=== PATIENT | male | born 1950 | race Caucasian/White ===

== ENCOUNTER 2017-08-14 17:31 | Observation (INO) | payer OTHER ==
[2017-08-14] MEDS ORDERED: ONDANSETRON 4 MG/2 ML VIAL ONE (18:00)
[2017-08-14] MEDS ORDERED: FENTANYL CITR 100 MCG/2 ML ONE (18:00)
[2017-08-14] MEDS ORDERED: NA CHLORIDE 0.9% 1,000 ML ONE (18:00)
[2017-08-14 18:04] LABS: Absolute Lymphocytes (CBC) 3.2 K/uL (0.7-4.9); Absolute Monocytes 1.1 K/uL (0.1-1.3); Absolute Neutrophil 7.5 K/uL (1.8-8.0); Basophils % 0.7 % (0-1.3); Eosinophils % 3.5 % (0-4.4); Hematocrit 43.4 % (39.6-49.0); Lymphocytes % 25.8 % (15.3-44.8); MCH 31.1 pg (27.0-35.0); MCV 95.4 fL (80-100); MPV 8.8 fL (7.6-11.3); Monocytes % 9.1 % (3.3-12.3); RBC Red Blood Cell Count 4.55 M/uL (4.33-5.43)
[2017-08-14 18:24] LABS: Albumin 3.7 g/dL (3.4-5.0); Bilirubin Direct 0.1 mg/dL (0-0.2); Bilirubin Total 0.6 mg/dL (0.2-1.0); Potassium 3.9 mmol/L (3.5-5.1); Protein, Total 7.7 g/dL (6.4-8.2)
--- NOTE | 2017-08-14 18:37 | EDPHYS ---
Physician Documentation [facility] Name: Humberto Medina Age: 67 yrs Sex: Male : 1950 Arrival Date: 08/14/2017 Time: 17:33 Bed 6 Private MD: Dustin Pack C ED Physician Roberto Garcia HPI: 08/14 18:34 This 67 yrs old Male presents to ER via Wheelchair with complaints of gs Abdominal Pain. 18:34 The patient presents with abdominal pain in the upper abdomen. Onset: The gs symptoms/episode began/occurred 1 week(s) ago, and became worse and became persistent. Associated signs and symptoms: Pertinent negatives: vomiting blood. The symptoms are described as intermittent, sharp. Modifying factors: the symptoms are aggravated by food. Severity of pain: At its worst the pain was severe in the emergency department the pain is unchanged. The patient has been recently seen by a physician:. Historical: - Allergies: 17:40 No Known Allergies; sv - Home Meds: 17:40 losartan oral oral [Active]; Norvasc Oral [Active]; hydrocodone [Active]; sv - PMHx: 17:40 Hypertension; sv - PSHx: 17:40 Gastric Bypass; left foot; left hand; sv - Immunization history:: Adult Immunizations up to date. - Social history:: Smoking status: Patient/guardian denies using tobacco. - Ebola Screening: : No symptoms or risks identified at this time. ROS: 18:34 All other systems are negative. gs Exam: 18:34 Head/Face: Normocephalic, atraumatic. Eyes: Pupils equal round and reactive to light, gs extra-ocular motions intact. Lids and lashes normal. Conjunctiva and sclera are non-icteric and not injected. Cornea within normal limits. Periorbital areas with no swelling, redness, or edema. ENT: Nares patent. No nasal discharge, no septal abnormalities noted. Tympanic membranes are normal and external auditory canals are clear. Oropharynx with no redness, swelling, or masses, exudates, or evidence of obstruction, uvula midline. Mucous membranes moist. Neck: Trachea midline, no thyromegaly or masses palpated, and no cervical lymphadenopathy. Supple, full range of motion without nuchal rigidity, or vertebral point tenderness. No Meningismus. Chest/axilla: Normal chest wall appearance and motion. Nontender with no deformity. No lesions are appreciated. Cardiovascular: Regular rate and rhythm with a normal S1 and S2. No gallops, murmurs, or rubs. Normal PMI, no JVD. No pulse deficits. Respiratory: Lungs have equal breath sounds bilaterally, clear to auscultation and percussion. No rales, rhonchi or wheezes noted. No increased work of breathing, no retractions or nasal flaring. Back: No spinal tenderness. No costovertebral tenderness. Full range of motion. Skin: Warm, dry with normal turgor. Normal color with no rashes, no lesions, and no evidence of cellulitis. MS/ Extremity: Pulses equal, no cyanosis. Neurovascular intact. Full, normal range of motion. Neuro: Awake and alert, GCS 15, oriented to person, place, time, and situation. Cranial nerves II-XII grossly intact. Motor strength 5/5 in all extremities. Sensory grossly intact. Cerebellar exam normal. Normal gait. 18:34 Constitutional: The patient appears alert, awake. 18:34 Abdomen/GI: Palpation: moderate abdominal tenderness, in the epigastric area and right upper quadrant. Vital Signs: 17:35 Pulse 57; Resp 22; Temp 98.4; Pulse Ox 100% ; Weight 110.22 kg; Height 5 ft. 9 in. sv (175.26 cm); Pain 6/10; 19:15 BP 121 / 81; Pulse 72; Resp 16; Temp 98.6(O); Pulse Ox 99% on R/A; Pain 0/10; lp1 17:35 Body Mass Index 35.88 (110.22 kg, 175.26 cm) sv MDM: 17:47 Patient medically screened. gs 18:34 Differential diagnosis: cholecystitis, Cholelithiasis, pancreatitis, cholangitis. Data reviewed: vital signs, nurses notes. Response to treatment: the patient's symptoms have markedly improved after treatment, and as a result, I will admit patient. 08/14 17:50 Order name: Basic Metabolic Panel; Complete Time: 18:33 08/14 17:50 Order name: CBC with Diff; Complete Time: 18:33 08/14 17:50 Order name: Hepatic Function; Complete Time: 18:33 08/14 17:50 Order name: Lipase; Complete Time: 18:33 08/14 18:47 Order name: Basic Metabolic Panel EDND 08/14 18:47 Order name: Basic Metabolic Panel EDND 08/14 17:54 Order name: Cholangiogram EDND 08/14 18:47 Order name: CBC with Automated Diff EDND 08/14 18:47 Order name: CBC with Automated Diff EDND 08/14 18:47 Order name: Lipase EDND 08/14 18:47 Order name: Lipase EDND 08/14 18:47 Order name: Liver (Hepatic) Function EDND 08/14 18:47 Order name: Liver (Hepatic) Function [facility] 08/14 17:50 Order name: IV Saline Lock; Complete Time: 18:12 08/14 17:50 Order name: Labs collected and sent; Complete Time: 18:12 08/14 18:47 Order name: CONS Physician Consult [facility] 08/14 18:47 Order name: NPO EDND Administered Medications: 18:00 Drug: Zofran 4 mg Route: IVP; Site: left antecubital; aj 18:59 Follow up: Response: No adverse reaction; Nausea is decreased sg 18:01 Drug: NS 0.9% 1000 ml Route: IV; Rate: 125 ml/hr; Site: left antecubital; aj 19:58 Follow up: IV Status: IV converted to saline lock lp1 18:01 Drug: fentaNYL (PF) 50 mcg Route: IVP; Site: left antecubital; aj 18:59 Follow up: Response: No adverse reaction; Pain is decreased sg 18:58 Drug: cefOXitin 1 grams Route: IVPB; Infused Over: 30 mins; Site: right antecubital; sg 19:58 Follow up: Response: No adverse reaction; IV Status: Completed infusion lp1 Disposition: 08/14/17 18:37 Hospitalization ordered by Dustin Pack for Inpatient Admission. Preliminary diagnosis is Acute cholecystitis. - Bed requested for Telemetry/MedSurg (Inpatient). - Status is Inpatient Admission. lp1 - Condition is Stable. - Problem is new. - Symptoms have improved. UTI on Admission? No Signatures: Dispatcher [employer] EDMS Mayte Castro RN RN Maricarmen French RN RN mw Gay, Steven, RN RN sg Myers, Amanda, RN RN aj Pena, Laura, RN RN [facility] Roberto Garcia MD MD Corrections: (The following items were deleted from the chart) 19:40 18:37 Hospitalization Ordered by A Ramone MORALEZ for Inpatient Admission. Preliminary mw diagnosis is Acute cholecystitis. Bed requested for Telemetry/MedSurg (Inpatient). Status is Inpatient Admission. Condition is Stable. Problem is new. Symptoms have improved. UTI on Admission? No. gs 20:42 19:40 08/14/2017 18:37 Hospitalization Ordered by A Ramone MORALEZ for Inpatient Admission. lp1 Preliminary diagnosis is Acute cholecystitis. Bed requested for Telemetry/MedSurg (Inpatient). Status is Inpatient Admission. Condition is Stable. Problem is new. Symptoms have improved. UTI on Admission? No. mw
--- NOTE | 2017-08-14 18:37 | ER ---
Nurse's Notes [facility] Name: Humberto Medina Age: 67 yrs Sex: Male : 1950 Arrival Date: 08/14/2017 Time: 17:33 Bed 6 Private MD: Dustin Pack C Diagnosis: Acute cholecystitis Presentation: 08/14 17:35 Presenting complaint: Patient states: sent by Dr Pan to r/o gallbladder. c/o RUQ sv pain x 2 weeks but pain has increased today. Denies n/v/d. Transition of care: patient was not received from another setting of care. Onset of symptoms was August 14, 2017. Care prior to arrival: None. 17:35 Method Of Arrival: Wheelchair sv 17:35 Acuity: FORD 3 sv 19:56 Risk Assessment: Do you want to hurt yourself or someone else? Patient reports no lp1 desire to harm self or others. Initial Sepsis Screen: Does the patient meet any 2 criteria? No. Patient's initial sepsis screen is negative. Does the patient have a suspected source of infection? No. Patient's initial sepsis screen is negative. Historical: - Allergies: 17:40 No Known Allergies; sv - Home Meds: 17:40 losartan oral oral [Active]; Norvasc Oral [Active]; hydrocodone [Active]; sv - PMHx: 17:40 Hypertension; sv - PSHx: 17:40 Gastric Bypass; left foot; left hand; sv - Immunization history:: Adult Immunizations up to date. - Social history:: Smoking status: Patient/guardian denies using tobacco. - Ebola Screening: : No symptoms or risks identified at this time. Screenin:56 Abuse screen: Denies threats or abuse. Denies injuries from another. Nutritional lp1 screening: No deficits noted. Tuberculosis screening: No symptoms or risk factors identified. Fall Risk None identified. Assessment: 18:01 General: Appears in no apparent distress. uncomfortable, Behavior is calm, cooperative, aj appropriate for age. Pain: Complains of pain in right upper quadrant and left upper quadrant. Neuro: Level of Consciousness is awake, alert, obeys commands, Oriented to person, place, time, situation, Appropriate for age. Respiratory: Airway is patent Respiratory effort is even, unlabored, Respiratory pattern is regular, symmetrical. GI: Abdomen is non-distended, obese, Bowel sounds present X 4 quads. Abdomen is tender to palpation in epigastric area and right upper quadrant. Derm: Skin is intact, is healthy with good turgor, Skin is pink, warm \T\ dry. normal. 19:15 Reassessment: Patient appears in no apparent distress at this time. Patient and/or lp1 family updated on plan of care and expected duration. Pain level reassessed. Patient is alert, oriented x 3, equal unlabored respirations, skin warm/dry/pink. Patient aware of pending admission Patient denies pain at this time. 19:55 Reassessment: Patient requesting to have something to eat; Dr. Pack notified, verbal lp1 order given for NPO at Midnight. 20:07 Reassessment: Patient taken for MRI. lp1 Vital Signs: 17:35 Pulse 57; Resp 22; Temp 98.4; Pulse Ox 100% ; Weight 110.22 kg; Height 5 ft. 9 in. sv (175.26 cm); Pain 6/10; 19:15 BP 121 / 81; Pulse 72; Resp 16; Temp 98.6(O); Pulse Ox 99% on R/A; Pain 0/10; lp1 17:35 Body Mass Index 35.88 (110.22 kg, 175.26 cm) sv ED Course: 17:33 Patient arrived in ED. rg4 17:33 Dustin Pack MD is Private Physician. rg4 17:36 Adilene Fish, VANESSA is Primary Nurse. aj 17:38 Roberto Garcia MD is Attending Physician. gs 17:39 Triage completed. sv 17:41 Arm band placed on left wrist. sv 18:00 Inserted saline lock: 20 gauge in left antecubital area, using aseptic technique. Blood aj collected. 18:36 Dustin Pack MD is Hospitalizing Provider. gs 19:56 Patient has correct armband on for positive identification. Placed in gown. Pulse ox lp1 on. NIBP on. 19:57 No provider procedures requiring assistance completed. Patient admitted, IV remains in lp1 place. 20:00 Patient moved to MRI via wheelchair. ka 20:41 MRI completed. Patient tolerated well. Patient moved back from MRI. ka Administered Medications: 18:00 Drug: Zofran 4 mg Route: IVP; Site: left antecubital; aj 18:59 Follow up: Response: No adverse reaction; Nausea is decreased sg 18:01 Drug: NS 0.9% 1000 ml Route: IV; Rate: 125 ml/hr; Site: left antecubital; aj 19:58 Follow up: IV Status: IV converted to saline lock lp1 18:01 Drug: fentaNYL (PF) 50 mcg Route: IVP; Site: left antecubital; aj 18:59 Follow up: Response: No adverse reaction; Pain is decreased sg 18:58 Drug: cefOXitin 1 grams Route: IVPB; Infused Over: 30 mins; Site: right antecubital; sg 19:58 Follow up: Response: No adverse reaction; IV Status: Completed infusion lp1 Outcome: 18:37 Decision to Hospitalize by Provider. 19:57 Condition: stable lp1 19:57 Instructed on the need for admit. 20:06 Admitted to Med/surg via wheelchair, room 208, with chart, Report called to Sandra Casas RN 20:42 Patient left the ED. 1 Signatures: Mayte Castro RN RN sv Gay, Steven, RN RN sg Myers, Amanda, RN RN aj Pena, Laura, RN RN lp1 Peggy Hurley Rubi rg4 Roberto Garcia MD MD
[2017-08-14] MEDS ORDERED: MORPHINE 4 MG/ML SYR IV PRN (18:45)
[2017-08-14] MEDS ORDERED: ACETAMINOPHEN 500 MG TAB PO PRN (18:45)
[2017-08-14] MEDS ORDERED: ONDANSETRON 4 MG/2 ML VIAL IV PRN (18:45)
[2017-08-14] MEDS ORDERED: CEFOXITIN/SWI 1gm 1 GM/10 ML SYR ONE (18:52)
[2017-08-14] MEDS ORDERED: CEFOXITIN/SWI 1gm 1 GM/10 ML SYR IVP ONE (19:00)
--- NOTE | 2017-08-14 20:53 | RAD REPORT ---
EXAM DESCRIPTION: MRI - Cholangiogram - 08/14/2017 8:33 pm CLINICAL HISTORY: Acute cholecystitis, known cholelithiasis. Worsening right upper quadrant pain COMPARISON: CT study August 07 TECHNIQUE: MRCP imaging was performed. Axial and coronal T2 weighted images were obtained. Static co rony T2 haste fat saturation sequences were obtained. Coronal T2 weighted reconstruction images were obtained. Horizontal and vertical axes 3D rotational views generated and reviewed. FINDINGS: Several gallstones are identified in the dependent portion of the gallbladder. Gallbladder wall does not appear thickened or edematous. Biliary tree is normal in diameter. No duct stone or other intralu katrin filling defect. No pancreatic duct abnormality identified. IMPRESSION: No biliary tree abnormality. No evidence for duct stone. Cholelithiasis without evidence for wall thickening or edema.
[2017-08-14] MEDS: D5 0.45 NS 1,000 ML IV SCH (21:59)
[2017-08-14] MEDS: LOSARTAN POTASSIUM 50 MG TABLET PO SCH (22:00)
[2017-08-14 23:20] VITALS: BMI 35.9
[2017-08-15] MEDS ORDERED: CEFOXITIN SODIUM 1 GM/VIAL IVPB SCH (01:00)
[2017-08-15] MEDS ORDERED: CEFOXITIN/SWI 1gm 1 GM/10 ML SYR ONE (01:50)
[2017-08-15] MEDS: CEFOXITIN/SWI 1gm 1 GM/10 ML SYR IVP SCH ×3 (01:52→17:16)
[2017-08-15] MEDS: D5 0.45 NS 1,000 ML IV SCH ×3 (03:25→17:16)
--- NOTE | 2017-08-15 04:16 | HP ---
Date of Admission: 08/14/2017 Chief Complaint: Abdominal pain. History Of Present Illness: A 67-year-old pleasant male patient, who started to have abdominal pain in epigastric and right upper quadrant about 2 weeks ago and he saw a acetylene plant operator, Dr. Inge zayas. Dr. Gambino did further workup on outpatient basis that included CAT scan, abdominal ultrasound, and EGD, and informed the patient that he has gallstones and symptomatic cholelithiasis, needed gall bladder surgery, so patient actually saw Dr. Pan today for his appointment and subsequently ende d up coming to the emergency room because of worsening of his abdominal pain. Denies any fever or ch ills. No diarrhea, no nausea, no vomiting. His pain has been getting worse in last 2 weeks, and he takes hydrocodone at home for the pain, but lately even hydrocodone is not helping. When I saw him i n the emergency room, he was asymptomatic because he had received some fentanyl that had provided kiley e pain relief. Allergies: NO KNOWN ALLERGIES. Medications: He takes amlodipine 5 mg daily and losartan 50 mg 2 times a day and takes hydrocodone 5 mg one q.6 hours p.r.n. pain. Review of Systems: GI: As mentioned above. All other systems reviewed and negative. Past Medical History: Hypertension, impaired fasting glucose, hyperlipidemia, prostate cancer. Past Surgical History: Gastric bypass surgery in 2006 and surgery for ankle fracture many years ago. Family History: Significant for mother with polycythemia vera and diabetes. Social History: Negative for smoking alcohol use. Physical Examination: Vital Signs: Temperature 98.4, pulse 57, respiratory rate 22, blood pressure 121/81, oxygen saturati on 100%. Height 5 feet 9 inches. Weight 243 pounds. General: Awake, alert, oriented, not in distress. HEENT: Head atraumatic, normocephalic. Conjunctivae nonerythematous. Sclerae white. Mouth, no thr ush or edema noted. Ears/Nose, no mass, lesion, discharge noted. Neck: Supple. No JVD, lymph nodes, bruit, thyromegaly noted. Lungs: Bilateral good equal air entry. Clear to auscultation. No rhonchi. No rales. Heart: Normal heart sounds, no murmur or gallop. Abdomen: Soft, bowel sounds normal. No guarding, rigidity, distention. No hepatosplenomegaly, no br uit. Presence of mild right upper quadrant tenderness. No rebound tenderness. Bowel sounds normoac tive. Extremities: No leg edema. No calf tenderness. Skin: No rash, ulcer, cellulitis. Lymphatics: No lymph node enlargement in neck, supraclavicular, infraclavicular region. Neuro: No focal neurological deficit. Chest: Unremarkable. External Genitalia: Deferred. Rectal: Deferred. Laboratory Data: White count 12.3, hemoglobin 14.2, platelets 338. Sodium 135, potassium 3.9, chlor ilan 103, bicarb 25, BUN 19, creatinine 1.20, glucose 92. Liver function tests were unremarkable. Li pase 175. MRCP done today shows no evidence of biliary tree abnormality, no evidence of duct stone, presence of cholelithiasis. Impression: 1.Gallstone with acute cholecystitis, without obstruction. 2.Hypertension. 3.Hyperlipidemia. 4.Impaired fasting glucose. 5.Prostate cancer. Plan: Admit the patient to hospital for further evaluation and management of this problem. The shaniqua ent is appropriate for inpatient and is expected to spend 2 midnights in the hospital. We will go ah ead and keep him n.p.o. after midnight. Consult Dr. Pan. The patient is at acceptable risk fro m gallbladder surgery and hopefully he should have gallbladder surgery tomorrow. Continue empiric an tibiotics per order. SCD will be ordered for DVT prophylaxis. Pain medication will be given per ord er. I will see him tomorrow for followup. Details and plan of treatment were discussed with the awilda feng. SYEDA/MODL Voice ID: [id number]
[2017-08-15 04:56] LABS: Absolute Lymphocytes (CBC) 2.5 K/uL (0.7-4.9); Absolute Monocytes 0.8 K/uL (0.1-1.3); Absolute Neutrophil 3.5 K/uL (1.8-8.0); Basophils % 1.4 % (0-1.3); Eosinophils % 7.7 % (0-4.4); Lymphocytes % 33.2 % (15.3-44.8); MCH 32.2 pg (27.0-35.0); MCV 93.8 fL (80-100); MPV 8.4 fL (7.6-11.3); Monocytes % 10.4 % (3.3-12.3); RBC Red Blood Cell Count 3.94 M/uL (4.33-5.43)
[2017-08-15 05:21] LABS: Bilirubin Direct 0.1 mg/dL (0-0.2); Bilirubin Total 0.7 mg/dL (0.2-1.0); Protein, Total 6.1 g/dL (6.4-8.2)
[2017-08-15 06:24] LABS: Urine Appearance CLEAR; Urine Bilirubin NEGATIVE (NEG); Urine Blood NEGATIVE (NEG); Urine Color YELLOW; Urine Glucose NEGATIVE (NEG); Urine Protein NEGATIVE (NEG); Urine Specific Gravity 1.015 (1.005-1.030); Urine Urobilinogen 0.2 mg/dL (0.2-1.0); Urine pH 5.5 (5.0-7.0)
[2017-08-15 06:56] LABS: Urine Microscopic Reflex NO UMIC
[2017-08-15] MEDS ORDERED: AMLODIPINE 5 MG TAB PO SCH (09:00)
[2017-08-15] MEDS: LOSARTAN POTASSIUM 50 MG TABLET PO SCH (09:00)
[2017-08-15] MEDS ORDERED: Ringers Lactate 1,000 ML IV ONE (12:06)
[2017-08-15] MEDS ORDERED: PROPOFOL 200 MG/20 ML VIAL IV ONE (12:35)
[2017-08-15] MEDS ORDERED: MIDAZOLAM HCL 2 MG/2 ML INJ ONE (12:36)
[2017-08-15] MEDS ORDERED: LIDOCAINE 2% MPF 5 ML VIAL ONE (12:36)
[2017-08-15] MEDS ORDERED: FENTANYL CITR 100 MCG/2 ML ONE (12:42)
[2017-08-15] MEDS ORDERED: ROCURONIUM 50 MG/5 ML VIAL IV ONE (12:43)
[2017-08-15] MEDS ORDERED: FENTANYL CITR 250 MCG/5 ML ONE (12:43)
[2017-08-15] MEDS ORDERED: ONDANSETRON HCL 40 MG/20 ML VIAL ONE (12:43)
[2017-08-15] MEDS ORDERED: DEXAMETHASONE 10 MG/ML VIAL ONE (13:09)
[2017-08-15] MEDS ORDERED: GLYCOPYRROLATE 0.2 MG/ML SYR ONE ×3 (13:23→13:24)
[2017-08-15] MEDS ORDERED: NEOSTIGMINE 1 MG/ML -5 ML SYRINGE ONE (13:24)
--- NOTE | 2017-08-15 13:28 | P.BOP ---
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
[2017-08-15] MEDS: MEPERIDINE HCL 50 MG/ML AMP ONE ×5 (13:39→14:07)
[2017-08-15] MEDS ORDERED: HYDROCODONE/APAP 7.5/325 MG TAB PO PRN (14:08)
[2017-08-15] MEDS: MORPHINE 4 MG/ML SYR ONE ×2 (14:12→14:20)
[2017-08-15] MEDS ORDERED: MORPHINE 4 MG/ML SYR ONE (14:44)
[2017-08-15 14:51] VITALS: O2SAT 98
[2017-08-15 18:11] VITALS: BP 163/74; TEMP 98.2
--- NOTE | 2017-08-16 00:18 | OP ---
Date of Procedure: 08/15/2017 Surgeon: Shan Pan MD Full Roll Inspector: LIZA Graham. Preoperative Diagnoses: Acute cholecystitis, symptomatic cholelithiasis, history of Lorena-en-Y gastri c bypass, morbid obesity. Postoperative Diagnoses: Acute cholecystitis, symptomatic cholelithiasis, history of Lorena-en-Y gastr ic bypass, morbid obesity. Procedure: Laparoscopic cholecystectomy. Estimated Blood Loss: Less than 10 cc. Specimens: Gallbladder. Indications: This is the case of a male, who comes to us with intractable abdominal pain in epigastr ic area and right upper quadrant, radiating to the back, associated with nausea and vomiting. The pa ramón was seen yesterday and sent to the ER. The patient needs to have an MRCP since it was a questi on about having pancreatitis or not and since the patient has a Lorena-en-Y, we have no access to the c ommon bile duct from the stomach. So, we want to make sure there is no stone in that area. MRCP was done, shows no stone in the common bile duct. So, we offered him laparoscopic, possible open cholec ystectomy with benefits, alternatives, and risks including, but not limited to infection, bleeding, d amage to adjacent structures, anesthesia complication, cholelithiasis, choledocholithiasis, bile leak , pancreatitis, AL, or even . He also understands this may not relieve any symptoms. He might need more than one surgical intervention. He understood and signed a consent. Description Of Procedure: The patient was brought to the operating room and placed in supine positio n. Anesthesia was done without complication. Abdominal area was prepped and draped in the usual emiliano rile fashion. Marcaine 0.5% injected for local anesthetic, followed by sharp incision of the skin in the infraumbilical region. Incision was carried down to fascia, which was opened under direct visio n. Peritoneum was encountered, opened under direct vision. Vicryl #1 was placed inside the fascia. Adonay trocar was carefully introduced. No bleeding was obtained. We noted extensive intra-abdomin al adhesions in the epigastric area and right upper quadrant. We were able to just manage to go arou nd the adhesions, found the gallbladder, put 3 more trocars in the right upper quadrant, avoiding the adhesions area. A grasper was placed in the fundus of the gallbladder. We noticed the thickening o f gallbladder wall. Another grasper was placed in the infundibulum, retracting the gallbladder in th e inferolateral fashion, exposing the triangle of Calot, and obtaining critical view of safety. Cyst ic duct and cystic artery were clearly isolated free circumferentially, and a connection between thos e and the gallbladder were clearly identified. I proceeded to ligate those by using at least 3 clips proximal, 1 clip distal, and ligation in middle. Small cystic artery branch also was ligated. Cyst ic duct was also ligated with 3 clips proximal, 1 clip distal, and ligation in middle. Hepatic arter y and common bile duct were protected at all times. Gallbladder was removed from the liver using Bov ie cauterizer and removed from abdominal cavity using EndoCatch through the umbilical incision. Area was inspected once again, no bile leak, no bleeding. At that moment, I proceeded to remove the troc ars under direct vision. Deflated pneumoperitoneum. Closed the fascia with #1 Vicryl. Irrigated bernardo bcutaneous tissue and closed that with 3-0 chromic and the skin with charu. Sponge counts and inst rument counts were correct. The patient tolerated the procedure well. The patient was sent to [facility] in stable condition. COLT/TEOFILO Voice ID: [id number] Report ID: [id number]
--- NOTE | 2017-08-16 06:10 | DS ---
Date of Discharge: 08/15/2017 Disposition: Discharged to go home. Physical Examination: HEENT: Unremarkable. Lungs: Clear to auscultation. Heart: Sounds normal. Abdomen: Soft, bowel sounds normal. No guarding, rigidity, or distention but presence of right uppe r quadrant tenderness. Extremities: No leg edema. Discharge Medications And Instructions: 1.Continue all prior home medications. 2.Augmentin as prescribed by Dr. Pan and I have instructed nurse to call prescription for trama dol 50 mg 1 tablet every 6 hours as needed for pain, #20, no refills if the patient does not have hyd rocodone at home. Laboratory Data: White count yesterday was 12.3, hemoglobin 14.2, platelets 338. This morning, whit e count 7.5, hemoglobin 12.7, platelets 262. Chemistry today; sodium 140, potassium 4, chloride 106, bicarb 25, BUN 15, creatinine 0.90, glucose 84. Liver function tests unremarkable. Lipase 148. Hospital Course: A 67-year-old male patient, who was admitted to the hospital after he presented to emergency room yesterday with abdominal pain. Please see dictated H and P for more information. Aft er the patient was evaluated in the ER, he was admitted to the hospital with gallstone with acute cho lecystitis. MRCP was done yesterday; it shows no evidence of stone in the common bile duct. The pat ient was kept n.p.o. IV fluid, IV antibiotics, pain medication were given. This morning, he had the surgery done by Dr. Pan. After surgery, Dr. Pan has released him to go home from General Surgery point of view and medically he is stable for discharge. So, he was discharged [facility]. One of his home medication listed was hydrocodone that he was taking for pain and I did not pres cribe that medication, but if the patient has supply of that pain medication then he will continue to use it; if it does not, then we will have nurse call prescription for tramadol and I have instructed nursing staff to do so. Dr. Pan had written prescription for Tylenol with Codeine, but he info rmed nursing staff that he cannot take codeine type of pain medication. The patient to follow up wit h my office in 2 weeks and follow up with Dr. Pan per his instruction. Final Diagnoses: 1.Gallstone with acute cholecystitis, without obstruction. 2.Hypertension. 3.Hyperlipidemia. 4.Impaired fasting glucose. 5.Prostate cancer. SYEDA/MODL Voice ID: [id number] Report ID: [id number]
--- NOTE | 2017-08-27 15:23 | CON ---
Date of Consultation: 08/14/2017 Diagnosis: Intractable right upper quadrant pain. Indication For Procedure: This is the case of a 67-year-old patient, sent to the ER today after foun d to have abdominal pain for about 3 days induration, considered to be epigastric right upper quadran t pain with nausea, vomiting, and bloating. The patient has been having some on and off abdominal pa in for the last 2 weeks. He was seen by the quality control microbiology supervisor recently. We even did an upper endos copy and ruling out any gastric ulcer. In the last 48 hours, the patient has being worse. He has a history of Lorena-en-Y gastric bypass several years ago, and he is saying he has not had a problem with that. He denies any dysuria, hematuria, hematochezia, or melena. Denies any recent traveling out o f the country. Denies any family member sick at home. Allergies: NONE. Medications: Amlodipine, and then he takes hydrocodone as he has from his dentist every time he has epigastric and right upper quadrant pain in the last 48 hours. The patient is advised not to do so. Past Medical History: Hypertension, prostate cancer, hyperlipidemia, obesity. Past Surgical History: As above. Family History: Diabetes, polycythemia vera. Social Habits: He does not smoke. He does not drink alcohol. Review of Systems: Constitution: Denies any fevers or chills. Respiratory: Denies any shortness of breath. Gastrointestinal: As above. Genitourinary: Denies any dysuria or hematuria. Physical Examination: General: The patient is awake and alert. HEENT: Pupils are equal and reactive, anicteric. Neck: Supple. Chest: Clear. Abdomen: Epigastric right upper quadrant tenderness with Good sign positive. Pelvis: Stable. Rectal: Deferred. Extremities: Good capillary refill. Laboratory Data: Blood work shows a WBC count of 12.3 with a hemoglobin of 14.2 and platelets 338. Sodium is 135, creatinine is 1.2, with GFR of 61. BUN of 19, total bilirubin of 0.6. Although, prev ious tests shows mild LFTs elevation. Assessment: This is a 67-year-old patient with a history of acute cholecystitis, symptomatic choleli thiasis. The patient has Lorena-en-Y gastric bypass, so it is not possible to access the common bile d uct through the stomach due to the surgery. The patient has some questionable dilatation of the comm on bile duct and also previous LFTs elevated. We are going to obtain an MRCP first since it is very important for us to make sure there are no stones in the common bile duct that we have to address. T his will be followed by cholecystectomy laparoscopy or possible open with benefits, alternatives, and risks including, but not limited to infection, bleeding, damage to adjacent structures as complicati on, choledocholithiasis, bile leak, pancreatitis, IA, and even . He also understands this may n ot relieve his symptoms. He might need more than one surgical intervention. He understood we might encounter some adhesions in the right upper quadrant from his previous Lorena-en-Y gastric bypass. He will sign a consent. JENNY Voice ID: [id number] Report ID: [id number]
== END 2017-08-15 19:04 | disposition home or self-care (01) ==
LOC: ER 17:31 → ERHOLD 18:43 → INTOOBSV 18:43 → 2ND 20:02
PROVIDERS: ADMIT Internal Medicine; ATTEND Internal Medicine
PROC: 0FT44ZZ Resection of Gallbladder, Percutaneous Endoscopic Approach (ICD-10-PCS; principal; 2017-08-15 13:00)
DX: K80.00 Calculus of gallbladder with acute cholecystitis without obstruction (principal); I10 Essential (primary) hypertension; E78.5 Hyperlipidemia, unspecified; Z85.46 Personal history of malignant neoplasm of prostate; Z98.84 Bariatric surgery status; E66.01 Morbid (severe) obesity due to excess calories; Z68.35 Body mass index [BMI] 35.0-35.9, adult
CPT/HCPCS: 36415; 74181; 80048; 80076; 81003; 83690; 85025; 88304; 96361; 96365; 96375; 99285; G0378; J1100; J2175; J2250; J2405; J2710; J3010; J7030

== ENCOUNTER 2017-09-27 07:00 | Day surgery (SDC) | payer OTHER ==
--- NOTE | 2017-09-26 13:00 | RAD REPORT ---
EXAM DESCRIPTION: RAD - Chest Pa And Lat (2 Views) - 09/26/2017 12:46 pm CLINICAL HISTORY: left heart cath Chest pain. COMPARISON: CHEST SINGLE VIEW dated 09/03/2014 FINDINGS: The lungs are clear. The heart is normal in size. No displaced fractures. IMPRESSION: No acute or concerning finding suspected.
[2017-09-26 13:14] LABS: Absolute Monocytes 0.5 K/uL (0.1-1.3); Absolute Neutrophil 4.2 K/uL (1.8-8.0); Basophils % 0.9 % (0-1.3); Eosinophils % 1.9 % (0-4.4); Hematocrit 43.5 % (39.6-49.0); Lymphocytes % 29.1 % (15.3-44.8); MCH 31.4 pg (27.0-35.0); MCV 93.2 fL (80-100); Monocytes % 7.9 % (3.3-12.3); RBC Red Blood Cell Count 4.67 M/uL (4.33-5.43)
[2017-09-26 13:28] LABS: Protime INR 0.98
[2017-09-26 13:33] LABS: Potassium 3.9 mmol/L (3.5-5.1)
--- NOTE | 2017-09-26 17:05 | EKG ---
Test Date: 2017-09-26 Test Time: 12:48:48 General Adjuster: KELSI MEASUREMENT RESULTS: Intervals: Rate: 65 IL: 174 QRSD: 150 QT: 426 QTc: 443 Clint: P: 16 IL: 174 QRS: -19 T: 77 INTERPRETIVE STATEMENTS: Normal sinus rhythm Left bundle branch block Abnormal ECG Compared to ECG 09/03/2014 21:37:16 Left-axis deviation no longer present Electronically Signed On 09-26-17 17:04:59 CDT by Jose Roberto Bolton
[2017-09-27] MEDS ORDERED: HEPA 1000U/500MLS 0 UNIT/0 ML BAG IV ONE (07:11)
[2017-09-27] MEDS ORDERED: NITROGLYCERIN/D5W 0 MG/0 ML BTL IV ONE (07:12)
[2017-09-27] MEDS ORDERED: HEPARIN 5000 UNIT/ML 1 ML VIAL ONE (07:12)
[2017-09-27] MEDS ORDERED: ATROPINE SULF 1 MG/10 ML SYR IV ONE (07:12)
[2017-09-27] MEDS ORDERED: LIDOCAINE 1% MPF 2 ML AMPULE ONE (07:12)
[2017-09-27] MEDS ORDERED: NICARDIPINE HCL 25 MG/10 ML IV ONE (07:12)
[2017-09-27] MEDS ORDERED: NA CHLORIDE 0.9% 0 ML ONE (07:12)
[2017-09-27] MEDS ORDERED: NA CHLORIDE 0.9% 500 ML ONE (07:19)
[2017-09-27 09:45] VITALS: BP 135/56; TEMP 97.1; O2SAT 98
== END 2017-09-27 09:30 | disposition home or self-care (01) ==
LOC: CCL 07:00
PROVIDERS: ATTEND Internal Medicine
DX: I25.10 Atherosclerotic heart disease of native coronary artery without angina pectoris (principal); Z53.9 Procedure and treatment not carried out, unspecified reason
CPT/HCPCS: 36415; 71046; 80048; 85025; 85610; 85730; 93005; J0583; J1644; J2001

== ENCOUNTER 2017-10-02 07:55 | Day surgery (SDC) | payer OTHER ==
[2017-10-02] MEDS ORDERED: NA CHLORIDE 0.9% 500 ML ONE (08:11)
[2017-10-02 08:35] VITALS: TEMP 97.4
[2017-10-02] MEDS ORDERED: LIDOCAINE 1% MPF 2 ML AMPULE ONE (10:16)
[2017-10-02] MEDS ORDERED: HEPA 1000U/500MLS 1,000 UNIT/500 ML BAG IV ONE (10:16)
[2017-10-02] MEDS ORDERED: NICARDIPINE HCL 25 MG/10 ML IV ONE (10:16)
[2017-10-02] MEDS ORDERED: HEPARIN 5000 UNIT/ML 1 ML VIAL ONE (10:16)
[2017-10-02] MEDS ORDERED: NA CHLORIDE 0.9% 0 ML ONE (10:17)
[2017-10-02] MEDS ORDERED: ATROPINE SULF 1 MG/10 ML SYR IV ONE (10:17)
[2017-10-02] MEDS ORDERED: MIDAZOLAM HCL 2 MG/2 ML INJ ONE ×3 (10:35→11:03)
[2017-10-02] MEDS ORDERED: FENTANYL CITR 100 MCG/2 ML ONE (10:35)
[2017-10-02 12:43] VITALS: O2SAT 98
[2017-10-02 13:14] VITALS: BP 131/64
--- NOTE | 2017-10-02 22:01 | OP ---
Surgeon: Jose Roberto Bolton MD Procedure: Left heart catheterization, coronary left ventricular angiography. Findings: The patient has normal coronaries except for a 40% plaque in the mid LAD. It is smooth an d not severe enough to be causing any symptoms. The ejection fraction is normal. Left ventricular e nd-diastolic pressure normal at 3. A completely normal cardiac cath. Procedure In Detail: The patient was brought to the cardiac ammunition assembly laborer in a fasting state, sedated wit h Versed, fentanyl, titrated to an adequate level of sedation. He was prepared and draped in the usu al sterile fashion. Right radial approach was used. 1 cc of 1% lidocaine was used to anesthetize th e tissues around the artery. The artery was entered using a 21-gauge needle. We then used a 0.021 i nch diameter straight guidewire to cannulate the artery. The modified Seldinger technique was then u sed to place a 6-Yi Terumo radial sheath. The sheath was flushed. Radial cocktail was given con taining nicardipine, heparin, nitroglycerin. We then used a TIG catheter. It was guided into the as cending aorta using a short radius J-tip Glidewire and fluoroscopy. We were able to use this cathete r to angiogram the left ventricle, left coronary, right coronary. At the end of the procedure, it wa s clear that no intervention was needed. Wire was drawn out over a J-wire. The sheath was flushed, removed. The arteriotomy closed with a TR band. Complications from the procedure none. Facing Grinder: Randell Pierce. Estimated Blood Loss: 5 cc. BETTINA/TEOFILO Voice ID: [id number] Report ID: [id number]
== END 2017-10-02 13:14 | disposition home or self-care (01) ==
LOC: CCL 07:55
PROVIDERS: ATTEND Internal Medicine
PROC: 4A023N7 Measurement of Cardiac Sampling and Pressure, Left Heart, Percutaneous Approach (ICD-10-PCS; principal; 2017-10-02)
PROC: B211YZZ Fluoroscopy of Multiple Coronary Arteries using Other Contrast (ICD-10-PCS; 2017-10-02)
PROC: B215YZZ Fluoroscopy of Left Heart using Other Contrast (ICD-10-PCS; 2017-10-02)
DX: R07.89 Other chest pain (principal); I10 Essential (primary) hypertension; E78.5 Hyperlipidemia, unspecified; K21.9 Gastro-esophageal reflux disease without esophagitis
CPT/HCPCS: 93458; C1893; J1644; J2001; J2250 ×3; J3010; J0583

== ENCOUNTER 2017-12-12 20:50 | Emergency (ER) | payer OTHER ==
--- NOTE | 2017-12-12 21:43 | RAD REPORT ---
EXAM DESCRIPTION: CT - CTHCSPWOC - 12/12/2017 9:32 pm CLINICAL HISTORY: Trauma, head and neck injury. fall ETOH COMPARISON: HEAD BRAIN W O CONTRAST dated 07/21/2008 TECHNIQUE: Axial 5 mm thick images of the head were obtained. Axial 2 mm thick images of the cervical spine were obtained with sagittal and coronal reconstruction images generated and reviewed. All CT scans are performed using dose optimization technique as appropriate and may include automated exposure control or mA/KV adjustment according to patient size. FINDINGS: CT HEAD WITHOUT CONTRAST: No acute hemorrhage, hydrocephalus or extra-axial collection is identified.No areas of brain edema or midline shift. The paranasal sinuses and mastoids are clear.The calvarium is intact. CT CERVICAL SPINE WITHOUT CONTRAST: No fracture or subluxation.No prevertebral soft tissues swelling is identified. IMPRESSION: No acute intracranial or cervical spine findings.
[2017-12-12 23:47] LABS: Absolute Lymphocytes (CBC) 2.3 K/uL (0.7-4.9); Absolute Monocytes 0.5 K/uL (0.1-1.3); Absolute Neutrophil 5.7 K/uL (1.8-8.0); Basophils % 1.3 % (0-1.3); Eosinophils % 1.7 % (0-4.4); Hematocrit 41.9 % (39.6-49.0); Lymphocytes % 26.4 % (15.3-44.8); MCV 92.2 fL (80-100); MPV 8.9 fL (7.6-11.3); Monocytes % 5.3 % (3.3-12.3); RBC Red Blood Cell Count 4.54 M/uL (4.33-5.43)
[2017-12-13 00:08] LABS: Albumin 3.8 g/dL (3.4-5.0); Bilirubin Direct 0.1 mg/dL (0-0.2); Bilirubin Total 0.4 mg/dL (0.2-1.0); Potassium 3.7 mmol/L (3.5-5.1); Protein, Total 7.3 g/dL (6.4-8.2)
[2017-12-13 00:34] LABS: Protime INR 0.96
--- NOTE | 2017-12-13 02:11 | EDPHYS ---
Physician Documentation [facility] Name: Humberto Medina Age: 67 yrs Sex: Male : 1950 Arrival Date: 12/12/2017 Time: 20:51 Bed 7 Private MD: ED Physician Eren Dalal HPI: 12/12 20:56 This 67 yrs old Male presents to ER via Unassigned with complaints of fall ps1 and ETOH. 20:56 patient was at a green party drinking all day and fell and had +LOC after hitting head for 3 ps1 minutes. Patient is alert and oriented now and denies symptoms or pain. BIBEMS, c-collared and backboarded. . Historical: - Allergies: 21:01 No Known Allergies; aa1 - Home Meds: 12/13 02:14 Hydrocodone [Active]; losartan Oral [Active]; Norvasc Oral [Active]; ao - PMHx: 12/12 21:01 Hypertension; aa1 - PSHx: 21:01 Gastric Bypass; left foot; left hand; aa1 - Immunization history:: Last tetanus immunization: unknown. - Social history:: Smoking status: Patient/guardian denies using tobacco, Patient uses alcohol. - Immunization history: Last tetanus immunization: unknown. - Ebola Screening: : No symptoms or risks identified at this time. ROS: 20:56 Constitutional: Negative for fever, chills, and weight loss, Eyes: Negative for injury, ps1 pain, redness, and discharge, Cardiovascular: Negative for chest pain, palpitations, and edema, Respiratory: Negative for shortness of breath, cough, wheezing, and pleuritic chest pain, Abdomen/GI: Negative for abdominal pain, nausea, vomiting, diarrhea, and constipation, MS/Extremity: Negative for injury and deformity, Skin: Negative for injury, rash, and discoloration, Neuro: Negative for headache, weakness, numbness, tingling, and seizure. Exam: 20:56 Constitutional: This is a well developed, well nourished patient who is awake, alert, ps1 and in no acute distress. Head/Face: Normocephalic, atraumatic. Chest/axilla: Normal chest wall appearance and motion. Nontender with no deformity. No lesions are appreciated. Cardiovascular: Regular rate and rhythm. No gallops, murmurs, or rubs. Normal PMI, no JVD. No pulse deficits. Respiratory: Lungs have equal breath sounds bilaterally, clear to auscultation and percussion. No rales, rhonchi or wheezes noted. No increased work of breathing, no retractions or nasal flaring. Abdomen/GI: Soft, non-tender, with normal bowel sounds. No distension or tympany. No guarding or rebound. No evidence of tenderness throughout. MS/ Extremity: Pulses equal, no cyanosis. Neurovascular intact. Full, normal range of motion. Neuro: Awake and alert, GCS 15, oriented to person, place, time, and situation. Cranial nerves II-XII grossly intact. Sensory grossly intact. Vital Signs: 20:53 BP 151 / 89; Pulse 64; Resp 18; Temp 98.4; Pulse Ox 98% on R/A; Weight 127.01 kg; aa1 Height 5 ft. 9 in. (175.26 cm); Pain 0/10; 22:15 BP 116 / 74; Pulse 59; Resp 16; Pulse Ox 98% on R/A; Pain 0/10; ao 23:58 BP 147 / 98; Pulse 67; Resp 16; Pulse Ox 100% on R/A; Pain 0/10; ao 12/13 00:56 BP 176 / 86; Pulse 61; Resp 16; Pulse Ox 96% on R/A; Pain 0/10; ao 02:09 BP 141 / 63; Pulse 69; Resp 16; Pulse Ox 97% on R/A; ao 12/12 20:53 Body Mass Index 41.35 (127.01 kg, 175.26 cm) aa1 Chantal Coma Score: 12/12 20:53 Eye Response: spontaneous(4). Verbal Response: oriented(5). Motor Response: obeys aa1 commands(6). Total: 15. Trauma Score (Adult): 20:53 Eye Response: spontaneous(1); Verbal Response: oriented(1); Motor Response: obeys aa1 commands(2); Systolic BP: > 89 mm Hg(4); Respiratory Rate: 10 to 29 per min(4); Chantal Score: 15; Trauma Score: 12 MDM: 21:00 Patient medically screened. ps1 12/13 02:08 Data reviewed: vital signs, nurses notes, lab test result(s), radiologic studies, and ps1 as a result, I will discharge patient. Counseling: I had a detailed discussion with the patient and/or guardian regarding: the historical points, exam findings, and any diagnostic results supporting the discharge/admit diagnosis, radiology results, the need for outpatient follow up, to return to the emergency department if symptoms worsen or persist or if there are any questions or concerns that arise at home. ED course: patient sober and ambulating without assistance. Leaving with sober ride. . 12/12 22:19 Order name: Basic Metabolic Panel; Complete Time: 00:53 12/12 22:19 Order name: CBC with Diff; Complete Time: 00:53 ps1 12/12 22:19 Order name: ETOH Level; Complete Time: 00:53 12/12 22:19 Order name: Hepatic Function; Complete Time: 00:53 12/12 22:19 Order name: PT-INR; Complete Time: 00:53 12/12 22:19 Order name: Ptt, Activated; Complete Time: 00:53 12/12 20:59 Order name: CT Head C Spine; Complete Time: 21:57 ps1 12/12 22:19 Order name: EKG; Complete Time: 23:35 12/12 22:19 Order name: EKG - Nurse/Tech; Complete Time: 00:02 ps1 12/12 22:19 Order name: IV Saline Lock; Complete Time: 23:46 ps1 12/12 22:19 Order name: Labs collected and sent; Complete Time: 23:46 12/12 22:19 Order name: Urine Dipstick-Ancillary (obtain specimen); Complete Time: 00:38 12/13 00:39 Order name: Urine Dipstick--Ancillary (enter results) mt Administered Medications: No medications were administered Disposition: 12/13/17 02:10 Discharged to Home. Impression: Fall (on) (from) other stairs and steps, Unspecified injury of head, ETOH intoxication above reasonable limits. . - Condition is Stable. - Discharge Instructions: Alcohol Intoxication, Head Injury, Adult. - Medication Reconciliation Form, Thank You Letter, Antibiotic Education, Prescription Opioid Use form. - Follow up: Emergency Department; When: As needed; Reason: Worsening of condition. Follow up: Private Physician; When: As needed; Reason: Recheck today's complaints, Continuance of care, Re-evaluation by your physician. - Problem is new. - Symptoms have improved. Signatures: Dispatcher [employer] EDRadha Diaz RN RN aa1 Patrick Fletcher RN RN ao Eren Dalal MD MD ps1 Corrections: (The following items were deleted from the chart) 02:30 02:10 12/13/2017 02:10 Discharged to Home. Impression: Fall (on) (from) other stairs ao and steps; Unspecified injury of head; ETOH intoxication above reasonable limits. . Condition is Stable. Forms are Medication Reconciliation Form, Thank You Letter, Antibiotic Education, Prescription Opioid Use. Follow up: Emergency Department; When: As needed; Reason: Worsening of condition. Follow up: Private Physician; When: As needed; Reason: Recheck today's complaints, Continuance of care, Re-evaluation by your physician. Problem is new. Symptoms have improved. ps1
--- NOTE | 2017-12-13 02:11 | ER ---
Nurse's Notes [facility] Name: Humberto Medina Age: 67 yrs Sex: Male : 1950 Arrival Date: 12/12/2017 Time: 20:51 Bed 7 Private MD: Diagnosis: Fall (on) (from) other stairs and steps;Unspecified injury of head;ETOH intoxication above reasonable limits. Presentation: 12/12 20:53 Presenting complaint: EMS states: pt was at a libertarian and had been drinking and slipped aa1 on the tile floor causing him to fall and hit his head. Witnesses on scene report pt has + LOC that lasted approx 3 mins. Pt denies any pain or injury. Denies use of blood thinners. Transition of care: patient was not received from another setting of care. Onset of symptoms was December 12, 2017. Risk Assessment: Do you want to hurt yourself or someone else? Patient reports no desire to harm self or others. Initial Sepsis Screen: Does the patient meet any 2 criteria? No. Patient's initial sepsis screen is negative. Does the patient have a suspected source of infection? No. Patient's initial sepsis screen is negative. Care prior to arrival: Cervical collar in place. Placed on backboard. Mechanism of Injury: Fall from standing position. 20:53 Method Of Arrival: EMS: [facility] aa1 20:53 Acuity: FORD 2 aa1 20:53 Trauma event details: Injury occurred in the [facility], Injury occurred: at aa1 home. Injury occurred: December 12, 2017. 23:59 Mechanism of Injury: Fall from standing position. ao Trauma Activation: Alert Physician: ED Physician; Name: ; Notified At: 20:46; Arrived At: 20:46 Physician: General Surgeon; Name: n/a; Notified At: 20:46; Arrived At: Physician: Radiology; Name: Sara Trimble, Xiang Sheikh; Notified At: 20:46; Arrived At: 20:47 Physician: Respiratory; Name: n/a; Notified At: 20:46; Arrived At: Physician: Lab; Name: n/a; Notified At: 20:46; Arrived At: Historical: - Allergies: 21:01 No Known Allergies; aa1 - Home Meds: 12/13 02:14 Hydrocodone [Active]; losartan Oral [Active]; Norvasc Oral [Active]; ao - PMHx: 12/12 21:01 Hypertension; aa1 - PSHx: 21:01 Gastric Bypass; left foot; left hand; aa1 - Immunization history:: Last tetanus immunization: unknown. - Social history:: Smoking status: Patient/guardian denies using tobacco, Patient uses alcohol. - Immunization history: Last tetanus immunization: unknown. - Ebola Screening: : No symptoms or risks identified at this time. Screenin:53 Abuse screen: Denies threats or abuse. Denies injuries from another. Tuberculosis aa1 screening: No symptoms or risk factors identified. 21:28 Nutritional screening: No deficits noted. Fall Risk IV access (20 points). ao Primary Survey: 21:00 Reassessment Breathing/Chest. ao 21:00 A: Airway: patent. Breathing/Chest: Respiratory pattern: regular. Circulation: Cardiac ao rhythm: sinus rhythm. Disability Alert. 21:27 Reassessment Airway Airway Breathing/Chest Respiratory pattern Regular Circulation ao Heart rhythm Sinus rhythm Heart tones Present Pulses Palpable Disability Alert. Assessment: 21:00 General: Appears in no apparent distress. comfortable, Behavior is calm, cooperative, ao appropriate for age. Pain: Denies pain. Neuro: Level of Consciousness is awake, alert, obeys commands, Oriented to person, place, time, situation, Appropriate for age Moves all extremities. Full function Speech is normal, Facial symmetry appears normal. Cardiovascular: Capillary refill < 3 seconds Patient's skin is warm and dry. Respiratory: Airway is patent Respiratory effort is even, unlabored, Respiratory pattern is regular, symmetrical. GI: Abdomen is obese. : No signs and/or symptoms were reported regarding the genitourinary system. EENT: No signs and/or symptoms were reported regarding the EENT system. Derm: No signs and/or symptoms reported regarding the dermatologic system. Musculoskeletal: Circulation, motion, and sensation intact. Range of motion: intact in all extremities, patient in backboard. Patient under no distress. 22:15 Reassessment: Patient appears in no apparent distress at this time. Patient and/or ao family updated on plan of care and expected duration. Pain level reassessed. 23:58 Reassessment: Patient appears in no apparent distress at this time. Patient and/or ao family updated on plan of care and expected duration. Pain level reassessed. Patient to stay until ETOH come down. 12/13 00:56 Reassessment: Patient appears in no apparent distress at this time. Patient and/or ao family updated on plan of care and expected duration. Pain level reassessed. Patient sobering up to be DC. 02:09 Reassessment: Patient appears in no apparent distress at this time. Patient and/or ao family updated on plan of care and expected duration. Pain level reassessed. Called friend Kike Dyson at [phone] to come to pick out hand patient. Vital Signs: 12/12 20:53 BP 151 / 89; Pulse 64; Resp 18; Temp 98.4; Pulse Ox 98% on R/A; Weight 127.01 kg; aa1 Height 5 ft. 9 in. (175.26 cm); Pain 0/10; 22:15 BP 116 / 74; Pulse 59; Resp 16; Pulse Ox 98% on R/A; Pain 0/10; ao 23:58 BP 147 / 98; Pulse 67; Resp 16; Pulse Ox 100% on R/A; Pain 0/10; ao 12/13 00:56 BP 176 / 86; Pulse 61; Resp 16; Pulse Ox 96% on R/A; Pain 0/10; ao 02:09 BP 141 / 63; Pulse 69; Resp 16; Pulse Ox 97% on R/A; ao 12/12 20:53 Body Mass Index 41.35 (127.01 kg, 175.26 cm) aa1 Chantal Coma Score: 12/12 20:53 Eye Response: spontaneous(4). Verbal Response: oriented(5). Motor Response: obeys aa1 commands(6). Total: 15. Trauma Score (Adult): 20:53 Eye Response: spontaneous(1); Verbal Response: oriented(1); Motor Response: obeys aa1 commands(2); Systolic BP: > 89 mm Hg(4); Respiratory Rate: 10 to 29 per min(4); Chantal Score: 15; Trauma Score: 12 ED Course: 20:51 Patient arrived in ED. al2 20:53 Arm band placed on right wrist. Patient placed in an exam room, on a stretcher. aa1 20:53 Patient has correct armband on for positive identification. Bed in low position. Call aa1 light in reach. Side rails up X2. Pulse ox on. NIBP on. 20:53 Patient maintains SpO2 saturation greater than 95% on room air. aa1 20:54 Eren Dalal MD is Attending Physician. ps1 20:55 Patient moved to MI via stretcher. nj 20:57 Triage completed. aa1 21:04 CT completed. Patient tolerated procedure well. Patient moved back from MI. nj 21:05 CT Head C Spine In Process Unspecified. EDMS 21:23 Patrick Fletcher, RN is Primary Nurse. ao 21:28 No provider procedures requiring assistance completed. ao 21:28 Thermoregulation: warm blanket given to patient. ao 12/13 02:14 IV discontinued, intact, bleeding controlled, No redness/swelling at site. Pressure ao dressing applied. Administered Medications: No medications were administered Intake: 02:14 PO: 0ml; Total: 0ml. ao Outcome: 02:10 Discharge ordered by . ps1 02:13 Discharged to home via wheelchair. ao 02:13 Condition: stable 02:13 Discharge instructions given to patient, Instructed on discharge instructions, follow up and referral plans. Demonstrated understanding of instructions, follow-up care. 02:15 Patient's length of stay in the Emergency Department was greater than 2 hours. Patient ao sobering up to be DCPatient's length of stay extended due to 02:30 Patient left the ED. ao Signatures: Dispatcher [employer] EDPR Radha Whiteside RN RN aa1 Patrick Fletcher, Nilson Major RN, Phillip, MD MD ps1 Love, Angelica al2
[2017-12-13 02:46] VITALS: TEMP 98.4
[2017-12-13 02:51] VITALS: BP 141/63; O2SAT 97
[2017-12-13 03:27] LABS: Urine Blood 1+ (NEG); Urine Glucose NEGATIVE (NEG); Urine Protein NEGATIVE (NEG); Urine pH 5.5 (5.0-7.0)
--- NOTE | 2017-12-13 07:12 | EKG ---
Test Date: 2017-12-12 Test Time: 23:58:04 Medical Laboratory Technician: EZEQUIEL MEASUREMENT RESULTS: Intervals: Rate: 69 IL: 206 QRSD: 158 QT: 440 QTc: 471 [place]: P: IL: 206 QRS: -29 T: 129 INTERPRETIVE STATEMENTS: Normal sinus rhythm Left bundle branch block Abnormal ECG Compared to ECG 09/26/2017 12:48:48 No significant changes Electronically Signed On 12-13-17 07:11:53 CDT by Jose Roberto Bolton
== END 2017-12-13 02:30 | disposition home or self-care (01) ==
LOC: ER 20:50
DX: S09.90XA Unspecified injury of head, initial encounter (principal); F10.129 Alcohol abuse with intoxication, unspecified; W10.8XXA Fall (on) (from) other stairs and steps, initial encounter; Y93.89 Activity, other specified; Y92.89 Other specified places as the place of occurrence of the external cause; I10 Essential (primary) hypertension
CPT/HCPCS: 36415; 70450; 72125; 80048; 80076; 80320; 81003; 85025; 85610; 85730; 93005; 99285

== ENCOUNTER 2018-07-18 16:43 | Emergency (ER) | payer OTHER ==
--- OUTSIDE RECORDS SUMMARY | 2018-07-18 16:46 | XMS REPORT | Clinical Summary ---
:1950 Author Organization [facility] Address [address] [place] [address] Care Team Providers Name Role Phone Adolfo Pack MD Primary Care Provider Allergies No Known Allergies Medications Medication Sig Dispensed Refills Start Date End Date Status amLODIPine Take 5 mg by 0 Active (NORVASC) 5 mg mouth 2 (two) tablet times a day. pantoprazole Take 40 mg by 0 Active (PROTONIX) 40 MG EC mouth daily. tablet doxazosin (CARDURA) Take 1 mg by 0 Active 1 MG tablet mouth 2 (two) times a day. losartan-hydrochlor Take 1 tablet 0 Active othiazide (HYZAAR) by mouth 100-12.5 mg per daily. tablet omega-3 fatty Take 1 capsule 0 Active acids/fish oil by mouth (OMEGA 3 FISH OIL daily. ORAL) multivitamin with Take 1 tablet 0 Active minerals tablet by mouth daily. vitamin E acetate Take 1 tablet 0 Active (VITAMIN E ORAL) by mouth daily. ferrous sulfate 325 Take 325 mg by 0 Active (65 FE) MG tablet mouth daily with breakfast. aspirin-acetaminoph Take 1 tablet 0 05/31/2018 Discontinued en-caffeine by mouth every (EXCEDRIN MIGRAINE) 6 (six) hours 250-250-65 mg per as needed for tablet headaches. sildenafil citrate Take 1 tablet 0 05/31/2018 Discontinued (VIAGRA ORAL) by mouth as needed (ED). acetaminophen-codei Take 1 tablet 30 tablet 0 05/31/2018 06/14/2018 ne (TYLENOL WITH by mouth every CODEINE #3) 300-30 4 (four) hours mg per tablet as needed for moderate pain for up to 14 days. minocycline Take 1 capsule 6 capsule 0 05/31/2018 06/03/2018 (MINOCIN) 100 MG (100 mg total) capsule by mouth 2 (two) times a day for 3 days. Active Problems Problem Noted Date Symptomatic bradycardia 05/30/2018 Encounters Date Type Specialty Care Team Description 05/30/2018 Surgery Procedural Vaibhav Ramirez Insert Permanent Cardiology MD Arely Pacemaker Implant (RA; RV and HIS leads) [04101 (CPT)] 05/30/2018 - Hospital Encounter Cardiology Le, Symptomatic 05/31/2018 MD Daniel bradycardia (Primary Jose Juan Thao MD after 07/17/2017 Social History Tobacco Use Types Packs/Day Years Used Date Never Smoker Smokeless Tobacco: Never Used Alcohol Use Drinks/Week oz/Week Comments Yes 7 Shots of liquor 4.2 Sex Assigned at Date Recorded Not on file Job Start Date Occupation Industry Not on file Not on file Not on file Travel History Travel Start Travel End No recent travel history available. Last Filed Vital Signs Vital Sign Reading Time Taken Blood Pressure 151/71 05/31/2018 11:13 AM CDT Pulse 66 05/31/2018 11:13 AM CDT Temperature 36.1 C (97 F) 05/31/2018 11:13 AM CDT Respiratory Rate 18 05/31/2018 11:13 AM CDT Oxygen Saturation 97% 05/31/2018 11:13 AM CDT Inhaled Oxygen Concentration - - Weight 113 kg (250 lb) 05/30/2018 3:42 PM CDT Height 175.3 cm (5' 9") 05/30/2018 3:42 PM CDT Body Mass Index 36.92 05/30/2018 3:42 PM CDT Plan of Treatment Health Maintenance Due Date Last Done Comments COLON CANCER SCREENING 06/18/2001 SHINGLES VACCINES (#1) 06/18/2001 65+ PNEUMOCOCCAL VACCINE (1 of 2 - PCV13) 06/18/2016 PNEUMOCOCCAL POLYSACCHARIDE VACCINE AGE 65 AND OVER 06/18/2016 INFLUENZA VACCINE 09/19/2018 Implants Implanted Type Area Training Developer Device Shelf Model / Identifier Expiration Serial / Date Lot Percepta Inspector Type-P Mri Surescan - [id number] Cardiac Pacemaker N/A: [employer] CRM [id number] / Implanted: Qty: 1 on 05/30/2018 by Vaibhav Ramirez Jr., MD Generators N/[employer] / Lead [id number] Lead-Pace Cath Deliv 4fr 38 - Lead - [id number] - [id number] Cardiac Pacing N/A: [employer] [facility] 03/20/2020 [id number] / Implanted: Qty: 1 on 05/30/2018 by Vaibhav Ramirez Jr., MD Leads or N[employer] [id number] / Electrodes or [id number] Accessories Lead Pace Trnsvns Actv-Fxtn Atrl Zhang Bipolar 52cm - [id number] - [id number] Cardiac Pacing N/A: [employer] [facility] 03/13/2020 LEAD [id number] / Implanted: Qty: 1 on 05/30/2018 by Vaibhav Ramirez Jr., MD Leads or N/A CARDIAC RYHTYM [id number] / Electrodes or MGMT [id number] Accessories Lead, Atrial Ventricular Transvenous Extendable Retractable Screw In Assembly t Mkt En 58cm - [id number] - [id number] Cardiac Pacing N/A: [employer] [facility] 01/25/2020 [id number] / Implanted: Qty: 1 on 05/30/2018 by Vaibhav Ramirez Jr., MD Leads or N/[employer] [id number] / Electrodes or [id number] Accessories Envelope Pcemkr Antbactl Fully Resorb Aigisrxr - [id number] Cardiovascular N/A: [employer] [id number] / Implanted: 05/30/2018 (Quantity not on file) Implants N/A / Procedures Procedure Name Priority Date/Time Associated Comments Diagnosis ECG PRE/POST OP Routine 05/31/2018 7:54 Results for this AM CDT procedure are in the results section. ECG 12-LEAD Routine 05/30/2018 6:43 Results for this PM CDT procedure are in the results section. XR CHEST 1 VW PORTABLE Routine 05/30/2018 6:40 Results for this PM CDT procedure are in the results section. EP INSERT ELECTRODE Routine 05/30/2018 5:40 Results for this PACEMAKER OR PM CDT procedure are in DEFIBRILLATOR the results section. WHOLE BLOOD STAT 05/30/2018 2:38 Results for this ELECTROLYTES & GLUCOSE PM CDT procedure are in the results section. ESTIMATED GFR STAT 05/30/2018 2:38 Results for this PM CDT procedure are in the results section. B NATRIURETIC PEPTIDE STAT 05/30/2018 2:38 Results for this PM CDT procedure are in the results section. TROPONIN STAT 05/30/2018 2:38 Results for this PM CDT procedure are in the results section. COMPREHENSIVE METABOLIC STAT 05/30/2018 2:38 Results for this PANEL PM CDT procedure are in the results section. PARTIAL THROMBOPLASTIN STAT 05/30/2018 2:38 Results for this TIME (PTT) PM CDT procedure are in the results section. PROTHROMBIN TIME WITH STAT 05/30/2018 2:38 Results for this INR PM CDT procedure are in the results section. HC COMPLETE BLD COUNT STAT 05/30/2018 2:38 Results for this W/AUTO DIFF PM CDT procedure are in the results section. XR CHEST 1 VW PORTABLE STAT 05/30/2018 1:24 Results for this PM CDT procedure are in the results section. NV CRITICAL CARE, E/M Routine 05/30/2018 12:53 Results for this 30-74 MINUTES PM CDT procedure are in the results section. ECG 12-LEAD STAT 05/30/2018 12:10 Results for this PM CDT procedure are in the results section. after 07/17/2017 Results ECG Pre/Post Op-Tomorrow (05/31/2018 7:54 AM CDT) Ventricular rate 62 [facility] Atrial rate 62 [facility] NV interval 142 [facility] QRSD interval 168 [facility] QT interval 448 [facility] QTC interval 454 [facility] P axis 1 54 [facility] QRS axis 1 14 [facility] T wave axis 172 [facility] EKG impression AV Sequential Paced [facility] Rhythm-Abnormal ECG- Specimen Narrative Performed At Performing Organization Address City/State/Zipcode Phone Number [facility] [address] [place] [address] ECG 12 lead (05/30/2018 6:43 PM CDT)Only the most recent of2 resultswithin the time period is included. Ventricular rate 60 [facility] Atrial rate 60 [facility] NV interval 192 [facility] QRSD interval 122 [facility] QT interval 428 [facility] QTC interval 428 [facility] P axis 1 -14 [facility] QRS axis 1 4 [facility] T wave axis 162 [facility] EKG impression Electronic atrial [facility] pacemaker-Left bundle branch block-Abnormal ECG- Specimen Narrative Performed At Performing Organization Address City/[facility] Phone Number [facility] [address] [place] [address] XR Chest 1 Vw Portable (05/30/2018 6:40 PM CDT)Only the most recent of2 resultswithin the time period is included. Specimen Narrative Performed At EXAMINATION:XR CHEST 1 VW PORTABLE [facility] CLINICAL HISTORY:Pneumothorax COMPARISON:Same day chest radiograph IMPRESSION: Interval placement left subclavian pacer device.Leads project over right atrium and right ventricle No pneumothorax Chest otherwise unchanged Single view chest. [id number] Procedure Note Hm Interface, Radiology Results Incoming - 05/30/2018 8:03 PM CDT EXAMINATION: XR CHEST 1 VW PORTABLE CLINICAL HISTORY: Pneumothorax COMPARISON: Same day chest radiograph IMPRESSION: Interval placement left subclavian pacer device.Leads project over right atrium and right ventricle No pneumothorax Chest otherwise unchanged Single view chest. [id number] Performing Organization Address [facility] Phone Number [facility] [address] [place] [address] Cv electrophysiology procedure (05/30/2018 5:40 PM CDT) Specimen Narrative Performed At [facility] PREOPERATIVE DIAGNOSES: 1.Complete heart block. 2.Symptomatic bradycardia secondary to #1. 3.Fatigue and dyspnea on exertion secondary to #1 and #2. PROCEDURES PERFORMED: 1.IV conscious sedation. 2.Left upper extremity venogram. 3.Cardiac fluoroscopy. 4.Dual-chamber pacemaker placement. BRIEF HISTORY AND CLINICAL BACKGROUND: This is a 67-year-old man who is a longstanding patient of Dr. Yvan Allen.Dr. Allen and I spoke this morning.He indicated that this patient has a long history of a left bundle-branch block.For the past week, he had been fatigued and noted a heart rate in the 30s to low 40s.He came to his office today and was found to be in normal sinus rhythm with complete heart block and a narrow complex junctional escape rhythm at the heart rate as noted. The patient was then transported to the [facility] by a friend wherein he walked into the ER and told them that he was to have an ER evaluation, have a consultation with me and probably a pacemaker. I saw the patient in the Emergency Room, confirmed the history was as documented and related to me by Dr. Allen.The patient had a normal heart catheterization last year and his ejection fraction has been normal. 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 PROCEDURE: The patient was taken to the EP lab in the fasting nonsedated drug free state. Informed consent had been obtained and reconfirmed.Intravenous vancomycin was infused.He was prepped and draped in usual sterile fashion.A pocket was formed below the plane of the pectoralis fascia utilizing a scalpel, cautery, and blunt dissection.During the left upper extremity venogram, access to the left subclavian vein was achieved x2 and two soft tip J wires were advanced. Over an initial J wire, a 7-Cameroonian sheath was placed through which subsequently the 6-Cameroonian HIS catheter with the SelectSecure lead was advanced into the right ventricle utilizing unipolar pacing and assessment of QRS duration.The best position available was found and seemed to be 20 to 30 milliseconds narrower than subsequent RV apical pacing.This lead was secured and the sheath was removed as was the 7-Cameroonian sheath.Thereafter, it was secured to the pectoralis muscle.Over the second J wire, utilizing a double wire technique, two more 7-Cameroonian sheaths were placed through which the RV apex and HRA leads were placed, deployed, tested, and secured.As noted, the paced QRS duration of the RV lead was substantially wider than that of the HIS lead.The pocket was washed with copious amounts of antibiotic impregnated saline and all 3 leads were connected to the 3 chamber pacemaker and the set screws were tightened and each lead was tugged upon to ensure that it was affixed within the header. This device was then placed within a Tyrx antibiotic pouch placed in the pocket and the pocket was closed in layers. COMPLICATIONS: None. FINDINGS: 1.The pacemaker is a [employer] Percepta, model W1TR01, serial number is [id number]. 2.The atrial lead is a 4076, serial number [id number], measured P-wave 5 millivolt, pacing threshold 0.5 volt, impedance 508 ohms. 3.The ventricular lead is a 4076, serial number [id number], measured R-wave is 5.6 millivolt, pacing threshold 0.5 volt, impedance 839 ohms. 4.The HIS lead was a model 3830-69 cm, serial number [id number], pacing threshold 0.5 volt at 0.5 milliseconds, impedance 612 ohms.The Tyrx pouch was reference [id number], lot number [id number]. ESTIMATED BLOOD LOSS: Less than 10 mL. CONCLUSIONS: Successful dual chamber 3 lead pacemaker as noted above. RECOMMENDATIONS: Programming the HIS lead within the LV port 80 milliseconds earlier then back up safety pacing in the RV lead, lower rate 60, upper rate 140, nominal outputs for the acute implantation. Performing Organization Address [facility] Phone Number [facility] [address] [place] [address] Estimated GFR (05/30/2018 2:38 PM CDT) [facility] Estimated GFR 69 mL/min/1.73 [facility] Comment: [address] CatergoryUnitsInterpretation G1 >=90 Normal or high G2 60-89Mildly decreased S4s47-25Doxvjr to moderately decreased T8t29-63Aezfjyypup to severely decreased G4 15-29Severely decreased G5 <15Kidney failure The eGFR was calculated using the Chronic Kidney Disease Epidemiology Collaboration (CKD-EPI) equation. Interpretation is based on recommendations of the National Kidney Foundation-Kidney Disease Outcomes Quality Initiative (NKF-KDOQI) published in 2014. Specimen Plasma specimen Performing Organization Address [facility] Phone Number [facility] DEPARTMENT OF PATHOLOGY AND [address] [place] [address] GENOMIC MEDIC[address] [address] Whole blood electrolytes & glucose (05/30/2018 2:38 PM CDT) [facility] Sodium, whole 139 135 - 148 [facility] blood mEq/L [facility] Potassium, whole 4.2 3.5 - 5.0 [facility] mEq/L [facility] Chloride, whole 107 98 - 112 [facility] blood mEq/L [facility] CO2 calculated, 25 24 - 31 mEq/L [facility] blood HOSPITAL Glucose, whole 101 (H) 65 - 99 mg/dL [facility] Anion gap, whole 7Comment: Specimen 5 - 20 mEq/L [facility] blood is slightly HOSPITAL hemolyzed. Interpret results accordingly. Specimen Blood Performing Organization Address City/State/Zipcode Phone Number [facility] DEPARTMENT OF PATHOLOGY AND [address] [place] [id number] [place] [phone] Troponin (05/30/2018 2:38 PM CDT) [facility] Troponin <0.30 0.00 - 0.30 [facility] Comment: ng/mL HOSPITAL 0.30 - 1.49 ng/mlMay indicate increased risk of acute coronary syndrome. >=1.5 ng/mlConsistent with acute myocardial infarction. The diagnostic value of a single normal or non-diagnostic result is questionable.Serial samples at 2-6 hour intervals are required to rule out acute myocardial injury. Specimen Plasma specimen Performing Organization Address [facility] Phone Number [facility] DEPARTMENT OF PATHOLOGY AND [address] [place] [phone] Partial thromboplastin time, activated (05/30/2018 2:38 PM CDT) [facility] PTT SEE COMMENT 23.0 - 36.0 [facility] Comment: [facility] PTT therapeutic range for unfractionated heparin is 61.0-112.0 seconds which corresponds to Anti-Xa 0.3-0.7 U/ml. Footnote--------- Unable to perform testing, specimen is Clotted.Recollect requested for PT/PTT (tests).Sofia Parker/PAT (name/location) notified by Juanita_ (tech ID) at15:2304 (date/time).Credit issued. Corrected result; previously reported as 18.4 on 05/30/2018 at 15:23 by [facility] Specimen Blood Performing Organization Address City/State/Zipcode Phone Number [facility] DEPARTMENT OF PATHOLOGY AND [address] [place], [place] [id number] Prothrombin time with INR (05/30/2018 2:38 PM CDT) Prothrombin time SEE COMMENT 11.5 - 14.5 [facility] Comment: sec [facility]ISH Footnote--------- HOSPITAL Corrected result; previously reported as 11.3 on 05/30/2018 at 15:10 by I/ Zazzy INR SEE COMMENT [facility] Comment: [facility] The International Normalized Ratio (INR) is a therapeutic HOSPITAL monitoring tool for patients who are stable on oral anticoagulant therapy. An INR of 2.0-3.0 is suggested for deep vein thrombosis/pulmonary embolism. Footnote--------- Corrected result; previously reported as 0.8 on 05/30/2018 at 15:10 by I/Zazzy Specimen Blood Performing Organization Address City/State/Zipcode Phone Number [facility] DEPARTMENT OF PATHOLOGY AND [address] [place] [address] GENOMIC MEDICINE [address] [address] CBC with platelet and differential (05/30/2018 2:38 PM CDT) Pathologist [facility] WBC SEE COMMENT 4.50 - 11.00 [facility] RAMOS Comment: k/uL [facility] Footnote--------- Unable to perform testing, specimen is CLOTTED.Recollect requested for CBCWD(tests).TONI OLIVARES/PAT(name/location) notified by MM4(tech ID) at05/30/201815:43 (date/time).Credit issued. RBC SEE 4.40 - 6.00 [facility] RAMOS COMMENTComment: m/uL HOSPITAL Footnote--------- HGB SEE 14.0 - 18.0 [facility] RAMOS COMMENTComment: g/dL HOSPITAL Footnote--------- HCT SEE 41.0 - 51.0 % [facility] RAMOS COMMENTComment: HOSPITAL Footnote--------- MCV SEE 82.0 - 100.0 [facility] RAMOS COMMENTComment: fL HOSPITAL Footnote--------- MCH SEE 27.0 - 34.0 [facility] RAMOS COMMENTComment: pg HOSPITAL Footnote--------- MCHC SEE 31.0 - 37.0 [facility] RAMOS COMMENTComment: g/dL HOSPITAL Footnote--------- RDW - SD SEE 37.0 - 55.0 [facility]ISH COMMENTComment: fL HOSPITAL Footnote--------- MPV SEE 8.8 - 13.2 fL [facility] COMMENTComment: HOSPITAL Footnote--------- Platelet count SEE 150 - 400 [facility] COMMENTComment: k/uL HOSPITAL Footnote--------- Nucleated RBC SEE /100 WBC [facility] COMMENTComment: HOSPITAL Footnote--------- Neutrophils SEE 39.0 - 69.0 % [facility] COMMENTComment: HOSPITAL Footnote--------- Lymphocytes SEE 25.0 - 45.0 % [facility] COMMENTComment: HOSPITAL Footnote--------- Monocytes SEE 0.0 - 10.0 % [facility] COMMENTComment: HOSPITAL Footnote--------- Eosinophils SEE 0.0 - 5.0 % [facility] COMMENTComment: HOSPITAL Footnote--------- Basophils SEE 0.0 - 1.0 % [facility] COMMENTComment: HOSPITAL Footnote--------- Immature SEE COMMENT 0.0 - 1.0 % [facility] granulocytes Comment: HOSPITAL "Immature granulocytes"(promyelocytes, myelocytes, metamyelocytes) Footnote--------- Specimen Blood Performing Organization Address City/[facility] Phone Number [facility] DEPARTMENT OF PATHOLOGY AND [address] [place] [address] B natriuretic peptide (05/30/2018 2:38 PM CDT) BNP 189 (H) 0 - 100 pg/mL [facility] Specimen Blood Performing Organization Address City/[facility] Phone Number [facility] DEPARTMENT OF PATHOLOGY AND [address] [place] [address] Comprehensive metabolic panel (05/30/2018 2:38 PM CDT) Sodium 139 135 - 148 [facility] mEq/L [facility] Potassium 4.2 3.5 - 5.0 [facility] mEq/L [facility] Chloride 104 98 - 112 mEq/L [facility] CO2 20 (L) 24 - 31 mEq/L [facility] Anion gap 15@ANIO 7 - 15 mEq/L [facility] BUN 15 8 - 23 mg/dL [facility] Creatinine 1.10 0.70 - 1.20 [facility] mg/dL [facility] Glucose 99 65 - 99 mg/dL [facility] Calcium 8.8 8.8 - 10.2 [facility] mg/dL [facility] Protein 6.9 6.3 - 8.3 g/dL [facility] Comment: HOSPITAL [place] 4.6-7.0 g/dL 1 week 4.4-7.6 g/dL 7 months-1year5.1-7.3 g/dL 1-2 years5.6-7.5 g/dL >3 years6.0-8.0 g/dL 18-150 6.3-8.3 g/dL Albumin 3.5 3.5 - 5.0 g/dL [facility] A/G ratio 1.0 0.7 - 3.8 [facility] Alkaline phosphatase 111 40 - 129 U/L [facility] AST 26 10 - 50 U/L [facility] ALT 18 5 - 50 U/L [facility] Total bilirubin 0.6 0.0 - 1.2 [facility] mg/dL [facility] Specimen Plasma specimen Performing Organization Address City/State/Zipcode Phone Number [facility] DEPARTMENT OF PATHOLOGY AND [address] [place] [address] GENOMIC MEDICINE [address] [address] CRITICAL CARE (05/30/2018 12:53 PM CDT) Narrative Performed At Daniel Le MD 06/01/2018 10:36 PM Critical Care Performed by: Daniel Le MD Authorized by: Daniel Le MD Critical care provider statement: Critical care time (minutes):35 Critical care time was exclusive of:Separately billable procedures and treating other patients Critical care was necessary to treat or prevent imminent or life-threatening deterioration of the following conditions:Circulatory failure Critical care was time spent personally by me on the following activities:Blood draw for specimens, development of treatment plan with patient or surrogate, discussions with consultants, discussions with primary provider, evaluation of patient's response to treatment, examination of patient, ordering and performing treatments and interventions, ordering and review of laboratory studies, ordering and review of radiographic studies, pulse oximetry, re-evaluation of patient's condition and review of old charts Bryon 'yes' if you are taking over critical care for this patient from another provider.: no after 07/17/2017 Insurance Payer Benefit Plan / Subscriber ID Effective Dates Phone Address Type Group MEDICARE MEDICARE PART A AND xxxxxxxxxxx 2016-Whitney [place], [place] Medicare B t AETNA AETNA [facility] xxxxxxxxx 2000-Whitney [place] t Advance Directives Patient has advance care planning documents on file. For more information, please contact:Fabian Ramos[address] [place] [address]
--- OUTSIDE RECORDS SUMMARY | 2018-07-18 16:46 | XMS REPORT ---
:1950 Author Organization [facility] Address [address] [place] [address] Dr. Felipe [address] [place] [address] Care Team Providers Name Role Phone Unavailable Unavailable Unavailable Problems This patient has no known problems. Allergies, Adverse Reactions, Alerts This patient has no known allergies or adverse reactions. Medications This patient has no known medications.
[2018-07-18] MEDS ORDERED: NA CHLORIDE 0.9% 1,000 ML ONE ×2 (17:58→19:45)
[2018-07-18] MEDS ORDERED: MORPHINE 4 MG/ML SYR ONE (17:58)
[2018-07-18] MEDS ORDERED: ONDANSETRON 4 MG/2 ML VIAL ONE (17:58)
[2018-07-18 18:06] LABS: Absolute Lymphocytes (CBC) 2.3 K/uL (0.7-4.9); Absolute Monocytes 0.7 K/uL (0.1-1.3); Absolute Neutrophil 7.6 K/uL (1.8-8.0); Basophils % 0.9 % (0-1.3); Eosinophils % 3.4 % (0-4.4); Hematocrit 39.6 % (39.6-49.0); Lymphocytes % 20.6 % (15.3-44.8); Monocytes % 6.3 % (3.3-12.3); RBC Red Blood Cell Count 4.48 M/uL (4.33-5.43)
[2018-07-18 18:20] LABS: ALT/SGPT 26 U/L (12-78); AST/SGOT 19 U/L (15-37); Albumin 3.6 g/dL (3.4-5.0); Alkaline Phosphatase 131 U/L (45-117); BUN Blood Urea Nitrogen 16 mg/dL (7-18); Bicarbonate 26 mmol/L (21-32); Bilirubin Direct < 0.1 mg/dL (0-0.2); Bilirubin Total 0.4 mg/dL (0.2-1.0); Glucose Level 91 mg/dL (74-106); Lipase 141 U/L (73-393); Potassium 3.9 mmol/L (3.5-5.1); Protein, Total 7.7 g/dL (6.4-8.2); Sodium Level 136 mmol/L (136-145)
[2018-07-18] MEDS ORDERED: FENTANYL CITR 100 MCG/2 ML ONE (19:45)
--- NOTE | 2018-07-18 20:05 | RAD REPORT ---
EXAM DESCRIPTION: US - Abdomen Exam Limited - 07/18/2018 7:54 pm CLINICAL HISTORY: epigastric abdominal pain COMPARISON: Abdomen Exam Complete dated 07/11/2018 FINDINGS: The gallbladder demonstrates no gallstones. No pericholecystic fluid or gallbladder wall t hickening. The common bile duct is normal measuring 4 mm. The liver demonstrates no findings of intrahepatic biliary dilatation. IMPRESSION: Unremarkable examination.
--- NOTE | 2018-07-18 20:40 | EDPHYS ---
Physician Documentation [facility] Name: Humberto Medina Age: 68 yrs Sex: Male : 1950 Arrival Date: 07/18/2018 Time: 16:47 Bed 7 Private MD: Dustin Pack C ED Physician Romel Guillory HPI: 07/18 17:21 This 68 yrs old Male presents to ER via Ambulatory with complaints of jmm Abdominal Pain, Constipation. 17:21 The patient presents with abdominal pain in the epigastric area. Onset: The jmm symptoms/episode began/occurred gradually, 1 week(s) ago. The symptoms do not radiate. Associated signs and symptoms: Pertinent negatives: fever, vomiting. The symptoms are described as achy, sharp. This is a 68 year old male with a history of htn that presents to the ED with complaints of epigastric pain for approx 1 week which radiates to his back. Symptoms are alleviated after eating. patient had an egd earlier today. a ct of the patient's abdomen was then ordered showing signs of pancreatitis. . Historical: - Allergies: 16:51 No Known Drug Allergies; aj - Home Meds: 16:51 Hydrocodone [Active]; losartan Oral [Active]; Norvasc Oral [Active]; aj - PMHx: 16:51 Hypertension; aj - PSHx: 16:51 Gastric Bypass; left foot; left hand; aj - Immunization history:: Adult Immunizations up to date. - Social history:: Smoking status: Patient/guardian denies using tobacco. - Ebola Screening: : Patient negative for fever greater than or equal to 101.5 degrees Fahrenheit, and additional compatible Ebola Virus Disease symptoms Patient denies exposure to infectious person Patient denies travel to an Ebola-affected area in the 21 days before illness onset No symptoms or risks identified at this time. ROS: 17:21 Constitutional: Negative for fever, chills, and weight loss, Cardiovascular: Negative jmm for chest pain, palpitations, and edema, Respiratory: Negative for shortness of breath, cough, wheezing, and pleuritic chest pain. 17:21 Abdomen/GI: Positive for abdominal pain. 17:21 Back: Positive for radiated pain. 17:21 All other systems are negative. Exam: 17:21 Constitutional: This is a well developed, well nourished patient who is awake, alert, jmm and in no acute distress. Head/Face: atraumatic. Eyes: EOMI, no conjunctival erythema appreciated ENT: Moist Mucus Membranes Neck: Trachea midline, Supple Chest/axilla: Normal chest wall appearance and motion. Cardiovascular: Regular rate and rhythm. No edema appreciated Respiratory: Normal respirations, no respiratory distress appreciated 17:21 Abdomen/GI: Inspection: obese Palpation: soft, mild abdominal tenderness, in the epigastric area. 17:21 Back: ROM is normal. 17:21 Musculoskeletal/extremity: ROM: intact in all extremities. 17:21 Skin: Appearance: Color: normal in color. 17:21 Neuro: Orientation: is normal, Mentation: is normal, Memory: is normal. 17:21 Psych: Behavior/mood is pleasant, cooperative. Vital Signs: 16:51 BP 185 / 83; Pulse 65; Resp 19; Temp 98.6; Pulse Ox 97% on R/A; Weight 104.33 kg; aj Height 5 ft. 9 in. (175.26 cm); 18:39 BP 164 / 79; Pulse 64; Resp 17; Pulse Ox 97% on R/A; Pain 8/10; tw2 20:08 BP 159 / 72; Pulse 70; Resp 18; Temp 98.6; Pulse Ox 99% on R/A; ak1 16:51 Body Mass Index 33.96 (104.33 kg, 175.26 cm) aj MDM: 17:21 Patient medically screened. [facility] 17:21 ED course: . [facility] 20:36 Data reviewed: vital signs, nurses notes. Counseling: I had a detailed discussion with [facility] the patient and/or guardian regarding: the historical points, exam findings, and any diagnostic results supporting the discharge/admit diagnosis, radiology results, the need for outpatient follow up, to return to the emergency department if symptoms worsen or persist or if there are any questions or concerns that arise at home. 07/18 17:24 Order name: Basic Metabolic Panel; Complete Time: 18:22 [facility] 07/18 17:24 Order name: CBC with Diff; Complete Time: 18:11 [facility] 07/18 17:24 Order name: Creatinine for Radiology; Complete Time: 18:22 [facility] 07/18 17:24 Order name: Hepatic Function; Complete Time: 18:22 [facility] 07/18 17:24 Order name: Lipase; Complete Time: 18:22 [facility] 07/18 19:32 Order name: US Abdomen Limited; Complete Time: 20:28 [facility] 07/18 17:24 Order name: IV Saline Lock; Complete Time: 17:55 [facility] 07/18 17:24 Order name: Labs collected and sent; Complete Time: 17:55 [facility] Administered Medications: 17:50 Drug: Zofran 4 mg Route: IVP; Site: right hand; tw2 19:36 Follow up: Response: No adverse reaction ak1 17:52 Drug: morphine 4 mg Route: IVP; Site: right hand; tw2 19:37 Follow up: Response: No adverse reaction; Pain is unchanged, physician notified ak1 17:55 Drug: NS 0.9% 1000 ml Route: IV; Rate: 1 bolus; Site: right hand; tw2 19:37 Follow up: IV Status: Completed infusion; IV Intake: 1000ml ak1 19:36 Drug: fentaNYL (PF) 50 mcg Route: IVP; Site: right hand; ak1 20:08 Follow up: Response: No adverse reaction; Pain is decreased ak1 19:36 Drug: NS 0.9% 1000 ml Route: IV; Rate: 1 bolus; Site: right hand; ak1 20:41 Follow up: IV Status: Completed infusion; IV Intake: 1000ml ak1 Disposition: 07/19 06:54 Co-signature as Attending Physician, Romel Guillory MD I agree with the assessment and kdr plan of care. Disposition: 07/18/18 20:40 Discharged to Home. Impression: Unspecified abdominal pain, Acute pancreatitis. - Condition is Stable. - Discharge Instructions: Acute Pancreatitis. - Prescriptions for Zofran ODT 4 mg Oral tablet,disintegrating - place 1 tablet by TRANSLINGUAL route every 4-6 hours; 20 tablet. - Medication Reconciliation Form, Thank You Letter, Antibiotic Education, Prescription Opioid Use form. - Follow up: Private Physician; When: 2 - 3 days; Reason: Recheck today's complaints, Continuance of care, Re-evaluation by your physician. Signatures: Dispatcher [employer] Adilene Antoine RN RN aj Rittger, Kevin, MD MD kdr Mickail, Joel, PA PA Ada Chatterjee RN RN ak1 Barahona, Lurdes, RN RN tw2 Corrections: (The following items were deleted from the chart) 07/18 20:53 20:40 07/18/2018 20:40 Discharged to Home. Impression: Unspecified abdominal pain; ak1 Acute pancreatitis. Condition is Stable. Forms are Medication Reconciliation Form, Thank You Letter, Antibiotic Education, Prescription Opioid Use. Follow up: Private Physician; When: 2 - 3 days; Reason: Recheck today's complaints, Continuance of care, Re-evaluation by your physician. missy
--- NOTE | 2018-07-18 20:40 | ER ---
Nurse's Notes [facility] Name: Humberto Medina Age: 68 yrs Sex: Male : 1950 Arrival Date: 07/18/2018 Time: 16:47 Bed 7 Private MD: Dustin Pack C Diagnosis: Unspecified abdominal pain;Acute pancreatitis Presentation: 07/18 16:48 Presenting complaint: Patient states: Patient reports upper abdominal pain that started aj 1 week ago[address] Reports seeing Dr Qureshi multiple times and having EGD and CT today. "I was told I probably have pancreatitis.". Transition of care: patient was not received from another setting of care. Onset of symptoms was July 13, 2018. Risk Assessment: Do you want to hurt yourself or someone else? Patient reports no desire to harm self or others. Initial Sepsis Screen: Does the patient meet any 2 criteria? No. Patient's initial sepsis screen is negative. Does the patient have a suspected source of infection? No. Patient's initial sepsis screen is negative. Care prior to arrival: None. 16:48 Method Of Arrival: Ambulatory 16:48 Acuity: FORD 3 aj Triage Assessment: 16:51 General: Appears in no apparent distress. uncomfortable, Behavior is calm, cooperative, aj appropriate for age. Pain: Complains of pain in right upper quadrant and left upper quadrant. Neuro: Level of Consciousness is awake, alert, obeys commands, Oriented to person, place, time, situation, Appropriate for age. Respiratory: Airway is patent Respiratory effort is even, unlabored, Respiratory pattern is regular, symmetrical. GI: Abdomen is obese, Reports upper abdominal pain. Derm: Skin is intact, is healthy with good turgor, Skin is pink, warm \\T\\ dry. normal. Historical: - Allergies: 16:51 No Known Drug Allergies; aj - Home Meds: 16:51 Hydrocodone [Active]; losartan Oral [Active]; Norvasc Oral [Active]; aj - PMHx: 16:51 Hypertension; aj - PSHx: 16:51 Gastric Bypass; left foot; left hand; aj - Immunization history:: Adult Immunizations up to date. - Social history:: Smoking status: Patient/guardian denies using tobacco. - Ebola Screening: : Patient negative for fever greater than or equal to 101.5 degrees Fahrenheit, and additional compatible Ebola Virus Disease symptoms Patient denies exposure to infectious person Patient denies travel to an Ebola-affected area in the 21 days before illness onset No symptoms or risks identified at this time. Screenin:56 Abuse screen: Denies threats or abuse. Nutritional screening: No deficits noted. tw2 Tuberculosis screening: No symptoms or risk factors identified. Fall Risk None identified. Assessment: 16:55 General: Appears in no apparent distress. uncomfortable, Behavior is calm, cooperative, tw2 appropriate for age. Pain: Complains of pain in abdomen and left upper quadrant and right upper quadrant. Neuro: Level of Consciousness is awake, alert, obeys commands, Oriented to person, place, time, situation. Cardiovascular: Heart tones S1 S2 Patient's skin is warm and dry. Respiratory: Airway is patent Respiratory effort is even, unlabored, Respiratory pattern is regular, symmetrical, Breath sounds are clear bilaterally. GI: Abdomen is round non-distended, obese, Bowel sounds present X 4 quads. Abd is soft X 4 quads Abdomen is tender to palpation X 4 quads. : No signs and/or symptoms were reported regarding the genitourinary system. EENT: No signs and/or symptoms were reported regarding the EENT system. Derm: No signs and/or symptoms reported regarding the dermatologic system. Musculoskeletal: No signs and/or symptoms reported regarding the musculoskeletal system. 18:39 Reassessment: Patient appears in no apparent distress at this time. No changes from tw2 previously documented assessment. Patient and/or family updated on plan of care and expected duration. Pain level reassessed. Patient is alert, oriented x 3, equal unlabored respirations, skin warm/dry/pink. 19:42 Reassessment: pt stated the morphine did not relieve his pain. 50mcg of fentanyl given ak1 IVP, pt stated " thank you that gave me a buzz". General: Appears in no apparent distress. Behavior is calm, cooperative. Pain: Complains of pain in epigastric area. Neuro: No deficits noted. Cardiovascular: No deficits noted. Respiratory: No deficits noted. GI: Abdomen is round non-distended, obese, Bowel sounds present X 4 quads. Reports upper abdominal pain, epigastric pain. : No signs and/or symptoms were reported regarding the genitourinary system. EENT: No signs and/or symptoms were reported regarding the EENT system. Derm: No signs and/or symptoms reported regarding the dermatologic system. Musculoskeletal: No signs and/or symptoms reported regarding the musculoskeletal system. 20:30 Reassessment: pt given water for PO challenge prior to IV d/c and discharge from ER per ak1 Gilberto DRISCOLL. 20:34 Reassessment: pt tolerated water, no vomiting noted or reported. pt visiting with ak1 friends at bedside. Vital Signs: 16:51 BP 185 / 83; Pulse 65; Resp 19; Temp 98.6; Pulse Ox 97% on R/A; Weight 104.33 kg; aj Height 5 ft. 9 in. (175.26 cm); 18:39 BP 164 / 79; Pulse 64; Resp 17; Pulse Ox 97% on R/A; Pain 8/10; tw2 20:08 BP 159 / 72; Pulse 70; Resp 18; Temp 98.6; Pulse Ox 99% on R/A; ak1 16:51 Body Mass Index 33.96 (104.33 kg, 175.26 cm) ED Course: 16:47 Patient arrived in ED. mr 16:47 Dustin Pack MD is Private Physician. mr 16:50 Triage completed. aj 16:51 Arm band placed on right wrist. Patient placed in an exam room. aj 16:56 Lurdes Barahona RN is Primary Nurse. tw2 16:56 Bed in low position. Call light in reach. Pulse ox on. NIBP on. tw2 17:21 [facility] 17:21 Romel Guillory MD is Attending Physician. [facility] 18:56 Report given to VANESSA Caballero. tw2 19:45 Primary Nurse role handed off by Lurdes Barahona, VANESSA ak1 19:45 Ada Lara RN is Primary Nurse. ak1 19:53 US Abdomen Limited In Process Unspecified. EDMS 20:31 No provider procedures requiring assistance completed. IV 22g to right hand in place ak1 prior to taking over pt care. . 20:40 IV discontinued, intact, bleeding controlled, No redness/swelling at site. Pressure ak1 dressing applied. Administered Medications: 17:50 Drug: Zofran 4 mg Route: IVP; Site: right hand; tw2 19:36 Follow up: Response: No adverse reaction ak1 17:52 Drug: morphine 4 mg Route: IVP; Site: right hand; tw2 19:37 Follow up: Response: No adverse reaction; Pain is unchanged, physician notified ak1 17:55 Drug: NS 0.9% 1000 ml Route: IV; Rate: 1 bolus; Site: right hand; tw2 19:37 Follow up: IV Status: Completed infusion; IV Intake: 1000ml ak1 19:36 Drug: fentaNYL (PF) 50 mcg Route: IVP; Site: right hand; ak1 20:08 Follow up: Response: No adverse reaction; Pain is decreased ak1 19:36 Drug: NS 0.9% 1000 ml Route: IV; Rate: 1 bolus; Site: right hand; ak1 20:41 Follow up: IV Status: Completed infusion; IV Intake: 1000ml ak1 Intake: 19:37 IV: 1000ml; Total: 1000ml. ak1 20:41 IV: 1000ml; Total: 2000ml. ak1 Outcome: 20:40 Discharge ordered by . [facility] 20:40 Condition: stable ak1 20:44 Discharged to home ambulatory, with family. ak1 20:44 Discharge instructions given to patient, family, Instructed on discharge instructions, follow up and referral plans. medication usage, Demonstrated understanding of instructions, follow-up care, medications. 20:53 Patient left the ED. ak1 Signatures: Dispatcher [employer] EDMS Adilene Fish, Gilberto Tomas RN, PA PA jmm RiveraFarrah mr LaraAda RN RN ak1 Lurdes Barahona RN RN tw2
== END 2018-07-18 20:53 | disposition home or self-care (01) ==
LOC: ER 16:43
DX: K85.90 Acute pancreatitis without necrosis or infection, unspecified (principal); I10 Essential (primary) hypertension
CPT/HCPCS: 96361; 85025; 80048; 36415; 80076; 83690; 76705; 96375; 96374; 99283; J3010; J7030 ×2; J2405

== ENCOUNTER 2019-09-18 12:34 | Emergency (ER) | payer OTHER ==
--- OUTSIDE RECORDS SUMMARY | 2019-09-18 12:45 | XMS REPORT | Continuity of Care Document ---
:1950 Author Organization [facility] t Address [address] [place] [address] Care Team Providers Name Role Phone Ghazal Pack MD Primary Care Physician Ced MORALEZ Attending Clinician Problems Condition Condition Condition Status Onset Resolution Last Treating Co mments Source Name Details Category Date Date Treatment Clinician Date Symptomati Symptomati Disease Active [place] [facility] c 4-11 [facility] bradycardi 00:00: st a a 00 Allergies, Adverse Reactions, Alerts This patient has no known allergies or adverse reactions. Social History Social Habit Start Date Stop Date Quantity Comments Source Sex Assigned At [place] [facility] Alcohol intake 2018-06-03 2018-06-03 Current drinker [facility] on [facility] 00:00:00 00:00:00 of alcohol (finding) Smoking Status Start Date Stop Date Source Never smoker [place] [facility] Medications Ordered Filled Start Stop Current Ordering Indication Dosage Frequency Signature Comments Components Source Medication Medication Date Date Medication? Clinician (SIG) Name Name amLODIPine 2019 Yes 5mg Q.5D Take 5 mg [place] (NORVASC) 5 4-12 by mouth 2 Me thodi mg tablet 14:15: (two) st 13 times a day. pantoprazol 2019- Yes 40mg QD Take 40 mg [place] e 4-12 by mouth [facility] (PROTONIX) 14:15: daily. st 40 MG EC 13 tablet doxazosin 2018- Yes 1mg Q.5D Take 1 mg Luis ston (CARDURA) 1 4-12 by mouth 2 Me thodi MG tablet 14:15: (two) st 13 times a day. losartan-hy 2018-0 Yes 1{tbl} QD Take 1 [place] drochloroth 4-12 tablet by Met hodmarquez iazide 14:15: mouth st (HYZAAR) 13 daily. 100-12.5 mg per tablet omega-3 2019- Yes 1{capsu QD Take 1 [place] fatty 4-12 le} capsule by [facility] acids/fish 14:15: mouth st oil (OMEGA 13 daily. 3 FISH OIL ORAL) multivitami 2019- Yes 1{tbl} QD Take 1 [place] n with 4-12 tablet by [facility] minerals 14:15: mouth st tablet 13 daily. vitamin E 2019- Yes 1{tbl} QD Take 1 [place] acetate 4-12 tablet by [facility] (VITAMIN E 14:15: mouth st ORAL) 13 daily. ferrous Yes 325mg QD Take 325 [place] sulfate 325 4-12 mg by [facility] (65 FE) MG 14:15: mouth st tablet 13 daily with breakfast. Procedures This patient has no known procedures. Plan of Care Planned Activity Planned Date Details Comments Source Future Scheduled 2019-09-20 INFLUENZA VACCINE [place] [facility] 00:00:00 [code = INFLUENZA VACCINE] Future Scheduled 2016-06-18 65+ PNEUMOCOCCAL [place] [facility] 00:00:00 VACCINE (1 of 2 - PCV13) [code = 65+ PNEUMOCOCCAL VACCINE (1 of 2 - PCV13)] Future Scheduled 2001-06-18 COLONOSCOPY SCREENING Gokul iverson [facility] 00:00:00 [code = COLONOSCOPY SCREENING] Future Scheduled 2001-06-18 SHINGLES VACCINES (#1) sadie [facility] 00:00:00 [code = SHINGLES VACCINES (#1)] Encounters Start End Encounter Admission Attending Care Care Encounter Source Date/Time Date/Time Type Type Clinicians Facility Department ID 2019-04-18 2019-04-18 Office GARETT Coughlin [id number] 08:32:36 16:06:01 Visit [facility] [id number] Results This patient has no known results.
--- OUTSIDE RECORDS SUMMARY | 2019-09-18 12:45 | XMS REPORT | Clinical Summary ---
:1950 Author Organization [facility] Address [address] [place] [address] Care Team Providers Name Role Phone Ghazal Pack MD Primary Care Provider Allergies No Known Allergies Medications Medication Sig Dispensed Refills Start Date End Date Status amLODIPine (NORVASC) 5 Take 5 mg by 0 Active mg tablet mouth 2 (two) times a day. pantoprazole (PROTONIX) Take 40 mg by 0 Active 40 MG EC tablet mouth daily. doxazosin (CARDURA) 1 Take 1 mg by 0 Active MG tablet mouth 2 (two) times a day. losartan-hydrochlorothi Take 1 tablet by 0 Active azide (HYZAAR) 100-12.5 mouth daily. mg per tablet omega-3 fatty Take 1 capsule by 0 Active acids/fish oil (OMEGA 3 mouth daily. FISH OIL ORAL) multivitamin with Take 1 tablet by 0 Active minerals tablet mouth daily. vitamin E acetate Take 1 tablet by 0 Active (VITAMIN E ORAL) mouth daily. ferrous sulfate 325 (65 Take 325 mg by 0 Active FE) MG tablet mouth daily with breakfast. 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 Last Filed Vital Signs Not on file Plan of Treatment Health Maintenance Due Date Last Done Comments COLONOSCOPY SCREENING 06/18/2001 SHINGLES VACCINES (#1) 06/18/2001 65+ PNEUMOCOCCAL VACCINE (1 of 2 - PCV13) 06/18/2016 INFLUENZA VACCINE 09/20/2019 Implants Implanted Type Area Inspector And Mender Device Shelf Model / Identifier Expiration Serial / Date Lot Percepta Singing Messenger-P Mri Surescan - [id number] Cardiac Pacemaker N/A: EDTRONIC [facility] [id number] / Implanted: Qty: 1 on 05/30/2018 by Vaibhav Ramirez Jr., M D at [facility] Generators N/A [employer] / Lead [id number] Lead-Pace Cath Deliv 4fr 38 - Lead - [id number] - [id number] Cardiac Pacing N/A: MEDTRONIC [facility] 03/20/2020 [id number] / Implanted: Qty: 1 on 05/30/2018 by Vaibhav Ramirez Jr., M D at [facility] Leads or N/A [employer] [id number] / Electrodes or [id number] Accessories Lead Pace Trnsvns Actv-Fxtn Atrl Zhang Bipolar 52cm - [id number] [id number] - [id number] Cardiac Pacing N/A: [employer]TR[employer] [facility] - 03/13/2020 LEAD [id number] / Implanted: Qty: 1 on 05/30/2018 by Vaibhav Ramirez Jr., M D at [facility] Leads or N/A CARDIAC RYHTYM [id number] / Electrodes or [id number] Accessories Lead, Atrial Ventricular Transvenous Ext endable Retractable Screw In Assembly [facility] 58cm - [id number] - [id number] Cardiac Pacing N/A: [place] [employer]ONIC [facility] 01/25/2020 [id number] / Implanted: Qty: 1 on 05/30/2018 by Vaibhav Ramirez Jr., M D at [facility] Leads or N/A [employer] [id number] / Electrodes or [id number] Accessories Envelope Pcemkr Antbactl Fully Resorb Aigisrxr - [id number] Cardiovascular N/A: [employer] INC [id number] / Implanted: 05/30/2018 at [facility] (Quantity not on file) Implants N/A / Results Not on fileafter 09/17/2018 Insurance Payer Benefit Plan / Subscriber ID Effective Dates Phone Addre ss Type Group MEDICARE MEDICARE PART A AND xxxxxxxxxxx 2016-Whitney [facility] [place] Medicare B t AETNA AETNA [facility] xxxxxxxxx 2000-Whitney albrecht Advance Directives For more information, please contact: [phone] Type Date Recorded Patient Resort Manager Explanati on Advance Directives, Living Will 05/30/2018 2:14 PM and Medical Power of Dental Laboratory Worker
--- NOTE | 2019-09-18 13:42 | RAD REPORT ---
EXAM DESCRIPTION: CTAbdomen Pelvis W Contrast - 09/18/2019 1:28 pm CLINICAL HISTORY: Abdominal pain. Bypass surgery. Melena;Abd pain COMPARISON: Abdomen Pelvis W Contrast dated 07/18/2018; Abdomen Pelvis W Contrast dated 08/07/2017 ; Abdomen W/Wo Contrast dated 03/07/2019 TECHNIQUE: Biphasic CT imaging of the abdomen and pelvis was performed with 100 ml non-ionic IV cont rast. All CT scans are performed using dose optimization technique as appropriate and may include automated exposure control or mA/KV adjustment according to patient size. FINDINGS: The lung bases are clear.Postsurgical changes are present involving the stomach. The liver, spleen, pancreas, adrenal glands and kidneys are within normal limits. Cholecystectomy cli ps noted. Mild nonspecific inflammation is seen in the region of the duodenal C-loop. No bowel obstruction, free air, free fluid or abscess. Sigmoid diverticulosis coli without diverticul itis. The appendix is normal. Small bilateral fat containing inguinal hernias. No evidence of signifi cant lymphadenopathy. Prostate gland is slightly prominent and projects into the bladder base. Moderate lumbosacral degenerative changes are seen. IMPRESSION: Mild inflammation is seen in the region of the duodenal C-loop. An ulcer in this region is possible and upper endoscopy would be advised for followup assessment.
[2019-09-18 13:44] LABS: Absolute Lymphocytes (CBC) 1.7 K/uL (0.7-4.9); Hematocrit 43.7 % (39.6-49.0); RBC Red Blood Cell Count 4.87 M/uL (4.33-5.43)
[2019-09-18] MEDS ORDERED: MORPHINE 4 MG/ML SYR ONE (14:03)
[2019-09-18] MEDS ORDERED: PANTOPRAZOLE 40 MG INJ ONE (14:03)
[2019-09-18] MEDS ORDERED: ONDANSETRON 4 MG/2 ML VIAL ONE (14:03)
[2019-09-18 14:21] LABS: Albumin 3.7 g/dL (3.4-5.0); Bilirubin Direct 0.3 mg/dL (0-0.2); Bilirubin Total 1.3 mg/dL (0.2-1.0); Potassium 3.3 mmol/L (3.5-5.1); Protein, Total 7.6 g/dL (6.4-8.2)
--- NOTE | 2019-09-18 16:17 | EDPHYS ---
Physician Documentation [facility] Name: Humberto Medina Age: 69 yrs Sex: Male : 1950 Arrival Date: 09/18/2019 Time: 12:36 Bed 2 Private MD: Dustin Pack C ED Physician Romel Guillory HPI: 09/17 13:22 This 69 yrs old Male presents to ER via Ambulatory with complaints of jr8 Abdominal Pain. 13:22 The patient presents with abdominal pain in the epigastric area. Onset: The jr8 symptoms/episode began/occurred gradually, 2 day(s) ago, and became worse. The symptoms radiate to back. Associated signs and symptoms: Pertinent positives: melena. The symptoms are described as stabbing. Modifying factors: The symptoms are alleviated by nothing, the symptoms are aggravated by movement. Severity of pain: At its worst the pain was moderate in the emergency department the pain is unchanged. It is unknown whether or not the patient has had similar symptoms in the past. The patient has not recently seen a physician. Historical: - Allergies: 12:44 No Known Allergies; iw - Home Meds: 12:44 pantoprazole 40 mg oral TbEC 1 tab once daily [Active]; losartan-hydrochlorothiazide iw 100-12.5 mg oral tab 1 tab once daily [Active]; doxazosin 1 mg oral tab 1 tab once daily [Active]; hydrocodone-acetaminophen 5-325 mg Oral tab 1 tab every 6 hours [Active]; - PMHx: 12:44 Hypertension; Pancreatitis; iw - PSHx: 12:44 Gastric Bypass; left foot; left hand; iw - Immunization history:: Adult Immunizations up to date. - Social history:: Smoking status: Patient denies any tobacco usage or history of. ROS: 13:22 Eyes: Negative for injury, pain, redness, and discharge, ENT: Negative for injury, jr8 pain, and discharge, Neck: Negative for injury, pain, and swelling, Cardiovascular: Negative for chest pain, palpitations, and edema, Respiratory: Negative for shortness of breath, cough, wheezing, and pleuritic chest pain, Back: Negative for injury and pain, MS/Extremity: Negative for injury and deformity, Skin: Negative for injury, rash, and discoloration, Neuro: Negative for headache, weakness, numbness, tingling, and seizure. 13:22 Abdomen/GI: Positive for abdominal pain, black/tarry stool, Negative for nausea, vomiting, and diarrhea, hematemesis, rectal pain, rectal bleeding, bowel incontinence, flatulence. Exam: 14:58 Eyes: Pupils equal round and reactive to light, extra-ocular motions intact. Lids and jr8 lashes normal. Conjunctiva and sclera are non-icteric and not injected. Cornea within normal limits. Periorbital areas with no swelling, redness, or edema. ENT: Nares patent. No nasal discharge, no septal abnormalities noted. Tympanic membranes are normal and external auditory canals are clear. Oropharynx with no redness, swelling, or masses, exudates, or evidence of obstruction, uvula midline. Mucous membranes moist. Neck: Trachea midline, no thyromegaly or masses palpated, and no cervical lymphadenopathy. Supple, full range of motion without nuchal rigidity, or vertebral point tenderness. No Meningismus. Cardiovascular: Regular rate and rhythm with a normal S1 and S2. No gallops, murmurs, or rubs. Normal PMI, no JVD. No pulse deficits. Respiratory: Lungs have equal breath sounds bilaterally, clear to auscultation and percussion. No rales, rhonchi or wheezes noted. No increased work of breathing, no retractions or nasal flaring. Back: No spinal tenderness. No costovertebral tenderness. Full range of motion. Skin: Warm, dry with normal turgor. Normal color with no rashes, no lesions, and no evidence of cellulitis. MS/ Extremity: Pulses equal, no cyanosis. Neurovascular intact. Full, normal range of motion. Neuro: Awake and alert, GCS 15, oriented to person, place, time, and situation. Cranial nerves II-XII grossly intact. Motor strength 5/5 in all extremities. Sensory grossly intact. Cerebellar exam normal. Normal gait. 14:58 Abdomen/GI: Inspection: obese Bowel sounds: active, all quadrants, Palpation: soft, in all quadrants, moderate abdominal tenderness, in the epigastric area, mass, is not appreciated, rebound tenderness, is not appreciated, voluntary guarding, is not appreciated, involuntary guarding, is not appreciated, no appreciated organomegaly, Rectal exam: Prostate: normal, rectal tone normal, Stool: vault was clean and without stool , mass, is not appreciated, tenderness, is not appreciated, the exam is chaperoned by the nurse, Indicators: McBurney's point is not tender, Good's sign is negative, Rovsing's sign is negative, Liver: tenderness, is not appreciated. Vital Signs: 12:40 BP 141 / 82; Pulse 73; Resp 16; Pulse Ox 100% on R/A; Weight 100.24 kg; Height 5 ft. 9 iw in. (175.26 cm); Pain 5/10; 13:24 BP 143 / 74; Pulse 70; Resp 18; Pulse Ox 100% on R/A; Pain 0/10; ks7 13:41 BP 155 / 78; Pulse 74; Resp 18; Pulse Ox 98% ; Pain 3/10; ks7 15:01 BP 109 / 69; Pulse 64; Resp 18; Pulse Ox 98% on R/A; Pain 5/10; ks7 15:41 BP 115 / 62; Pulse 63; Resp 12; Pulse Ox 100% ; bp 16:06 BP 137 / 77; Pulse 85; Resp 18; Temp 98(TE); Pulse Ox 100% on R/A; Pain 5/10; ks7 16:40 BP 129 / 62; Pulse 70; Resp 18; Temp 98.2(O); Pulse Ox 98% ; Pain 0/10; ks7 16:41 Pulse Ox 98% ; Pain 0/10; ks7 12:40 Body Mass Index 32.64 (100.24 kg, 175.26 cm) iw MDM: 12:47 Patient medically screened. jr8 16:15 Data reviewed: vital signs, nurses notes, lab test result(s), radiologic studies, CT jr8 scan. Data interpreted: Pulse oximetry: on room air is 100 %. Interpretation: normal. Counseling: I had a detailed discussion with the patient and/or guardian regarding: the historical points, exam findings, and any diagnostic results supporting the discharge/admit diagnosis, lab results, radiology results, the need for outpatient follow up, a family practitioner, a associate automation engineer, to return to the emergency department if symptoms worsen or persist or if there are any questions or concerns that arise at home. Response to treatment: the patient's symptoms have resolved after treatment. ED course: No free air or fluid noted on CT. Marginal ulcer suspected. Pain free at this time and no gross melena or hematochezia present on exam. Will d/c home to f/u with GI. Dr. Pack notified and good with plan. . 09/17 12:46 Order name: Basic Metabolic Panel; Complete Time: 14:25 09/17 12:46 Order name: CBC with Diff; Complete Time: 14:16 09/17 12:46 Order name: Hepatic Function; Complete Time: 14:09/17 12:46 Order name: Lipase; Complete Time: 14:09/17 12:46 Order name: TS; Complete Time: 16:14 09/17 13:02 Order name: CT Abd/Pelvis - PO and IV Contrast; Complete Time: 13:44 09/17 12:46 Order name: IV Saline Lock; Complete Time: 13:50 09/17 12:46 Order name: Labs collected and sent; Complete Time: 13:50 09/17 13:38 Order name: Labs - recollect needed: recollect type and screen, tube does not have bd label from band. pt needs to be rebanded.; Complete Time: 13:49 Administered Medications: 14:00 Drug: ProTONIX 40 mg Route: IVP; Site: right wrist; ks7 14:01 Drug: morphine 4 mg Route: IVP; Site: right wrist; ks7 14:01 Drug: Zofran (Ondansetron) 4 mg Route: IVP; Site: right wrist; ks7 16:31 Drug: GI Cocktail without - (Maalox Suspension 30 ml, Lidocaine Liquid 2 % 15 ks7 ml) Route: PO; 16:41 Follow up: Pulse Ox 98% ; Pain 0/10 Adult ks7 Disposition: 17:38 Co-signature as Attending Physician, Romel Guillory MD I agree with the assessment and kdr plan of care. Disposition: 09/18/19 16:16 Discharged to Home. Impression: Duodenitis with bleeding, Duodenal ulcer. - Condition is Stable. - Discharge Instructions: Gastrointestinal Bleeding, Peptic Ulcer, Food Choices for Peptic Ulcer Disease, Duodenitis, Esophagogastroduodenoscopy. - Prescriptions for Tylenol- Codeine #4 300-60 mg Oral Tablet - take 1 tablet by ORAL route every 6 hours As needed; 12 tablet. Zofran 4 mg Oral Tablet - take 1 tablet by ORAL route every 12 hours As needed; 20 tablet. - Medication Reconciliation Form, Thank You Letter, Antibiotic Education, Prescription Opioid Use form. - Follow up: Dustin Pack MD; When: 2 - 3 days; Reason: Recheck today's complaints, Continuance of care, Re-evaluation by your physician. Follow up: Fadi Qureshi MD; When: 1 - 2 days; Reason: Recheck today's complaints, Continuance of care, Re-evaluation by your physician. - Problem is new. - Symptoms have improved. - Notes: Pantaprozole 40 mg Twice a day for next 14 days [place] diet No acidic Foods Signatures: Dispatcher [employer] EDMS Tata López Kevin, MD MD kdr Jeimy Ruiz RN RN iw Janes Delong PA PA jr8 Katherine Calixto RN RN ks7 Corrections: (The following items were deleted from the chart) 16:42 16:16 09/18/2019 16:16 Discharged to Home. Impression: Duodenitis with bleeding; ks7 Duodenal ulcer. Condition is Stable. Forms are Medication Reconciliation Form, Thank You Letter, Antibiotic Education, Prescription Opioid Use. Follow up: Dustin Pack; When: 2 - 3 days; Reason: Recheck today's complaints, Continuance of care, Re-evaluation by your physician. Follow up: Fadi Qureshi; When: 1 - 2 days; Reason: Recheck today's complaints, Continuance of care, Re-evaluation by your physician. Problem is new. Symptoms have improved. jr8
--- NOTE | 2019-09-18 16:17 | ER ---
Nurse's Notes [facility] Name: Humberto Medina Age: 69 yrs Sex: Male : 1950 Arrival Date: 09/18/2019 Time: 12:36 Bed 2 Private MD: Dustin Pack C Diagnosis: Duodenitis with bleeding;Duodenal ulcer Presentation: 09/17 12:40 Chief complaint: Patient states: black stools 4 days ago, mid upper abd pain X 3 weeks, iw lost 19 pounds, hx of pancreatitis, was sent by Dr. Pack for evaluation. Coronavirus screen: Patient denies a cough. Patient denies shortness of breath or difficulty breathing. Patient denies measured and/or subjective temperature greater than 100.4F prior to today's visit. Patient denies travel on a cruise ship or to a country the [facility] currently lists as an affected area. Patient denies contact with known and/or suspected case of COVID-19. Ebola Screen: Patient negative for fever greater than or equal to 101.5 degrees Fahrenheit, and additional compatible Ebola Virus Disease symptoms Patient denies exposure to infectious person. Patient denies travel to an Ebola-affected area in the 21 days before illness onset. No symptoms or risks identified at this time. Initial Sepsis Screen: Does the patient meet any 2 criteria? No. Patient's initial sepsis screen is negative. Does the patient have a suspected source of infection? No. Patient's initial sepsis screen is negative. Risk Assessment: Do you want to hurt yourself or someone else? Patient reports no desire to harm self or others. Onset of symptoms was August 29, 2019. 12:40 Method Of Arrival: Ambulatory iw 12:40 Acuity: FORD 3 iw Triage Assessment: 12:53 General: Appears in no apparent distress. Behavior is calm, cooperative. Pain: ks7 Complains of pain in abdomen Pain began 2-3 days ago. GI: Reports lower abdominal pain, black tarry stool 4 days ago. pt has hx of past gi bleed and pancreatitis. Historical: - Allergies: 12:44 No Known Allergies; iw - Home Meds: 12:44 pantoprazole 40 mg oral TbEC 1 tab once daily [Active]; losartan-hydrochlorothiazide iw 100-12.5 mg oral tab 1 tab once daily [Active]; doxazosin 1 mg oral tab 1 tab once daily [Active]; hydrocodone-acetaminophen 5-325 mg Oral tab 1 tab every 6 hours [Active]; - PMHx: 12:44 Hypertension; Pancreatitis; iw - PSHx: 12:44 Gastric Bypass; left foot; left hand; iw - Immunization history:: Adult Immunizations up to date. - Social history:: Smoking status: Patient denies any tobacco usage or history of. Screenin:54 Abuse screen: Denies threats or abuse. Denies injuries from another. Nutritional ks7 screening: No deficits noted. Tuberculosis screening: No symptoms or risk factors identified. Fall Risk None identified. Assessment: 12:54 General: Reports pt comes in from home for abd pain, black starry stools starting 4 ks7 days ago. in ED no s/s of distress. PA at bedside assessing pt. 13:25 Reassessment: pt denies pain but c/o mild dizziness.. ks7 14:23 Reassessment: Patient is alert, oriented x 3, equal unlabored respirations, skin ks7 warm/dry/pink. pt ambulated to the bathroom independently. steady on feet. 15:02 Reassessment: Patient is alert, oriented x 3, equal unlabored respirations, skin ks7 warm/dry/pink. pt talking on phone with friends and family updating them on his course of hospitalization. 15:42 Reassessment: VS STABLE ON MONITOR. PT SHOWS NO S/S ACUTE DISTRESS. bp 16:05 Reassessment: AIRFIELD SERVICES OFFICER at bedside updating pt on results and plan of care. ks7 16:06 Pain: Complains of pain in abdomen and epigastric area Pain currently is 5 out of 10 on ks7 a pain scale. Quality of pain is described as burning, dull. 16:42 GI: Bowel sounds present X 4 quads. Abd is soft and non tender. ks7 Vital Signs: 12:40 BP 141 / 82; Pulse 73; Resp 16; Pulse Ox 100% on R/A; Weight 100.24 kg; Height 5 ft. 9 iw in. (175.26 cm); Pain 5/10; 13:24 BP 143 / 74; Pulse 70; Resp 18; Pulse Ox 100% on R/A; Pain 0/10; ks7 13:41 BP 155 / 78; Pulse 74; Resp 18; Pulse Ox 98% ; Pain 3/10; ks7 15:01 BP 109 / 69; Pulse 64; Resp 18; Pulse Ox 98% on R/A; Pain 5/10; ks7 15:41 BP 115 / 62; Pulse 63; Resp 12; Pulse Ox 100% ; bp 16:06 BP 137 / 77; Pulse 85; Resp 18; Temp 98(TE); Pulse Ox 100% on R/A; Pain 5/10; ks7 16:40 BP 129 / 62; Pulse 70; Resp 18; Temp 98.2(O); Pulse Ox 98% ; Pain 0/10; ks7 16:41 Pulse Ox 98% ; Pain 0/10; ks7 12:40 Body Mass Index 32.64 (100.24 kg, 175.26 cm) iw ED Course: 12:36 Patient arrived in ED. ag5 12:36 Dustin Pack MD is Private Physician. ag5 12:42 Triage completed. iw 12:46 Janes Delong PA is PHCP. jr8 12:46 Romel Guillory MD is Attending Physician. jr8 12:49 Katherine Calixto, VANESSA is Primary Nurse. ks7 12:53 Arm band placed on right wrist. ks7 12:54 Resting quietly. ks7 12:54 Placed in gown. Bed in low position. Call light in reach. Side rails up X2. ks7 12:54 Served as a silver solderer during rectal exam. ks7 13:[address] via stretcher. ks7 13:24 Inserted saline lock: 20 gauge in right wrist, using aseptic technique. Blood collected.ks7 13:28 CT Abd/Pelvis - PO and IV Contrast In Process Unspecified. EDMS 13:39 Patient moved back from CT. ks7 13:50 TS Sent. ks7 13:50 Basic Metabolic Panel Sent. ks7 13:50 CBC with Diff Sent. ks7 13:50 Hepatic Function Sent. ks7 13:50 Lipase Sent. ks7 16:16 Dustin Pack MD is Referral Physician. jr8 16:16 Fadi Qureshi MD is Referral Physician. jr8 16:41 IV discontinued, intact, bleeding controlled, No redness/swelling at site. Pressure ks7 dressing applied. Administered Medications: 14:00 Drug: ProTONIX 40 mg Route: IVP; Site: right wrist; ks7 14:01 Drug: morphine 4 mg Route: IVP; Site: right wrist; ks7 14:01 Drug: Zofran (Ondansetron) 4 mg Route: IVP; Site: right wrist; ks7 16:31 Drug: GI Cocktail without - (Maalox Suspension 30 ml, Lidocaine Liquid 2 % 15 ks7 ml) Route: PO; 16:41 Follow up: Pulse Ox 98% ; Pain 0/10 Adult ks7 Outcome: 16:16 Discharge ordered by MD. singh 16:41 Discharged to home ambulatory. ks7 16:41 Condition: good 16:41 Discharge instructions given to patient, Instructed on discharge instructions, follow up and referral plans. medication usage, Demonstrated understanding of instructions, follow-up care, medications, Prescriptions given X 2. 16:42 Patient left the ED. ks7 Signatures: Dispatcher [employer] EDJeimy Bautista, RN RN iw Janes Delong PA PA jr8 Dameon Ybarra RN RN bp [place], Ajare 5 Katherine Calixto RN RN ks7 Corrections: (The following items were deleted from the chart) 12:45 12:40 Chief complaint: Patient states: black stools 4 days ago, mid upper abd pain X 3 iw weeks, lost 19 pounds, hx of pancreatitis iw
[2019-09-18] MEDS ORDERED: LIDOCAINE VISCOUS 2% SOLN 15 ML UDC ONE (16:37)
[2019-09-18] MEDS ORDERED: MAGNE/ALUM HYDROXD 30 ML UCUP ONE (16:37)
[2019-09-18 16:57] VITALS: BP 129/62; TEMP 98.2; O2SAT 98
== END 2019-09-18 16:42 | disposition home or self-care (01) ==
LOC: ER 12:34
DX: K29.81 Duodenitis with bleeding (principal); K26.9 Duodenal ulcer, unspecified as acute or chronic, without hemorrhage or perforation; I10 Essential (primary) hypertension; Z98.84 Bariatric surgery status
CPT/HCPCS: 85025; 80048; 36415; 86900; 86850; 82565; 86901; 80076; 83690; 74177; 96375; 96374; 99284; Q9967; C9113; J2405

== ENCOUNTER 2020-01-21 19:43 | Inpatient (IN) | payer OTHER ==
--- OUTSIDE RECORDS SUMMARY | 2020-01-21 19:44 | XMS REPORT | Clinical Summary ---
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 Medical History Medical History Date Comments Hypertension Social History Tobacco Use Types Packs/Day Years Used Date Never Smoker Smokeless Tobacco: Never Used Alcohol Use Drinks/Week oz/Week Comments Yes 7 Shots of liquor 7.0 Sex Assigned at Date Recorded Not on file Last Filed Vital Signs Not on file Plan of Treatment Health Maintenance Due Date Last Done Comments COLONOSCOPY SCREENING 06/18/2001 SHINGLES VACCINES (#1) 06/18/2001 65+ PNEUMOCOCCAL VACCINE (1 of 1 - PPSV23) 06/18/2016 INFLUENZA VACCINE 09/20/2019 Implants Implanted Type Area Law Enforcement Instructor Device Shelf Model / Identifier Expiration Serial / Date Lot Percepta Bicycle Designer-P Mri Sureprestonan - [id number] Cardiac Pacemaker N/A: [employer] [facility] [id number] / Implanted: Qty: 1 on 05/30/2018 by Vaibhav Ramirez Jr., M D at [facility] Generators N/A [employer] / Lead [id number] Lead-Pace Cath Deliv 4fr 38 - Lead - [id number] - [id number] Cardiac Pacing N/A: [employer] [facility] 03/20/2020 [id number] / Implanted: Qty: 1 on 05/30/2018 by Vaibhav Ramirez Jr., M D at [facility] Leads or N/A [employer] [id number] / Electrodes or [id number] Accessories Lead Pace Trnsvns Actv-Fxtn Atrl Zhang Bipolar 52cm - [id number] - [id number] Cardiac Pacing N/A: [employer] [facility] - 03/13/2020 LEAD [id number] / Implanted: Qty: 1 on 05/30/2018 by Vaibhav Ramirez Jr., M D at [facility] Leads or N/A CARDIAC RYHTYM [id number] / Electrodes or [id number] Accessories Lead, Atrial Ventricular Transvenous Ext endable Retractable Screw In Assembly Farnaz Edwardt En 58cm - [id number] - [id number] Cardiac Pacing N/A: ND [employer] [facility] 01/25/2020 [id number] / Implanted: Qty: 1 on 05/30/2018 by Vaibhav Ramirez Jr., M D at [facility] Leads or N/A [employer] [id number] / Electrodes or [id number] Accessories Envelope Pcemkr Antbactl Fully Resorb Aigisrxr - [id number] Cardiovascular N/A: [employer] [id number] / Implanted: 05/30/2018 at [facility] (Quantity not on file) Implants N/A / Results Not on fileafter 01/20/2019 Insurance Payer Benefit Plan / Subscriber ID Effective Dates Phone Addre ss Type Group MEDICARE MEDICARE PART A AND [id number] 2016-Whitney [facility] [place] B t [facility] [id number] 2000-Whitney albrecht Advance Directives For more information, please contact: [phone] Type Date Recorded Patient Thermal Technician Explanati on Advance Directives, Living Will 05/30/2018 2:14 PM and Medical Power of Airborne Operations Superintendent
--- OUTSIDE RECORDS SUMMARY | 2020-01-21 19:45 | XMS REPORT | Continuity of Care Document ---
:1950 Author Organization [facility] t Address [address] [place] [address] Care Team Providers Name Role Phone Ghazal Pack MD Primary Care Physician Cde MORALEZ Attending Clinician Problems Condition Condition Condition [...] Date Quantity Comments Source Sex Assigned At [facility] Tobacco use and 2018-06-03 2018-06-03 Never used [facility] exposure 00:00:00 00:00:00 Alcohol intake 2018-06-03 2018-06-03 Current drinker [place] [facility] 00:00:00 00:00:00 of alcohol (finding) Smoking Status Start Date Stop Date Source Never smoker [facility] t Medications Ordered Filled Start Stop Current Ordering Indication Dosage Frequency Signature Comments Components Source Medication Medication Date Date Medication? Clinician (SIG) Name Name amLODIPine 2019- Yes 5mg Q.5D Take 5 mg [place] (NORVASC) 5 4-12 by mouth 2 Me thodi mg tablet 14:15: (two) st 13 times a day. pantoprazol 2018- Yes 40mg QD Take 40 mg [place] e 4-12 by mouth [facility] (PROTONIX) 14:15: daily. st 40 MG EC 13 tablet doxazosin Yes 1mg Q.5D Take 1 mg Luis ston (CARDURA) 1 4-12 by mouth 2 Me thodi MG tablet 14:15: (two) st 13 times a day. losartan-hy 2019- Yes 1{tbl} QD Take 1 [place] drochloroth 4-12 tablet by Met pratik iazide 14:15: mouth st (HYZAAR) 13 daily. 100-12.5 mg per tablet omega-3 2019- Yes 1{capsu QD Take 1 [place] fatty 4-12 le} capsule by [facility] acids/fish 14:15: mouth st oil (OMEGA 13 daily. 3 FISH OIL ORAL) multivitami 2019- Yes 1{tbl} QD Take 1 [place] n with 4-12 tablet by [facility] minerals 14:15: mouth st tablet 13 daily. vitamin E 2019 Yes 1{tbl} QD Take 1 [place] [...] Comments Source Future Scheduled 2019-09-20 INFLUENZA VACCINE [facility] Test 00:00:00 [code = INFLUENZA VACCINE] Future Scheduled 2016-06-18 65+ PNEUMOCOCCAL [place] [facility] Test 00:00:00 VACCINE (1 of 1 - PPSV23) [code = 65+ PNEUMOCOCCAL VACCINE (1 of 1 - PPSV23)] Future Scheduled 2001-06-18 COLONOSCOPY SCREENING Gokul iverson [facility] Test 00:00:00 [code = COLONOSCOPY SCREENING] Future Scheduled 2001-06-18 SHINGLES VACCINES (#1) [facility] Test 00:00:00 [code = SHINGLES VACCINES (#1)] Encounters Start End Encounter Admission Attending Care Care Encounter Source Date/Time Date/Time Type Type Clinicians Facility Department ID 2019-04-18 2019-04-18 Office GARETT Coughlin [id number] 08:32:36 16:06:01 Visit [facility] AMB[facility] [id number] Y [id number] Results This patient has no known results.
[2020-01-21] MEDS ORDERED: FAMOTIDINE 20 MG/2 ML VIAL IV ONE (20:43)
[2020-01-21] MEDS ORDERED: MORPHINE 4 MG/ML SYR ONE (20:43)
[2020-01-21] MEDS ORDERED: ONDANSETRON 4 MG/2 ML VIAL ONE (20:43)
[2020-01-21] MEDS ORDERED: NA CHLORIDE 0.9% 1,000 ML ONE (20:43)
[2020-01-21 20:48] LABS: Absolute Lymphocytes (CBC) 1.5 K/uL (0.7-4.9); Basophils % 0.4 % (0-1.3); Hematocrit 24.3 % (39.6-49.0); Lymphocytes % 10.1 % (15.3-44.8); MPV 8.8 fL (7.6-11.3); RBC Red Blood Cell Count 2.71 M/uL (4.33-5.43)
[2020-01-21 21:28] LABS: ALT/SGPT 13 U/L (12-78); AST/SGOT 15 U/L (15-37); Albumin 2.8 g/dL (3.4-5.0); Alkaline Phosphatase 92 U/L (45-117); BUN Blood Urea Nitrogen 27 mg/dL (7-18); Bicarbonate 23 mmol/L (21-32); Bilirubin Direct 0.1 mg/dL (0-0.2); Bilirubin Total 0.4 mg/dL (0.2-1.0); Glucose Level 247 mg/dL (74-106); Lipase 1536 U/L (73-393); NT PRO-BNP 189 pg/mL (<125); Potassium 3.5 mmol/L (3.5-5.1); Protein, Total 5.9 g/dL (6.4-8.2); Sodium Level 136 mmol/L (136-145); Troponin (Emerg Dept Use Only) < 0.02 ng/mL (0.0-0.045)
[2020-01-21] MEDS ORDERED: PANTOPRAZOLE 40 MG INJ ONE (23:38)
[2020-01-21] MEDS ORDERED: NA CHLORIDE 0.9% 250 ML ONE (23:39)
--- NOTE | 2020-01-22 00:29 | EDPHYS ---
Physician Documentation [facility] Name: Humberto Medina Age: 69 yrs Sex: Male : 1950 Arrival Date: 01/21/2020 Time: 19:44 Bed 6 Private MD: Dustin Pack C ED Physician Lee Geronimo HPI: 01/20 20:18 This 69 yrs old Male presents to ER via Wheelchair with complaints of mh7 Abdominal Pain. 20:18 The patient presents with abdominal pain in the upper abdomen. Onset: The mh7 symptoms/episode began/occurred just prior to arrival, today. The symptoms do not radiate. Associated signs and symptoms: Pertinent positives: nausea and vomiting, Pertinent negatives: anorexia, blood in stools, chest pain, constipation, diarrhea, dysuria, fever, headache, hematuria, palpitations, shortness of breath, testicular pain, vomiting blood. The symptoms are described as intermittent, vague, waxing/waning. Modifying factors: The symptoms are alleviated by nothing, the symptoms are aggravated by nothing. Severity of pain: At its worst the pain was moderate today, in the emergency department the pain is unchanged. Historical: - Allergies: 20:05 No Known Allergies; ca1 - PMHx: 20:05 Hypertension; Pancreatitis; Ulcers; Pacemaker; ca1 - PSHx: 20:05 Gastric Bypass; left foot; left hand; ca1 - Immunization history:: Adult Immunizations up to date, Flu vaccine is not up to date. - Social history:: Smoking status: Patient denies any tobacco usage or history of. Patient/guardian denies using street drugs, but used to use street drugs, Marijuana. ROS: 20:18 Constitutional: Negative for fever, chills, and weight loss, Eyes: Negative for injury, mh7 pain, redness, and discharge, ENT: Negative for injury, pain, and discharge, Neck: Negative for injury, pain, and swelling, Cardiovascular: Negative for chest pain, palpitations, and edema, Respiratory: Negative for shortness of breath, cough, wheezing, and pleuritic chest pain, Back: Negative for injury and pain, : Negative for injury, bleeding, discharge, and swelling, MS/Extremity: Negative for injury and deformity, Skin: Negative for injury, rash, and discoloration, Neuro: Negative for headache, weakness, numbness, tingling, and seizure, Psych: Negative for depression, anxiety, suicide ideation, homicidal ideation, and hallucinations, Allergy/Immunology: Negative for hives, rash, and allergies, Endocrine: Negative for neck swelling, polydipsia, polyuria, polyphagia, and marked weight changes, Hematologic/Lymphatic: Negative for swollen nodes, abnormal bleeding, and unusual bruising. Exam: 20:18 Head/Face: Normocephalic, atraumatic. Eyes: Pupils equal round and reactive to light, mh7 extra-ocular motions intact. Lids and lashes normal. Conjunctiva and sclera are non-icteric and not injected. Cornea within normal limits. Periorbital areas with no swelling, redness, or edema. Neck: Trachea midline, no thyromegaly or masses palpated, and no cervical lymphadenopathy. Supple, full range of motion without nuchal rigidity, or vertebral point tenderness. No Meningismus. Chest/axilla: Normal chest wall appearance and motion. Nontender with no deformity. No lesions are appreciated. Cardiovascular: Regular rate and rhythm with a normal S1 and S2. No gallops, murmurs, or rubs. Normal PMI, no JVD. No pulse deficits. Respiratory: Lungs have equal breath sounds bilaterally, clear to auscultation and percussion. No rales, rhonchi or wheezes noted. No increased work of breathing, no retractions or nasal flaring. 20:18 Back: No spinal tenderness. No costovertebral tenderness. Full range of motion. Skin: Warm, dry with normal turgor. Normal color with no rashes, no lesions, and no evidence of cellulitis. MS/ Extremity: Pulses equal, no cyanosis. Neurovascular intact. Full, normal range of motion. Neuro: Awake and alert, GCS 15, oriented to person, place, time, and situation. Cranial nerves II-XII grossly intact. Motor strength 5/5 in all extremities. Sensory grossly intact. Cerebellar exam normal. Normal gait. Psych: Awake, alert, with orientation to person, place and time. Behavior, mood, and affect are within normal limits. 20:18 Constitutional: The patient appears in no acute distress, alert, awake, uncomfortable. 20:18 Abdomen/GI: Inspection: obese Bowel sounds: normal, in all quadrants, Palpation: moderate abdominal tenderness, in the epigastric area, right upper quadrant and left upper quadrant, Indicators: McBurney's point is not tender, Good's sign is negative, Rovsing's sign is negative, Obturator sign is negative, Psoas sign is negative, Liver: no appreciated palpable abnormalities, Hernia: not appreciated. 01/21 00:23 Abdomen/GI: Rectal exam: Prostate: normal, rectal tone normal, Stool: guaiac positive, mh7 black. Vital Signs: 01/20 17:55 BP 147 / 57 LA; Pulse 73; Resp 18 S; Temp 97.1(TE); Pulse Ox 100% on R/A; Weight 106.59 ca1 kg (R); Height 5 ft. 10 in. (177.80 cm) (R); Pain 10/10; 20:06 BP 140 / 54 RA; ca1 21:24 BP 114 / 60; Pulse 67; Resp 16; Pulse Ox 100% on R/A; rv 22:45 BP 118 / 61; Pulse 66; Resp 16; Pulse Ox 99% on R/A; rv 23:26 BP 132 / 66; Pulse 67; Resp 16; Pulse Ox 100% on R/A; ll2 01/21 01:25 BP 117 / 55; Pulse 63; Resp 18; Pulse Ox 96% on R/A; ll2 02:11 BP 117 / 52; Pulse 60; Resp 17; Pulse Ox 97% on R/A; ll2 01/20 17:55 Body Mass Index 33.72 (106.59 kg, 177.80 cm) ca1 MDM: 00:25 Differential diagnosis: bowel obstruction, cholecystitis, Cholelithiasis, mh7 diverticulitis, gastritis, gastroesophageal reflux disease, GI Bleed, non-specific abd pain, pancreatitis, Peptic Ulcer Disease, Perf. Duodenal Ulcer, Perf. Gastric Ulcer, Ureterolithiasis, urinary tract infection. Data reviewed: vital signs, nurses notes, old medical records, lab test result(s), CBC, electrolytes, urinalysis, EKG, radiologic studies, CT scan. Data interpreted: Pulse oximetry: on room air is 99 %. Interpretation: normal. Counseling: I had a detailed discussion with the patient and/or guardian regarding: the historical points, exam findings, and any diagnostic results supporting the discharge/admit diagnosis, lab results, radiology results, the need for further work-up and treatment in the hospital. Response to treatment: the patient's symptoms have markedly improved after treatment. 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 00:25 Physician consultation: would like admission per Dr. Dustin Pack MD. [facility] 00:28 Patient medically screened. [facility] 01/20 20:06 Order name: Basic Metabolic Panel; Complete Time: 21:29 [facility] 01/20 20:06 Order name: CBC with Diff; Complete Time: 20:54 [facility] 01/20 20:06 Order name: Hepatic Function; Complete Time: 21:29 [facility] 01/20 20:06 Order name: Lipase; Complete Time: 21:29 [facility] 01/20 20:06 Order name: Troponin (emerg Dept Use Only); Complete Time: 21:29 [facility] 01/20 20:06 Order name: PROBNP; Complete Time: 21:29 [facility] 01/20 20:06 Order name: Chest Single View XRAY [facility] 01/20 23:14 Order name: Type And Screen [facility] 01/21 00:39 Order name: Protime (+inr) [facility] 01/21 00:39 Order name: Ptt, Activated [facility] 01/21 01:31 Order name: Hemoglobin; Complete Time: 06:53 [facility] 01/21 01:31 Order name: Hematocrit; Complete Time: 06:53 [facility] 01/21 01:32 Order name: Protime (+INR); Complete Time: 06:53 [facility] 01/21 01:32 Order name: PTT, Activated Partial Thromb; Complete Time: 06:53 [facility] 01/20 20:06 Order name: IV Saline Lock; Complete Time: 02:08 [facility] 01/20 20:06 Order name: Labs collected and sent; Complete Time: 23:13 [facility] 01/20 20:06 Order name: EKG - Nurse/Tech; Complete Time: 21:25 [facility] 01/20 20:06 Order name: Urine Dipstick-Ancillary (obtain specimen); Complete Time: 02:19 [facility] 01/20 22:28 Order name: Abdomen [facility] 01/21 00:34 Order name: CONS Physician Consult; Complete Time: 01:12 [facility] 01/21 02:50 Order name: NPO rv Administered Medications: 01/20 20:33 Drug: Zofran (Ondansetron) 4 mg Route: IVP; Site: right antecubital; rv 21:36 Follow up: Response: No adverse reaction; Nausea is decreased ll2 20:35 Drug: Pepcid 20 mg Route: IVP; Site: right antecubital; rv 21:35 Follow up: Response: No adverse reaction ll2 20:35 Drug: NS 0.9% 1000 ml Route: IV; Rate: 1000 ml; Site: right antecubital; rv 20:36 Drug: morphine 4 mg Route: IVP; Site: right antecubital; rv 21:36 Follow up: Response: No adverse reaction ll2 23:38 Drug: ProTONIX 8 mg/hr Route: IV; Rate: 25 ml/hr; Site: left antecubital; rv 01/21 01:00 Follow up: Response: No adverse reaction; IV Status: Completed infusion; IV Intake: ll2 250ml 00:01 Drug: ProTONIX 80 mg Route: IVP; Site: left antecubital; ll2 01:00 Follow up: Response: No adverse reaction ll2 Disposition: 01/22/20 00:28 Hospitalization ordered by Dustin Pack for Inpatient Admission. Preliminary diagnosis are Acute Pancreatitis, GI Bleed. - Bed requested for Telemetry/MedSurg (Inpatient). - Status is Inpatient Admission. tt3 - Condition is Stable. - Problem is new. - Symptoms have improved. Signatures: Dispatcher [employer] EDNJ Maricarmen French RN RN mw Vicente, Ronaldo RN RN rv Vanna Landry RN RN [facility] Lenora Diaz RN RN 2 Lee Geronimo MD MD [facility] Joon Ford tt3 Corrections: (The following items were deleted from the chart) 01/20 22:28 20:07 Abdomen Pelvis W Con+CT.RAD.BRZ ordered. [facility] 01/21 00:44 00:28 Hospitalization Ordered by A Ramone MORALEZ for Inpatient Admission. Preliminary mw diagnosis is Acute Pancreatitis; GI Bleed. Bed requested for Telemetry/MedSurg (Inpatient). Status is Inpatient Admission. Condition is Stable. Problem is new. Symptoms have improved. mh7 02:32 00:44 01/22/2020 00:28 Hospitalization Ordered by A Ramone MORALEZ for Inpatient Admission. scott Preliminary diagnosis is Acute Pancreatitis; GI Bleed. Bed requested for [facility] ER HOLD. Status is Inpatient Admission. Condition is Stable. Problem is new. Symptoms have improved. 03:03 02:32 01/22/2020 00:28 Hospitalization Ordered by A Ramone MORALEZ for Inpatient Admission. tt3 Preliminary diagnosis is Acute Pancreatitis; GI Bleed. Bed requested for Telemetry/MedSurg (Inpatient). Status is Inpatient Admission. Condition is Stable. Problem is new. Symptoms have improved. mw
--- NOTE | 2020-01-22 00:29 | ER ---
Nurse's Notes [facility] Name: Humberto Median Age: 69 yrs Sex: Male : 1950 Arrival Date: 01/21/2020 Time: 19:44 Bed 6 Private MD: Dustin Pack C Diagnosis: Acute Pancreatitis;GI Bleed Presentation: 01/20 17:55 Chief complaint: Spouse and/or significant other states: Sudden onset upper abdominal ca1 pain at 1800 today, nausea, he took Hydrocodone and pantoprazole at 1800, no relief. Pt pale, clammy and sweaty during triage. Hx of pancreatitis and recent onset ulcer. Pt has pacemaker. Pt reports chest pain at 1800, non-radiating. Coronavirus screen: Client denies travel out of the [place] in the last 14 days. nausea, Client presents with at least one sign or symptom that may indicate coronavirus-19. Standard/surgical mask placed on the client. Provider contacted for isolation considerations. Ebola Screen: Patient negative for fever greater than or equal to 101.5 degrees Fahrenheit, and additional compatible Ebola Virus Disease symptoms Patient denies exposure to infectious person. Patient denies travel to an Ebola-affected area in the 21 days before illness onset. No symptoms or risks identified at this time. Initial Sepsis Screen: Does the patient meet any 2 criteria? No. Patient's initial sepsis screen is negative. Does the patient have a suspected source of infection? No. Patient's initial sepsis screen is negative. Risk Assessment: Do you want to hurt yourself or someone else? Patient reports no desire to harm self or others. Onset of symptoms was January 21, 2020 at 18:00. 17:55 Method Of Arrival: Wheelchair ca1 17:55 Acuity: FORD 2 ca1 Historical: - Allergies: 20:05 No Known Allergies; ca1 - PMHx: 20:05 Hypertension; Pancreatitis; Ulcers; Pacemaker; ca1 - PSHx: 20:05 Gastric Bypass; left foot; left hand; ca1 - Immunization history:: Adult Immunizations up to date, Flu vaccine is not up to date. - Social history:: Smoking status: Patient denies any tobacco usage or history of. Patient/guardian denies using street drugs, but used to use street drugs, Marijuana. Screenin/03 01:48 Abuse screen: Denies threats or abuse. Nutritional screening: No deficits noted. ll2 Tuberculosis screening: No symptoms or risk factors identified. Fall Risk None identified. Assessment: 01/20 20:00 General: Appears uncomfortable, Behavior is restless. rv 20:00 Pain: Complains of pain in left upper quadrant and right upper quadrant and epigastric rv area. Neuro: Level of Consciousness is awake, alert, obeys commands, Oriented to person, place, time, situation. Cardiovascular: Patient's skin is warm and dry. Rhythm is sinus rhythm. Respiratory: Airway is patent Respiratory effort is even, unlabored. GI: Bowel sounds present X 4 quads. Abd is soft and non tender X 4 quads. Derm: Skin is intact. 20:02 General: Appears uncomfortable, Behavior is. ll2 22:48 Reassessment: PAIN IS DECREASED. TEST RESULTS EXPLAINED TO PATIENT. IV INFILTRATION rv AFTER CT SCAN. INSERTED ANOTHER IV ON LEFT FOREARM. 23:49 Reassessment: Patient and/or family updated on plan of care and expected duration. Pain ll2 level reassessed. Patient is alert, oriented x 3, equal unlabored respirations, skin warm/dry/pink. 01/21 01:48 Reassessment: Spoke with Dr. Pack to reports critical hgb 7.2, verbal order obtained to ea transfuse 2 units of PRBC and repeat H\T\H 2 hours post transfusion. 01:48 Reassessment: Patient and/or family updated on plan of care and expected duration. Pain ll2 level reassessed. Patient is alert, oriented x 3, equal unlabored respirations, skin warm/dry/pink. 02:12 Reassessment: Patient and/or family updated on plan of care and expected duration. Pain ll2 level reassessed. Patient is alert, oriented x 3, equal unlabored respirations, skin warm/dry/pink. 02:49 Reassessment: report called to VANESSA Alex. rv Vital Signs: 01/20 17:55 BP 147 / 57 LA; Pulse 73; Resp 18 S; Temp 97.1(TE); Pulse Ox 100% on R/A; Weight 106.59 ca1 kg (R); Height 5 ft. 10 in. (177.80 cm) (R); Pain 10/10; 20:06 BP 140 / 54 RA; ca1 21:24 BP 114 / 60; Pulse 67; Resp 16; Pulse Ox 100% on R/A; rv 22:45 BP 118 / 61; Pulse 66; Resp 16; Pulse Ox 99% on R/A; rv 23:26 BP 132 / 66; Pulse 67; Resp 16; Pulse Ox 100% on R/A; ll2 12/03 01:25 BP 117 / 55; Pulse 63; Resp 18; Pulse Ox 96% on R/A; ll2 02:11 BP 117 / 52; Pulse 60; Resp 17; Pulse Ox 97% on R/A; ll2 01/20 17:55 Body Mass Index 33.72 (106.59 kg, 177.80 cm) ca1 ED Course: 01/20 19:44 Patient arrived in ED. am2 19:44 Dustin Pack MD is Private Physician. am2 19:54 Lee Geronimo MD is Attending Physician. mh7 20:02 Lenora Diaz, VANESSA is Primary Nurse. ll2 20:04 Triage completed. ca1 20:05 Arm band placed on. Arm band placed on right wrist. EKG completed in triage. Results ca1 shown to MD. 20:23 Inserted saline lock: 18 gauge in right antecubital area, using aseptic technique. rv Blood collected. 20:23 Initial lab(s) drawn, by me, sent to lab. rv 20:39 Chest Single View XRAY In Process Unspecified. EDMS 20:45 Patient has correct armband on for positive identification. Placed in gown. Bed in low ll2 position. Call light in reach. Side rails up X 1. relay worker on. Pulse ox on. NIBP on. 22:33 Abdomen In Process Unspecified. EDMS 22:41 Inserted saline lock: 18 gauge in left forearm, using aseptic technique. rv 23:09 Served as a large animal veterinarian during rectal exam. ea 01/21 00:28 Dustin Pack MD is Hospitalizing Provider. mh7 01:12 Protime (+inr) Sent. ll2 01:12 Ptt, Activated Sent. ll2 Administered Medications: 01/20 20:33 Drug: Zofran (Ondansetron) 4 mg Route: IVP; Site: right antecubital; rv 21:36 Follow up: Response: No adverse reaction; Nausea is decreased ll2 20:35 Drug: Pepcid 20 mg Route: IVP; Site: right antecubital; rv 21:35 Follow up: Response: No adverse reaction ll2 20:35 Drug: NS 0.9% 1000 ml Route: IV; Rate: 1000 ml; Site: right antecubital; rv 20:36 Drug: morphine 4 mg Route: IVP; Site: right antecubital; rv 21:36 Follow up: Response: No adverse reaction ll2 23:38 Drug: ProTONIX 8 mg/hr Route: IV; Rate: 25 ml/hr; Site: left antecubital; rv 01/21 01:00 Follow up: Response: No adverse reaction; IV Status: Completed infusion; IV Intake: ll2 250ml 00:01 Drug: ProTONIX 80 mg Route: IVP; Site: left antecubital; ll2 01:00 Follow up: Response: No adverse reaction ll2 Intake: 01:00 IV: 250ml; Total: 250ml. ll2 Outcome: 00:28 Decision to Hospitalize by Provider. mh7 03:03 Patient left the ED. tt3 Signatures: Dispatcher [employer] EDMS Jose Juan Campbell RN RN jb4 Adilene Anaya amSonya Hong RN Pedro Luis Belle ea RN VANESSA rv Vanna Landry RN VANESSA ca1 Lenora Diaz RN RN 2 Lee Geronimo MD MD 7 Joon Ford tt3 Corrections: (The following items were deleted from the chart) 01:50 01:48 Reassessment: Spoke with Dr. Pack to report critical H\T\H of 7.2. Order obtained jb4 to transfuse 2 units of PRBC and a H\T\H 2 hours post transfusion jb4
[2020-01-22] MEDS ORDERED: ONDANSETRON 4 MG/2 ML VIAL IV PRN (00:33)
[2020-01-22] MEDS ORDERED: MORPHINE 4 MG/ML SYR IV PRN (00:33)
[2020-01-22] MEDS ORDERED: NA CHLORIDE 0.9% 250 ML IV SCH (01:00)
[2020-01-22] MEDS: D5 0.45 NS 1,000 ML IV SCH ×5 (01:00→22:35)
[2020-01-22 01:27] LABS: Hematocrit 21.4 % (39.6-49.0)
[2020-01-22 01:31] LABS: Protime INR 1.08
[2020-01-22 03:16] VITALS: BMI 34.6
[2020-01-22 04:16] LABS: Hematocrit 22.6 % (39.6-49.0)
[2020-01-22] MEDS ORDERED: ACETAMINOPHEN 325 MG TABLET PO ONE (04:46)
[2020-01-22] MEDS ORDERED: DIPHENHYDRAMINE 50 MG/ML VIAL IV ONE (04:46)
[2020-01-22] MEDS: INSULIN -REGULAR HUMAN 50 UNIT/0.5 ML ML SQ SCH ×4 (06:00→23:36)
[2020-01-22] MEDS ORDERED: INSULIN -REGULAR HUMAN 50 UNIT/0.5 ML ML SQ SCH ×2 (06:00→07:30)
--- NOTE | 2020-01-22 06:08 | EKG ---
Test Date: 2020-01-21 Test Time: 19:58:08 Mva Still Operator: RV MEASUREMENT RESULTS: Intervals: Rate: 64 MD: 136 QRSD: 120 QT: 410 QTc: 422 Bolton: P: 1 MD: 136 QRS: 23 T: 214 INTERPRETIVE STATEMENTS: Electronic atrial pacemaker Possible Anteroseptal infarct, age undetermined ST & T wave abnormality, consider inferolateral ischemia Abnormal ECG Compared to ECG 12/12/2017 23:58:04 Myocardial infarct finding now present ST (T wave) deviation now present Possible ischemia now present Sinus rhythm no longer present Left bundle-branch block no longer present Electronically Signed On 01-22-20 06:07:16 STRIP CLEANER by Yvan Allen
--- NOTE | 2020-01-22 07:15 | RAD REPORT ---
EXAM DESCRIPTION: RAD - Chest Single View - 01/21/2020 8:41 pm CLINICAL HISTORY: CHEST PAIN COMPARISON: Two view chest October 2018 TECHNIQUE: AP portable chest image was obtained 01/21/2020 8:41 pm . FINDINGS: Lungs are clear. Left-sided pacemaker remains in place. Interstitial pattern matches norma rison. Heart and vasculature are normal. No measurable pleural effusion and no pneumothorax. No acute bony abnormality seen. No acute aortic findings suspected. IMPRESSION: No acute cardiopulmonary process. No significant change from comparison study.
--- NOTE | 2020-01-22 07:34 | HP ---
Date of Admission: 01/22/2020 SYEDA/MODL Voice ID: [id number] MTDD
[2020-01-22] MEDS ORDERED: INFLUENZA VACCINE (for 3y+) 0.5 ML DOSE IMVAC ONE (09:00)
--- NOTE | 2020-01-22 10:05 | RAD REPORT ---
EXAM DESCRIPTION: CT - Abdomen Pelvis Wo Contrast - 01/22/2020 6:43 am CLINICAL HISTORY: Abd pain; Nausea / vomiting TECHNIQUE: Contiguous axial images obtained through the abdomen and pelvis without IV contrast. Alton nal and sagittal reformatted images were provided. This exam was performed according to our departmental dose-optimization program, which includes autom ated exposure control, adjustment of the mA and/or kV according to patient size and/or use of iterati ve reconstruction technique. COMPARISON: None available for comparison. FINDINGS: Lung bases: Clear Liver: Grossly unremarkable Gallbladder and biliary system: Prior cholecystectomy. Pancreas: Moderate pancreatic parenchymal atrophy. Spleen: Grossly unremarkable Adrenals: Unremarkable Kidneys: Hyperdensity within the renal collecting systems bilaterally. No hydronephrosis. Bowel: Prior gastric bypass. The gastric remnant is moderately distended with heterogeneous intralumi nal contents and appears somewhat thickened. Moderate stool. Colonic diverticula without adjacent inf lammatory change. No obstruction. Appendix: Normal caliber appendix. No findings to suggest acute appendicitis. Urinary bladder: The urinary bladder is decompressed. Minimal layering hyperdensity. Reproductive: Unremarkable as visualized Lymph nodes: No pathologically enlarged lymph nodes. Peritoneum: No focal fluid collection. No free air. Vessels: No abdominal aortic aneurysm. Abdominal wall: Small bilateral fat-containing inguinal hernias. Bones: Multilevel spondylosis. No acute fracture. IMPRESSION: 1. Prior gastric bypass. The gastric remnant appears mildly thickened and is moderatel y distended with extensive heterogeneous intraluminal contents concerning for hemorrhagic products. N o discrete perforation. The possibility of active bleeding cannot be excluded on the basis of this ex amination. 2. Hyperdensity within the renal collecting systems bilaterally and the dependent aspect of the uri nary bladder which has the appearance of excreted contrast. Please correlate with recent intravenous contrast administration. 3. Other findings as above. Electronically signed by: Austin Barrera MD 01/21/2020 10:59 PM LICENSED PRACTICAL NURSE INSTRUCTOR Due to temporary technical issues with the PACS/Fluency reporting system, reports are being signed by the in house radiologist without review as a courtesy to ensure prompt reporting. The interpreting r adiologist is fully responsible for the content of the report.
[2020-01-22] MEDS: PANTOPRAZOLE INJ 80 MG in NA CHLORIDE 0.9% 250 ML IV SCH ×4 (13:01→23:39)
[2020-01-22 15:39] LABS: Hematocrit 27.6 % (39.6-49.0)
--- NOTE | 2020-01-22 20:37 | HP ---
Date of Admission: 01/22/2020 Chief Complaint: Abdominal pain. History Of Present Illness: This is a 69-year-old male patient with prior history of pancreatitis and prior history of alcohol use. Reports that he has not had any alcohol in over 1 year. About 2 weeks ago, he had some epigastric abdominal pain that subsided on its own without getting any medical attention as he reports. In the last several days, he has noted black melenic stool and denies any bright red blood per rectum. Yesterday evening, he started having severe sharp abdominal pain in the epigastric region and he was brought to ER by his girlfriend. After he arrived in the emergency room, he was admitted to the hospital with acute GI bleeding and acute pancreatitis. His stool guaiac was positive, done in the emergency room. When I saw him this morning, his abdominal pain had completely subsided. He denies any chest pain, shortness of breath. No fall. No injury. Denies using any nonsteroidal anti-inflammatory medications. Allergies: NO KNOWN ALLERGIES. Medications: According to office record, he should be on doxazosin 1 mg 2 times a day, losartan/hydrochlorothiazide 100/12.5 mg 1 tablet by mouth daily in morning, pantoprazole 40 mg daily. Review of Systems: GI: As mentioned above. All other systems reviewed and negative. Past Medical History: Significant for impaired fasting glucose, obstructive sleep apnea, hypertension, hyperlipidemia, coronary artery disease, gastroesophageal reflux disease, and prior history of pancreatitis at least 2 different times as per prior office records. Past Surgical History: Pacemaker, gastric bypass, cholecystectomy, trigger finger surgery, and ankle surgery. Family History: Father , details unknown. Mother , had stroke, diabetes, and polycythemia vera. Social History: Negative for smoking, positive for alcohol use. Physical Examination: Vital Signs: Height 5 feet 9 inches, weight 234 pounds, temperature 96.2, pulse 68, respiratory rate 14, blood pressure 117/58. General: Awake, alert, oriented, not in distress. HEENT: Head atraumatic, normocephalic. Conjunctivae nonerythematous. Sclerae white. Mouth, no thrush or edema noted. Ears/Nose, no mass, lesion, discharge noted. Neck: Supple. No JVD, lymph nodes, bruit, thyromegaly noted. Lungs: Bilateral good equal air entry. Clear to auscultation. No rhonchi. No rales. Heart: Normal heart sounds, no murmur or gallop. Abdomen: Soft, bowel sounds normal. No guarding, rigidity, tenderness, mass, hepatosplenomegaly, distention, or bruit noted. Extremities: No leg edema. No calf tenderness. Skin: Pale skin. Lymphatics: No lymph node enlargement in neck, supraclavicular, infraclavicular region. Neuro: No focal neurological deficit. Chest: Unremarkable. External Genitalia: Deferred. Rectal: Deferred. Laboratory Data: White count 15, hemoglobin 8.3, platelets 299, repeat hemoglobin was 7.2. INR 1.08. Sodium 136, potassium 3.5, chloride 102, bicarb 23, BUN 27, creatinine 1.25, glucose 247. Liver function tests normal. Lipase 1536, albumin low at 2.8. Impression: 1. Acute pancreatitis. 2. Acute upper gastrointestinal bleeding. 3. Acute blood loss anemia. 4. Hypokalemia. 5. Hypertension. 6. Impaired fasting glucose. 7. Obstructive sleep apnea. 8. Hyperlipidemia. 9. Coronary artery disease. 10. Gastroesophageal reflux disease. 11. Obstructive sleep apnea. Plan: Admit the patient to hospital for further evaluation and management of this problem. The patient is appropriate for inpatient and is expected to spend 2 midnights in hospital. After the patient was evaluated in ER, he was admitted to the hospital. Last night, his hemoglobin had dropped down to 7.2 and 2 units of packed red cell blood transfusion was ordered. When I saw him this morning, he was getting his blood transfusion. Hemodynamically, he is stable. GI consultation has been requested from Dr. Enriquez. We will start IV Protonix per order. SCD was ordered for DVT prophylaxis and we will monitor blood workup with posttransfusion hemoglobin and blood work will be done again tomorrow morning. Depending on those results, we will decide if the patient is safe to go home in next day or 2 days or not. The patient will need EGD done and we will follow up with oracle programmer regarding that. SYEDA/TEOFILO Voice ID: [id number] MUSHTAQ
[2020-01-23] MEDS: INSULIN -REGULAR HUMAN 50 UNIT/0.5 ML ML SQ SCH ×3 (05:46→18:00)
[2020-01-23 06:49] LABS: Absolute Lymphocytes (CBC) 2.8 K/uL (0.7-4.9); Basophils % 0.9 % (0-1.3); Hematocrit 24.9 % (39.6-49.0); Lymphocytes % 29.5 % (15.3-44.8); MPV 8.4 fL (7.6-11.3); RBC Red Blood Cell Count 2.82 M/uL (4.33-5.43)
[2020-01-23 06:51] LABS: BUN Blood Urea Nitrogen 18 mg/dL (7-18); Bicarbonate 27 mmol/L (21-32); Glucose Level 89 mg/dL (74-106); HDL Cholesterol 35 mg/dL (40-60); LDL Cholesterol, Calculated 56 (<130); Potassium 3.5 mmol/L (3.5-5.1); Sodium Level 140 mmol/L (136-145)
[2020-01-23] MEDS: D5 0.45 NS 1,000 ML IV SCH ×3 (07:00→21:42)
[2020-01-23] MEDS: PANTOPRAZOLE INJ 80 MG in NA CHLORIDE 0.9% 250 ML IV SCH (10:43)
[2020-01-23 14:50] LABS: Absolute Lymphocytes (CBC) 2.5 K/uL (0.7-4.9); Basophils % 0.7 % (0-1.3); Lymphocytes % 26.2 % (15.3-44.8); MPV 8.1 fL (7.6-11.3); RBC Red Blood Cell Count 2.92 M/uL (4.33-5.43)
[2020-01-23] MEDS ORDERED: LIDOCAINE 1% MPF 5 ML VIAL ONE (18:07)
[2020-01-23] MEDS ORDERED: propofoL 200 MG/20 ML VIAL IV ONE ×2 (18:07→19:28)
[2020-01-23] MEDS ORDERED: Ringers Lactate 1,000 ML IV ONE (18:08)
[2020-01-23] MEDS ORDERED: EPINEPHRINE/PF 1 MG/ML AMP ONE (18:14)
[2020-01-23] MEDS ORDERED: LIDOCAINE 1% MPF 2 ML AMPULE ONE (19:00)
--- NOTE | 2020-01-23 19:32 | ENDO RPT ---
[address], [address] EGD PROCEDURE REPORT EXAM DATE: 01/23/2020 PATIENT NAME: Humberto Medina MR#: [id number] BIRTHDATE: 1950 ATTENDING: Nathaniel Enriquez Dr STATUS: inpatient - 7 ELECTRIC MOTOR WINDERS ASSEMBLER: Chris Billingsley CST, Brooke DE JESUS, and Sharri Mitchell RN INDICATIONS: The patient is a 69 yr old Male here for an EGD due to melenic bleeding and anemia PROCEDURE PERFORMED: EGD, diagnostic MEDICATIONS: Per Anesthesia. TOPICAL ANESTHETIC: none CONSENT: The patient understands the risks and benefits of the procedure and understands that these risks include, but are not limited to: sedation, allergic reaction, infection, perforation and/or bleeding. Alternative means of evaluation and treatment include, among others: physical exam, x-rays, and/or surgical intervention. The patient elects to proceed with this endoscopic procedure. DESCRIPTION OF PROCEDURE: During intra-op preparation period all mechanical medical equipment was checked for proper function. Hand hygiene and appropriate measures for infection prevention was taken. Procedure, possible complications, and alternatives including but not limited to the possibility of bleeding, perforation, tear, infection, sepsis, need for surgery, need for blood transfusion, and anesthesia related complications were explained to the patient. After the risks, benefits and alternatives of the procedure were thoroughly explained, Informed consent was verified, confirmed and timeout was successfully executed by the treatment team. The patient was placed in the left lateral position. The patient was anesthetized with topical anesthesia. Through the anesthetized oropharyngeal area, the scope was passed without any difficulty. The Pentax EG-[id number] ([id number]) endoscope was introduced through the mouth and advanced to the mid jejunum. Retroflexion was not performed. The gastroscope was then slowly withdrawn and removed. Anastomotic / gastric bypass changes were noted in the fundus with efferent / afferent limbs. Metal suture was noted at the gastric bypass anastomosis the fundus. ADVERSE EVENTS: There were no complications. IMPRESSIONS: 1. Anastomotic / gastric bypass changes in the fundus with efferent / afferent limbs 2. Metal suture at the gastric bypass anastomosis in the fundus RECOMMENDATIONS: colonoscopy REPEAT EXAM: Nathaniel Enriquez Dr eSigned: Nathaniel Enriquez Dr 01/23/2020 7:31 PM cc: Adolfo Pack CPT CODES: ICD9 CODES: PATIENT NAME: Humberto Medina Leola MR#: [id number]
--- NOTE | 2020-01-23 20:23 | PN ---
Date of Progress Note: 01/23/2020 Subjective: Patient was seen this morning for followup. No new complaints or problems reported by h im. Denies any abdominal pain, nausea, or vomiting. Had a bowel movement and his stool is still marc k. No bright red blood per rectum. Objective: Vital Signs: Reviewed. HEENT: Examination unremarkable. Lungs: Clear to auscultation. Heart: Sounds normal. Abdomen: Soft. Bowel sounds normal. No guarding, rigidity, tenderness, distention. Extremities: No leg edema. Laboratory Data: White count 9.4, hemoglobin 8.7, platelets 214. Sodium 140, potassium 3.5, chlorid e 107, bicarb 27, BUN 18, creatinine 0.79. Triglyceride 121 and lipase 113. Impression: 1.Acute blood loss anemia. 2.Upper gastrointestinal bleeding. 3.Acute pancreatitis. 4.Hypokalemia. Plan: We will continue current medication. Continue to follow with Dr. Enriquez. Continue Protonix i nfusion and we will repeat blood work this afternoon again. The patient has received 2 units of PRBC blood transfusion. Depending on this afternoon's blood work results, we will decide if he needs any further blood transfusion or not. Dr. Enriquez has ordered MRCP to be done today and he has ordered t he patient to start having clear liquid diet. Call me back to find out about his specific recommendation about EGD as it has not been scheduled, so we will talk to him to s ee what his recommendation is. SYEDA/MODL Voice ID: [id number] Report ID: [id number]
[2020-01-23] MEDS: METOCLOPRAMIDE 10 MG/2mL INJ IV SCH (20:30)
[2020-01-23] MEDS: MAGNESIUM CITRATE 300 ML BOT PO SCH (20:30)
[2020-01-23] MEDS: GOLYTELY 4000 ML PO SCH (20:30)
[2020-01-23] MEDS: SOD FERRIC GLUC COMPLX/SUCROSE 125 MG in NA CHLORIDE 0.9% 100 ML IV SCH (20:47)
--- NOTE | 2020-01-23 23:38 | CON ---
Date of Consultation: 01/23/2020 Reason For Consultation: Acutepancreatitis and melena, gastrointestinal bleed. History Of Present Illness: The patient is a 69-year-old white male with history of gastroesophageal reflux disease, hypertension, obstructive sleep apnea, hyperlipidemia, coronary artery disease, krish tatiana bypass surgery, and recurrent alcoholic pancreatitis events in the past. The patient has been so teri of alcohol for the past year. Patient presented to the hospital due to severe abdominal pain, mi depigastric area, said this has worsened with prior pancreatitis events. Even though he has not been drinking alcohol for over a year, lipase is elevated 1536 with IV fluids overnight has decreased to a normal level of 113. CT scan did not reveal any pancreatitis; however, it did reveal a gastric byp ass surgery with gastric remnant wall thickened and with moderate distention and also filled with pro bable blood clots. The patient also had nausea, vomiting with midepigastric pain as stated and the m delphine. Hemoglobin is low on this admission of 7.2, now back up to 8.9 with 2 units of packed RBCs' b lood transfusion. Past Medical History: Significant for hypertension, gastroesophageal reflux disease, hyperlipidemia, coronary artery disease, obstructive sleep apnea, gastric bypass surgery in 2006, recurrent alcoholi c pancreatitis. Current Medications: I guess in-hospital include ferric sodium gluconate, insulin, morphine, Zofran, Protonix, normal saline, IV fluids. He was also on dextrose 5%, 0.45, saline. Allergies: NKDA. Social History: He is , 2 children. No tobacco. Quit smoking pot 2 weeks ago. Alcohol, qu it 1 year ago. Family History: Father of old age at age 90. Mother of polycythemia vera with stroke at t he age of 74. Review of Systems: Patient has melena, weakness, nausea, vomiting, midepigastric pain. Denies any chest pain, shortness of breath, seizure, syncope, lower extremity edema, muscle aches, joint aches, backaches. No depres jonnie or anxiety. Physical Examination: Vital Signs: The patient is 5 feet 9 inches, 134 pounds. BMI of 34 kg/sq m. Temperature of 98.4 de grees Fahrenheit, pulse 60, respirations 16, blood pressure 141/65, O2 saturation 98%. General: Mildly obese male, lying in bed, in no acute distress. HEENT: Normocephalic, atraumatic. Anicteric. Pupils equal, round, and reactive to light. Anicteri c. Oropharynx clear. Neck: Supple. No masses. Respirations: Clear to auscultation bilaterally. Cardiac: Regular rhythm. Gastrointestinal: Positive bowel sounds. Soft. Mild midepigastric tenderness, but no peritoneal or Good sign. No rebound. Extremities: No clubbing, cyanosis, or edema. 2+ pulses. Neuro: Alert and oriented x3. Grossly nonfocal. 5/5 motor strength and sensation to light touch. Laboratory Data: The patient admitted on 2nd with a hemoglobin 8.3 down at 7.2 yesterday, now up to 8.9 today after transfusion of 2 units of packed RBCs. The patient has an MCV of 89, platelet count of 250, polys of 57% down from 83% on admission, lymphocytes 26%, monocytes 7%, eosinophils 9%. Has a PT of 12.7, INR of 1.1, PTT 21.7. Has a sodium 140, potassium 3.5, chloride 107, bicarb 27, BUN 18 , creatinine 0.8, glucose 89, calcium 7.9. Triglycerides 121, cholesterol 150, LDL 56, HDL 35. Lipa se is 113, down from 1536 on the 2nd. The patient had a total bilirubin of 0.4, direct bilirubin 0.1 , AST of 15, ALT of 13, alkaline phosphatase 92. B-type natriuretic peptide is slightly elevated at 189. Total protein 5.9, albumin 2.8. Imaging: CT abdomen and pelvis, which revealed gastric bypass changes with gastric remnant ward thi ckened with moderate distention of gastric remnant pouch with luminal contents suspicious for possibl e hemorrhagic products and there is some hyperdensity within the renal collecting system as noted as well. Otherwise negative. Impression: 1.Gastrointestinal bleed with melena, hemoglobin of 7.2, up to 8.9 after 2 units packed RBCs. Abnor mal CT scan reveals hemorrhagic contents within the gastric bypass, remnant stomach with thickened wa lls indicative of possible inflammation with moderate distention of stomach. 2.Acute pancreatitis. Lipase 1536 down to a normal of 113 with nausea, vomiting, midepigastric pain . He has a history of recurrent alcoholic pancreatitis. However, he has had no alcohol over a year. 3.History of gastroesophageal reflux disease, hypertension, obstructive sleep apnea, hyperlipidemia, coronary artery disease, gastric bypass 2001, recurrent alcoholic pancreatitis, but no alcohol over year. Recommendations: 1.Continue IV fluids. Monitor labs. 2.Keep patient n.p.o. 3.EGD. 4.PPI therapy. 5.Check triglycerides. I guess we did that and they were normal and also check CA-19-9. TOBIAS/TEOFILO Voice ID: [id number] Report ID: [id number]
[2020-01-24] MEDS: PANTOPRAZOLE INJ 80 MG in NA CHLORIDE 0.9% 250 ML IV SCH ×2 (00:46→12:10)
[2020-01-24] MEDS: METOCLOPRAMIDE 10 MG/2mL INJ IV SCH ×2 (00:46→06:02)
[2020-01-24] MEDS: D5 0.45 NS 1,000 ML IV SCH (05:59)
[2020-01-24] MEDS: INSULIN -REGULAR HUMAN 50 UNIT/0.5 ML ML SQ SCH ×4 (06:00→18:00)
[2020-01-24 06:27] LABS: Absolute Lymphocytes (CBC) 2.4 K/uL (0.7-4.9); Basophils % 0.9 % (0-1.3); Hematocrit 25.2 % (39.6-49.0); Lymphocytes % 28.8 % (15.3-44.8); MPV 8.3 fL (7.6-11.3); RBC Red Blood Cell Count 2.82 M/uL (4.33-5.43)
[2020-01-24 06:42] LABS: BUN Blood Urea Nitrogen 12 mg/dL (7-18); Bicarbonate 28 mmol/L (21-32); Glucose Level 92 mg/dL (74-106); Magnesium 2.3 mg/dL (1.8-2.4); Potassium 3.5 mmol/L (3.5-5.1); Sodium Level 143 mmol/L (136-145)
[2020-01-24] MEDS: SOD FERRIC GLUC COMPLX/SUCROSE 125 MG in NA CHLORIDE 0.9% 100 ML IV SCH (08:00)
--- NOTE | 2020-01-24 11:44 | DS ---
Date of Discharge: 01/24/2020 Disposition: The patient will be discharged to go home today after colonoscopy, depending on the result. Laboratory Data: Last CBC today; white count 8.4, hemoglobin 8.5, platelets 264. Lowest hemoglobin 7.2 on 01/22/2020, after which the patient received 2 units of PRBC blood transfusion and hemoglobin now has remained stable between 8.5 to 8.9 on last 3 CBCs. Initial chemistry; sodium 136, potassium 3.5, chloride 102, bicarb 23, BUN 27, creatinine 1.25, glucose 247. Liver function tests unremarkable. Troponin less than 0.02, lipase 1536, this was on 01/21/2020. Yesterday lipase was 113. Today sodium 143, potassium 3.5, chloride 110, bicarb 28, BUN 12, creatinine 0.83, glucose 92. Objective: Vital Signs: Reviewed. HEENT: Examination unremarkable. Lungs: Clear to auscultation. Heart: Sounds normal. Abdomen: Soft. Bowel sounds normal. No guarding, rigidity, tenderness, distention. Extremities: No leg edema. Hospital Course: A 69-year-old male patient came into emergency room with complaints of abdominal pain and dark stool. Please see dictated H and P for more information. The patient was admitted to the hospital with acute pancreatitis and acute blood loss anemia. After he received morphine in the emergency room, his pain from pancreatitis subsided and has not had any recurrence of abdominal pain and his lipase came down to normal. He does have a history of dark stool in the last couple of weeks or so and his initial hemoglobin was very low and he did require 2 units of blood transfusion. After blood transfusion, we continued to monitor his hemoglobin and that has remained stable. Hemodynamically, he is stable. GI consultation was requested from Dr. Enriquez. The patient was started on clear liquid diet yesterday and had an MRCP done, which came back unremarkable, and Dr. Enriquez is going to do colonoscopy today. Subsequently, on an outpatient basis, Dr. Enriquez will plan to do capsule endoscopy, and this was discussed with the patient today, and he was advised to follow up with him on outpatient basis. The patient was using marijuana and I have advised him to quit using it completely because I am concerned that his pancreatitis could have been due to use of marijuana and I did explain it to him. Today, he was also given instruction not to use any aspirin, Aleve, Motrin, ibuprofen, or any other form of nonsteroidal anti-inflammatory medications because of GI bleeding issues. The patient was given IV Protonix drip here in the hospital. Today, he will have colonoscopy. We will review result with Dr. Enriquez, and depending on the colonoscopy result, we will decide if we can discharge him to go home. His hemoglobin A1c was 5.7. Discharge Diagnoses: 1. Acute pancreatitis. 2. Acute upper gastrointestinal bleeding. 3. Acute blood loss anemia. 4. Hypokalemia. 5. Hypertension. 6. Impaired fasting glucose. 7. Obstructive sleep apnea. 8. Hyperlipidemia. 9. Coronary artery disease. 10. Gastroesophageal reflux disease. Discharge Medications And Instructions: 1. Follow up at my office next week on January 29, 2020. 2. The patient to get blood work done 2 days before coming to see me. 3. Follow up with Dr. Enriquez in 1-2 weeks. 4. Continue all prior home medication except stop aspirin and do not take any Advil, Aleve, or Motrin type of medications. 5. Start to take ferrous fumarate 324 mg 1 tablet by mouth 2 times a day and pantoprazole 40 mg p.o. daily. SYEDA/MODL Voice ID: [id number] Report ID: [id number] MUSHTAQ
[2020-01-24] MEDS ORDERED: propofoL 200 MG/20 ML VIAL IV ONE ×2 (13:29→13:47)
[2020-01-24] MEDS: MAGNESIUM CITRATE 300 ML BOT PO SCH (13:49)
[2020-01-24] MEDS: GOLYTELY 4000 ML PO SCH (13:49)
--- NOTE | 2020-01-24 14:53 | ENDO RPT ---
[address], [address] COLONOSCOPY PROCEDURE REPORT EXAM DATE: 01/24/2020 PATIENT NAME: Humberto Medina MR #: [id number] BIRTHDATE: 1950 ATTENDING: Nathaniel Enriquez Dr STATUS: outpatient ENVIRONMENTAL MAINTENANCE WORKER: Brooke DE JESUS, Chris Billingsley CST, and Sharri Mitchell RN INDICATIONS: The patient is a 69 yr old Male here for a colonoscopy due to melenic bleeding and anemia PROCEDURE PERFORMED: Colonoscopy MEDICATIONS: Per Anesthesia. ESTIMATED BLOOD LOSS: None CONSENT: The patient understands the risks and benefits of the procedure and understands that these risks include, but are not limited to: sedation, allergic reaction, infection, perforation and/or bleeding. Alternative means of evaluation and treatment include, among others: physical exam, x-rays, and/or surgical intervention. The patient elects to proceed with this endoscopic procedure. DESCRIPTION OF PROCEDURE: During intra-op preparation period all mechanical medical equipment was checked for proper function. Hand hygiene and appropriate measures for infection prevention was taken. Procedure, possible complications, alternatives including, but not limited to possibility of bleeding, perforation, tear, infection, sepsis, need for surgery, need for blood transfusion, were explained to the patient. After the risks, benefits and alternatives of the procedure were thoroughly explained, Informed consent was verified, confirmed and timeout was successfully executed by the treatment team. The patient was placed in the left lateral position. A digital rectal exam was performed and revealed a nodule prostate. After appropriate level of anesthesia, the scope was passed. The EC-[id number] ([id number]) endoscope was introduced through the anus and advanced to the terminal ileum which was intubated for a short distance. The quality of the prep was poor. The instrument was then slowly withdrawn as the colon was fully examined. Scope withdrawal time was 8 minutes. ileum. Small internal hemorrhoids were found. Retroflexed views revealed small hemorrhoids. The scope was then completely withdrawn from the patient and the procedure terminated. ADVERSE EVENTS: There were no complications. IMPRESSIONS: 1. Melena / dark green liquid stool throughout the colon terminal ileum 2. Small internal hemorrhoids RECOMMENDATIONS: 1. Small Bowel Follow Through 2. pillcam / capsule endoscopy RECALL: Return in 1 week(s) for Colonoscopy. Nathaniel Enriquez Dr eSigned: Nathaniel Enriquez Dr 01/24/2020 2:53 PM cc: Adolfo Pack CPT CODES: ICD9 CODES: 600.1 Nodular prostate PATIENT NAME: MedinaHumberto MR#: [id number]
--- NOTE | 2020-01-24 14:56 | ENDO RPT ---
[address], [address] COLONOSCOPY PROCEDURE REPORT EXAM DATE: 01/24/2020 PATIENT NAME: Humberto Medina MR #: [id number] BIRTHDATE: 1950 ATTENDING: Nathaniel Enriquez Dr STATUS: outpatient ICE CREAM CHEF: Brooke DE JESUS, Chris Billingsley CST, and Sharri Mitchell RN INDICATIONS: The patient is a 69 yr old Male here for a colonoscopy due to melenic bleeding and anemia PROCEDURE PERFORMED: Colonoscopy MEDICATIONS: Per Anesthesia. ESTIMATED BLOOD LOSS: None CONSENT: The patient understands the risks and benefits of the procedure and understands that these risks include, but are not limited to: sedation, allergic reaction, infection, perforation and/or bleeding. Alternative means of evaluation and treatment include, among others: physical exam, x-rays, and/or surgical intervention. The patient elects to proceed with this endoscopic procedure. DESCRIPTION OF PROCEDURE: During intra-op preparation period all mechanical medical equipment was checked for proper function. Hand hygiene and appropriate measures for infection prevention was taken. Procedure, possible complications, alternatives including, but not limited to possibility of bleeding, perforation, tear, infection, sepsis, need for surgery, need for blood transfusion, were explained to the patient. After the risks, benefits and alternatives of the procedure were thoroughly explained, Informed consent was verified, confirmed and timeout was successfully executed by the treatment team. The patient was placed in the left lateral position. A digital rectal exam was performed and revealed a 3 mm nodule on right lobe of prostate. After appropriate level of anesthesia, the scope was passed. The EC-[id number] ([id number]) endoscope was introduced through the anus and advanced to the terminal ileum which was intubated for a short distance. The quality of the prep was poor. The instrument was then slowly withdrawn as the colon was fully examined. Scope withdrawal time was 8 minutes. ileum. Small internal hemorrhoids were found. Retroflexed views revealed small hemorrhoids. The scope was then completely withdrawn from the patient and the procedure terminated. ADVERSE EVENTS: There were no complications. IMPRESSIONS: 1. Melena / dark green liquid stool throughout the colon terminal ileum 2. Small internal hemorrhoids RECOMMENDATIONS: 1. Small Bowel Follow Through 2. pillcam / capsule endoscopy 3. urology follow-up RECALL: Return in 1 week(s) for Colonoscopy. Nathaniel Enriquez Dr eSigned: Nathaniel Enriquez Dr 01/24/2020 2:55 PM Revised: 01/24/2020 2:55 PM cc: Adolfo Pack CPT CODES: ICD9 CODES: 600.1 Nodular prostate PATIENT NAME: Humberto Medina MR#: [id number]
[2020-01-24 15:43] VITALS: O2SAT 99
[2020-01-24 17:31] VITALS: BP 149/65; TEMP 98.5
--- NOTE | 2020-01-24 18:02 | RAD REPORT ---
EXAM DESCRIPTION: RAD - Small Bowel Series - 01/24/2020 5:55 pm CLINICAL HISTORY: Abdominal pain/ GI bleeding COMPARISON: None. FINDINGS: Contrast enters the colon by approximately 1 hour. Gastric bypass has been performed. The mucosal folds of the small bowel appear normal. No permanent filling defects, obstructing or constricting lesions are seen. The small bowel caliber is normal. IMPRESSION: Unremarkable small bowel series.
== END 2020-01-24 18:45 | disposition home or self-care (01) | DRG 377 ==
LOC: ER 19:43 → ERHOLD 01-22 00:36 → 2ND 01-22 02:48
PROVIDERS: ADMIT Internal Medicine; ATTEND Internal Medicine
PROC: 30233N1 Transfusion of Nonautologous Red Blood Cells into Peripheral Vein, Percutaneous Approach (ICD-10-PCS; 2020-01-23)
PROC: 0DJ08ZZ Inspection of Upper Intestinal Tract, Via Natural or Artificial Opening Endoscopic (ICD-10-PCS; principal; 2020-01-23 17:30)
PROC: 0DJD8ZZ Inspection of Lower Intestinal Tract, Via Natural or Artificial Opening Endoscopic (ICD-10-PCS; 2020-01-24)
DX: K92.1 Melena (principal); K85.90 Acute pancreatitis without necrosis or infection, unspecified; D62 Acute posthemorrhagic anemia; K64.8 Other hemorrhoids; I10 Essential (primary) hypertension; E78.5 Hyperlipidemia, unspecified; I25.10 Atherosclerotic heart disease of native coronary artery without angina pectoris; K21.9 Gastro-esophageal reflux disease without esophagitis; G47.33 Obstructive sleep apnea (adult) (pediatric); E87.6 Hypokalemia; R73.01 Impaired fasting glucose; E66.9 Obesity, unspecified; Z68.34 Body mass index [BMI] 34.0-34.9, adult; Z95.0 Presence of cardiac pacemaker; Z90.49 Acquired absence of other specified parts of digestive tract; Z98.84 Bariatric surgery status; Z20.828 Contact with and (suspected) exposure to other viral communicable diseases
CPT/HCPCS: 36415; 36430; 71045; 74176; 74250; 80048; 80061; 80076; 82947; 83036; 83690; 83735; 83880; 84484; 85014; 85018; 85025; 85610; 85730; 86850; 86900; 86901; 93005; 99284; C9113; J0171; J1200; J2001; J2405; J2704; J2765; J2916; J7030; J7050; J7120; J7799; P9016; U0002

== ENCOUNTER 2020-02-03 12:53 | Emergency (ER) | payer OTHER ==
--- OUTSIDE RECORDS SUMMARY | 2020-02-03 13:11 | XMS REPORT | Clinical Summary ---
:1950 Author Organization [facility] Address [address] [place] [address] Care Team Providers Name Role Phone Ghazal aPck MD Primary Care Provider Allergies No Known [...] Surgeon : Vaibhav Ramirez Jr., MD; Location: [facility]; Servi ce: Cardiology; Lat erality: [...] INFLUENZA VACCINE 09/20/2019 Implants Implanted Type Area Pesticide Use Medical Coordinator Device Shelf Model / Identifier Expiration Serial / Date Lot Percepta Collarette Separator-P Mri Sureprestonan - [id number] Cardiac Pacemaker N/A: EDTRONIC [facility] [id number] / Implanted: Qty: 1 on 05/30/2018 by Vaibhav Ramirez Jr., M D at [facility] Generators N/A [employer] / Lead [id number] Lead-Pace Cath Deliv 4fr 38 - Lead - [id number] - [id number] Cardiac Pacing N/A: MEDTR[employer]IC [facility] 03/20/2020 [id number] / Implanted: Qty: 1 on 05/30/2018 by Vaibhav Ramirez Jr., M D at [facility] Leads or N/A [employer] [id number] / Electrodes or [id number] Accessories Lead Pace Trnsvns Actv-Fxtn Atrl Zhang Bipolar 52cm - Sb [id number] - [id number] Cardiac Pacing N/A: MEDTRONIC [facility] - 03/13/2020 LEAD [id number] / Implanted: Qty: 1 on 05/30/2018 by Vaibhav Ramirez Jr., M D at [facility] Leads or N/A CARDIAC RYHTYM [id number] / Electrodes or MGMT [id number] Accessories Lead, Atrial Ventricular Transvenous Ext endable Retractable Screw In Assembly Farnaz Edwardt En 58cm - [id number] - [id number] Cardiac Pacing N/A: SC DTRONIC [facility] 01/25/2020 [id number] / Implanted: Qty: 1 on 05/30/2018 by Vaibhav Ramirez Jr., M D at [facility] Leads or N/A [employer] [id number] / Electrodes or [id number] Accessories Envelope Pcemkr Antbactl Fully Resorb Aigisrxr - [id number] Cardiovascular N/A: MEDTRONIC INC [id number] / Implanted: 05/30/2018 at [facility] (Quantity not on file) Implants N/A / Results Not on fileafter 02/02/2019 Insurance Payer Benefit Plan / Subscriber ID Effective Dates Phone Addre ss Type Group MEDICARE MEDICARE PART A AND [id number] 2016-Whitney [facility], [place] Medicare B t [facility] [id number] 2000-Whitney albrecht Advance Directives For more information, please contact: [phone] Type Date 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
--- OUTSIDE RECORDS SUMMARY | 2020-02-03 13:12 | XMS REPORT | Continuity of Care Document ---
:1950 Author Organization [facility] t Address [address] [place] [address] Care Team Providers Name Role Phone Ghazal [...] Date Quantity Comments Source Sex Assigned At [facility] ethodist Tobacco use and 2018-06-03 2018-06-03 Never used [facility] ethodist exposure 00:00:00 00:00:00 Alcohol intake 2018-06-03 2018-06-03 Current drinker [place] 00:00:00 00:00:00 of alcohol (finding) Smoking Status Start Date Stop Date Source Never smoker [place] [facility] t Medications Ordered Filled Start Stop [...] Future Scheduled 2019-09-20 INFLUENZA VACCINE [facility] Test 00:00:00 [code = INFLUENZA VACCINE] Future Scheduled 2016-06-18 65+ PNEUMOCOCCAL [place] [facility] Test 00:00:00 VACCINE (1 of 1 - PPSV23) [code = 65+ PNEUMOCOCCAL VACCINE (1 of 1 - PPSV23)] Future Scheduled 2001-06-18 COLONOSCOPY SCREENING Gokul iverson [facility] Test 00:00:00 [code = COLONOSCOPY SCREENING] Future Scheduled 2001-06-18 SHINGLES VACCINES (#1) [facility] Test 00:00:00 [code = SHINGLES VACCINES (#1)] Encounters Start End Encounter Admission Attending Care Care Encounter Source Date/Time Date/Time Type Type Clinicians Facility Department ID 2019-04-18 2019-04-18 Office GARETT Coughlin [id number] 08:32:36 16:06:01 Visit [facility] [id number] Y [id number] 325 Results This patient has no known results.
--- NOTE | 2020-02-03 14:13 | ER ---
Nurse's Notes [facility] Name: Humberto Medina Age: 69 yrs Sex: Male : 1950 Arrival Date: 02/03/2020 Time: 12:55 Bed 19 Private MD: Diagnosis: Gastrointestinal hemorrhage, unspecified;Anemia, unspecified;Dyspnea;Chest pain, unspecified Presentation: 02/02 13:14 Chief complaint: Patient states: midsternal chest pain, heartburn, SOB, dizziness x 1 sv day. Blood in stool noted today, described as black stools. Pt was recently admitted and discharged about a week ago, had blood transfusions x 2, EGD and a colonoscopy done by Dr Enriquez. Coronavirus screen: Client denies travel out of the [place] in the last 14 days. At this time, the client does not indicate any symptoms associated with coronavirus-19. Ebola Screen: No symptoms or risks identified at this time. Initial Sepsis Screen: Does the patient meet any 2 criteria? HR > 90 bpm. No. Patient's initial sepsis screen is negative. Does the patient have a suspected source of infection? No. Patient's initial sepsis screen is negative. Risk Assessment: Do you want to hurt yourself or someone else? Patient reports no desire to harm self or others. Onset of symptoms was February 02, 2020. 13:14 Method Of Arrival: Wheelchair sv 13:14 Acuity: FORD 2 sv Historical: - Allergies: 13:17 No Known Drug Allergies; sv - Home Meds: 13:26 Ferrocite 324 mg (106 mg iron) oral tab [Active]; pantoprazole 40 mg Oral TbEC 1 tab sv once daily [Active]; losartan-hydrochlorothiazide 100-12.5 mg Oral tab 1 tab once daily [Active]; doxazosin 1 mg Oral tab 1 tab once daily [Active]; vitamin b12 1000 mg daily [Active]; vitamin E 400 unit Oral cap daily [Active]; multivitamin oral tab daily [Active]; [place]-3 oral 2000 mg daily oral [Active]; - PMHx: 13:17 Hypertension; Pancreatitis; Pacemaker; Ulcers; sv - PSHx: 13:17 Gastric Bypass; left foot; left hand; sv - Immunization history:: Flu vaccine is not up to date. - Social history:: Smoking status: Patient denies any tobacco usage or history of. - Family history:: not pertinent. Screenin:45 Abuse screen: Denies threats or abuse. Nutritional screening: No deficits noted. em Tuberculosis screening: No symptoms or risk factors identified. Fall Risk None identified. Assessment: 13:45 General: Appears in no apparent distress. comfortable, Behavior is calm, cooperative, em Denies fever. Pain: Complains of pain in chest Pain does not radiate. Pain began 1 day ago. Neuro: Level of Consciousness is awake, alert, obeys commands, Oriented to person, place, time, situation, Appropriate for age. Cardiovascular: Capillary refill < 3 seconds Patient's skin is warm and dry. Respiratory: Airway is patent Respiratory effort is even, unlabored, Respiratory pattern is regular, symmetrical. GI: Reports rectal bleeding. Derm: Skin is intact, is healthy with good turgor, Skin is jaundiced. Musculoskeletal: Capillary refill < 3 seconds, Range of motion: intact in all extremities. 14:30 Reassessment: Patient appears in no apparent distress at this time. Patient and/or em family updated on plan of care and expected duration. Pain level reassessed. Patient is alert, oriented x 3, equal unlabored respirations, skin warm/dry/pink. 15:10 Reassessment: pt signed consent for PRBC's. em 16:10 Reassessment: initiated PRBC's, double checked blood products with VANESSA Hu, em instructed pt to verbalize any SOB, more increased CP or any other significant changes. 16:50 Reassessment: attempted to call report, was asked to call back in 10-15 minutes. em 17:10 Reassessment: Patient appears in no apparent distress at this time. pt reports feeling em slightly better, waiting to give pt report on to transfer facility. 17:17 Reassessment: report given to VANESSA Bhatia at [facility], pending EMS transportation. 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 em Vital Signs: 13:14 BP 161 / 95; Pulse 99; Resp 16; Temp 98.6; Pulse Ox 100% ; Weight 101.15 kg; Height 5 sv ft. 9 in. (175.26 cm); Pain 2/10; 15:00 BP 147 / 62; Pulse 83; Resp 18; Pulse Ox 99% on R/A; em 16:05 BP 142 / 56; Pulse 77; Resp 18; Temp 98.8; Pulse Ox 100% on R/A; em 16:10 em 13:14 Body Mass Index 32.93 (101.15 kg, 175.26 cm) sv 16:10 please see blood transfussion flow sheet em ED Course: 12:55 Patient arrived in ED. ds1 13:13 Presley Rockwell, RN is Primary Nurse. em 13:16 Triage completed. sv 13:17 Arm band placed on. sv 13:23 Remberto Canas MD is Attending Physician. blake 13:37 EKG done, by ED staff, reviewed by Remberto Canas MD. jp3 13:45 Patient has correct armband on for positive identification. Placed in gown. Bed in low em position. Call light in reach. Side rails up X2. groundwater monitoring technician on. Pulse ox on. NIBP on. 14:05 Initial lab(s) drawn, by me, sent to lab. T\T\S collected, blood band applied to patient. em Inserted saline lock: 20 gauge in left forearm, using aseptic technique. Blood collected. 14:20 XRAY Chest (1 view) In Process Unspecified. EDMS 15:10 Consent for blood and/or blood product transfusion explained by staff, explained by em physician, signed by patient. 15:50 Inserted saline lock: 22 gauge in left wrist, using aseptic technique. em 18:00 No provider procedures requiring assistance completed. Patient admitted, IV remains in em place. Patient maintains SpO2 saturation greater than 95% on room air. Administered Medications: 14:05 Drug: NS 0.9% 1000 ml Route: IV; Rate: 125 ml/hr; Site: left forearm; em 18:03 Follow up: IV Status: Infusion continued upon transfer em 14:05 Drug: ProTONIX 80 mg Route: IVP; Site: left forearm; em 15:10 Follow up: Response: No adverse reaction em 14:05 Drug: NS 0.9% 500 ml Route: IV; Rate: bolus; Site: left forearm; em 15:30 Follow up: IV Status: Completed infusion; IV Intake: 500ml em 15:50 Drug: ProTONIX 8 mg/hr Route: IV; Rate: 25 ml/hr; Site: left wrist; em 18:03 Follow up: IV Status: Infusion continued upon transfer em 16:00 Drug: Benadryl 12.5 mg Route: IVP; Site: left wrist; em 16:30 Follow up: Response: No adverse reaction em 16:00 Drug: Tylenol 650 mg Route: PO; em 16:30 Follow up: Response: No adverse reaction em Intake: 15:30 IV: 500ml; Total: 500ml. em Outcome: 14:12 ER care complete, transfer ordered by . blake 18:00 Transferred by ground EMS to [facility], Transfer form completed. em X-rays sent w/ patient. 18:00 Condition: stable 18:00 Instructed on the need for transfer, Demonstrated understanding of instructions. 18:04 Patient left the ED. em Signatures: Dispatcher [employer] Mayte Pryor, RN Remberto Wheat MD MD cha Munoz, Edgar, RN RN em Sanford, Demi ds1 Jovanny Nixon jp3
--- NOTE | 2020-02-03 14:13 | EDPHYS ---
Physician Documentation [facility] Name: Humberto Medina Age: 69 yrs Sex: Male : 1950 Arrival Date: 02/03/2020 Time: 12:55 Bed 19 Private MD: ED Physician Remberto Canas HPI: 02/02 13:47 This 69 yrs old Male presents to ER via Wheelchair with complaints of Chest blake Pain, Blood In Stool, Shortness Of Breath. 13:47 The patient or guardian reports chest pain that is located primarily in the substernal blake area. Onset: 3 day(s) ago. The pain does not radiate. Associated signs and symptoms: Pertinent positives: dizziness, near-syncope, shortness of breath. The chest pain is described as a pressure. Modifying factors: The symptoms are alleviated by application of supplemental oxygen, remaining still, the symptoms are aggravated by activity, movement, running. Severity of pain: At its worst the pain was mild in the emergency department the pain is unchanged. Historical: - Allergies: 13:17 No Known Drug Allergies; sv - Home Meds: 13:26 Ferrocite 324 mg (106 mg iron) oral tab [Active]; pantoprazole 40 mg Oral TbEC 1 tab sv once daily [Active]; losartan-hydrochlorothiazide 100-12.5 mg Oral tab 1 tab once daily [Active]; doxazosin 1 mg Oral tab 1 tab once daily [Active]; vitamin b12 1000 mg daily [Active]; vitamin E 400 unit Oral cap daily [Active]; multivitamin oral tab daily [Active]; [place]-3 oral 2000 mg daily oral [Active]; - PMHx: 13:17 Hypertension; Pancreatitis; Pacemaker; Ulcers; sv - PSHx: 13:17 Gastric Bypass; left foot; left hand; sv - Immunization history:: Flu vaccine is not up to date. - Social history:: Smoking status: Patient denies any tobacco usage or history of. - Family history:: not pertinent. ROS: 13:47 Constitutional: Negative for fever, chills, and weight loss, ENT: Negative for injury, blake pain, and discharge, Neck: Negative for injury, pain, and swelling, Cardiovascular: Negative for chest pain, palpitations, and edema, Respiratory: Negative for shortness of breath, cough, wheezing, and pleuritic chest pain, Abdomen/GI: Negative for abdominal pain, nausea, vomiting, diarrhea, and constipation, Back: Negative for injury and pain, : Negative for injury, bleeding, discharge, and swelling, MS/Extremity: Negative for injury and deformity, Neuro: Negative for headache, weakness, numbness, tingling, and seizure, Psych: Negative for depression, anxiety, suicide ideation, homicidal ideation, and hallucinations, Allergy/Immunology: Negative for hives, rash, and allergies, Endocrine: Negative for neck swelling, polydipsia, polyuria, polyphagia, and marked weight changes, Hematologic/Lymphatic: Negative for swollen nodes, abnormal bleeding, and unusual bruising. 13:47 Eyes: Positive for sunken appearance. 13:47 Skin: Positive for pallor. Exam: 13:47 Constitutional: This is a well developed, well nourished patient who is awake, alert, blake and in no acute distress. Head/Face: Normocephalic, atraumatic. ENT: Nares patent. No nasal discharge, no septal abnormalities noted. Tympanic membranes are normal and external auditory canals are clear. Oropharynx with no redness, swelling, or masses, exudates, or evidence of obstruction, uvula midline. Mucous membranes moist. Neck: Trachea midline, no thyromegaly or masses palpated, and no cervical lymphadenopathy. Supple, full range of motion without nuchal rigidity, or vertebral point tenderness. No Meningismus. Chest/axilla: Normal chest wall appearance and motion. Nontender with no deformity. No lesions are appreciated. Cardiovascular: Regular rate and rhythm with a normal S1 and S2. No gallops, murmurs, or rubs. Normal PMI, no JVD. No pulse deficits. Respiratory: Lungs have equal breath sounds bilaterally, clear to auscultation and percussion. No rales, rhonchi or wheezes noted. No increased work of breathing, no retractions or nasal flaring. Abdomen/GI: Soft, non-tender, with normal bowel sounds. No distension or tympany. No guarding or rebound. No evidence of tenderness throughout. Back: No spinal tenderness. No costovertebral tenderness. Full range of motion. MS/ Extremity: Pulses equal, no cyanosis. Neurovascular intact. Full, normal range of motion. Neuro: Awake and alert, GCS 15, oriented to person, place, time, and situation. Cranial nerves II-XII grossly intact. Motor strength 5/5 in all extremities. Sensory grossly intact. Cerebellar exam normal. Normal gait. Psych: Awake, alert, with orientation to person, place and time. Behavior, mood, and affect are within normal limits. 13:47 Eyes: Conjunctiva: pale, bilaterally. 13:47 Skin: Appearance: Color: pale, Temperature: normal temperature, Moisture: normal moisture, petechiae, not noted, ecchymosis, not noted. 13:55 Abdomen/GI: Inspection: distension, Bowel sounds: normal, Palpation: mild abdominal blake tenderness, Rectal exam: is unremarkable, Prostate: normal, rectal tone normal, Stool: guaiac positive, black, hemorrhoid(s), are not appreciated, mass, is not appreciated, swelling, is not appreciated, tenderness, is not appreciated, fecal impaction, is not appreciated, the exam is chaperoned by a family member, Liver: no appreciated palpable abnormalities, Hernia: not appreciated. 13:58 ECG was reviewed by the Attending Physician. [facility] Vital Signs: 13:14 BP 161 / 95; Pulse 99; Resp 16; Temp 98.6; Pulse Ox 100% ; Weight 101.15 kg; Height 5 sv ft. 9 in. (175.26 cm); Pain 2/10; 15:00 BP 147 / 62; Pulse 83; Resp 18; Pulse Ox 99% on R/A; em 16:05 BP 142 / 56; Pulse 77; Resp 18; Temp 98.8; Pulse Ox 100% on R/A; em 16:10 em 13:14 Body Mass Index 32.93 (101.15 kg, 175.26 cm) sv 16:10 please see blood transfussion flow sheet em MDM: 13:23 Patient medically screened. blake 13:47 Differential diagnosis: abnormal EKG, anxiety, coronary artery disease gastritis, blake gastroesophageal reflux disease (GERD), pancreatitis, peptic ulcer disease, stable angina, unstable angina. HEART Score: History: Slightly Suspicious (0), ECG: Non specific repolarization disturbance / LBTB / PM (1), Age: > or = 65 years (2), Risk Factors: > or = 3 Risk factors for atherosclerotic disease (2), [Hypertension] [+ Family HX] [Obesity] Troponin: < or = 1 x Normal Limit (0). The patient was not given aspirin in the Emergency Department. Not indicated due to patient's past medical history. The patient's deep vein thrombosis risk score was calculated as follows: Total Score: 0. This patient was found to be at low risk for a deep vein thrombosis by using the Well's assessment criteria. The patient's pulmonary embolism risk score was calculated as follows: Total Score: 0-2 points. This patient was found to be at low risk for a pulmonary embolism by using the Well's assessment criteria. KHRIS Risk Score: not applicable. Data reviewed: vital signs. 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 Test interpretation: by ED physician or midlevel provider: ECG, plain radiologic studies. Counseling: I had a detailed discussion with the patient and/or guardian regarding: the historical points, exam findings, and any diagnostic results supporting the discharge/admit diagnosis, the presence of at least one elevated blood pressure reading (>120/80) during this emergency department visit, lab results, radiology results, the need for further work-up and treatment in the hospital. 02/02 13:47 Order name: Basic Metabolic Panel; Complete Time: 15:08 [facility] 02/02 13:47 Order name: CBC with Diff [facility] 02/02 13:47 Order name: LFT's; Complete Time: 15:08 [facility] 02/02 13:47 Order name: Magnesium; Complete Time: 15:08 [facility] 02/02 13:47 Order name: NT PRO-BNP; Complete Time: 15:08 [facility] 02/02 13:47 Order name: PT-INR; Complete Time: 14:45 [facility] 02/02 13:47 Order name: Troponin (emerg Dept Use Only); Complete Time: 15:08 [facility] 02/02 13:47 Order name: XRAY Chest (1 view) [facility] 02/02 13:47 Order name: Type And Screen [facility] 02/02 13:47 Order name: Lipase; Complete Time: 15:08 [facility] 02/02 14:34 Order name: Packed RBC Leukored EDDE 02/02 13:47 Order name: EKG; Complete Time: 13:48 [facility] 02/02 13:47 Order name: Cardiac monitoring; Complete Time: 13:49 [facility] 02/02 13:47 Order name: EKG - Nurse/Tech; Complete Time: 13:49 [facility] 02/02 13:47 Order name: IV Saline Lock; Complete Time: 14:23 [facility] 02/02 13:47 Order name: Labs collected and sent; Complete Time: 14:23 [facility] 02/02 13:47 Order name: O2 Per Protocol; Complete Time: 13:49 [facility] 02/02 13:47 Order name: O2 Sat Monitoring; Complete Time: 13:49 [facility] 02/02 13:47 Order name: Transfuse; Complete Time: 16:49 [facility] 02/02 14:00 Order name: IV Saline Lock - Large Bore; Complete Time: 14:23 [facility] EC:58 Rate is 67 beats/min. MT interval is normal. QRS interval is normal. QT interval is blake normal. No Q waves. T waves are Normal. No ST changes noted. Interpreted by me. Reviewed by me. Administered Medications: 14:05 Drug: NS 0.9% 1000 ml Route: IV; Rate: 125 ml/hr; Site: left forearm; em 18:03 Follow up: IV Status: Infusion continued upon transfer em 14:05 Drug: ProTONIX 80 mg Route: IVP; Site: left forearm; em 15:10 Follow up: Response: No adverse reaction em 14:05 Drug: NS 0.9% 500 ml Route: IV; Rate: bolus; Site: left forearm; em 15:30 Follow up: IV Status: Completed infusion; IV Intake: 500ml em 15:50 Drug: ProTONIX 8 mg/hr Route: IV; Rate: 25 ml/hr; Site: left wrist; em 18:03 Follow up: IV Status: Infusion continued upon transfer em 16:00 Drug: Benadryl 12.5 mg Route: IVP; Site: left wrist; em 16:30 Follow up: Response: No adverse reaction em 16:00 Drug: Tylenol 650 mg Route: PO; em 16:30 Follow up: Response: No adverse reaction em Disposition: 02/03/20 14:12 Transfer ordered to [facility]. Diagnosis are Gastrointestinal hemorrhage, unspecified, Anemia, unspecified, Dyspnea, Chest pain, unspecified. - Reason for transfer: Higher level of care. - Accepting physician is TO [facility]. - Condition is Stable. - Problem is new. - Symptoms have improved. Signatures: Dispatcher [employer] Mayte Pryor RN RN Missael, Remberto, MD MD blake Rockwell, Presley, RN RN em Corrections: (The following items were deleted from the chart) 18:04 14:12 02/03/2020 14:12 Transfer ordered to [facility]. em Diagnosis is Gastrointestinal hemorrhage, unspecified; Anemia, unspecified; Dyspnea; Chest pain, unspecified. Reason for transfer: Higher level of care. Accepting physician is TO [facility]. Condition is Stable. Problem is new. Symptoms have improved. blake
[2020-02-03 14:27] LABS: Absolute Lymphocytes (CBC) 2.3 K/uL (0.7-4.9); Basophils % 1.1 % (0-1.3); Hematocrit 15.4 % (39.6-49.0); Lymphocytes % 26.1 % (15.3-44.8); MPV 8.2 fL (7.6-11.3); RBC Red Blood Cell Count 1.57 M/uL (4.33-5.43)
[2020-02-03] MEDS ORDERED: PANTOPRAZOLE 40 MG INJ ONE (14:27)
[2020-02-03] MEDS ORDERED: NA CHLORIDE 0.9% 1,000 ML ONE (14:27)
[2020-02-03 14:28] LABS: Protime INR 1.05
[2020-02-03 14:48] LABS: ALT/SGPT 18 U/L (12-78); AST/SGOT 13 U/L (15-37); Albumin 2.7 g/dL (3.4-5.0); Alkaline Phosphatase 68 U/L (45-117); BUN Blood Urea Nitrogen 14 mg/dL (7-18); Bicarbonate 24 mmol/L (21-32); Bilirubin Direct 0.1 mg/dL (0-0.2); Bilirubin Total 0.8 mg/dL (0.2-1.0); Glucose Level 93 mg/dL (74-106); Lipase 213 U/L (73-393); Magnesium 2.1 mg/dL (1.8-2.4); NT PRO-BNP 493 pg/mL (<125); Potassium 3.5 mmol/L (3.5-5.1); Protein, Total 5.5 g/dL (6.4-8.2); Sodium Level 139 mmol/L (136-145); Troponin (Emerg Dept Use Only) < 0.02 ng/mL (0.0-0.045)
[2020-02-03] MEDS ORDERED: PANTOPRAZOLE INJ 80 MG in NA CHLORIDE 0.9% 250 ML IV SCH (15:00)
[2020-02-03] MEDS ORDERED: NA CHLORIDE 0.9% 250 ML ONE (15:32)
--- NOTE | 2020-02-03 15:38 | RAD REPORT ---
EXAM DESCRIPTION: Paty Single View02/03/2020 2:20 pm CLINICAL HISTORY: sob COMPARISON: January 21, 2020 FINDINGS: The lungs appear clear of acute infiltrate. The heart is mildly enlarged. Pacemaker leads are in place. IMPRESSION: No acute abnormalities displayed
[2020-02-03] MEDS ORDERED: ACETAMINOPHEN 325 MG TABLET ONE (16:17)
[2020-02-03] MEDS ORDERED: DIPHENHYDRAMINE 50 MG/ML VIAL ONE (16:17)
[2020-02-03 19:57] LABS: Anisocytosis 1+; Blood Morphology Comment NOTED (NOT SEEN); Hypochromasia 1+; Platelet Estimate ADEQ; Polychromasia 2+; White Blood Cell Scan OK (OK)
--- NOTE | 2020-02-04 19:17 | EKG ---
Test Date: 2020-02-03 Test Time: 13:28:44 Tortilla Maker: OLGA MEASUREMENT RESULTS: Intervals: Rate: 67 RI: 206 QRSD: 138 QT: 430 QTc: 454 [place]: P: 34 RI: 206 QRS: 68 T: 243 INTERPRETIVE STATEMENTS: Sinus rhythm with premature atrial complexes Nonspecific intraventricular block Cannot rule out Septal infarct, age undetermined T wave abnormality, consider inferolateral ischemia Abnormal ECG Compared to ECG 01/21/2020 19:58:08 Atrial premature complex(es) now present T-wave abnormality now present Atrial-paced complex(es) or rhythm no longer present ST (T wave) deviation no longer present Myocardial infarct finding still present Possible ischemia still present Electronically Signed On 02-04-20 19:12:58 HABILITATION SPECIALIST by Yvan Allen
[2020-02-05 18:03] VITALS: BP 142/56; TEMP 98.8; O2SAT 100
== END 2020-02-03 18:04 | disposition short-term general hospital (02) ==
LOC: ER 12:53
PROC: 30233N1 Transfusion of Nonautologous Red Blood Cells into Peripheral Vein, Percutaneous Approach (ICD-10-PCS; principal; 2020-02-03)
DX: D64.9 Anemia, unspecified (principal); K92.2 Gastrointestinal hemorrhage, unspecified; R06.00 Dyspnea, unspecified; I10 Essential (primary) hypertension; Z95.0 Presence of cardiac pacemaker; Z98.84 Bariatric surgery status
CPT/HCPCS: 93005; 85025; 80048; 36415; 86900; 83735; 86850; 85610; 86901; 80076; 84484; 83690; 83880; 71045; 99285; 36430; J1200; C9113 ×2; P9016; J7050 ×2; J7030

== ENCOUNTER 2020-02-23 19:19 | Emergency (ER) | payer OTHER ==
--- OUTSIDE RECORDS SUMMARY | 2020-02-23 19:21 | XMS REPORT | Clinical Summary ---
:1950 Author Organization [facility] Address [address] [place] [address] Care Team Providers Name Role Phone Ghazal [...] Surgeon : Vaibhav Ramirez Jr., MD; Location: [facility] Folder Tier Invasive Location; Servi ce: Cardiology; Lat erality: [...] Health Maintenance Due Date Last Done Comments COVID-19 VACCINE (#1) 1966 COLONOSCOPY SCREENING 06/18/2001 SHINGLES VACCINES (#1) 06/18/2001 65+ PNEUMOCOCCAL VACCINE (1 of 1 - PPSV23) 06/18/2016 INFLUENZA VACCINE 09/20/2019 Implants Implanted Type Area Escrow Closer Device Shelf Model / Identifier Expiration Serial / Date Lot Percepta Pm Technician-P Mri Surescan - [id number] Cardiac Pacemaker N/A: [employer] [facility] [id number] / Implanted: Qty: 1 on 05/30/2018 by Vaibhav Ramirez Jr., M D at [facility] Generators N/A [employer] / Lead [id number] Lead-Pace Cath Deliv 4fr 38 - Lead - [id number] - [id number] Cardiac Pacing N/A: [employer] [facility] 03/20/2020 [id number] / Implanted: Qty: 1 on 05/30/2018 by Vaibhav Ramirez Jr., M D at [facility] Leads or N[employer] [id number] / Electrodes or [id number] Accessories Lead Pace Trnsvns Actv-Fxtn Atrl Zhang Bipolar 52cm - Sb [id number] - [id number] Cardiac Pacing N/A: [employer] [facility] [[email or web address]] - 03/13/2020 LEAD [id number] / Implanted: Qty: 1 on 05/30/2018 by Vaibhav Ramirez Jr., M D at [facility] Leads or N/A CARDIAC RYHTYM [id number] / Electrodes or MGMT [id number] Accessories Lead, Atrial Ventricular Transvenous Ext endable Retractable Screw In Assembly [facility] 58cm - [id number] - [id number] Cardiac Pacing N/A: [place] [employer] [facility] 01/25/2020 [id number] / Implanted: Qty: 1 on 05/30/2018 by Vaibhav Ramirez Jr., M D at [facility] Leads or N[employer] [id number] / Electrodes or [id number] Accessories Envelope Pcemkr Antbactl Fully Resorb Aigisrxr - [id number] Cardiovascular N/A: [employer] [id number] / Implanted: 05/30/2018 at [facility] (Quantity not on file) Implants N/A / Results Not on fileafter 02/22/2019 Insurance Payer Benefit Plan / Subscriber ID Effective Dates Phone Addre ss Type Group MEDICARE MEDICARE PART A AND [id number] 2016-Whitney LOPEZ [place], [place] Medicare B t AETNA AETNA [facility] [id number] 2000-Whitney albrecht Advance Directives For more information, please contact: [phone] Type Date Recorded Patient Sterilization Technician Explanati on Advance Directives, Living Will 05/30/2018 2:14 PM and Medical Power of Entertainment Production Professional
--- OUTSIDE RECORDS SUMMARY | 2020-02-23 19:22 | XMS REPORT | Clinical Summary ---
:[address] [facility] Address [address] [place] [address] Care Team Providers Name Role Phone Unavailable Primary Care Provider Unavailable Allergies No Known Allergies Medications Medication Sig Dispensed Refills Start Date End Date Status doxazosin Take 1 mg by 0 Active (CARDURA) 1 MG mouth. tablet cyanocobalamin, Take by 0 Acti ve vitamin B-12, mouth. 1,000 mcg/mL Drop omega Take 1 0 Active 4-hxw-pxe-fish oil capsule by (Fish Oil) mouth. 100-160-1,000 mg Cap vitamin E, dl, Take by 0 Activ e acetate, 22.5 mg mouth. (50 unit)/mL Drop pantoprazole Take 1 tablet 60 tablet 0 02/08/2020 Ac tive (PROTONIX) 40 MG (40 mg total) tablet by mouth 2 (two) times daily. amLODIPine Take 5 mg by 0 Discon tinued (NORVASC) 5 MG mouth. 0 (Erro r) tablet ferrous sulfate Take 325 mg 0 Di scontinued 325 (65 FE) MG by mouth. 0 (Stop Taking at tablet Discharge) ztkktc-cqytjojk-tk Take 2 0 04/18/2019 Discontinued ylase (Creon) capsules by 0 (Err or) 36,000-114,000- mouth. 180,000 unit CpDR capsule losartan-hydrochlo Take 1 tablet 0 02 Discontinued rothiazide by mouth. 0 (Stop Joselito ing at (HYZAAR) 100-12.5 Di scharge) mg per tablet pantoprazole Take 40 mg by 0 Dis continued (PROTONIX) 40 MG mouth. 0 (St op Taking at tablet Discharge) Active Problems Problem Noted Date S/P placement of cardiac pacemaker 02/03/2020 Hypertension 02/03/2020 Upper GI bleed 02/03/2020 Acute blood loss anemia 02/03/2020 Symptomatic bradycardia 05/30/2018 Encounters Date Type Specialty Care Team Description 02/06/2020 Surgery Gastroenterology Melissa Craft ENDOSCOPY, CAPSULE MD Zoraida 02/05/2020 Anesthesia Event Gastroenterology Michael Sousa MD Sethi, Manu, MD 02/05/2020 Surgery Gastroenterology Melissa Craft COLONOSCOP Y MD Zoraida 02/04/2020 Anesthesia Event Gastroenterology Michael Sousa MD Lai, David Wiley MD 02/04/2020 Surgery Gastroenterology Melissa Craft UPPER ENDO SCOPY MD Zoraida 02/04/2020 [facility] anemia; - Encounter Medicine MD Gato Essential hypertension; 02/09/2020 Wade S/P placement o f cardiac pacemaker; Zahra Upper GI bleed; MD Alondra Gastrointestinal hemorrhage with melena; Nitin Howard, History of R oux-en-Y gastric bypass MD Sanchez, Gilbert Werner MD 02/03/2020 Telephone Gastroenterology Melissa Craft GI Problem MD Zoraida after 02/22/2019 Family History Medical History Relation Name Comments No Known Problem Father No Known Problem Mother Relation Name Status Comments Father Mother Social History Tobacco Use Types Packs/Day Years Used Date Never Smoker Smokeless Tobacco: Never Used Alcohol Use Drinks/Week oz/Week Comments Not Currently Sex Assigned at Date Recorded Not on file COVID-19 Exposure Response Date Recorded In the last month, have you been in contact with No / Unsure 02/04/2020 3:52 AM DOOR CORE ASSEMBLER someone who was confirmed or suspected to have Coronavirus / COVID-19? Last Filed Vital Signs Vital Sign Reading Time Taken Comments Blood Pressure 129/66 02/09/2020 8:00 AM DOOR CORE ASSEMBLER Pulse 66 02/09/2020 8:00 AM DOOR CORE ASSEMBLER Temperature 35.6 C (96.1 F) 02/09/2020 4:56 AM DOOR CORE ASSEMBLER Respiratory Rate 18 02/09/2020 8:00 AM DOOR CORE ASSEMBLER Oxygen Saturation 100% 02/09/2020 8:00 AM DOOR CORE ASSEMBLER Inhaled Oxygen Concentration - - Weight 102.5 kg (226 lb) 02/03/2020 10:00 PM DOOR CORE ASSEMBLER Height 175.3 cm (5' 9") 02/03/2020 10:00 PM DOOR CORE ASSEMBLER Body Mass Index 33.37 02/03/2020 10:00 PM DOOR CORE ASSEMBLER Plan of Treatment Health Maintenance Due Date Last Done Comments PNEUMOCOCCAL 65+ YRS (1 of 1 - [id number]) 06/18/2016 MEDICARE ANNUAL WELLNESS (YEAR 2 or FIRST YEAR if no 05/21/2017 IPPE) DEPRESSION SCREENING (12+) 02/19/2019 INFLUENZA VACCINE (#1) 2019 COLON CANCER SCREENING COLONOSCOPY 02/04/2030 02/05/2020 Procedures Procedure Name Priority Date/Time Associated Diagnosis Comme nts CBC W/PLT COUNT & Routine 02/09/2020 4:24 Result s for this AUTO DIFFERENTIAL AM DOOR CORE ASSEMBLER procedure are in the results section. BASIC METABOLIC Routine 02/09/2020 4:24 Results for this PANEL (7) AM DOOR CORE ASSEMBLER procedure are i n the results section. CBC W/PLT COUNT & Routine 02/09/2020 4:24 Result s for this AUTO DIFFERENTIAL AM DOOR CORE ASSEMBLER procedure are in the results section. MAGNESIUM Routine 02/08/2020 5:17 Results for this AM DOOR CORE ASSEMBLER procedure are i n the results section. PHOSPHORUS Routine 02/08/2020 5:17 Results for this AM DOOR CORE ASSEMBLER procedure are i n the results section. BASIC METABOLIC Routine 02/08/2020 5:17 Results for this PANEL (7) AM DOOR CORE ASSEMBLER procedure are i n the results section. CBC (HEMOGRAM ONLY) Routine 02/08/2020 5:17 Resu lts for this AM DOOR CORE ASSEMBLER procedure are i n the results section. HEMOGLOBIN AND Routine 02/07/2020 9:07 Results f or this HEMATOCRIT PM DOOR CORE ASSEMBLER procedure are i n the results section. POCT-GLUCOSE METER Routine 02/07/2020 4:00 Resul ts for this PM [employer]OR CORE ASSEMBLER procedure are i n the results section. POCT-GLUCOSE METER Routine 02/07/2020 10:41 Resul ts for this AM DOOR CORE ASSEMBLER procedure are i n the results section. CBC (HEMOGRAM ONLY) Routine 02/07/2020 4:20 Resu lts for this AM DOOR CORE ASSEMBLER procedure are i n the results section. MAGNESIUM Routine 02/07/2020 4:20 Results for this AM DOOR CORE ASSEMBLER procedure are i n the results section. PHOSPHORUS Routine 02/07/2020 4:20 Results for this AM DOOR CORE ASSEMBLER procedure are i n the results section. BASIC METABOLIC Routine 02/07/2020 4:20 Results for this PANEL (7) AM DOOR CORE ASSEMBLER procedure are i n the results section. HEMOGLOBIN AND Routine 02/06/2020 7:17 Results f or this HEMATOCRIT PM DOOR CORE ASSEMBLER procedure are i n the results section. ENDOSCOPY,CAPSULE 02/06/2020 8:25 Gastrointestinal AM DOOR CORE ASSEMBLER hemorrhage associated with gastritis, unspecified gastritis type MAGNESIUM Routine 02/06/2020 4:28 Results for this AM DOOR CORE ASSEMBLER procedure are i n the results section. PHOSPHORUS Routine 02/06/2020 4:28 Results for this AM DOOR CORE ASSEMBLER procedure are i n the results section. BASIC METABOLIC Routine 02/06/2020 4:28 Results for this PANEL (7) AM DOOR CORE ASSEMBLER procedure are i n the results section. CBC (HEMOGRAM ONLY) Routine 02/06/2020 4:28 Resu lts for this AM DOOR CORE ASSEMBLER procedure are i n the results section. HEMOGLOBIN AND Routine 02/06/2020 4:28 Results f or this HEMATOCRIT AM DOOR CORE ASSEMBLER procedure are i n the results section. PREPARE CORDELIA 02/05/2020 11:54 Results for this LEUKO-REDUCED RBC PM DOOR CORE ASSEMBLER procedure are in the results section. REPORT OF PROCEDURE 02/05/2020 6:06 - ENDOSCOPY URL PM DOOR CORE ASSEMBLER COLONOSCOPY 02/05/2020 1:39 Melena PM DOOR CORE ASSEMBLER REPORT OF PROCEDURE 02/05/2020 9:52 - ENDOSCOPY URL AM DOOR CORE ASSEMBLER MAGNESIUM Routine 02/05/2020 4:42 Results for this AM DOOR CORE ASSEMBLER procedure are i n the results section. PHOSPHORUS Routine 02/05/2020 4:42 Results for this AM DOOR CORE ASSEMBLER procedure are i n the results section. BASIC METABOLIC Routine 02/05/2020 4:42 Results for this PANEL (7) AM DOOR CORE ASSEMBLER procedure are i n the results section. CBC (HEMOGRAM ONLY) Routine 02/05/2020 4:42 Resu lts for this AM DOOR CORE ASSEMBLER procedure are i n the results section. HEMOGLOBIN AND Routine 02/05/2020 4:42 Results f or this HEMATOCRIT AM DOOR CORE ASSEMBLER procedure are i n the results section. ENTEROSCOPY,DIAGNOST 02/04/2020 4:28 Upper GI bleed IC PM DOOR CORE ASSEMBLER Special Needs REQ TF UPPER ENDOSCOPY 02/04/2020 4:28 PM DOOR CORE ASSEMBLER Upper GI bleed Special Needs REQ TF HEMOGLOBIN AND HEMATOCRIT CORDEILA 02/04/2020 1:21 PM DOOR CORE ASSEMBLER Results for this procedure are i n the results section . TRANSFUSE LEUKO-REDUCED RED STAT 02/04/2020 12:20 PM DOOR CORE ASSEMBLER BLOOD CELLS TRANSFUSE LEUKO-REDUCED RED STAT 02/04/2020 6:56 AM DOOR CORE ASSEMBLER BLOOD CELLS ABORH, MANUAL STAT 02/04/2020 1:48 AM DOOR CORE ASSEMBLER Res ults for this procedure are i n the results section . TROPONIN I Routine 02/04/2020 1:48 AM DOOR CORE ASSEMBLER Resu lts for this procedure are i n the results section . TROPONIN I Routine 02/03/2020 10:46 PM DOOR CORE ASSEMBLER Resu lts for this procedure are i n the results section . FERRITIN STAT 02/03/2020 10:46 PM DOOR CORE ASSEMBLER Resu lts for this procedure are i n the results section . IRON, TIBC, % SAT. (WITHOUT Routine 02/03/2020 10:46 PM DOOR CORE ASSEMBLER Results for this FERRITIN) procedure are i n the results section . TYPE AND SCREEN, AUTOMATED STAT 02/03/2020 10:45 PM DOOR CORE ASSEMBLER Results for this procedure are i n the results section . SARS-COV2/RT-PCR (SLHS & REF Routine 02/03/2020 10:28 PM DOOR CORE ASSEMBLER Results for this LABS) procedure are i n the results section . PHOSPHORUS STAT 02/03/2020 10:14 PM DOOR CORE ASSEMBLER Resu lts for this procedure are i n the results section . MAGNESIUM STAT 02/03/2020 10:14 PM DOOR CORE ASSEMBLER Resu lts for this procedure are i n the results section . COMPREHENSIVE METABOLIC STAT 02/03/2020 10:14 PM DOOR CORE ASSEMBLER Results for this PANEL procedure are i n the results section . CBC W/PLT COUNT & AUTO STAT 02/03/2020 10:13 PM DOOR CORE ASSEMBLER Results for this DIFFERENTIAL procedure are i n the results section . CBC W/PLT COUNT & AUTO STAT 02/03/2020 10:13 PM DOOR CORE ASSEMBLER Results for this DIFFERENTIAL procedure are i n the results section . REPORT OF PROCEDURE - 02/03/2020 Result s for this ENDOSCOPY SCAN procedure are in the results section . after 02/22/2019 Results CBC with platelet count + automated diff (02/09/2020 4:24 AM DOOR CORE ASSEMBLER)Only the most recent of2 resultswithin the time period is included. Pathologist Sig nature WBC 4.6 3.5 - 10.5 [facility] K/L [facility] RBC 2.52 (L) 4.63 - 6.08 [facility] M/L [facility] Hemoglobin 7.6 (L) 13.7 - 17.5 [facility] GM/DL [facility] Hematocrit 24.2 (L) 40.1 - 51.0 % [facility] MCV 96.0 (H) 79.0 - 92.2 fL [facility] MCH 30.2 25.7 - 32.2 pg [facility] MCHC 31.4 (L) 32.3 - 36.5 [facility] GM/DL [facility] RDW 15.6 (H) 11.6 - 14.4 % [facility] Platelets 306 150 - 450 K/CU [facility] MM [facility] MPV 9.4 9.4 - 12.4 fL [facility] nRBC 0 0 - 0 /100 WBC [facility] % Neutros 42 % [facility] % Lymphs 37 % [facility] % Monos 10 % [facility] % Eos 10 % [facility] % Baso 1 % [facility] # Neutros 1.95 1.78 - 5.38 [facility] # Lymphs 1.70 1.32 - 3.57 [facility] # Monos 0.45 0.30 - 0.82 [facility] # Eos 0.44 0.04 - 0.54 [facility] # Baso 0.05 0.01 - 0.08 [facility] Immature 0 0 - 1 % [facility] Granulocytes-[facility] Specimen Blood Performing Organization Address City/State/Zipcode Phone Number [facility] [address] [place] [address] CENTER Basic Metabolic Panel (02/09/2020 4:24 AM DOOR CORE ASSEMBLER)Only the most recent of5 results within the time period is included. Sodium 139 136 - 145 meq/L [facility] Potassium 3.5 3.5 - 5.1 meq/L [facility] Chloride 109 (H) 98 - 107 meq/L [facility] CO2 24 22 - 29 meq/L [facility] BUN 10 7 - 21 mg/dL [facility] Creatinine 0.78 0.57 - 1.25 [facility] mg/dL [facility] Glucose 93 70 - 105 mg/dL [facility] Calcium 7.7 (L) 8.4 - 10.2 [facility] mg/dL [facility] EGFR 99Comment: ESTIMATED mL/min/1.[address] [facility] GFR IS NOT [facility] ACCURATE KEVIN CREATININE CLEARANCE IN PREDICTING GLOMERULAR FILTRATION RATE. ESTIMATED GFR IS NOT APPLICABLE FOR DIALYSIS PATIENTS. Specimen Blood Narrative Performed At [place] Applier ID - KELBY M [facility] Performing Organization Address City/State/Zipcode Phone Number [facility] [address] [place] [address] CENTER CBC (Hemogram only) (02/08/2020 5:17 AM DOOR CORE ASSEMBLER)Only the most recent of4 results within the time period is included. Pathologist Sig nature WBC 4.9 3.5 - 10.5 K/L [facility] RBC 2.53 (L) 4.63 - 6.08 M/L [facility] Hemoglobin 7.8 (L) 13.7 - 17.5 GM/DL [facility] Hematocrit 24.3 (L) 40.1 - 51.0 % [facility] MCV 96.0 (H) 79.0 - 92.2 fL [facility] MCH 30.8 25.7 - 32.2 pg [facility] MCHC 32.1 (L) 32.3 - 36.5 GM/DL [facility] RDW 15.9 (H) 11.6 - 14.4 % [facility] Platelets 320 150 - 450 K/CU MM [facility] MPV 9.6 9.4 - 12.4 fL [facility] nRBC 0 0 - 0 /100 WBC [facility] Specimen Blood Performing Organization Address City/[facility]/Zipcode Phone Number [address] [address] CENTER Phosphorus (02/08/2020 5:17 AM DOOR CORE ASSEMBLER)Only the most recent of5 resultswithin the time period is included. Pathologist Sig nature Phosphorus 3.9 2.3 - 4.7 mg/dL [facility] Specimen Blood Narrative Performed At [place] Applier ID - PIAYA L [facility] Performing Organization Address City/[facility]/Zipcode Phone Number [address] [address] CENTER Magnesium (02/08/2020 5:17 AM DOOR CORE ASSEMBLER)Only the most recent of5 resultswithin the time period is included. Pathologist Sig nature Magnesium 1.8 1.6 - 2.6 mg/dL [facility] Specimen Blood Narrative Performed At [place] Applier ID - PIAYA L [facility] Performing Organization Address City/[facility]/Zipcode Phone Number [address] [address] CENTER Hemoglobin and hematocrit (02/07/2020 9:07 PM DOOR CORE ASSEMBLER)Only the most recent of5 resultswithin the time period is included. Pathologist Sig nature Hemoglobin 8.0 (L) 13.7 - 17.5 GM/DL [facility] Hematocrit 24.8 (L) 40.1 - 51.0 % [facility] Specimen Blood Narrative Performed At [place] Applier ID - [id number] [facility] Performing Organization Address City/[facility]/Zipcode Phone Number [facility] [address] [place] [address] CENTER POC-Glucose meter (02/07/2020 4:00 PM DOOR CORE ASSEMBLER)Only the most recent of2 results within the time period is included. POC-Glucose Meter 67 (L) 70 - 110 mg/dL [facility] Comment: [facility] : TESTED AT [facility] [address] [facility], [address] CENTER : [place] App[employer]/Community Health Representative ID = [id number] for QUE[facility] OCONNELL Specimen Blood Performing Organization Address [facility] Cent[facility] Phone Number [facility] [address] [place] [address] CENTER Prepare Leuko-Red RBC (02/05/2020 11:54 PM DOOR CORE ASSEMBLER) Pathologist Sig nature CROSSMATCH COMPATIBLE SAFETRACE TX Unit ABO A Pos SAFETRACE TX UNIT NUMBER [id number] SAFETRACE TX Status TX_TIMEINCHART SAFETRACE TX Blood Bank Product RED BLOOD CELLS SAFETRACE TX PRODUCT CODE [id number] SAFETRACE TX CROSSMATCH COMPATIBLE SAFETRACE TX Unit ABO A Pos SAFETRACE TX UNIT NUMBER [id number] SAFETRACE TX Status TX_TIMEINCHART SAFETRACE TX Blood Bank Product RED BLOOD CELLS SAFETRACE TX PRODUCT CODE [id number] SAFETRACE TX Specimen Other Performing Organization Address City/[facility] Phone Number SAFETRACE TX REPORT OF PROCEDURE - ENDOSCOPY URL (02/05/2020 6:06 PM DOOR CORE ASSEMBLER) Narrative Performed At This result has an attachment that is no t available. REPORT OF PROCEDURE - ENDOSCOPY URL (02/05/2020 9:52 AM DOOR CORE ASSEMBLER) Narrative Performed At This result has an attachment that is no t available. Transfuse Leuko-Red RBC (02/04/2020 12:20 PM DOOR CORE ASSEMBLER)Only the most recent of2 resultswithin the time period is included.ABORH, manual (02/04/2020 1:48 AM DOOR CORE ASSEMBLER) Pathologist Sig nature ABO Grouping A [facility] DICAL KEVIN Rh Factor POS [facility] D[facility] KEVIN Specimen Blood Performing Organization Address [facility]/Zipcode Phone Number [facility] [address] [place] [address] Troponin I (02/04/2020 1:48 AM DOOR CORE ASSEMBLER)Only the most recent of2 resultswithin the time period is included. Pathologist Sig nature Troponin I <0.01 0.00 - 0.03 ng/mL [facility] Specimen Blood Narrative Performed At Troponin I (TnI) levels must be interpreted [facility] in the context of the presenting symptoms and the clinical findings. Elevated TnI levels indicate myocardial damage, but are not specific for ischemic heart disease. Elevated TnI levels are seen in patients with other cardiac conditions (including myocarditis and congestive heart failure), and slight TnI elevations occur in patients with other conditions, including sepsis, renal failure, acidosis, acute neurological disease, and persistent tachyarrhythmia. [place] Applier ID - KELBY Bowen Performing Organization Address City/[facility]/Zipcode Phone Number [address] [address] CENTER Iron, TIBC, % sat. (without ferritin) (02/03/2020 10:46 PM DOOR CORE ASSEMBLER) Pathologist Sig nature Iron 13.0 (L) 40.0 - 160.0 [facility] ug/dL [facility] TIBC 298 250 - 450 ug/dL [facility] Iron % Saturation 4 (L) 20 - 55 % [facility] Specimen Blood Narrative Performed At [place] Applier ID - BS [facility] Performing Organization Address [facility]/Zipcode Phone Number [address] [address] CENTER Ferritin (02/03/2020 10:46 PM DOOR CORE ASSEMBLER) Pathologist Sig nature Ferritin 60.51 5.00 - 275.00 ng/mL [facility] Specimen Blood Narrative Performed At [place] Applier ID - ADMIN [facility] Performing Organization Address City/State/Zipcode Phone Number [facility] [address] [place] [address] CENTER Type and screen, automated (02/03/2020 10:45 PM DOOR CORE ASSEMBLER) Pathologist Sig nature ABO/RH AUTOMATED A POSITIVE [facility] (BEAKER) [facility] Ab Scrn NEGATIVE [facility] Specimen Blood Performing Organization Address City/State/Zipcode Phone Number [facility] [address] [place] [address] SARS-CoV2/RT-PCR (Asymptomatic ONLY) (02/03/2020 10:28 PM DOOR CORE ASSEMBLER) SARS-COV2/RT-PCR Negative Not Detected, [facility] Negative, See [facility] external report CENTER for linked test SARS-COV-2 [facility] ALEXIA [facility] PERFORMING LAB [facility] Specimen Other - Nasopharyngeal wall structure (b jason structure) Narrative Performed At Negative result for this test determines that [facility] SARS-CoV-2 RNA was not present in the specimen above the Limit of Detection (LOD). However, Negative results do not preclude SARS-CoV-2 infection and should not be used as the sole basis for treatment or patient management decisions. Negative results must be combined with clinical observations, patient history, and epidemiological information. A false negative result may occur if a specimen is improperly collected, transported or handled. A false negative result should be considered if patient's recent exposures or clinical presentation indicate that COVID-19 (SARS-CoV-2) is likely and diagnostic tests for other causes of illness are negative. Re-testing should be considered in cases of suspected false negatives. The limit of detection for this assay is 800 copies/mL. This SARS CoV-2 test is a real-time RT-PCR test intended for the qualitative detection of nucleic acid from SARS-CoV-2 in a nasopharyngeal swab specimen collected from individuals suspected of COVID-19 by their healthcare provider. This test has not been Food and Drug Administration (FDA) cleared or approved. This is a modified version of an approved Emergency Use Authorization (EUA) and is in the process of review by the FDA. Once authorized by the FDA, the issued EUA will be effective until the declaration that circumstances exist justifying the authorization of the emergency use of in vitro diagnostic tests for detection and/or diagnosis of COVID-19 is terminated under Section 564(b)(2) of the Act or the EUA is revoked under Section 564(g) of the Act. Fact Sheet for Healthcare Providers: https://www.[employer]/sites/default/files/pro duct/documents/Fact_Sheet_HC_Providers_Lyra_SA RS-CoV-2.pdf Fact Sheet for Healthcare Patients: https://www.[employer]/sites/default/files/pro duct/documents/Fact_Sheet_Patients_Lyra_SARS-C oV-2.pdf Performing Laboratory: [place] [address] Performing Organization Address City/State/Zipcode Phone Number [place] [phone] KEVIN Comprehensive metabolic panel (02/03/2020 10:14 PM DOOR CORE ASSEMBLER) Protein, Total 5.3 (L) 6.0 - 8.3 [facility] gm/dL [facility] Albumin 3.2 (L) 3.5 - 5.0 [facility] g/dL [facility] Alkaline 69 40 - 150 U/L [facility] Phosphatase [facility] Total Bilirubin 1.1 0.2 - 1.2 [facility] mg/dL [facility] Sodium 137 136 - 145 [facility] meq/L [facility] Potassium 3.6 3.5 - 5.1 [facility] meq/L [facility] Chloride 107 98 - 107 [facility] meq/L [facility] CO2 19 (L) 22 - 29 meq/L [facility] BUN 12 7 - 21 mg/dL [facility] Creatinine 0.90 0.57 - 1.25 [facility] mg/dL [facility] Glucose 89 70 - 105 [facility] mg/dL [facility] Calcium 7.9 (L) 8.4 - 10.2 [facility] mg/dL [facility] AST 13 5 - 34 U/L [facility] ALT 13 6 - 55 U/L [facility] EGFR 84Comment: mL/min/1.73 [facility] ESTIMATED GFR IS sq [facility] NOT [facility]ATE [facility] CREATININE CLEARANCE IN PREDICTING GLOMERULAR FILTRATION RATE. ESTIMATED GFR IS NOT APPLICABLE FOR DIALYSIS PATIENTS. Specimen Blood Narrative Performed At [place] Applier ID - BS [facility] Performing Organization Address City/State/Zipcode Phone Number [facility] [address] [place] [address] CENTER EKG-SCANNED (02/03/2020) Narrative Performed At This result has an attachment that is no t available. Ordered by an unspecified provider. after 02/22/2019 Insurance Payer Benefit Plan / Subscriber ID Effective Dates Phone Addre ss Type Group MEDICARE MEDICARE A B [id number] 2016-Present Medicare AETNA - MGD CARE AETNA INDEMNITY [id number] 2016-Present Comm NON CONTR Advance Directives For more information, please contact: [phone] Code Status Date Activated Date Inactivated Comments Full Code 02/03/2020 7:34 PM 02/09/2020 5:51 PM This code status was determined by: Patient
--- OUTSIDE RECORDS SUMMARY | 2020-02-23 19:24 | XMS REPORT | Continuity of Care Document ---
:1950 Author Organization [facility] t Address [address] [place]. [address] [place] [id number] Care Team Providers Name Role Phone Ramone MORALEZ, Ghazal Primary Care Physician Mp MORALEZ, P. Attending Clinician Diomedes Olvera MD Attending Clinician Merchant MORALEZ Attending Clinician Alphonso Sanchez MD Attending Clinician Zoraida Craft MD Attending Clinician Alexandru Sousa MD Attending Clinician Keily MORALEZ Attending Clinician Saurabh Caldwell MD Attending Clinician Gato MANDEL Attending Clinician Unavailable Ced MORALEZ Attending Clinician DIOMEDES OLVERA Admitting Clinician Unavailable Payers Payer Name Policy Type Policy Effective Date Expiration Date Sour ce Number MEDICAREMEDICARE A [id number] 2016 SANDRA Rodriguez [id number] 2016-P 00:00:00 - Medical [facility] AETNA - MGD CAREAETNA [id number] 2016 SANDRA Moran INDEMNITY NON 00:00:00 - Medical [id number]/ Ce nter 7-PresentComm Problems Condition Condition Condition Status Onset Resolution Last Treating Co mments Source Name Details Category Date Date Treatment Clinician Date S/P S/P Disease Active 2019-[address] [facility] [address] placement placement 2-15 [facility] - of cardiac of cardiac 00:00: Sd dical pacemaker pacemaker 00 [facility] Hypertensi Hypertensi Disease Active 2019-[address] on on 2-15 [facility] - 00:00: Medical 00 [place] Upper GI Upper GI Disease Active 2019-02 [facility] bleed bleed 2-15 [facility] - 00:[facility]: Medical 00 [place] Acute Acute Disease Active 2019-[address] [facility] blood loss blood loss 2-15 Mago kes - anemia anemia 00:00: Medical 00 [place] Symptomati Symptomati Disease Active [facility] c c 4-11 [facility] - bradycardi bradycardi 00:00: Sd dical a a 00 [place] Allergies, Adverse Reactions, Alerts This patient has no known allergies or adverse reactions. Family History Family Member Diagnosis Comments Start Date Stop Date Source Natural father No Known Problem [facility] Natural mother No Known Problem [facility] Social History Social Habit Start Date Stop Date Quantity Comments Source Sex Assigned At [facility] Exposure to Not sure [facility] SARS-CoV-2 [facility] (event) Tobacco use and 2020-02-06 2020-02-06 Never used [facility] - exposure 00:00:00 00:00:00 [facility] Alcohol intake 2020-02-06 2020-02-06 [facility]00 (finding[facility] Smoking Status Start Date Stop Date Source Never smoker [facility] edical [place] Medications Ordered Filled Start Stop Current Ordering Indication Dosage Frequency Signature Comments Components Source Medication Medication Date Date Medication? Clinician (SIG) Name Name doxazosin 2019-02 Yes 1mg Take [address] (CARDURA) 1 2-21 by mouth. Matt es - MG tablet 15:51: Medical Center cyanocobala 2019-02 Yes Take by [facility] min, 2-21 mouth. [facility] - vitamin 15:51: Medical B-12, 1,000 Center mcg/mL Drop omega 2019-02 Yes 1{capsu Take [address] [facility] [facility] 3-dha-epa-f 2-21 le} capsule by Mago inocencias - jacquie oil 15:51: mouth. Medical (Fish Oil) Center 100-160-1,0 00 mg Cap vitamin E, 2019-02 Yes Take by [facility] dl, 2-21 mouth. [facility] - acetate, 15:51: Medical 22.5 mg (50 49 [place] unit)/mL Drop ferrous 2019-02- No 325mg Take [address] sulfate 325 2-20 12-20 mg by [facility] - (65 FE) MG 16:47: 00:00 mouth. Medi kamala tablet 01 :00 [place] losartan-hy 2019-02- No 1{tbl} Take [address] drochloroth 2-20 12-20 tablet by Mago kes - iazide 16:47: 00:00 mouth. Medical (HYZAAR) 01 :00 [place] 100-12.5 mg per tablet pantoprazol 2019-02- No 40mg Take [address] [facility] e 2-20 12-20 by mouth. [facility] - (PROTONIX) 16:47: 00:00 Medica l 40 MG 01 :00 [place] tablet pantoprazol 2019-02 Yes 40mg Q.5D Take [address] [facility] e 2-20 tablet (40 [facility] - (PROTONIX) 00:00: mg total) Me dical 40 MG 00 by mouth 2 Center tablet (two) times daily. amLODIPine 2019-02- No 5mg Take [address] (NORVASC) 5 2-15 12-15 by mouth. Mago kes - MG tablet 20:03: 00:00 Medical 04 :00 [place] lipase-prot 2019- No 2{capsu Take [address] ease-amylas 2-28 12-15 le} capsules Matt es - e (Creon) 00:00: 00:00 by mouth. Me dical 36,000-114, 00 :00 [place] 000- 180,000 unit CpDR capsule amLODIPine Yes 5mg Q.5D Take 5 mg [place] (NORVASC) 5 4-12 by mouth 2 Me thodi mg tablet 14:15: (two) st 13 times a day. pantoprazol 0 Yes 40mg QD Take 40 mg [place] e 4-12 by mouth Methodi (PROTONIX) 14:15: daily. st 40 MG EC 13 tablet doxazosin Yes 1mg Q.5D Take 1 mg Luis ston (CARDURA) 1 4-12 by mouth 2 Me thodi MG tablet 14:15: (two) st 13 times a day. losartan-hy Yes 1{tbl} QD Take 1 [place] drochloroth 4-12 tablet by Met pratik hartley 14:15: mouth st (HYZAAR) 13 daily. 100-12.5 mg per tablet omega-3 Yes 1{capsu QD Take 1 [place] fatty 4-12 le} capsule by Methodi acids/fish 14:15: mouth st oil (OMEGA 13 daily. 3 FISH OIL ORAL) multivitami Yes 1{tbl} QD Take 1 [place] with 4-12 tablet by [facility] minerals 14:15: mouth st tablet 13 daily. vitamin E Yes 1{tbl} QD Take 1 [place] acetate 4-12 tablet by [facility]i (VITAMIN E 14:15: mouth st ORAL) 13 daily. ferrous Yes 325mg QD Take 325 [place] sulfate 325 4-12 mg by Methodi (65 FE) MG 14:15: mouth st tablet 13 daily with breakfast. Vital Signs Vital Name Observation Time Observation Value Comments Source Systolic blood 2020-02-09 08:00:00 129 mm[Hg] [facility] Diastolic blood 2020-02-09 08:00:00 66 mm[Hg] [facility] Heart rate 2020-02-09 08:00:00 66 /min [facility] Respiratory rate 2020-02-09 08:00:00 18 /min [facility] Oxygen saturation in 2020-02-09 08:00:00 100 /min [facility] - Arterial blood by Medical Ce nter Pulse oximetry Body temperature 2020-02-09 04:56:00 35.61 Faith [facility] Body height 2020-02-03 22:00:00 175.3 cm [facility] Body weight 2020-02-03 22:00:00 102.513 kg [facility] BMI 2020-02-03 22:00:00 33.37 kg/m2 [facility] Procedures Procedure Date / Time Performed Performing Clinician Sour e BASIC METABOLIC PANEL (7) 2020-02-09 04:24:00 Gilbert Sanchez [facility] CBC W/PLT COUNT & AUTO 2020-02-09 04:24:00 Gilbert Sanchez [facility] CBC (HEMOGRAM ONLY) 2020-02-08 05:17:00 [facility] BASIC METABOLIC PANEL (7) 2020-02-08 05:17:00 [facility] PHOSPHORUS 2020-02-08 05:17:00 [facility] MAGNESIUM 2020-02-08 05:17:00 [facility] HEMOGLOBIN AND HEMATOCRIT 2020-02-07 21:07:00 [facility] POCT-GLUCOSE METER 2020-02-07 16:00:00 [facility] POCT-GLUCOSE METER 2020-02-07 10:41:00 [facility] BASIC METABOLIC PANEL (7) 2020-02-07 04:20:00 [facility] PHOSPHORUS 2020-02-07 04:20:00 [facility] MAGNESIUM 2020-02-07 04:20:00 [facility] CBC (HEMOGRAM ONLY) 2020-02-07 04:20:00 [facility] HEMOGLOBIN AND HEMATOCRIT 2020-02-06 19:17:00 [facility] ENDOSCOPY,CAPSULE 2020-02-06 08:25:00 Melissa Craft [facility] HEMOGLOBIN AND HEMATOCRIT 2020-02-06 04:28:00 [facility] CBC (HEMOGRAM ONLY) 2020-02-06 04:28:00 [facility] BASIC METABOLIC PANEL (7) 2020-02-06 04:28:00 [facility] Center PHOSPHORUS 2020-02-06 04:28:00 Wade [facility] MAGNESIUM 2020-02-06 04:28:00 [facility] PREPARE LEUKO-REDUCED RBC 2020-02-05 23:54:00 [facility] REPORT OF PROCEDURE - 2020-02-05 18:06:43 Melissa Craft [facility] COLONOSCOPY 2020-02-05 13:39:[facility] - 2020-02-05 09:52:21 Melissa Craft [facility] HEMOGLOBIN AND HEMATOCRIT 2020-02-05 04:42:00 [facility] CBC (HEMOGRAM ONLY) 2020-02-05 04:42:00 [facility] BASIC METABOLIC PANEL (7) 2020-02-05 04:42:00 [facility] PHOSPHORUS 2020-02-05 04:42:00 [facility] MAGNESIUM 2020-02-05 04:42:00 Wade [facility] UPPER ENDOSCOPY 2020-02-04 16:28:[facility]STIC 2020-02-04 16:28:00 Melissa Craft [facility] HEMOGLOBIN AND HEMATOCRIT 2020-02-04 13:21:00 [facility] TRANSFUSE LEUKO-REDUCED 2020-02-04 12:20:53 Zahra Olvera [facility] RED BLOOD CELLS [facility] TRANSFUSE LEUKO-REDUCED 2020-02-04 06:56:20 Zahra Olvera [facility] RED BLOOD CELLS [facility] TROPONIN I 2020-02-04 01:48:00 [facility] 2020-02-04 01:48:00 EligioSupriya durbin [facility] IRON, TIBC, % SAT. 2020-02-03 22:46:00 Zahra Olvera [facility] 2020-02-03 22:46:[address] [facility] TROPONIN I 2020-02-03 22:46:[address] [facility] TYPE AND SCREEN, 2020-02-03 22:45:00 Zahra Olvera [facility] kes - AUTOMATED [facility] SARS-COV2/RT-PCR (HS & 2020-02-03 22:28:00 Zahra Olvera [facility] - REF LABS) [facility] COMPREHENSIVE METABOLIC 2020-02-03 22:14:00 Zahra Olvera [facility] - PANEL [facility] MAGNESIUM 2020-02-03 22:14:[address] [facility] PHOSPHORUS 2020-02-03 22:14:[address] [facility] CBC W/PLT COUNT & AUTO 2020-02-03 22:13:00 Zahra Olvera [facility] - DIFFERENTIAL [facility] REPORT OF PROCEDURE - 2020-02-03 00:00:00 Provider, Default [facility] - ENDOSCOPY SCAN Scanning [facility] Plan of Care Planned Activity Planned Date Details Comments Source Future Scheduled 2030-02-[address] [facility] - Test 00:00:00 malignant neoplasm of Medica Center colon (procedure) [code = 008574333] Future Scheduled 2019-10-21 INFLUENZA VACCINE (#1) [facility] Test 00:00:00 [code = INFLUENZA Medical Ce nter VACCINE (#1)] Future Scheduled 2019-09-20 INFLUENZA VACCINE [place] [facility] 00:00:00 [code = INFLUENZA VACCINE] Future Scheduled 2019-02-[address] [facility] - Test 00:00:00 (12+) [code = Medical Center DEPRESSION SCREENING (12+)] Future Scheduled 2017-05-[address] [facility] - Test 00:00:00 WELLNESS (YEAR 2 or Medical Center FIRST YEAR if no IPPE) [code = MEDICARE ANNUAL WELLNESS (YEAR 2 or FIRST YEAR if no IPPE)] Future Scheduled 2016-06-18 65+ PNEUMOCOCCAL [place] [facility] Test 00:00:00 VACCINE (1 of 1 - PPSV23) [code = 65+ PNEUMOCOCCAL VACCINE (1 of 1 - PPSV23)] Future Scheduled 2016-06-18 PNEUMOCOCCAL 65+ [facility] - Test 00:00:00 (1 of 1 - Medical Center [id number] PCV13) [code = PNEUMOCOCCAL 65+ YRS (1 of 1 - [id number] PCV13)] Future Scheduled 2001-06-18 COLONOSCOPY SCREENING [place] [facility] Test 00:00:00 [code = COLONOSCOPY SCREENING] Future Scheduled 2001-06-18 SHINGLES VACCINES (#1) [facility] [place] [facility] Test 00:00:00 [code = SHINGLES VACCINES (#1)] Future Scheduled 1966 COVID-19 VACCINE (#1) [place] [facility] Test 00:00:00 [code = COVID-19 VACCINE (#1)] Encounters Start End Encounter Admission Attending Care Care Encounter Source Date/Time Date/Time Type Type Clinicians Facility Department ID 2019-04-18 2019-04-18 Office GARETT Coughlin [id number] 51 08:32:36 16:06:01 Visit [facility] AMBULATOR [id number] Y [id number] 325 Results Test Description Test Time Test Comments Results Result Comments Source CBC with platelet count + automated diff 2020-02-09 05:34:00 Test Item Value Reference Range Interpretation Comme nts WBC (test code = 6690-2) 4.6 3.5- 10.5 K/L RBC (test code = 789-8) 2.52 4.63- 6.08 M/L L MCHC (test code = 786-4) 31.4 32.3- 36.5 GM/DL L Hematocrit (test code = 4544-3) 24.2 % 40.1-51 L MCV (test code = 787-2) 96.0 fL 79-92.2 H MCH (test code = 785-6) 30.2 pg 25.7-32.2 RDW (test code = 788-0) 15.6 % 11.6-14.4 H Platelets (test code = 777-3) 306 150- 450 K/CU MM MPV (test code = 66833-8) 9.4 fL 9.4-12.4 nRBC (test code = 413) 0 0- 0 /100 WBC % Neutros (test code = 429) 42 % % Lymphs (test code = 430) 37 % % Monos (test code = 431) 10 % % Eos (test code = 432) 10 % % Baso (test code = 437) 1 % # Neutros (test code = 670) 1.95 1.78- 5.38 K/L # Lymphs (test code = 414) 1.70 1.32- 3.57 K/L # Monos (test code = 415) 0.45 0.30- 0.82 K/L # Eos (test code = 416) 0.44 0.04- 0.54 K/L # Baso (test code = 417) 0.05 0.01- 0.08 K/L Immature Granulocytes-Relative (test code = 2801) 0 % 0-1 Lab Interpretation (test code = 98815-6) Abnormal [facility] W/PLT COUNT & AUTO [id number] 05:34:00 Test Item Value Reference Range Interpretation Comments WHITE BLOOD CELL COUNT (BEAKER) 4.6 K/ L 3.5-10.5 (test code = 775) RED BLOOD CELL COUNT (BEAKER) 2.52 M/ L 4.63-6.08 L (test code = 761) HEMOGLOBIN (BEAKER) (test code = 7.6 GM/DL 13.7-17.5 L 410) HEMATOCRIT (BEAKER) (test code = 24.2 % 40.1-51.0 L 411) MEAN CORPUSCULAR VOLUME (BEAKER) 96.0 fL 79.0-92.2 H (test code = 753) MEAN CORPUSCULAR HEMOGLOBIN 30.2 pg 25.7-32.2 (BEAKER) (test code = 751) MEAN CORPUSCULAR HEMOGLOBIN CONC 31.4 GM/DL 32.3-36.5 L (BEAKER) (test code = 752) RED CELL DISTRIBUTION WIDTH 15.6 % 11.6-14.4 H (BEAKER) (test code = 412) PLATELET COUNT (BEAKER) (test 306 K/CU MM 150-450 code = 756) MEAN PLATELET VOLUME (BEAKER) 9.4 fL 9.4-12.4 (test code = 754) NUCLEATED RED BLOOD CELLS 0 /100 WBC 0-0 (BEAKER) (test code = 413) NEUTROPHILS RELATIVE PERCENT 42 % (BEAKER) (test code = 429) LYMPHOCYTES RELATIVE PERCENT 37 % (BEAKER) (test code = 430) MONOCYTES RELATIVE PERCENT 10 % (BEAKER) (test code = 431) EOSINOPHILS RELATIVE PERCENT 10 % (BEAKER) (test code = 432) BASOPHILS RELATIVE PERCENT 1 % (BEAKER) (test code = 437) NEUTROPHILS ABSOLUTE COUNT 1.95 K/ L 1.78-5.38 (BEAKER) (test code = 670) LYMPHOCYTES ABSOLUTE COUNT 1.70 K/ L 1.32-3.57 (BEAKER) (test code = 414) MONOCYTES ABSOLUTE COUNT (BEAKER) 0.45 K/ L 0.30-0.82 (test code = 415) EOSINOPHILS ABSOLUTE COUNT 0.44 K/ L 0.04-0.54 (BEAKER) (test code = 416) BASOPHILS ABSOLUTE COUNT (BEAKER) 0.05 K/ L 0.01-0.08 (test code = 417) IMMATURE GRANULOCYTES-RELATIVE 0 % 0-1 PERCENT (BEAKER) (test code = 2801) Basic Metabolic [id number] 05:14:00 Test Item Value Reference Range Interpretation Comments Sodium (test code = 139 meq/L 249-991 0121-2) Potassium (test code = 3.5 meq/L 3.5-5.1 2823-3) Chloride (test code = 109 meq/L 98-107 H 2074-0) CO2 (test code = 24 meq/L 22-29 8-9) BUN (test code = 10 mg/dL 7-21 3094-0) Creatinine (test code 0.78 mg/dL 0.57-1.25 = 2160-0) Glucose (test code = 93 mg/dL 70-105 2345-7) Calcium (test code = 7.7 mg/dL 8.4-10.2 L 89936-2) EGFR (test code = 99 mL/min/1.73 [place] [address]-3) NOT ACCURATE CREATININE CLEARANCE IN PREDICTING GLOMERULAR FILTRATION RATE . ESTIMATED GFR I S NOT APPLICABLE FOR DIALYSIS PATIENTS. ANDREW (test code = ANDREW) Molecular Pathologist FILIBERTO - KELBY Bowen Lab Interpretation Abnormal (test code = 24525-1) [facility] METABOLIC [id number] 05:14:00 Test Item Value Reference Range Interpretation Comments SODIUM (BEAKER) 139 meq/L 136-145 (test code = 381) POTASSIUM (BEAKER) 3.5 meq/L 3.5-5.1 (test code = 379) CHLORIDE (BEAKER) 109 meq/L 98-107 H (test code = 382) CO2 (BEAKER) (test 24 meq/L 22-29 code = 355) BLOOD UREA NITROGEN 10 mg/dL 7-21 (BEAKER) (test code = 354) CREATININE (BEAKER) 0.78 mg/dL 0.57-1.25 (test code = 358) GLUCOSE RANDOM 93 mg/dL 70-105 (BEAKER) (test code = 652) CALCIUM (BEAKER) 7.7 mg/dL 8.4-10.2 L (test code = 697) EGFR (BEAKER) (test 99 mL/min/1.73 ESTIMA MACHO GFR IS code = 1092) sq m NOT ACCURATE CREATININE CLEARANCE IN PREDICTING GLOMERULAR FILTRATION RATE . ESTIMATED GFR I S NOT APPLICABLE FOR DIALYSIS PATIEN TS. Molecular Pathologist FILIBERTO - KELBY ASIC METABOLIC [id number] 07:25:00 Test Item Value Reference Range Interpretation Comments SODIUM (BEAKER) 140 meq/L 136-145 (test code = 381) POTASSIUM (BEAKER) 3.5 meq/L 3.5-5.1 (test code = 379) CHLORIDE (BEAKER) 109 meq/L 98-107 H (test code = 382) CO2 (BEAKER) (test 25 meq/L 22-29 code = 355) BLOOD UREA NITROGEN 8 mg/dL 7-21 (BEAKER) (test code = 354) CREATININE (BEAKER) 0.77 mg/dL 0.57-1.25 (test code = 358) GLUCOSE RANDOM 85 mg/dL 70-105 (BEAKER) (test code = 652) CALCIUM (BEAKER) 7.8 mg/dL 8.4-10.2 L (test code = 697) EGFR (BEAKER) (test 100 mL/min/1.73 ESTIM ATED GFR IS code = 1092) sq m NOT ACCURATE CREATININE CLEARANCE IN PREDICTING GLOMERULAR FILTRATION RATE . ESTIMATED GFR I S NOT APPLICABLE FOR DIALYSIS PATIEN TS. Molecular Pathologist ID - BEANSHAMA [id number] 06:57:00 Test Item Value Reference Range Interpretation Comments Magnesium (test code = 1.8 mg/dL 1.6-2.6 35151-4) ANDREW (test code = ANDREW) Molecular Pathologist ID - STEVE L Lab Interpretation (test Normal code = 12644-9) [facility] 06:57:00 Test Item Value Reference Range Interpretation Comments Phosphorus (test code = 3.9 mg/dL 2.3-4.7 2777-1) ANDREW (test code = ANDREW) Molecular Pathologist ID - BEANSHAMA L Lab Interpretation (test Normal code = 95270-6) [facility] 06:57:00 Test Item Value Reference Range Interpretation Comments MAGNESIUM (BEAKER) (test code = 1.8 mg/dL 1.6-2.6 627) Molecular Pathologist ID - BEANSHAMA [id number] 06:57:00 Test Item Value Reference Range Interpretation Comments PHOSPHORUS (BEAKER) (test code = 3.9 mg/dL 2.3-4.7 604) Molecular Pathologist ID - STEVE LCBC (Hemogram only)2020-02-08 06:13:00 Test Item Value Reference Range Interpretation Comments WBC (test code = 6690-2) 4.9 3.5- 10.5 K/L RBC (test code = 789-8) 2.53 4.63- 6.08 M/L L MCHC (test code = 786-4) 32.1 32.3- 36.5 GM/DL L Hematocrit (test code = 4544-3) 24.3 % 40.1-51 L MCV (test code = 787-2) 96.0 fL 79-92.2 H MCH (test code = 785-6) 30.8 pg 25.7-32.2 RDW (test code = 788-0) 15.9 % 11.6-14.4 H Platelets (test code = 777-3) 320 150- 450 K/CU MM MPV (test code = 74973-9) 9.6 fL 9.4-12.4 nRBC (test code = 413) 0 0- 0 /100 WBC Lab Interpretation (test code = Abnormal 91892-3) [facility]2020-02-08 06:13:00 Test Item Value Reference Range Interpretation Comments WHITE BLOOD CELL COUNT (BEAKER) 4.9 K/ L 3.5-10.5 (test code = 775) RED BLOOD CELL COUNT (BEAKER) 2.53 M/ L 4.63-6.08 L (test code = 761) HEMOGLOBIN (BEAKER) (test code = 7.8 GM/DL 13.7-17.5 L 410) HEMATOCRIT (BEAKER) (test code = 24.3 % 40.1-51.0 L 411) MEAN CORPUSCULAR VOLUME (BEAKER) 96.0 fL 79.0-92.2 H (test code = 753) MEAN CORPUSCULAR HEMOGLOBIN 30.8 pg 25.7-32.2 (BEAKER) (test code = 751) MEAN CORPUSCULAR HEMOGLOBIN CONC 32.1 GM/DL 32.3-36.5 L (BEAKER) (test code = 752) RED CELL DISTRIBUTION WIDTH 15.9 % 11.6-14.4 H (BEAKER) (test code = 412) PLATELET COUNT (BEAKER) (test 320 K/CU MM 150-450 code = 756) MEAN PLATELET VOLUME (BEAKER) 9.6 fL 9.4-12.4 (test code = 754) NUCLEATED RED BLOOD CELLS 0 /100 WBC 0-0 (BEAKER) (test code = 413) Hemoglobin and [id number] 21:14:00 Test Item Value Reference Range Interpretation Comments Hemoglobin (test code = 8.0 13.7- 17.5 GM/DL L 786-4) Hematocrit (test code = 24.8 % 40.1-51 L 4544-3) ANDREW (test code = ANDREW) Molecular Pathologist ID - [id number] Lab Interpretation (test Abnormal code = 66671-3) [facility]MO[facility] AND [id number] 21:14:00 Test Item Value Reference Range Interpretation Comments HEMOGLOBIN (BEAKER) (test code = 8.0 GM/DL 13.7-17.5 L 410) HEMATOCRIT (BEAKER) (test code = 24.8 % 40.1-51.0 L 411) Molecular Pathologist ID - [id number]-Glucose [id number] 16:13:00 Test Item Value Reference Range Interpretation Comments POC-Glucose Meter (test 67 mg/dL 70-110 L : TE STED AT [facility] code = 1538) [address] [facility], 770 30: Molecular Pathologist/Techni harleen ID = [id number] for QUEEN OCONNELL Lab Interpretation (test Abnormal code = 36427-6) [facility] [id number] 16:13:00 Test Item Value Reference Range Interpretation Comments POC-GLUCOSE METER 67 mg/dL 70-110 L : TESTED A T [facility] 67[address] (BEAKER) (test code = [facility], 1538) [address]: Molecular Pathologist/Techni harleen ID = [id number] for QUEEN MCKEE POCT-GLUCOSE [id number] 10:55:00 Test Item Value Reference Range Interpretation Comments POC-GLUCOSE METER 79 mg/dL 70-110 : [facility] ([facility] (test code = [facility], 1538) [address]: Molecular Pathologist/Techni harleen ID = [id number] for QUEEN MCKEE CBC (HEMOGRAM ONLY)2020-02-07 07:05:00 Test Item Value Reference Range Interpretation Comments WHITE BLOOD CELL COUNT (BEAKER) 3.7 K/ L 3.5-10.5 (test code = 775) RED BLOOD CELL COUNT (BEAKER) 2.41 M/ L 4.63-6.08 L (test code = 761) HEMOGLOBIN (BEAKER) (test code = 7.5 GM/DL 13.7-17.5 L 410) HEMATOCRIT (BEAKER) (test code = 23.5 % 40.1-51.0 L 411) MEAN CORPUSCULAR VOLUME (BEAKER) 97.5 fL 79.0-92.2 H (test code = 753) MEAN CORPUSCULAR HEMOGLOBIN 31.1 pg 25.7-32.2 (BEAKER) (test code = 751) MEAN CORPUSCULAR HEMOGLOBIN CONC 31.9 GM/DL 32.3-36.5 L (BEAKER) (test code = 752) RED CELL DISTRIBUTION WIDTH 16.3 % 11.6-14.4 H (BEAKER) (test code = 412) PLATELET COUNT (BEAKER) (test 329 K/CU MM 150-450 code = 756) MEAN PLATELET VOLUME (BEAKER) 9.8 fL 9.4-12.4 (test code = 754) NUCLEATED RED BLOOD CELLS 0 /100 WBC 0-0 (BEAKER) (test code = 413) BASIC METABOLIC [id number] 06:14:00 Test Item Value Reference Range Interpretation Comments SODIUM (BEAKER) 140 meq/L 136-145 (test code = 381) POTASSIUM (BEAKER) 3.6 meq/L 3.5-5.1 (test code = 379) CHLORIDE (BEAKER) 110 meq/L 98-107 H (test code = 382) CO2 (BEAKER) (test 22 meq/L 22-29 code = 355) BLOOD UREA NITROGEN 6 mg/dL 7-21 L (BEAKER) (test code = 354) CREATININE (BEAKER) 0.74 mg/dL 0.57-1.25 (test code = 358) GLUCOSE RANDOM 77 mg/dL 70-105 (BEAKER) (test code = 652) CALCIUM (BEAKER) 7.6 mg/dL 8.4-10.2 L (test code = 697) EGFR (BEAKER) (test 105 mL/min/1.73 ESTIM ATED GFR IS code = 1092) sq m NOT ACCURATE CREATININE CLEARANCE IN PREDICTING GLOMERULAR FILTRATION RATE . ESTIMATED GFR I S NOT APPLICABLE FOR DIALYSIS PATIEN TS. Molecular Pathologist ID - RANJITH [id number] 06:02:00 Test Item Value Reference Range Interpretation Comments MAGNESIUM (BEAKER) (test code = 1.7 mg/dL 1.6-2.6 627) Molecular Pathologist ID - RANJITH [id number] 06:02:00 Test Item Value Reference Range Interpretation Comments PHOSPHORUS (BEAKER) (test code = 3.9 mg/dL 2.3-4.7 604) Molecular Pathologist ID - RANJITH WHEMOGLOBIN AND [id number] 19:25:00 Test Item Value Reference Range Interpretation Comments HEMOGLOBIN (BEAKER) (test code = 9.3 GM/DL 13.7-17.5 L 410) HEMATOCRIT (BEAKER) (test code = 29.5 % 40.1-51.0 L 411) Molecular Pathologist ID - [id number] METABOLIC [id number] 05:26:00 Test Item Value Reference Range Interpretation Comments SODIUM (BEAKER) 142 meq/L 136-145 (test code = 381) POTASSIUM (BEAKER) 3.6 meq/L 3.5-5.1 (test code = 379) CHLORIDE (BEAKER) 111 meq/L 98-107 H (test code = 382) CO2 (BEAKER) (test 22 meq/L 22-29 code = 355) BLOOD UREA NITROGEN 7 mg/dL 7-21 (BEAKER) (test code = 354) CREATININE (BEAKER) 0.78 mg/dL 0.57-1.25 (test code = 358) GLUCOSE RANDOM 83 mg/dL 70-105 (BEAKER) (test code = 652) CALCIUM (BEAKER) 7.8 mg/dL 8.4-10.2 L (test code = 697) EGFR (BEAKER) (test 99 mL/min/1.73 ESTIMA MACHO GFR IS code = 1092) sq m NOT ACCURATE CREATININE CLEARANCE IN PREDICTING GLOMERULAR FILTRATION RATE . ESTIMATED GFR I S NOT APPLICABLE FOR DIALYSIS PATIEN TS. Molecular Pathologist ID - [id number] 05:25:00 Test Item Value Reference Range Interpretation Comments MAGNESIUM (BEAKER) (test code = 1.9 mg/dL 1.6-2.6 627) Molecular Pathologist ID - [id number] 05:25:00 Test Item Value Reference Range Interpretation Comments PHOSPHORUS (BEAKER) (test code = 4.0 mg/dL 2.3-4.7 604) Molecular Pathologist ID - EDASIHEMOGLOBIN AND [id number] 04:53:00 Test Item Value Reference Range Interpretation Comments HEMOGLOBIN (BEAKER) (test code = 7.1 GM/DL 13.7-17.5 L 410) HEMATOCRIT (BEAKER) (test code = 22.0 % 40.1-51.0 L 411) CBC (HEMOGRAM ONLY)2020-02-06 04:53:00 Test Item Value Reference Range Interpretation Comments WHITE BLOOD CELL COUNT (BEAKER) 4.3 K/ L 3.5-10.5 (test code = 775) RED BLOOD CELL COUNT (BEAKER) 2.28 M/ L 4.63-6.08 L (test code = 761) HEMOGLOBIN (BEAKER) (test code = 7.1 GM/DL 13.7-17.5 L 410) HEMATOCRIT (BEAKER) (test code = 22.0 % 40.1-51.0 L 411) MEAN CORPUSCULAR VOLUME (BEAKER) 96.5 fL 79.0-92.2 H (test code = 753) MEAN CORPUSCULAR HEMOGLOBIN 31.1 pg 25.7-32.2 (BEAKER) (test code = 751) MEAN CORPUSCULAR HEMOGLOBIN CONC 32.3 GM/DL 32.3-36.5 (BEAKER) (test code = 752) RED CELL DISTRIBUTION WIDTH 17.4 % 11.6-14.4 H (BEAKER) (test code = 412) PLATELET COUNT (BEAKER) (test 290 K/CU MM 150-450 code = 756) MEAN PLATELET VOLUME (BEAKER) 9.5 fL 9.4-12.4 (test code = 754) NUCLEATED RED BLOOD CELLS 0 /100 WBC 0-0 (BEAKER) (test code = 413) Prepare Leuko-Red [id number] 23:54:00 Test Item Value Reference Range Interpretation Comments CROSSMATCH (test code = 2264) COMPATIBLE Unit ABO (test code = A Pos 2176610) UNIT NUMBER (test code = [id number] 934-0) Status (test code = 7530756) TX_TIMEINCHART Blood Bank Product (test code RED BLOOD CELLS = 2263) PRODUCT CODE (test code = K8419A64 933-2) [facility] [id number] 05:32:00 Test Item Value Reference Range Interpretation Comments SODIUM (BEAKER) 140 meq/L 136-145 (test code = 381) POTASSIUM (BEAKER) 3.7 meq/L 3.5-5.1 (test code = 379) CHLORIDE (BEAKER) 109 meq/L 98-107 H (test code = 382) CO2 (BEAKER) (test 23 meq/L 22-29 code = 355) BLOOD UREA NITROGEN 10 mg/dL 7-21 (BEAKER) (test code = 354) CREATININE (BEAKER) 0.81 mg/dL 0.57-1.25 (test code = 358) GLUCOSE RANDOM 81 mg/dL 70-105 (BEAKER) (test code = 652) CALCIUM (BEAKER) 7.7 mg/dL 8.4-10.2 L (test code = 697) EGFR (BEAKER) (test 95 mL/min/1.73 ESTIMA MACHO GFR IS code = 1092) sq m NOT ACCURATE CREATININE CLEARANCE IN PREDICTING GLOMERULAR FILTRATION RATE . ESTIMATED GFR I S NOT APPLICABLE FOR DIALYSIS PATIEN TS. Molecular Pathologist ID - KELBY [id number] 05:31:00 Test Item Value Reference Range Interpretation Comments MAGNESIUM (BEAKER) (test code = 1.9 mg/dL 1.6-2.6 627) Molecular Pathologist ID - KELBY [id number] 05:31:00 Test Item Value Reference Range Interpretation Comments PHOSPHORUS (BEAKER) (test code = 4.4 mg/dL 2.3-4.7 604) Molecular Pathologist ID - KELBY MCBC (HEMOGRAM ONLY)2020-02-05 05:18:00 Test Item Value Reference Range Interpretation Comments WHITE BLOOD CELL COUNT (BEAKER) 5.3 K/ L 3.5-10.5 (test code = 775) RED BLOOD CELL COUNT (BEAKER) 2.29 M/ L 4.63-6.08 L (test code = 761) HEMOGLOBIN (BEAKER) (test code = 7.2 GM/DL 13.7-17.5 L 410) HEMATOCRIT (BEAKER) (test code = 21.8 % 40.1-51.0 L 411) MEAN CORPUSCULAR VOLUME (BEAKER) 95.2 fL 79.0-92.2 H (test code = 753) MEAN CORPUSCULAR HEMOGLOBIN 31.4 pg 25.7-32.2 (BEAKER) (test code = 751) MEAN CORPUSCULAR HEMOGLOBIN CONC 33.0 GM/DL 32.3-36.5 (BEAKER) (test code = 752) RED CELL DISTRIBUTION WIDTH 18.5 % 11.6-14.4 H (BEAKER) (test code = 412) PLATELET COUNT (BEAKER) (test 281 K/CU MM 150-450 code = 756) MEAN PLATELET VOLUME (BEAKER) 9.6 fL 9.4-12.4 (test code = 754) NUCLEATED RED BLOOD CELLS 0 /100 WBC 0-0 (BEAKER) (test code = 413) HEMOGLOBIN AND [id number] 05:07:00 Test Item Value Reference Range Interpretation Comments HEMOGLOBIN (BEAKER) (test code = 7.2 GM/DL 13.7-17.5 L 410) HEMATOCRIT (BEAKER) (test code = 21.8 % 40.1-51.0 L 411) HEMOGLOBIN AND [id number] 13:54:00 Test Item Value Reference Range Interpretation Comments HEMOGLOBIN (BEAKER) (test code = 8.5 GM/DL 13.7-17.5 L 410) HEMATOCRIT (BEAKER) (test code = 26.2 % 40.1-51.0 L 411) Molecular Pathologist ID - [id number]-CoV2/RT-PCR (Asymptomatic ONLY)2020-02-04 11:03:00 Test Item Value Reference Range Interpretation Comments SARS-COV2/RT-PCR Negative Not Detected, (test code = Negative, See 41067-7) external report for linked test [facility]COV-2 [facility] (test code = 07654-8) ANDREW (test code = Negative result for this ANDREW) test determines that SARS-CoV-2 RNA was not present in the [...] of the Act. Fact Sheet for Healthcare Providers:https://www.[employer]/sites/default/f zion/product/documents/F act_Sheet_HC_Providers_L ywo_ZMIU-CxS-4.pdf Fact Sheet for Healthcare Patients:https://www.[employer]/sites/default/fi les/product/documents/Fa ct_Sheet_Patients_Lyra_S ARS-CoV-2.pdf Performing Laboratory:[facility], [place] [id number] [place], [place] [address]ARS-COV2/RT-PCR ([facility])2020-02-04 11:03:00 Test Item Value Reference Range Interpretation Comments SARS-COV2/RT-PCR (test Negative Not Detected, Negative, code = 8853305) See external report for linked test SARS-COV-2 PERFORMING LAB [facility] (test code = 5057978) Negative result for this test determines that SARS-CoV-2 RNA was not present in the specimen above the Limit of Detection (LOD). However, Negative results do not preclude SARS-CoV-2 infection and should not be used as the sole basis for treatment or patient management decisions. Negative results mustbe combined with clinical observations, patient history, and epidemiological information. A false negative result may occur if a specimen is improperly collected, transported or handled. A false negative result should be considered if patient's recent exposures or clinical presentation indicate that COVID-19 (SARS-CoV-2) is likely and diagnostic tests for other causes of illness are negative. Re-testing should be considered in cases of suspected false negatives.The limit of detection for this assay is 800 copies/mL.This SARS CoV-2 test is a real-time RT-PCR test intended for the qualitative detection of nucleic acid from SARS-CoV-2 in a nasopharyngeal swab specimen collected from individuals susp ected of COVID-19 by their healthcare provider.This test has not been Food and Drug [...] is revoked under Section 564(g) of the Act.Fact Sheet for Healthcare Providers:https://www.[employer]/sites/default/files/product/documents/Fact_Shee u_LQ_Oflongrrb_Kztd_OARU-SkX-4.pdfFact Sheet for Healthcare Patients:https://www.[employer]/sites/default/files/product/ documents/Nrxv_Suscu_Reknlemb_Dqfh_NQLE-TqR-9.pdfPerforming Laboratory:[facility], [place] [id number] 04:57:00 Test Item Value Reference Range Interpretation Comments Ferritin (test code = 60.51 ng/mL 5-275 2276-4) ANDREW (test code = ANDREW) Molecular Pathologist ID - ADMIN Lab Interpretation (test Normal code = 34217-6) [facility]2020-[facility] 04:57:00 Test Item Value Reference Range Interpretation Comments FERRITIN (BEAKER) (test code = 60.51 ng/mL 5.00-275.00 361) Molecular Pathologist ID - ADMINTroponin [id number] 02:46:00 Test Item Value Reference Range Interpretation Comments Troponin I (test code = <0.01 0-0.03 56586-0) ANDREW (test code = ANDREW) Troponin I (TnI) levels must be interpreted in the context of the presenting symptoms and the clinical findings. Elevated TnI levels indicate myocardial damage, but are not specific for ischemic heart disease. Elevated TnI levels are seen in patients with other cardiac conditions (including myocarditis and congestive heart failure), and slight TnI elevations occur in patients with other conditions, including sepsis, renal failure, acidosis, acute neurological disease, and persistent tachyarrhythmia.Opera dima ID - KELBY M Lab Interpretation (test Normal code = 26038-0) [facility] HospitalTROPONIN [id number] 02:46:00 Test Item Value Reference Range Interpretation Comments TROPONIN I (BEAKER) (test code = 397) < ng/mL 0.00-0.03 Troponin I (TnI) levels must be interpreted in the context of the presenting symptoms and the clinical findings. Elevated TnI levels indicate myocardial damage, but are not specific for ischemic heart disease. Elevated TnI levels are seen in patients with other cardiac conditions (including myocarditis and congestive heart failure), and slight TnI elevations occur in patients with other conditions, including sepsis, renal failure, acidosis, acute neurological disease, and persistent tachyarrhythmia.Molecular Pathologist ID - KELBY MABORH, manual 2020-02-04 02:41:00 Test Item Value Reference Range Interpretation Comments ABO Grouping (test code = 2588) A Rh Factor (test code = 2589) POS [facility] HospitalType and screen, [id number] 23:34:00 Test Item Value Reference Range Interpretation Comments ABO/RH AUTOMATED (BEAKER) (test A POSITIVE code = 2260) Ab Scrn (test code = 890-4) NEGATIVE [facility]TROP[facility] [id number] 23:29:00 Test Item Value Reference Range Interpretation Comments TROPONIN I (BEAKER) (test code = 0.01 ng/mL 0.00-0.03 397) Troponin I (TnI) levels must be interpreted in the context of the presenting symptoms and the clinical findings. Elevated TnI levels indicate myocardial damage, but are not specific for ischemic heart disease. Elevated TnI levels are seen in patients with other cardiac conditions (including myocarditis and congestive heart failure), and slight TnI elevations occur in patients with other conditions, including sepsis, renal failure, acidosis, acute neurological disease, and persistent tachyarrhythmia.Molecular Pathologist ID - BSIron, TIBC, % sat. (without ferritin)2020-02-03 23:28:00 Test Item Value Reference Range Interpretation Comments Iron (test code = 2498-4) 13.0 ug/dL 40-160 L TIBC (test code = 2500-7) 298 ug/dL 250-450 Iron % Saturation (test code 4 % 20-55 L = 2502-3) ANDREW (test code = ANDREW) Molecular Pathologist ID - BS Lab Interpretation (test Abnormal code = 77675-6) [facility] HospitalIRON, TIBC, % SAT. (WITHOUT FERRITIN)2020-02-03 23:28:00 Test Item Value Reference Range Interpretation Comments IRON (BEAKER) (test code = 547) 13.0 ug/dL 40.0-160.0 L TOTAL IRON BINDING CAPACITY 298 ug/dL 250-450 (BEAKER) (test code = 769) IRON % SATURATION (2) (BEAKER) 4 % 20-55 L (test code = 2590) Molecular Pathologist ID - BSComprehensive metabolic [id number] 22:46:00 Test Item Value Reference Range Interpretation Comments Protein, Total (test 5.3 6.0- 8.3 gm/dL L code = 2885-2) Albumin (test code = 3.2 g/dL 3.5-5 L 56472-7) Alkaline Phosphatase 69 U/L 40-150 (test code = 6768-6) Total Bilirubin (test 1.1 mg/dL 0.2-1.2 code = 1974-2) Sodium (test code = 137 meq/L 754-949 2542-2) Potassium (test code = 3.6 meq/L 3.5-5.1 2823-3) Chloride (test code = 107 meq/L 98-107 5-0) CO2 (test code = 19 meq/L 22-29 L 2027-9) BUN (test code = 12 mg/dL 7-21 3094-0) Creatinine (test code 0.90 mg/dL 0.57-1.25 = 2160-0) Glucose (test code = 89 mg/dL 70-105 2345-7) Calcium (test code = 7.9 mg/dL 8.4-10.2 L 71068-6) AST (test code = 13 U/L 5-34 1920-8) ALT (test code = 13 U/L 6-55 1742-6) EGFR (test code = 84 mL/min/1.73 [place] [address]-7) NOT ACCURATE CREATININE CLEARANCE IN PREDICTING GLOMERULAR FILTRATION RATE . ESTIMATED GFR I S NOT APPLICABLE FOR DIALYSIS PATIENTS. ANDREW (test code = ANDREW) Molecular Pathologist ID - BS Lab Interpretation Abnormal (test code = 78000-4) [facility] HospitalCOMPREHENSIVE METABOLIC [id number] 22:46:00 Test Item Value Reference Range Interpretation Comments TOTAL PROTEIN 5.3 gm/dL 6.0-8.3 L (BEAKER) (test code = 770) ALBUMIN (BEAKER) 3.2 g/dL 3.5-5.0 L (test code = 1145) ALKALINE PHOSPHATASE 69 U/L 40-150 (BEAKER) (test code = 346) BILIRUBIN TOTAL 1.1 mg/dL 0.2-1.2 (BEAKER) (test code = 377) SODIUM (BEAKER) (test 137 meq/L 136-145 code = 381) POTASSIUM (BEAKER) 3.6 meq/L 3.5-5.1 (test code = 379) CHLORIDE (BEAKER) 107 meq/L 98-107 (test code = 382) CO2 (BEAKER) (test 19 meq/L 22-29 L code = 355) BLOOD UREA NITROGEN 12 mg/dL 7-21 (BEAKER) (test code = 354) CREATININE (BEAKER) 0.90 mg/dL 0.57-1.25 (test code = 358) GLUCOSE RANDOM 89 mg/dL 70-105 (BEAKER) (test code = 652) CALCIUM (BEAKER) 7.9 mg/dL 8.4-10.2 L (test code = 697) AST (SGOT) (BEAKER) 13 U/L 5-34 (test code = 353) ALT (SGPT) (BEAKER) 13 U/L 6-55 (test code = 347) EGFR (BEAKER) (test 84 mL/min/1.73 ESTIMA MACHO GFR IS code = 1092) sq m NOT ACCURATE CREATININE CLEARANCE IN PREDICTING GLOMERULAR FILTRATION RATE . ESTIMATED GFR I S NOT APPLICABLE FOR DIALYSIS PATIEN TS. Molecular Pathologist ID - [id number] 22:45:00 Test Item Value Reference Range Interpretation Comments MAGNESIUM (BEAKER) (test code = 1.9 mg/dL 1.6-2.6 627) Molecular Pathologist ID - [id number] 22:45:00 Test Item Value Reference Range Interpretation Comments PHOSPHORUS (BEAKER) (test code = 4.1 mg/dL 2.3-4.7 604) Molecular Pathologist ID - BSCBC W/PLT COUNT & AUTO [id number] 22:31:00 Test Item Value Reference Range Interpretation Comments WHITE BLOOD CELL COUNT (BEAKER) 8.7 K/ L 3.5-10.5 (test code = 775) RED BLOOD CELL COUNT (BEAKER) 1.89 M/ L 4.63-6.08 L (test code = 761) HEMOGLOBIN (BEAKER) (test code = 5.9 GM/DL 13.7-17.5 LL 410) HEMATOCRIT (BEAKER) (test code = 19.0 % 40.1-51.0 L 411) MEAN CORPUSCULAR VOLUME (BEAKER) 100.5 fL 79.0-92.2 H (test code = 753) MEAN CORPUSCULAR HEMOGLOBIN 31.2 pg 25.7-32.2 (BEAKER) (test code = 751) MEAN CORPUSCULAR HEMOGLOBIN CONC 31.1 GM/DL 32.3-36.5 L (BEAKER) (test code = 752) RED CELL DISTRIBUTION WIDTH 20.2 % 11.6-14.4 H (BEAKER) (test code = 412) PLATELET COUNT (BEAKER) (test 313 K/CU MM 150-450 code = 756) MEAN PLATELET VOLUME (BEAKER) 9.9 fL 9.4-12.4 (test code = 754) NUCLEATED RED BLOOD CELLS 1 /100 WBC 0-0 H (BEAKER) (test code = 413) NEUTROPHILS RELATIVE PERCENT 55 % (BEAKER) (test code = 429) LYMPHOCYTES RELATIVE PERCENT 36 % (BEAKER) (test code = 430) MONOCYTES RELATIVE PERCENT 6 % (BEAKER) (test code = 431) EOSINOPHILS RELATIVE PERCENT 2 % (BEAKER) (test code = 432) BASOPHILS RELATIVE PERCENT 1 % (BEAKER) (test code = 437) NEUTROPHILS ABSOLUTE COUNT 4.79 K/ L 1.78-5.38 (BEAKER) (test code = 670) LYMPHOCYTES ABSOLUTE COUNT 3.11 K/ L 1.32-3.57 (BEAKER) (test code = 414) MONOCYTES ABSOLUTE COUNT (BEAKER) 0.54 K/ L 0.30-0.82 (test code = 415) EOSINOPHILS ABSOLUTE COUNT 0.15 K/ L 0.04-0.54 (BEAKER) (test code = 416) BASOPHILS ABSOLUTE COUNT (BEAKER) 0.06 K/ L 0.01-0.08 (test code = 417) IMMATURE GRANULOCYTES-RELATIVE 1 % 0-1 PERCENT (BEAKER) (test code = 2801) [id number] 00:00:00Ordered by an unspecified provider.[facility]
[2020-02-23] MEDS ORDERED: PANTOPRAZOLE 40 MG INJ ONE (20:03)
[2020-02-23] MEDS ORDERED: NA CHLORIDE 0.9% 1,000 ML ONE (20:03)
[2020-02-23] MEDS ORDERED: NA CHLORIDE 0.9% 250 ML ONE (20:03)
[2020-02-23 20:04] LABS: Absolute Lymphocytes (CBC) 0.8 K/uL (0.7-4.9); Basophils % 0.8 % (0-1.3); Hematocrit 11.3 % (39.6-49.0); Lymphocytes % 8.6 % (15.3-44.8); MPV 8.6 fL (7.6-11.3); RBC Red Blood Cell Count 1.36 M/uL (4.33-5.43)
[2020-02-23 20:18] LABS: Albumin 2.3 g/dL (3.4-5.0); Bilirubin Direct 0.1 mg/dL (0-0.2); Bilirubin Total 0.6 mg/dL (0.2-1.0); Potassium 4.4 mmol/L (3.5-5.1); Protein, Total 4.7 g/dL (6.4-8.2); Troponin (Emerg Dept Use Only) 0.02 ng/mL (0.0-0.045)
--- NOTE | 2020-02-23 20:49 | RAD REPORT ---
EXAM DESCRIPTION: CT - Abdomen Angio - 02/23/2020 8:34 pm CLINICAL HISTORY: Abdominal pain/GI bleed COMPARISON: January 2020 TECHNIQUE: Computed tomography angiography of the abdomen obtained with coronal and sagittal reconst ruction All CT scans are performed using dose optimization technique as appropriate and may include automated exposure control or mA/KV adjustment according to patient size. FINDINGS: An aortic dissection is not seen. An aortic aneurysm is not displayed. The celiac, SMA and TIFFANY are patent . One main renal artery bilaterally. Each artery is patent Gastric bypass. 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
[2020-02-23] MEDS ORDERED: NA CHLORIDE 0.9% 100 ML ONE (20:52)
--- NOTE | 2020-02-23 21:03 | ER ---
Nurse's Notes [facility] Name: Humberto Medina Age: 69 yrs Sex: Male : 1950 Arrival Date: 02/23/2020 Time: 19:23 Bed 7 Private MD: Diagnosis: Melena;Anemia, unspecified;Upper GI bleed;Orthostatic hypotension Presentation: 02/22 19:26 Chief complaint: EMS states: complaining of weakness, not feeling well. BP dropped when rv he stood up. with history of GI bleed. transferred to [facility] last time, they were not able to locate the bleeding. Coronavirus screen: Client denies travel out of the [place] in the last 14 days. At this time, the client does not indicate any symptoms associated with coronavirus-19. Ebola Screen: No symptoms or risks identified at this time. Onset of symptoms was February 23, 2020 at 16:00. 19:26 Method Of Arrival: EMS: [facility] rv 19:26 Acuity: FORD 2 rv 20:16 Initial Sepsis Screen: Does the patient meet any 2 criteria? No. Patient's initial rv sepsis screen is negative. Does the patient have a suspected source of infection? No. Patient's initial sepsis screen is negative. Risk Assessment: Do you want to hurt yourself or someone else? Patient reports no desire to harm self or others. Historical: - Allergies: 20:15 No Known Allergies; rv - PMHx: 20:15 Hypertension; Pacemaker; Pancreatitis; Ulcers; rv - PSHx: 20:15 Gastric Bypass; Cholecystectomy; rv - Immunization history:: Adult Immunizations up to date. - Social history:: Smoking status: Patient denies any tobacco usage or history of. - Family history:: not pertinent. - Hospitalizations: : Patient was recently seen at [facility]. Screenin:15 Abuse screen: Denies threats or abuse. Denies injuries from another. Nutritional rv screening: No deficits noted. Tuberculosis screening: No symptoms or risk factors identified. Fall Risk None identified. Assessment: 19:40 General: Appears uncomfortable, ill, Behavior is calm, cooperative. rv 19:40 Pain: Denies pain. Neuro: Level of Consciousness is awake, alert, obeys commands, rv Oriented to person, place, time, situation. Cardiovascular: Patient's skin is warm and dry. Rhythm is regular. Respiratory: Airway is patent Respiratory effort is even, unlabored, Breath sounds are clear bilaterally. Derm: Skin is pale. 02/23 00:00 Reassessment: PATIENT AWARE OF THE SITUATION REGARDING TRANSFER STATUS. Neuro: Level of rv Consciousness is awake, alert, obeys commands, Oriented to person, place, time, situation. Cardiovascular: Patient's skin is warm and dry. Rhythm is regular. 02:00 Neuro: Level of Consciousness is awake, alert, obeys commands, Oriented to person, rv place, time, situation. Cardiovascular: Rhythm is regular. 04:00 Neuro: Level of Consciousness is awake, alert, obeys commands, Oriented to person, rv place, time, situation. Cardiovascular: Patient's skin is warm and dry. Rhythm is regular. 07:00 Reassessment: Pt laying in bed with eyes closed, respirations even and unlabored, no jl7 signs of distress noted at this time. 08:29 Reassessment: Report given to VANESSA Farley at [facility], transfer for signed, awaiting [facility] transportation. 09:18 Reassessment: EMS at bedside to transport pt. [facility] Vital Signs: 02/22 19:26 BP 112 / 53; Pulse 93; Resp 15; Temp 98; Pulse Ox 100% ; Weight 99.79 kg; Height 5 ft. rv 9 in. (175.26 cm); Pain 0/10; 20:16 BP 112 / 53; Pulse 87; Resp 18; Pulse Ox 100% on R/A; rv 21:00 BP 135 / 52; Pulse 94; Resp 23; Pulse Ox 100% on R/A; rv 22:00 BP 118 / 53; Pulse 92; Resp 18; Pulse Ox 100% on R/A; rv 23:00 BP 142 / 53; Pulse 87; Resp 14; Pulse Ox 100% on R/A; rv 02/23 00:00 BP 116 / 84; Pulse 77; Resp 20; Pulse Ox 100% on R/A; rv 01:00 BP 144 / 66; Pulse 78; Resp 17; Pulse Ox 100% on R/A; rv 02:00 BP 133 / 59; Pulse 74; Resp 16; Pulse Ox 100% on R/A; rv 03:00 BP 123 / 54; Pulse 69; Resp 17; Pulse Ox 100% on R/A; rv 04:00 BP 124 / 56; Pulse 69; Resp 16; Pulse Ox 100% on R/A; rv 05:00 BP 124 / 59; Pulse 67; Resp 17; Pulse Ox 100% on R/A; rv 07:49 BP 115 / 54; Pulse 60; Resp 18 S; Pulse Ox 100% on R/A; jd3 02/22 19:26 Body Mass Index 32.49 (99.79 kg, 175.26 cm) rv ED Course: 02/22 19:23 Patient arrived in ED. sg 19:24 Ari Villatoro MD is Attending Physician. rn 19:26 Pedro Luis Mccall RN is Primary Nurse. rv 19:28 Triage completed. rv 19:40 Inserted midline G20 X 10 CM, MANDEEP. rv 20:16 Patient has correct armband on for positive identification. sheet rock taper helper on. Pulse rv ox on. NIBP on. 20:16 Arm band placed on right wrist. Patient placed in the treatment room, on a stretcher, rv Patient notified of wait time. 20:34 CT Abdomen - Angio In Process Unspecified. EDMS 21:08 Initiated transfer at [facility] with Suri Rodriguez. tt3 21:59 Suri Rodriguez called back and stated that the transfer was declined due to capacity. tt3 22:05 Initiated transfer at [facility] with Sakshi Martinez. Stated she would call back tt3 after checking on beds. 22:30 Sakshi Martinez called back and stated that the transfer request was declined due to tt3 capacity. 22:33 Initiated transfer at [facility] with Gavin. Stated they were at capacity but could call tt3 back after they reevaluate later. 22:40 Initiated transfer at [facility] with Micheal. Stated there were no beds. tt3 22:46 Initiated transfer at [facility] with Opal. Stated that the [place] and [place] tt3 campuses are at capacity. 23:35 Spoke with Juno at [facility]. Provided pt information and stated he would pass this on to tt3 the loss prevention/safety district manager crew and that they will call for more information. 02/23 00:15 Juno with [facility] called back and stated that they would add the pt to their list and if tt3 they found a bed they would call back. 00:31 Initiated transfer at [facility] and was informed there were no beds. tt3 00:40 Initiated transfer at [facility] with Alfonso. Stated there were no beds. tt3 02:33 Tried initiating at [facility] with Margareth and she stated that they were at tt3 capacity and on diversion. 04:28 Still unable to successfully find an accepting facility with bed availability for the tt3 pt. 04:50 Followed up with [facility] and spoke with Judith. Stated that they were at capacity at all tt3 campuses. 05:02 Tried initiating with [facility]. [facility]. 05:10 Initiated transfer at [facility] with Rashmi. Stated she would check both campuses and tt3 call back. 05:52 Called [facility] back to update them on updated hgb level and spoke with Yamila [place]son [place]. She stated that all campuses are at capacity for all beds that there could be some movement around 0730 to try again then. 06:00 Rashmi from [facility] called back and stated that the request was denied due to tt3 capacity at both campuses. 07:25 Attending Physician role handed off by Ari Villatoro MD blake 07:25 Remberto Canas MD is Attending Physician. blake 07:26 initiated transfer to [facility]. bd 07:32 transfer re initiated to [facility]. bd 07:34 pt denied at [facility] due to no beds,per krystina majano. bd 07:38 initiated transfer to [facility]. spoke with Booker. bd 07:48 pt denied at [facility] due to no beds, per Krystina Majano. bd 07:48 initiated transfer to [facility], pt denied due to no beds, or GI loss prevention/safety district manager, per ethan Majano. 08:02 pt accepted in transfer to [facility] by dr Gresham, admin approval given by ethan Mejia. 08:19 No provider procedures requiring assistance completed. Patient transferred, IV remains jl7 in place. intact, No redness/swelling at site. Administered Medications: 02/22 09:45 Drug: ProTONIX 40 mg Route: IVP; Site: left upper arm; rv 21:07 Follow up: Response: No adverse reaction rv 19:45 Drug: NS 0.9% 1000 ml Route: IV; Rate: 1000 ml; Site: left upper arm; jl7 20:45 Follow up: Response: No adverse reaction; IV Status: Completed infusion; IV Intake: jl7 1000ml 19:45 Drug: ProTONIX 8 mg/hr Route: IV; Rate: 25 ml/hr; Site: left upper arm; rv 02/23 09:07 Follow up: IV Status: Infusion continued upon transfer jl7 02/22 21:07 Drug: Calcium Gluconate 1 grams Route: IVPB; Infused Over: 60 mins; Site: left upper rv arm; Medication: 02/23 05:42 Blood products: PRBCs X 3 units given. See transfusion record. rv Intake: 02/22 20:45 IV: 1000ml; Total: 1000ml. jl7 Outcome: 21:02 ER care complete, transfer ordered by . vanessa 02/23 08:28 Transferred by ground EMS to [facility], Transfer form completed. jl7 Condition: stable Discharge instructions given to patient, Instructed on the need for transfer, Demonstrated understanding of instructions. 09:19 Patient left the ED. jl7 Signatures: Dispatcher [employer] EDMS Tata López Steven, RN RN sg Anderson, Corey, MD MD cha Nieto, Roman, MD MD rn Leal, Jahala, RN RN jl7 Rolando Ulrich RN RN jPedro Luis Sheffield RN RN rv Trim, Tyler tt3 Corrections: (The following items were deleted from the chart) 09:07 02/22 09:45 NS 0.9% 1000 ml IV at 1000 ml in left upper arm rv jl7
--- NOTE | 2020-02-23 21:03 | EDPHYS ---
Physician Documentation [facility] Name: Humberto Medina Age: 69 yrs Sex: Male : 1950 Arrival Date: 02/23/2020 Time: 19:23 Bed 7 Private MD: ED Physician Remberto Canas HPI: 02/22 19:33 This 69 yrs old Male presents to ER via EMS with complaints of generalized rn weakness. 19:33 REports generalized weakness, lightheaded when standing, recently transferred to [facility] for GI bleed, no source found after scopes from above and below. No fever. No sob or cough. No chest pain. Reports daily melena but has not had melena today. Last evaluated and transfused 3 weeks ago. EMS states orthostatic hypotension.. Onset: The symptoms/episode began/occurred today. Severity of symptoms: At their worst the symptoms were moderate in the emergency department the symptoms are unchanged. The patient has experienced similar episodes in the past. The patient has been recently seen by a physician:. Historical: - Allergies: 20:15 No Known Allergies; rv - PMHx: 20:15 Hypertension; Pacemaker; Pancreatitis; Ulcers; rv - PSHx: 20:15 Gastric Bypass; Cholecystectomy; rv - Immunization history:: Adult Immunizations up to date. - Social history:: Smoking status: Patient denies any tobacco usage or history of. - Family history:: not pertinent. - Hospitalizations: : Patient was recently seen at [facility]. ROS: 19:33 Constitutional: Negative for fever, chills, and weight loss, Eyes: Negative for injury, rn pain, redness, and discharge, Neck: Negative for injury, pain, and swelling, Cardiovascular: Negative for chest pain, palpitations, and edema, Respiratory: Negative for shortness of breath, cough, wheezing, and pleuritic chest pain, Abdomen/GI: Negative for abdominal pain, nausea, vomiting, and constipation, Back: Negative for injury and pain, : Negative for injury, bleeding, discharge, and swelling, MS/Extremity: Negative for injury and deformity, Skin: Negative for injury, rash, and discoloration, Neuro: Negative for headache, numbness, tingling, and seizure. Exam: 19:33 Constitutional: This is a well developed, well nourished patient who is awake, alert, rn pale Head/Face: Normocephalic, atraumatic. ENT: dry MM Cardiovascular: Tachycardic, regular Respiratory: No increased work of breathing, no retractions or nasal flaring. Abdomen/GI: soft, non-tender Skin: Warm, dry MS/ Extremity: Pulses equal, no cyanosis. Neurovascular intact. Full, normal range of motion. Equal circumference. Neuro: Awake and alert, GCS 15 20:15 ECG was reviewed by the Attending Physician. rn Vital Signs: 19:26 BP 112 / 53; Pulse 93; Resp 15; Temp 98; Pulse Ox 100% ; Weight 99.79 kg; Height 5 ft. rv 9 in. (175.26 cm); Pain 0/10; 20:16 BP 112 / 53; Pulse 87; Resp 18; Pulse Ox 100% on R/A; rv 21:00 BP 135 / 52; Pulse 94; Resp 23; Pulse Ox 100% on R/A; rv 22:00 BP 118 / 53; Pulse 92; Resp 18; Pulse Ox 100% on R/A; rv 23:00 BP 142 / 53; Pulse 87; Resp 14; Pulse Ox 100% on R/A; rv 05 00:00 BP 116 / 84; Pulse 77; Resp 20; Pulse Ox 100% on R/A; rv 01:00 BP 144 / 66; Pulse 78; Resp 17; Pulse Ox 100% on R/A; rv 02:00 BP 133 / 59; Pulse 74; Resp 16; Pulse Ox 100% on R/A; rv 03:00 BP 123 / 54; Pulse 69; Resp 17; Pulse Ox 100% on R/A; rv 04:00 BP 124 / 56; Pulse 69; Resp 16; Pulse Ox 100% on R/A; rv 05:00 BP 124 / 59; Pulse 67; Resp 17; Pulse Ox 100% on R/A; rv 07:49 BP 115 / 54; Pulse 60; Resp 18 S; Pulse Ox 100% on R/A; jd3 02/22 19:26 Body Mass Index 32.49 (99.79 kg, 175.26 cm) rv MDM: 02/22 19:24 Patient medically screened. rn 21:01 Differential Diagnosis UGIB, anemia, orthostatic hypotension. Data reviewed: vital rn signs, nurses notes, lab test result(s), EKG, radiologic studies, CT scan, and as a result, I will admit patient. Counseling: I had a detailed discussion with the patient and/or guardian regarding: the historical points, exam findings, and any diagnostic results supporting the discharge/admit diagnosis, lab results, radiology results, the need to transfer to another facility, for higher level of care, [facility] does not immediately have the required specialist. Response to treatment: the patient's symptoms have mildly improved after treatment, and as a result, I will admit patient. ED course: Pt with continued UGIB, hemoglobin 3.5, blood ordered, on protonix drip, vitals stable, no GI here, transfer initiated. . 23:51 ED course: Every hospital we have called so far has declined due to capacity, no GI rn here, and active GI bleed, transfer is imperative. Calling more hospitals. . 02/23 01:54 ED course: Still no acceptance, 3rd unit ordered, got calcium IV, stable and patient rn feels better, able to sit up and urinate without the dizziness and near syncope he had initially. Chest pressure resolved. . 03:41 ED course: Still searching for transfer location, no acceptance yet, 3rd unit of blood rn started given delay of transfer. Stable vitals. Continues to improve clinically. . 05:41 ED course: Have tried many hospitals again, still at capacity. 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 Repeat hemoglobin sent. . 06:45 ED course: Spoke with Dr. Enriquez this AM, as Dr. Enriquez has seen this patient, states rn unable to consult on this patient, notified that have been unable to transfer this patient for 10 hours, still recommends transfer. . 02/22 19:25 Order name: Basic Metabolic Panel; Complete Time: 20:45 rn 02/22 19:25 Order name: CBC with Diff; Complete Time: 01:18 rn 02/22 19:25 Order name: Hepatic Function; Complete Time: 20:45 rn 02/22 19:25 Order name: Lipase; Complete Time: 20:45 rn 02/22 19:25 Order name: Lactate; Complete Time: 20:45 rn 02/22 19:25 Order name: Type And Screen rn 02/22 19:25 Order name: Troponin (emerg Dept Use Only); Complete Time: 20:45 rn 02/22 19:26 Order name: PT-INR; Complete Time: 01:18 rn 02/22 19:26 Order name: Ptt, Activated; Complete Time: 01:18 rn 02/22 20:21 Order name: Manual Differential; Complete Time: 01:18 EDMS 02/22 20:27 Order name: Packed RBC Leukored EDMS 02/22 21:19 Order name: COVID-19 rv 02/22 23:00 Order name: SARS-COV-2 RT PCR; Complete Time: 01:18 EDMS 02/22 23:33 Order name: Lactate Sepsis 2 HR Follow-up; Complete Time: 01:18 EDMS 02/22 19:25 Order name: IV Saline Lock; Complete Time: 20:09 rn 02/22 19:25 Order name: Labs collected and sent; Complete Time: 20:09 rn 02/22 19:25 Order name: CT Abdomen - Angio; Complete Time: 20:59 rn 02/22 19:25 Order name: EKG; Complete Time: 19:27 rn 02/22 19:25 Order name: EKG - Nurse/Tech; Complete Time: 20:09 rn 02/23 00:17 Order name: Urine Dipstick--Ancillary (enter results); Complete Time: 07:29 ds4 02/23 00:49 Order name: CREATININE WHOLE BLOOD; Complete Time: 01:18 EDMS 02/23 05:43 Order name: Hemoglobin; Complete Time: 06:41 EDMS 02/23 07:26 Order name: IV - Large Bore; Complete Time: 09:06 blake EC/04 20:15 Rate is 85 beats/min. Rhythm is regular. QRS [place] is Normal. WI interval is normal. QT rn interval is normal. No Q waves. T waves are Inverted in leads I, II, aVL, V5, V6. No ST changes noted. Clinical impression: NSR w/ Non-specific ST/T Changes. Reviewed by me. Administered Medications: 09:45 Drug: ProTONIX 40 mg Route: IVP; Site: left upper arm; rv 21:07 Follow up: Response: No adverse reaction rv 19:45 Drug: NS 0.9% 1000 ml Route: IV; Rate: 1000 ml; Site: left upper arm; jl7 20:45 Follow up: Response: No adverse reaction; IV Status: Completed infusion; IV Intake: jl7 1000ml 19:45 Drug: ProTONIX 8 mg/hr Route: IV; Rate: 25 ml/hr; Site: left upper arm; rv 02/23 09:07 Follow up: IV Status: Infusion continued upon transfer jl7 02/22 21:07 Drug: Calcium Gluconate 1 grams Route: IVPB; Infused Over: 60 mins; Site: left upper rv arm; Disposition: 02/23/20 21:[address] [facility]. Diagnosis are Melena, Anemia, unspecified, Upper GI bleed, Orthostatic hypotension. - Reason for transfer: Higher level of care. - Accepting physician is . - Condition is Stable. - Problem is an ongoing problem. - Symptoms have worsened. Critical care time excluding procedures: 21:01 Critical care time: Bedside Care: 25 minutes, Consultation: 5 minutes. Total time: 30 rn minutes Signatures: Dispatcher [employer] EDNE Remberto Canas MD MD cha Nieto, Roman, MD MD rn Attema, Lee, HELP DESK ANALYST-C HELP DESK ANALYST-Cla1 Kirstin Mayer RN RN jl7 Pedro Luis Mccall RN RN rv Corrections: (The following items were deleted from the chart) 02/23 07:06 06:45 ED course: Spoke with Dr. Enriquez this AM, states unable to consult on this rn patient, notified that have been unable to transfer this patient for 10 hours, still recommends transfer. . rn 08:06 06:32 Hemoglobin+H.LAB.BRZ ordered. [facility] EDNE 09:19 02/22 21:02 02/23/2020 21:[address] [facility]. jl7 Diagnosis is Melena; Anemia, unspecified; Upper GI bleed; Orthostatic hypotension. Reason for transfer: Higher level of care. Accepting physician is . Condition is Stable. Problem is an ongoing problem. Symptoms have worsened. rn
[2020-02-23] MEDS ORDERED: CALCIUM GLUCONATE 1 GM IVPB 1 GM/50 ML BAG IV ONE (21:15)
[2020-02-23 21:23] LABS: Protime INR 1.15
[2020-02-23 22:37] LABS: Anisocytosis 1+; Blood Morphology Comment NOTED (NOT SEEN); Hypochromasia 1+; Platelet Estimate ADEQ; Polychromasia 1+
[2020-02-24] MEDS ORDERED: NA CHLORIDE 0.9% 100 ML ONE (03:06)
[2020-02-24] MEDS ORDERED: PANTOPRAZOLE 40 MG INJ ONE (06:13)
[2020-02-24] MEDS ORDERED: NA CHLORIDE 0.9% 250 ML ONE (06:13)
[2020-02-24 06:52] LABS: Urine Blood 1+ (NEG); Urine Glucose NEGATIVE (NEG); Urine Protein NEGATIVE (NEG); Urine Specific Gravity 1.015 (1.005-1.030)
[2020-02-24 09:38] VITALS: O2SAT 100
[2020-02-24 09:52] VITALS: BP 124/56
--- NOTE | 2020-02-25 06:34 | EKG ---
Test Date: 2020-02-23 Test Time: 20:00:47 Head Of Drama: SELINA MEASUREMENT RESULTS: Intervals: Rate: 85 TX: 200 QRSD: 122 QT: 366 QTc: 435 [place]: P: 23 TX: 200 QRS: 32 T: 184 INTERPRETIVE STATEMENTS: Normal sinus rhythm Nonspecific intraventricular conduction delay Marked ST abnormality, possible lateral subendocardial injury Abnormal ECG Compared to ECG 02/03/2020 13:28:44 Intraventricular conduction delay now present ST (T wave) deviation now present Atrial premature complex(es) no longer present Myocardial infarct finding no longer present T-wave abnormality no longer present Possible ischemia no longer present Electronically Signed On 02-25-20 06:32:02 POLISHER SAND by Yvan Allen
== END 2020-02-24 09:19 | disposition short-term general hospital (02) ==
LOC: ER 19:19
PROC: 30233N1 Transfusion of Nonautologous Red Blood Cells into Peripheral Vein, Percutaneous Approach (ICD-10-PCS; principal; 2020-02-24)
DX: D64.9 Anemia, unspecified (principal); K92.2 Gastrointestinal hemorrhage, unspecified; I95.1 Orthostatic hypotension; Z20.828 Contact with and (suspected) exposure to other viral communicable diseases; I10 Essential (primary) hypertension; Z95.0 Presence of cardiac pacemaker; Z98.84 Bariatric surgery status
CPT/HCPCS: 96365; 93005; 85025; 80048; 36415 ×2; 86900; 86850; 85610; 82565; 86901; 80076; 83605 ×2; 85730; 85018; 81003; 84484; 83690; 74175; 36430; 96375; 99285; 96366; U0003; Q9967; C9113 ×2; J0610; P9016 ×3; J7050 ×2; J7030

== ENCOUNTER 2020-02-29 17:04 | Emergency (ER) | payer OTHER ==
--- OUTSIDE RECORDS SUMMARY | 2020-02-29 17:07 | XMS REPORT | Clinical Summary ---
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 / Lead [id number] Lead-Pace Cath Deliv 4fr 38 - Lead - [id number] - [id number] Cardiac Pacing N/A: [facility] 03/20/2020 [id number] / Implanted: Qty: 1 on 05/30/2018 by Vaibhav Ramirez Jr., M D at [facility] Leads or N/A [employer] [id number] / Electrodes or [id number] Accessories Lead Pace Trnsvns Actv-Fxtn Atrl Zhang Bipolar 52cm - [id number] - [id number] Cardiac Pacing N/A: [employer] [facility] - 03/13/2020 LEAD [id number] / Implanted: Qty: 1 on 05/30/2018 by Vaibhav Ramirez Jr., M D at [facility] Leads or N/A CARDIAC RYHTYM [id number] / Electrodes or [id number] Accessories Lead, Atrial Ventricular Transvenous Ext endable Retractable Screw In Assembly [facility] 58[facility] - [id number] - [id number] Cardiac Pacing N/A: [place] [facility] 01/25/2020 [id number] / Implanted: Qty: 1 on 05/30/2018 by Vaibhav Ramirez Jr., M D at [facility] Leads or N/A [employer] [id number] / Electrodes or [id number] Accessories Envelope Pcemkr Antbactl Fully Resorb Aigisrxr - [id number] Cardiovascular N/A: [employer] [id number] / Implanted: 05/30/2018 at [facility] (Quantity not on file) Implants N/A / Results Not on fileafter 02/28/2019 Insurance Payer Benefit Plan / Subscriber ID Effective Dates Phone Addre ss Type Group MEDICARE MEDICARE PART A AND [id number] 2016-Whitney [place] Medicare B t AETNA AETNA [facility] [id number] 2000-Whitney albrecht Advance Directives For more information, please contact: [phone] Type Date Recorded Patient Pollution Control Technician Explanati on Advance Directives, Living Will 05/30/2018 2:14 PM and Medical Power of Compound Finisher
--- OUTSIDE RECORDS SUMMARY | 2020-02-29 17:08 | XMS REPORT | Clinical Summary ---
:1950 Author Organization [facility] Address [address] [place] [address] Care Team Providers Name Role Phone Unavailable Primary Care Provider Unavailable Allergies No Known Allergies Medications Medication Sig Dispensed Refills Start End Date Status Date doxazosin (CARDURA) 1 Take 1 mg by 0 Active MG tablet mouth. cyanocobalamin, vitamin Take by 0 Active B-12, 1,000 mcg/mL Drop mouth. omega 9-htb-nji-fish Take 1 0 Active oil (Fish Oil) capsule by 100-160-1,000 mg Cap mouth. vitamin E, dl, acetate, Take by 0 Active 22.5 mg (50 unit)/mL mouth. Drop pantoprazole (PROTONIX) Take 1 60 tablet 0 Active 40 MG tablet tablet (40 0 mg total) by mouth 2 (two) times daily. amLODIPine (NORVASC) 5 DAILY 0 Active MG tablet 0 ferrous fumarate 324 mg TWICE DAILY 0 Active (106 mg iron) Tab 0 losartan 50 MG Tab 100 DAILY 0 Active mg, hydroCHLOROthiazide 0 12.5 mg Cap 12.5 mg amLODIPine (NORVASC) 5 Take 5 mg by 0 01/19 07/08 Discontinued MG tablet mouth. 20 (Error) ferrous sulfate 325 (65 Take 325 mg 0 01/20 0 Discontinued FE) MG tablet by mouth. 20 (Stop Taking at Discharge) tshjqq-bwibsscz-lcziaip Take 2 0 Discontinued (Creon) 36,000-114,000- capsules by 0 20 (Error) 180,000 unit CpDR mouth. capsule losartan-hydrochlorothi Take 1 0 Discontinued azide (HYZAAR) 100-12.5 tablet by 20 (Stop Taking at mg per tablet mouth. Discha rge) pantoprazole (PROTONIX) Take 40 mg 0 02/07 Discontinued 40 MG tablet by mouth. 20 (Stop T aking at Discharge) doxazosin (Cardura) 1 DAILY 0 02/23/19 Discontinued MG tablet 0 21 (Error) Active Problems Problem Noted Date GIB (gastrointestinal bleeding) 02/24/2020 S/P placement of cardiac pacemaker 02/03/2020 Hypertension 02/03/2020 Upper GI bleed 02/03/2020 Acute blood loss anemia 02/03/2020 Symptomatic bradycardia 05/30/2018 Encounters Date Type Specialty Care Team Description 02/25/2020 Surgery Gastroenterology Heri Hook ENTEROSC OPY,POLY Grant MD OVERTUBE SMAL L INTESTINE-UPPER 02/25/2020 Anesthesia Event Gastroenterology Hugo Florez MD 02/24/2020 [facility] [place], [place] Acute bl ood loss anemia; - Encounter Medicine MD Gato Gastrointestinal hemorrhage, unspecified gastrointestinal hemorrhage type; 02/27/2020 Apollo, Acute GI bleedi ng; Natali Upper GI bleed MD Ceci 02/24/2020 Travel 02/06/2020 Surgery Gastroenterology Melissa Craft ENDOSCOPY, CAPSULE MD Zoraida 02/05/2020 Anesthesia Event Gastroenterology Michael Sousa MD Sethi, Manu, MD 02/05/2020 Surgery Gastroenterology Melissa Craft COLONOSCOP Y MD Zoraida 02/04/2020 Anesthesia Event Gastroenterology Michael Sousa MD Lai, Kha Hoang, MD 02/04/2020 Surgery Gastroenterology Melissa Craft UPPER ENDO SCOPAdonay Conway MD 02/04/2020 Travel 02/03/2020 [facility] [place], [place] Acute bl ood loss anemia; - Encounter Medicine MD Gato Essential hypertension; 02/09/2020 Wade S/P placement o f cardiac pacemaker; Zahra Upper GI bleed; MD Alondra Gastrointestinal hemorrhage with melena; Nitin Howard, History of R oux-en-Y gastric bypass Gilbert Camarena MD 02/03/2020 Telephone Gastroenterology Melissa Craft GI Problem MD Zoraida after 02/28/2019 Family History Medical History Relation Name Comments [...] been in contact with No / Unsure 02/24/2020 11:20 AM FISHERIES TECHNICIAN someone who was confirmed or suspected to have Coronavirus / COVID-19? Last Filed Vital Signs Vital Sign Reading Time Taken Comments Blood Pressure 131/87 02/27/2020 8:09 AM FISHERIES TECHNICIAN Pulse 61 02/27/2020 8:09 AM FISHERIES TECHNICIAN Temperature 36.6 C (97.9 F) 02/27/2020 8:09 AM FISHERIES TECHNICIAN Respiratory Rate 18 02/27/2020 8:09 AM FISHERIES TECHNICIAN Oxygen Saturation 98% 02/27/2020 8:09 AM FISHERIES TECHNICIAN Inhaled Oxygen Concentration 21% 02/26/2020 8:25 PM FISHERIES TECHNICIAN Weight 102.5 kg (226 lb) 02/03/2020 10:00 PM FISHERIES TECHNICIAN Height 175.3 cm (5' 9") 02/03/2020 10:00 PM FISHERIES TECHNICIAN Body Mass Index 33.37 02/03/2020 10:00 PM FISHERIES TECHNICIAN Plan of Treatment Health Maintenance Due Date Last Done Comments PNEUMOCOCCAL 65+ YRS (1 of 1 - [id number]) 06/18/2016 MEDICARE ANNUAL WELLNESS (YEAR 2 or FIRST YEAR if no 05/21/2017 IPPE) INFLUENZA VACCINE (#1) 2019 DEPRESSION SCREENING (12+) 02/20/2020 COLON CANCER SCREENING COLONOSCOPY 02/04/2030 02/05/2020 Procedures Procedure Name Priority Date/Time Associated Diagnosis Comme nts PREPARE Routine 02/27/2020 11:54 Results for this LEUKO-REDUCED RBC PM FISHERIES TECHNICIAN procedure are in the results section. CBC W/PLT COUNT & Routine 02/27/2020 4:48 Result s for this AUTO DIFFERENTIAL AM FISHERIES TECHNICIAN procedure are in the results section. CBC W/PLT COUNT & Routine 02/27/2020 4:48 Result s for this AUTO DIFFERENTIAL AM FISHERIES TECHNICIAN procedure are in the results section. PREPARE Routine 02/26/2020 11:54 Results for this LEUKO-REDUCED RBC PM FISHERIES TECHNICIAN procedure are in the results section. TRANSFUSE Routine 02/26/2020 4:33 LEUKO-REDUCED RED PM FISHERIES TECHNICIAN BLOOD CELLS HEMOGLOBIN AND STAT 02/26/2020 10:03 Results f or this HEMATOCRIT AM FISHERIES TECHNICIAN procedure are i n the results section. CBC W/PLT COUNT & Routine 02/26/2020 3:43 Result s for this AUTO DIFFERENTIAL AM FISHERIES TECHNICIAN procedure are in the results section. BASIC METABOLIC Routine 02/26/2020 3:43 Results for this PANEL (7) AM FISHERIES TECHNICIAN procedure are i n the results section. CBC W/PLT COUNT & Routine 02/26/2020 3:43 Result s for this AUTO DIFFERENTIAL AM FISHERIES TECHNICIAN procedure are in the results section. CT ABDOMEN/PELVIS Routine 02/26/2020 12:18 Result s for this WITH & WITHOUT IV AM FISHERIES TECHNICIAN procedure are in CONTRAST the results section. CBC W/PLT COUNT & STAT 02/25/2020 11:48 Result s for this AUTO DIFFERENTIAL PM FISHERIES TECHNICIAN procedure are in the results section. CBC W/PLT COUNT & STAT 02/25/2020 11:48 Result s for this AUTO DIFFERENTIAL PM FISHERIES TECHNICIAN procedure are in the results section. REPORT OF PROCEDURE 02/25/2020 12:23 - ENDOSCOPY URL PM FISHERIES TECHNICIAN FL FLUORO Routine 02/25/2020 12:05 Results for this NON-SPECIFIC UP TO PM FISHERIES TECHNICIAN procedure are in 1 HOUR the results section. TISSUE EXAM AP Routine 02/25/2020 11:57 Results for this AM FISHERIES TECHNICIAN procedure are i n the results section. UPPER 02/25/2020 11:23 Gastrointestinal ENDOSCOPY,BIOPSY AM FISHERIES TECHNICIAN hemorrhage, unspecified gastrointestinal hemorrhage type PROCEDURE W/ C-ARM 02/25/2020 11:23 Gastrointestinal AM FISHERIES TECHNICIAN hemorrhage, unspecified gastrointestinal hemorrhage type ENTEROSCOPY,BALLOON 02/25/2020 11:23 Gastrointestinal OVERTUBE SMALL AM FISHERIES TECHNICIAN hemorrhage, unspecified INTESTINE-UPPER gastrointestinal hemorrhage type NM GI BLEED STUDY STAT 02/25/2020 11:01 Result s for this AM FISHERIES TECHNICIAN procedure are i n the results section. HEMOGLOBIN AND STAT 02/25/2020 9:54 Results f or this HEMATOCRIT AM FISHERIES TECHNICIAN procedure are i n the results section. CBC W/PLT COUNT & Routine 02/25/2020 7:44 Result s for this AUTO DIFFERENTIAL AM FISHERIES TECHNICIAN procedure are in the results section. CBC W/PLT COUNT & Routine 02/25/2020 7:44 Result s for this AUTO DIFFERENTIAL AM FISHERIES TECHNICIAN procedure are in the results section. BASIC METABOLIC Routine 02/25/2020 7:44 Results for this PANEL (7) AM FISHERIES TECHNICIAN procedure are i n the results section. TRANSFUSE Routine 02/25/2020 5:29 LEUKO-REDUCED RED AM FISHERIES TECHNICIAN BLOOD CELLS TRANSFUSE Routine 02/25/2020 2:28 LEUKO-REDUCED RED AM FISHERIES TECHNICIAN BLOOD CELLS SARS-COV2/RT-PCR CORDELIA 02/24/2020 6:36 Results for this ([facility] & REF LABS) PM FISHERIES TECHNICIAN procedure are in the results section. CBC W/PLT COUNT & CORDELIA 02/24/2020 1:03 Result s for this AUTO DIFFERENTIAL PM FISHERIES TECHNICIAN procedure are in the results section. TYPE AND SCREEN, CORDELIA 02/24/2020 1:03 Results for this AUTOMATED PM FISHERIES TECHNICIAN procedure are i n the results section. PROTHROMBIN CORDELIA 02/24/2020 1:03 Results for this TIME/INR PM FISHERIES TECHNICIAN procedure are i n the results section. BASIC METABOLIC CORDELIA 02/24/2020 1:03 Results for this PANEL (7) PM FISHERIES TECHNICIAN procedure are i n the results section. CBC W/PLT COUNT & CORDELIA 02/24/2020 1:03 Result s for this AUTO DIFFERENTIAL PM FISHERIES TECHNICIAN procedure are in the results section. CBC W/PLT COUNT & Routine 02/09/2020 4:24 Result s for this AUTO DIFFERENTIAL AM FISHERIES TECHNICIAN procedure are in the results section. BASIC METABOLIC Routine 02/09/2020 4:24 Results for this PANEL (7) AM FISHERIES TECHNICIAN procedure are i n the results section. CBC W/PLT COUNT & Routine 02/09/2020 4:24 Result s for this AUTO DIFFERENTIAL AM FISHERIES TECHNICIAN procedure are in the results section. MAGNESIUM Routine 02/08/2020 5:17 Results for this AM FISHERIES TECHNICIAN procedure are i n the results section. PHOSPHORUS Routine 02/08/2020 5:17 Results for this AM FISHERIES TECHNICIAN procedure are i n the results section. BASIC METABOLIC Routine 02/08/2020 5:17 Results for this PANEL (7) AM FISHERIES TECHNICIAN procedure are i n the results section. CBC (HEMOGRAM ONLY) Routine 02/08/2020 5:17 Resu lts for this AM FISHERIES TECHNICIAN procedure are i n the results section. HEMOGLOBIN AND Routine 02/07/2020 9:07 Results f or this HEMATOCRIT PM FISHERIES TECHNICIAN procedure are i n the results section. POCT-GLUCOSE METER Routine 02/07/2020 4:00 Resul ts for this PM FISHERIES TECHNICIAN procedure are i n the results section. POCT-GLUCOSE METER Routine 02/07/2020 10:41 Resul ts for this AM FISHERIES TECHNICIAN procedure are i n the results section. CBC (HEMOGRAM ONLY) Routine 02/07/2020 4:20 Resu lts for this AM FISHERIES TECHNICIAN procedure are i n the results section. MAGNESIUM Routine 02/07/2020 4:20 Results for this AM FISHERIES TECHNICIAN procedure are i n the results section. PHOSPHORUS Routine 02/07/2020 4:20 Results for this AM FISHERIES TECHNICIAN procedure are i n the results section. BASIC METABOLIC Routine 02/07/2020 4:20 Results for this PANEL (7) AM FISHERIES TECHNICIAN procedure are i n the results section. HEMOGLOBIN AND Routine 02/06/2020 7:17 Results f or this HEMATOCRIT PM FISHERIES TECHNICIAN procedure are i n the results section. ENDOSCOPY,CAPSULE 02/06/2020 8:25 Gastrointestinal AM FISHERIES TECHNICIAN hemorrhage associated with gastritis, unspecified gastritis type MAGNESIUM Routine 02/06/2020 4:28 Results for this AM FISHERIES TECHNICIAN procedure are i n the results section. PHOSPHORUS Routine 02/06/2020 4:28 Results for this AM FISHERIES TECHNICIAN procedure are i n the results section. BASIC METABOLIC Routine 02/06/2020 4:28 Results for this PANEL (7) AM FISHERIES TECHNICIAN procedure are i n the results section. CBC (HEMOGRAM ONLY) Routine 02/06/2020 4:28 Resu lts for this AM FISHERIES TECHNICIAN procedure are i n the results section. HEMOGLOBIN AND Routine 02/06/2020 4:28 Results f or this HEMATOCRIT AM FISHERIES TECHNICIAN procedure are i n the results section. PREPARE CORDELIA 02/05/2020 11:54 Results for this LEUKO-REDUCED RBC PM FISHERIES TECHNICIAN procedure are in the results section. REPORT OF PROCEDURE 02/05/2020 6:06 - ENDOSCOPY URL PM FISHERIES TECHNICIAN COLONOSCOPY 02/05/2020 1:39 Melena PM FISHERIES TECHNICIAN REPORT OF PROCEDURE 02/05/2020 9:52 - ENDOSCOPY URL AM FISHERIES TECHNICIAN MAGNESIUM Routine 02/05/2020 4:42 Results for this AM FISHERIES TECHNICIAN procedure are i n the results section. PHOSPHORUS Routine 02/05/2020 4:42 Results for this AM FISHERIES TECHNICIAN procedure are i n the results section. BASIC METABOLIC Routine 02/05/2020 4:42 Results for this PANEL (7) AM FISHERIES TECHNICIAN procedure are i n the results section. CBC (HEMOGRAM ONLY) Routine 02/05/2020 4:42 Resu lts for this AM FISHERIES TECHNICIAN procedure are i n the results section. HEMOGLOBIN AND Routine 02/05/2020 4:42 Results f or this HEMATOCRIT AM FISHERIES TECHNICIAN procedure are i n the results section. ENTEROSCOPY,DIAGNOS 02/04/2020 4:28 Upper GI bleed TIC PM FISHERIES TECHNICIAN Special Needs REQ TF UPPER ENDOSCOPY 02/04/2020 4:28 PM FISHERIES TECHNICIAN Upper GI bleed Special Needs REQ TF HEMOGLOBIN AND HEMATOCRIT CORDELIA 02/04/2020 1:21 PM FISHERIES TECHNICIAN Results for this procedure are i n the results section . TRANSFUSE LEUKO-REDUCED RED STAT 02/04/2020 12:20 PM FISHERIES TECHNICIAN BLOOD CELLS TRANSFUSE LEUKO-REDUCED RED STAT 02/04/2020 6:56 AM FISHERIES TECHNICIAN BLOOD CELLS ABORH, MANUAL STAT 02/04/2020 1:48 AM FISHERIES TECHNICIAN Res ults for this procedure are i n the results section . TROPONIN I Routine 02/04/2020 1:48 AM FISHERIES TECHNICIAN Resu lts for this procedure are i n the results section . TROPONIN I Routine 02/03/2020 10:46 PM FISHERIES TECHNICIAN Resu lts for this procedure are i n the results section . FERRITIN STAT 02/03/2020 10:46 PM FISHERIES TECHNICIAN Resu lts for this procedure are i n the results section . IRON, TIBC, % SAT. (WITHOUT Routine 02/03/2020 10:46 PM FISHERIES TECHNICIAN Results for this FERRITIN) procedure are i n the results section . TYPE AND SCREEN, AUTOMATED STAT 02/03/2020 10:45 PM FISHERIES TECHNICIAN Results for this procedure are i n the results section . SARS-COV2/RT-PCR ([facility] & REF Routine 02/03/2020 10:28 PM FISHERIES TECHNICIAN Results for this LABS) procedure are i n the results section . PHOSPHORUS STAT 02/03/2020 10:14 PM FISHERIES TECHNICIAN Resu lts for this procedure are i n the results section . MAGNESIUM STAT 02/03/2020 10:14 PM FISHERIES TECHNICIAN Resu lts for this procedure are i n the results section . COMPREHENSIVE METABOLIC STAT 02/03/2020 10:14 PM FISHERIES TECHNICIAN Results for this PANEL procedure are i n the results section . CBC W/PLT COUNT & AUTO STAT 02/03/2020 10:13 PM FISHERIES TECHNICIAN Results for this DIFFERENTIAL procedure are i n the results section . CBC W/PLT COUNT & AUTO STAT 02/03/2020 10:13 PM FISHERIES TECHNICIAN Results for this DIFFERENTIAL procedure are i n the results section . REPORT OF PROCEDURE - 02/03/2020 Result s for this ENDOSCOPY SCAN procedure are in the results section . after 02/28/2019 Results Prepare Leuko-Red RBC (02/27/2020 11:54 PM FISHERIES TECHNICIAN)Only the most recent of3 results within the time period is included. Pathologist Sig nature CROSSMATCH COMPATIBLE SAFETRACE TX Unit ABO A Pos SAFETRACE TX UNIT NUMBER [id number] [place]ACE TX Status TX_TIMEINCHART SAFETRACE TX Blood Bank Product RED BLOOD CELLS [place] PRODUCT CODE [id number] [place] Specimen Other Performing Organization Address City/State/Zipcode Phone Number SAFETRACE TX CBC with platelet count + automated diff (02/27/2020 4:48 AM FISHERIES TECHNICIAN)Only the most recent of7 resultswithin the time period is included. Pathologist [facility] WBC 5.7 3.5 - 10.5 [facility] K/L [facility] RBC 3.08 (L) 4.63 - 6.08 [facility] M/L [facility] Hemoglobin 8.3 (L) 13.7 - 17.5 [facility] GM/DL [facility] Hematocrit 26.1 (L) 40.1 - 51.0 % [facility] MCV 84.7 79.0 - 92.2 fL [facility] MCH 26.9 25.7 - 32.2 pg [facility] MCHC 31.8 (L) 32.3 - 36.5 [facility] GM/DL [facility] RDW 17.0 (H) 11.6 - 14.4 % [facility] Platelets 250 150 - 450 K/CU [facility] MPV 9.8 9.4 - 12.4 fL [facility] nRBC 0 0 - 0 /100 WBC [facility] % Neutros 54 % [facility] % Lymphs 33 % [facility] % Monos 9 % [facility] % Eos 3 % [facility] % Baso 1 % [facility] # Neutros 3.04 1.78 - 5.38 [facility] # Lymphs 1.89 1.32 - 3.57 [facility] # Monos 0.49 0.30 - 0.82 [facility] # Eos 0.16 0.04 - 0.54 [facility] # Baso 0.05 0.01 - 0.08 [facility] Immature 1 0 - 1 % [facility] Granulocytes-Relative [facility] Specimen Blood Performing Organization Address City/[facility]/Zipcode Phone Number [facility] [address] [place] [address] CENTER Transfuse Leuko-Red RBC (02/26/2020 4:33 PM FISHERIES TECHNICIAN)Only the most recent of5 resultswithin the time period is included.Hemoglobin and hematocrit (02/26/2020 10:03 AM FISHERIES TECHNICIAN)Only the most recent of7 resultswithin the time period is included. Pathologist Sig nature Hemoglobin 7.3 (L) 13.7 - 17.5 GM/DL [facility] Hematocrit 22.7 (L) 40.1 - 51.0 % [facility] Specimen Blood Narrative Performed At Slag [employer] Operator ID - [id number] [facility] Performing Organization Address City/State/Zipcode Phone Number [facility] [address] [place] [address] CENTER Basic Metabolic Panel (02/26/2020 3:43 AM FISHERIES TECHNICIAN)Only the most recent of8 results within the time period is included. Sodium 137 136 - 145 meq/L [facility] Potassium 3.6 3.5 - 5.1 meq/L [facility] Chloride 109 (H) 98 - 107 meq/L [facility] CO2 21 (L) 22 - 29 meq/L [facility] BUN 15 7 - 21 mg/dL [facility] Creatinine 0.82 0.57 - 1.25 [facility] mg/dL [facility] Glucose 89 70 - 105 mg/dL [facility] Calcium 7.2 (L) 8.4 - 10.2 [facility] mg/dL [facility] EGFR 93Comment: ESTIMATED mL/min/1.73 sq [facility] GFR IS NOT m [facility] ACCURATE [place] CREATININE CLEARANCE IN PREDICTING GLOMERULAR FILTRATION RATE. ESTIMATED GFR IS NOT APPLICABLE FOR DIALYSIS PATIENTS. Specimen Blood Narrative Performed At [employer] ID - KELBY Andrés [facility] Performing Organization Address City/State/Zipcode Phone Number [facility] [address] [place] [address] abdomen/pelvis without & with IV contrast (02/26/2020 12:18 AM FISHERIES TECHNICIAN) Specimen Narrative Performed At FINAL REPORT Vaprema [facility] EXAM: CT of the abdomen and pelvis with and without IV contrast. CLINICAL HISTORY: GI bleeding. TECHNIQUE: CT of the abdomen and pelvis was performed with and without intravenous contrast administrat ion. This exam was performed according to our departmental dose optim ization program which includes automated exposure control, adj ustment of the mA and/or kV according to patient's size and/or use o f iterative reconstructive technique. COMPARISON: None FINDINGS: LOWER CHEST: Low-attenuation of the card iac blood pool seen in the setting of anemia. Trace left pleural effusion. HEPATOBILIARY: Small hypodensities in th e liver measuring up to 1.5 cm in the left hepatic lobe which may re present cysts. Small area of enhancement in the right hepatic lobe, w hich may represent a transient hepatic attenuation difference . PANCREAS: Within normal limits. SPLEEN: Within normal limits. ADRENALS: Within normal limits. KIDNEYS/URETERS: Within normal limits. URINARY BLADDER: Within normal limits. REPRODUCTIVE ORGANS: Within normal limit s. BOWEL/MESENTERY: Status post gastric byp ass. Colonic diverticulosis without acute diverticulitis. No bowel o bstruction or abnormal wall thickening. Normal appendix. PERITONEUM/RETROPERITONEUM: No free air, free fluid or fluid collection. VESSELS: Within normal limits. LYMPH NODES: No abdominal or pelvic lymp hadenopathy. SOFT TISSUES: Small fat-containing bilat eral inguinal hernias. BONES: Degenerative changes of the visua lized spine. IMPRESSION: No evidence of active GI bleeding. Colonic diverticulosis without acute div erticulitis. Trace left pleural effusion. Please see the body of the report for ad ditional findings. Signed: Ashutosh De La Garza MD Report Verified Date/Time: 02/26/2020 01:07:03 Procedure Note Interface, External Ris In - 02/26/2020 10:26 AM FISHERIES TECHNICIAN FINAL REPORT EXAM: CT of the abdomen and pelvis with and without IV contrast. CLINICAL HISTORY: GI bleeding. TECHNIQUE: CT of the abdomen and pelvis was performed with and without intravenous contrast administrat ion. This exam was performed according to our departmental dose optim ization program which includes automated exposure control, adj ustment of the mA and/or kV according to patient's size and/or use o f iterative reconstructive technique. COMPARISON: None FINDINGS: LOWER CHEST: Low-attenuation of the card iac blood pool seen in the setting of anemia. Trace left pleural e ffusion. HEPATOBILIARY: Small hypodensities in th e liver measuring up to 1.5 cm in the left hepatic lobe which may re present cysts. Small area of enhancement in the right hepatic lobe, w hich may represent a transient hepatic attenuation difference . PANCREAS: Within normal limits. SPLEEN: Within normal limits. ADRENALS: Within normal limits. KIDNEYS/URETERS: Within normal limits. URINARY BLADDER: Within normal limits. REPRODUCTIVE ORGANS: Within normal limit s. BOWEL/MESENTERY: Status post gastric byp ass. Colonic diverticulosis without acute diverticulitis. No bowel o bstruction or abnormal wall thickening. Normal appendix. PERITONEUM/RETROPERITONEUM: No free air, free fluid or fluid collection. VESSELS: Within normal limits. LYMPH NODES: No abdominal or pelvic lymp hadenopathy. SOFT TISSUES: Small fat-containing bilat eral inguinal hernias. BONES: Degenerative changes of the visua lized spine. IMPRESSION: No evidence of active GI bleeding. Colonic diverticulosis without acute div erticulitis. Trace left pleural effusion. Please see the body of the report for ad ditional findings. Signed: Ashutosh De La Garza MD Report Verified Date/Time: 02/26/2020 0 1:07:03 Performing Organization Address City/State/Zipcode Phone Number GE RIS REPORT OF PROCEDURE - ENDOSCOPY URL (02/25/2020 12:23 PM FISHERIES TECHNICIAN) Narrative Performed At This result has an attachment that is no t available. [place] fluoro non-specific up to 1 hour (02/25/2020 12:05 PM FISHERIES TECHNICIAN) Specimen Narrative Performed At Fluoroscopic unit utilized for a procedure performed i n the OR. No GE RIS interpretation was requested. Refer to the operative report for findings. Refer to PACS for patient radiation dose i nformation. Procedure Note Interface, External Ris In - 02/25/2020 12:28 PM FISHERIES TECHNICIAN Fluoroscopic unit utilized for a procedu re performed in the OR. No interpretation was requested. Refer to the operative r eport for findings. Refer to PACS for patient radiation dose information. Performing Organization Address City/[facility] Phone Number [facility] RIS Tissue Exam (02/25/2020 11:57 AM FISHERIES TECHNICIAN) Case Report Surgical Pathology Report Case: [id number] [facility] Authorizing Provider: Heri Le Collected: 02/25/2020 11:57 AM [facility] MD [facility] Ordering Location: [address] Received: 02/25/2020 01:35 PM Service Pathologist: Samy Mayfield MD Specimen: Biopsy, Gastr ic DIAGNOSIS PART A GASTRIC BIOPSY: [facility] Elec tronically OXYNTIC MUCOSA WITH NONSPECIFIC REACTIVE GASTROPATHY. [facility] signed by Chaparro, NEGATIVE FOR INTESTINAL METAPLASIA, DYSPLASIA, O R INVASIVE CARCINOMA. [facility] Samy Monroy MD WARTHIN STARRY STAIN FOR HELICOBACTER IS NEGATIVE. on 02/26/2020 at Signing Pathologist Direct Phone Line: [phone] 3:57 PM CPT Code(s) 86333, 20148 [facility] CLINICAL HISTORY Gastrointestinal [facility] hemorrhage [facility] SPECIMEN SOURCE A. Gastric [facility] GROSS DESCRIPTION The case is received [facility] fixed in formalin in one [facility] container labeled with MEDICAL CENTER the patient's information and "gastric biopsy" and consists of multiple soft, yellow-sifuentes tissue fragments ranging from less than 0.1 to 0.2 cm in greatest dimension. The specimen is submitted in toto in cassette A1. MD/pl MICROSCOPIC Performed [facility] SPECIAL STUDIES The interpretation of this c ase included the use of immunohistochemistry or special stains. [facility] BLOCK A1- [facility] Control Slides Examined: In -house known positive controls were evaluated along with the test tissue. These control slides run alongside of the patients sample show appropriate staining. [facility] mary and negative controls when available are evaluated Immunohistochemistry technic al testing was performed at [facility], Pathology Laboratory where it was developed and its performance characteristics were determined. It has not be en cleared or approved by health system U.S. Food and Drug Administration. The FDA has determined that such clearance or approval is not necessary. The test is used for clinical purposes. It should not be regarde d as investigational or for research. This laboratory is certified under the Clinical Laboratory Improvement Amendments of 1988 (CLIA-88) as qualified to perform high complexity clinical laboratory testing. Gross assessment [facility] 'S was performed at [facility] Pathology, [address] [place] [id number], Technical [facility] was [facility] performed at Pathology, [address] [place] [address], Professional [facility] component was [facility] performed at Pathology, [address] [place] [address], Specimen Tissue - Gastric biopsy sample (specimen ) Performing Organization Address City/State/Zipcode Phone Number [facility] MEDICAL [address] [place] [address] CENTER NM GI bleed study (02/25/2020 11:01 AM FISHERIES TECHNICIAN) Specimen Narrative Performed At FINAL REPORT GE RIS PROCEDURE: HEMORRHAGE STUDY with R BCs CPT CODE: 50160 INDICATION: Gastrointestinal Bl eeding PROTOCOL: 21.8 mCi of Tc-99m was injected intravenously as labeled autologous red blood cells. Flow images of the abdomen were obtained, followed by serial images for approximately 60 minutes. Additional images were obtained 5 hours and 17 hours after tracer injection. FINDINGS: Early images ayan w physiological tracer distribution in the blood pool. Late aden ges, however, show mild tracer activity in the mid and right low er abdomen in a curvilinear pattern. IMPRESSION: 1. Mild, interval GI hemorrhage, most li jt arising in the mid to distal small bowel. Signed: Shimon Colmenares MD Report Verified Date/Time: 02/25/2020 14:18:29 Reading Location: [address] SMRxT Med Reading Room Procedure Note Interface, External Ris In - 02/25/2020 2:20 PM FISHERIES TECHNICIAN FINAL REPORT PROCEDURE: HEMORRHAGE STUDY with RBC s CPT CODE: 19357 INDICATION: Gastrointestinal Bleed ing PROTOCOL: 21.8 mCi of Tc-99m was injected intravenously as labeled autologous red blood cells. Flow images of the abdomen were obtained, followed by serial images for approximately 60 minutes. Additional images were obtained 5 hours and 17 hours after tracer injection. FINDINGS: Early images show phy siological tracer distribution in the blood pool. Late aden ges, however, show mild tracer activity in the mid and right low er abdomen in a curvilinear pattern. IMPRESSION: 1. Mild, interval GI hemorrhage, most li jt arising in the mid to distal small bowel. Signed: Shimon Colmenares MD Report Verified Date/Time: 02/25/2020 1 4:18:29 Reading Location: [address] SMRxT Med Reading Room Performing Organization Address City/State/Zipcode Phone Number GE RIS SARS-CoV2/RT-PCR (Asymptomatic ONLY) (02/24/2020 6:36 PM FISHERIES TECHNICIAN)Only the most recent of2 resultswithin the time period is included. SARS-COV2/RT-PCR Negative Not Detected, SANDRA YU Negative, See [facility] external report CENTER for linked test SARS-COV-2 [facility] SANDRA YU PERFORMING LAB [facility] Specimen Other - Nasopharyngeal wall structure (b jason structure) Narrative Performed At Negative result for this test determines that [facility] SARS-CoV-2 RNA was not present in the [...] limit of detection for this assay is 100 copies/mL. This SARS CoV-2 test is a [...] revoked under Section 564(g) of the Act. Testing was performed using the [employer] SARS-CoV-2 assay. Fact Sheet for Healthcare Providers: https://www.[employer].com.[employer]iqu[employer]ations [employer]/kd/BT_HGVX-WuX-3 _HCP_Fact_Sheet_51-858075.pdf Fact Sheet for Healthcare Patients: https://www.[employer].com.[employer]/kd/FD_ZQIQ-AaK-6 _Patient_Fact_Sheet_EN_51-771176T5.pdf Performing Laboratory: [address] [place] [address] Performing Organization Address City/[facility]/Zipcode Phone Number [address] [address] CENTER Type and screen, automated (02/24/2020 1:03 PM FISHERIES TECHNICIAN)Only the most recent of2 resultswithin the time period is included. Pathologist Sig nature ABO/RH AUTOMATED A POSITIVE [facility] Ab Scrn NEGATIVE [facility] Specimen Blood Performing Organization Address [facility] Phone Number [address] [address] Prothrombin time/INR (02/24/2020 1:03 PM FISHERIES TECHNICIAN) Pathologist Sig appMobi Protime 14.3 (H) 11.9 - 14.2 seconds [facility] INR 1.16 <=5.90 [facility] Specimen Blood Narrative Performed At Effective 07/17/2018: PT Reference Range [facility] Change New: 11.9-14.2 Previous: 11.7-14.7 RECOMMENDED COUMADIN/WARFARIN INR THERAPY RANGES STANDARD DOSE: 2.0-3.0 Includes: PROPHYLAXIS for venous thrombosis, systemic embolization; TREATMENT for venous thrombosis and/or pulmonary embolus. HIGH RISK: Target INR is 2.5-3.5 for patients wiht mechanical heart valves. Performing Organization Address City/[facility]/Zipcode Phone Number [address] [address] CENTER CBC (Hemogram only) (02/08/2020 5:17 AM FISHERIES TECHNICIAN)Only the most recent of4 results within the time period is included. Pathologist Sig nature WBC 4.9 3.5 - 10.5 K/L [facility] RBC 2.53 (L) 4.63 - 6.08 M/L [facility] Hemoglobin 7.8 (L) 13.7 - 17.5 GM/DL [facility] Hematocrit 24.3 (L) 40.1 - 51.0 % [facility] MCV 96.0 (H) 79.0 - 92.2 fL [facility] MCH 30.8 25.7 - 32.2 pg [facility] MCHC 32.1 (L) 32.3 - 36.5 GM/DL [facility] RDW 15.9 (H) 11.6 - 14.4 % [facility] Platelets 320 150 - 450 K/CU MM [facility] MPV 9.6 9.4 - 12.4 fL [facility] nRBC 0 0 - 0 /100 WBC [facility] Specimen Blood Performing Organization Address City/State/Zipcode Phone Number [address] [address] CENTER Phosphorus (02/08/2020 5:17 AM FISHERIES TECHNICIAN)Only the most recent of5 resultswithin the time period is included. Pathologist Sig nature Phosphorus 3.9 2.3 - 4.7 mg/dL [facility] Specimen Blood Narrative Performed At Slag Motor Operator ID - PIAYA L [facility] MED ICAL CENTER Performing Organization Address City/State/Zipcode Phone Number [address] [address] CENTER Magnesium (02/08/2020 5:17 AM FISHERIES TECHNICIAN)Only the most recent of5 resultswithin the time period is included. Pathologist Sig nature Magnesium 1.8 1.6 - 2.6 mg/dL [facility] Specimen Blood Narrative Performed At Slag Motor Operator ID - PIAYA L [facility] MED [facility]ENTER Performing Organization Address City/State/Zipcode Phone Number [address] [id number] CENTER POC-Glucose meter (02/07/2020 4:00 PM FISHERIES TECHNICIAN)Only the most recent of2 results within the time period is included. POC-Glucose Meter 67 (L) 70 - 110 mg/dL [facility] Comment: [facility] MEDICAL : TESTED AT [facility] [address] [place] [address], [address] CENTER : Slag Motor Operator/Safety Associate ID = [id number] for QUEEN OCONNELL Specimen Blood Performing Organization Address City/[facility]/Zipcode Phone Number [address] [address] CENTER REPORT OF PROCEDURE - ENDOSCOPY URL (02/05/2020 6:06 PM FISHERIES TECHNICIAN) Narrative Performed At This result has an attachment that is no t available. REPORT OF PROCEDURE - ENDOSCOPY URL (02/05/2020 9:52 AM FISHERIES TECHNICIAN) Narrative Performed At This result has an attachment that is no t available. ABORH, manual (02/04/2020 1:48 AM FISHERIES TECHNICIAN) Pathologist Sig nature ABO Grouping A [facility] Rh Factor POS [facility] [place] Specimen Blood Performing Organization Address City/[facility]/Zipcode Phone Number [address] [address] Troponin I (02/04/2020 1:48 AM FISHERIES TECHNICIAN)Only the most recent of2 resultswithin the time period is included. Pathologist Sig nature Troponin I <0.01 0.00 - 0.03 ng/mL [facility] Specimen Blood Narrative Performed At Troponin I (TnI) levels must be interpreted [facility] in the context of the presenting symptoms and the clinical findings. Elevated TnI levels indicate myocardial damage, but are not specific for ischemic heart disease. Elevated TnI levels are seen in patients with other cardiac conditions (including myocarditis and congestive heart failure), and slight TnI elevations occur in patients with other conditions, including sepsis, renal failure, acidosis, acute neurological disease, and persistent tachyarrhythmia. Slag Motor Operator ID - KELBY Bowen Performing Organization Address City/[facility]/Zipcode Phone Number [address] [address] CENTER Iron, TIBC, % sat. (without ferritin) (02/03/2020 10:46 PM FISHERIES TECHNICIAN) Pathologist Sig nature Iron 13.0 (L) 40.0 - 160.0 [facility] ug/dL [place] TIBC 298 250 - 450 ug/dL [facility] Iron % Saturation 4 (L) 20 - 55 % [facility] Specimen Blood Narrative Performed At Slag Motor Operator ID - BS [facility] Performing Organization Address [facility] Phone Number [address] [address] CENTER Ferritin (02/03/2020 10:46 PM FISHERIES TECHNICIAN) Pathologist Sig nature Ferritin 60.51 5.00 - 275.00 ng/mL [facility] Specimen Blood Narrative Performed At Slag Motor Operator ID - ADMIN [facility] Performing Organization Address [facility] Phone Number [address] [address] CENTER Comprehensive metabolic panel (02/03/2020 10:14 PM FISHERIES TECHNICIAN) Protein, Total 5.3 (L) 6.0 - 8.3 [facility] gm/dL [facility] Albumin 3.2 (L) 3.5 - 5.0 [facility] g/dL [facility] Alkaline 69 40 - 150 U/L [facility] Phosphatase [facility] Total Bilirubin 1.1 0.2 - 1.2 [facility] mg/dL [facility] Sodium 137 136 - 145 [facility] meq/L [facility] Potassium 3.6 3.5 - 5.1 [facility] meq/L [facility] Chloride 107 98 - 107 [facility] meq/L [facility] CO2 19 (L) 22 - 29 meq/L [facility] BUN 12 7 - 21 mg/dL [facility] Creatinine 0.90 0.57 - 1.25 [facility] mg/dL [facility] Glucose 89 70 - 105 [facility] mg/dL [facility] Calcium 7.9 (L) 8.4 - 10.2 [facility] mg/dL [facility] AST 13 5 - 34 U/L [facility] ALT 13 6 - 55 U/L [facility] EGFR 84Comment: mL/min/1.73 [facility] ESTIMATED GFR IS sq [facility] NOT ACCURATE MEDICAL CENTER CREATININE CLEARANCE IN PREDICTING GLOMERULAR FILTRATION RATE. ESTIMATED GFR IS NOT APPLICABLE FOR DIALYSIS PATIENTS. Specimen Blood Narrative Performed At Slag Motor Operator ID - BS [facility] MED ICAL CENTER Performing Organization Address City/State/Zipcode Phone Number [facility] [address] [place] [address] CENTER EKG-SCANNED (02/03/2020) Narrative Performed At This result has an attachment that is no t available. Ordered by an unspecified provider. after 02/28/2019 Insurance Payer Benefit Plan / Subscriber ID Effective Dates Phone Addre ss Type Group MEDICARE MEDICARE A B [id number] 2016-Present Medicare [employer] - MGD CARE [employer] INDEMNITY [id number] 2016-Present Comm NON CONTR Advance Directives For more information, please contact: [phone] Code Status Date Activated Date Inactivated Comments Full Code 02/24/2020 11:16 AM 02/27/2020 8:03 PM This code status was determined by: Patient Full Code 02/03/2020 7:34 PM 02/09/2020 5:51 PM This code status was determined by: Patient
--- OUTSIDE RECORDS SUMMARY | 2020-02-29 17:10 | XMS REPORT | Continuity of Care Document ---
:1950 Author Organization [facility] t Address [address] [place] [place] [address] Care Team Providers Name Role Phone Ramone MORALEZ, Ghazal Primary Care Physician Mp MORALEZ, P. Attending Clinician Ceci Bustillos MD Attending Clinician [phone] Miladys MORALEZ, Miladys Grant Attending Clinician Jhoan Florez MD Attending Clinician Gato GRESHAM Attending Clinician Unavailable Diomedes Olvera MD Attending Clinician Merchant MORALEZ Attending Clinician Alphonso Sanchez MD Attending Clinician Zoraida Craft MD Attending Clinician Alexandru Sousa MD Attending Clinician Keily MORALEZ Attending Clinician Saurabh Caldwell MD Attending Clinician Ced MORALEZ Attending Clinician Gato GRESHAM Admitting Clinician Unavailable DIOMEDES OLVERA Admitting Clinician Unavailable Payers Payer Name Policy Type Policy Effective Date Expiration Date Sour ce Number MEDICAREMEDICARE A [id number] 2016 SANDRA Rodriguez [id number] 2016-P 00:00:00 - Medical resentMedicare Center AETNA - MGD CAREAETNA [id number] 2016 [facility] INDEMNITY NON 00:00:00 - Medical [id number] Ce nter 7-PresentComm Problems Condition Condition Condition Status Onset Resolution Last Treating Co mments Source Name Details Category Date Date Treatment Clinician Date GIB GIB Disease Active [facility] (gastroint 1-05 [facility] - estinal estinal 00:00: Medical bleeding) bleeding) 00 Cent er S/P S/P Disease Active 2019-[address] [facility] [address] placement placement 2-15 [facility] - of cardiac of cardiac 00:00: In dical pacemaker pacemaker 00 Cent er Hypertensi Hypertensi Disease Active 2019-[address] on on 2-15 [facility] - 00:[facility]: Medical 00 [place] Upper GI Upper GI Disease Active 2019-02 [facility] bleed bleed 2-15 [facility] - 00:00: Medical 00 [place] Acute Acute Disease Active 2019-[address] [facility] [address] blood loss blood loss 2-15 [facility] - anemia anemia 00:00: Medical 00 [place] Symptomati Symptomati Disease Active [facility] c 4-11 [facility] - bradycardi bradycardi 00:00: In dical a a 00 Center Allergies, Adverse Reactions, Alerts This patient has no known allergies or adverse reactions. Family History Family Member Diagnosis Comments Start Date Stop Date Source Natural father No Known Problem [facility] Natural mother No Known Problem [facility] Social History Social Habit Start Date Stop Date Quantity Comments Source Sex Assigned At [facility] Exposure to Not sure [facility] (event) Tobacco use and 2020-02-25 2020-02-25 Never used [facility] - exposure 00:00:00 00:00:00 [facility] Alcohol intake 2020-02-25 2020-02-25 Ex-drinker [facility] es - 00:00:00 00:00:00 (finding) [facility] Smoking Status Start Date Stop Date Source Never smoker [facility] Medications Ordered Filled Start Stop Current Ordering Indication Dosage Frequency Signature Comments Components Source Medication Medication Date Date Medication? Clinician (SIG) Name Name doxazosin 2021-0 Yes 1mg Take [address] [facility] (CARDURA) 1 1-08 by mouth. Matt es - MG tablet 18:03: Medical 01 [place] cyanocobala Yes Take by [facility] min, 1-08 mouth. [facility] - vitamin 18:03: Medical B-12, 1,000 01 [place] mcg/mL Drop omega Yes 1{capsu Take [address] [facility] 3-dha-epa-f 1-08 le} capsule by Mago choi - jacquie oil 18:03: mouth. Medical (Fish Oil) 01 [place] 100-160-1,0 00 mg Cap vitamin E, Yes Take by [facility] dl, 1-08 mouth. [facility] - acetate, 18:03: Medical 22.5 mg (50 01 [place] unit)/mL Drop ferrous 2019-02- No 325mg Take [address] [facility] sulfate 325 2-20 12-20 mg by Magokes - (65 FE) MG 16:47: 00:00 mouth. Medi kamala tablet 01 :00 [place] losartan-hy 2019-02 2020- No 1{tbl} Take [address] drochloroth 2-20 12-20 tablet by Mago choi - iazide 16:47: 00:00 mouth. Medical (HYZAAR) 01 :00 [place] 100-12.5 mg per tablet pantoprazol 2019-02 2020- No 40mg Take [address] e 2-20 12-20 by mouth. [facility] - (PROTONIX) 16:47: 00:00 Medica l 40 MG 01 :00 Center tablet pantoprazol 2019-02 Yes 40mg Q.5D Take [address] [facility] e 2-20 tablet (40 [facility] - (PROTONIX) 00:00: mg total) Me dical 40 MG 00 by mouth 2 Center tablet (two) times daily. amLODIPine 2019-02- No 5mg Take [address] (NORVASC) 5 2-15 12-15 by mouth. Mago kes - MG tablet 20:03: 00:00 Medical 04 :00 [place] ferrous 2019-[address] [facility] fumarate 2-05 DAILY [facility] - 324 mg (106 00:00: Medica l mg iron) 00 Center Tab amLODIPine 2019-[address] [facility] (NORVASC) 5 2-03 [facility] - MG tablet 00:00: Medical 00 [place] losartan 50 2019-02 Yes DAILY [facility] t MG Tab 100 2-03 [facility] - mg, 00:00: Medical hydroCHLORO 00 Center thiazide 12.5 mg Cap 12.5 mg doxazosin 2019-02- No DAILY [facility] (Cardura) 1 2-03 01-05 [facility] - MG tablet 00:00: 00:00 Medical 00 :00 Center lipase-prot 2020- No 2{capsu Take [address] ease-amylas 2-28 12-15 le} capsules Matt es - e (Creon) 00:00: 00:00 by mouth. Me dical 36,000-114, 00 :00 Center 000- 180,000 unit CpDR capsule amLODIPine Yes 5mg Q.5D Take 5 mg [place] (NORVASC) 5 4-12 by mouth 2 Me thodi mg tablet 14:15: (two) st 13 times a day. pantoprazol Yes 40mg QD Take 40 mg [place] e 4-12 by mouth Methodi (PROTONIX) 14:15: daily. st 40 MG EC 13 tablet doxazosin Yes 1mg Q.5D Take 1 mg Luis ston (CARDURA) 1 4-12 by mouth 2 Me thodi MG tablet 14:15: (two) st 13 times a day. losartan-hy Yes 1{tbl} QD Take 1 [place] drochloroth 4-12 tablet by Met christie iakasiee 14:15: mouth st (HYZAAR) 13 daily. 100-12.5 mg per tablet omega-3 2018- Yes 1{capsu QD Take 1 [place] fatty 4-12 le} capsule by Methodi acids/fish 14:15: mouth st oil (OMEGA 13 daily. 3 FISH OIL ORAL) multivitami 2019-0 Yes 1{tbl} QD Take 1 [place] with 4-12 tablet by Methodi minerals 14:15: mouth st tablet 13 daily. vitamin E 2019-0 Yes 1{tbl} QD Take 1 [place] acetate 4-12 tablet by [facility]i (VITAMIN E 14:15: mouth st ORAL) 13 daily. ferrous 2019-0 Yes 325mg QD Take 325 [place] sulfate 325 4-12 mg by Methodi (65 FE) MG 14:15: mouth st tablet 13 daily with breakfast. Vital Signs Vital Name Observation Time Observation Value Comments Source Systolic blood 2020-02-27 08:09:00 131 mm[Hg] [facility] Diastolic blood 2020-02-27 08:09:00 87 mm[Hg] [facility] Heart rate 2020-02-27 08:09:00 61 /min [facility] Body temperature 2020-02-27 08:09:00 36.61 Faith [facility] Respiratory rate 2020-02-27 08:09:00 18 /min [facility] Oxygen saturation in 2020-02-27 08:09:00 98 /min [facility] Arterial blood by Medical Ce nter Pulse oximetry Body height 2020-02-03 22:00:00 175.3 cm [facility] Body weight 2020-02-03 22:00:00 102.513 kg [facility] BMI 2020-02-03 22:00:00 33.37 kg/m2 [facility] Procedures Procedure Date / Time Performed Performing Clinician [facility] e PREPARE LEUKO-REDUCED RBC 2020-02-27 23:54:00 Natali Bustillos [facility] CBC W/PLT COUNT & AUTO 2020-02-27 04:48:00 Kriss Ortiz [facility] PREPARE LEUKO-REDUCED RBC 2020-02-26 23:54:00 Thao Gresham [facility] TRANSFUSE LEUKO-REDUCED 2020-02-26 16:33:57 Natali Bustillos I [facility] - RED BLOOD CELLS [facility] HEMOGLOBIN AND HEMATOCRIT 2020-02-26 10:03:00 Natali Bustillos [facility] BASIC METABOLIC PANEL (7) 2020-02-26 03:43:00 Melissa Craft [facility] CBC W/PLT COUNT & AUTO 2020-02-26 03:43:00 Melissa Craft [facility] CT ABDOMEN/PELVIS WITH & 2020-02-26 00:18:00 Kriss Ortiz [facility] - WITHOUT IV CONTRAST Medical Cent er CBC W/PLT COUNT & AUTO 2020-02-25 23:48:00 Kriss Ortiz [facility] S [facility] REPORT OF PROCEDURE - 2020-02-25 12:23:21 Heri Hook [facility] - ENDOSCOPY URL [facility] FL FLUORO NON-SPECIFIC UP 2020-02-25 12:05:00 Heri Hook I [facility] - TO 1 HOUR [facility] TISSUE EXAM 2020-02-25 11:57:00 Miladys [facility] ENTEROSCOPY,BALLOON 2020-02-25 11:23:00 Miladys [facility] L ukes - OVERTUBE SMALL [facility] INTESTINE-UPPER PROCEDURE W/ C-ARM 2020-02-25 11:23:00 Miladys [facility] UPPER ENDOSCOPY,BIOPSY 2020-02-25 11:23:00 Heri Hook [facility] S [facility] NM GI BLEED STUDY 2020-02-25 11:01:00 Thao Gresham [facility] HEMOGLOBIN AND HEMATOCRIT 2020-02-25 09:54:00 Natali Bustillos [facility] BASIC METABOLIC PANEL (7) 2020-02-25 07:44:00 Thao Gresham [facility] CBC W/PLT COUNT & AUTO 2020-02-25 07:44:00 Thao Gresham [facility] TRANSFUSE LEUKO-REDUCED 2020-02-25 05:29:32 Thao Gresham [facility] BLOOD [facility] TRANSFUSE LEUKO-REDUCED 2020-02-25 02:28:52 Thao Gresham [facility] SARS-COV2/RT-PCR ([facility] & 2020-02-24 18:36:00 Thao Gresham [facility] BASIC METABOLIC PANEL (7) 2020-02-24 13:03:00 Thao Gresham [facility] PROTHROMBIN TIME/INR 2020-02-24 13:03:00 Thao Gresham [facility] TYPE AND SCREEN, 2020-02-24 13:03:00 Thao Gresham [facility] AUTOMATED [facility] CBC W/PLT COUNT & AUTO 2020-02-24 13:03:[address] [facility] BASIC METABOLIC PANEL (7) 2020-02-09 04:24:00 Gilbert Sanchez [facility] CBC W/PLT COUNT & AUTO 2020-02-09 04:24:00 Gilbert Sanchez [facility] CBC (HEMOGRAM ONLY) 2020-02-08 05:17:00 [facility] BASIC METABOLIC PANEL (7) 2020-02-08 05:17:00 [facility] PHOSPHORUS 2020-02-08 05:17:00 [facility] MAGNESIUM 2020-02-08 05:17:00 [facility] HEMOGLOBIN AND HEMATOCRIT 2020-02-07 21:07:00 [facility] POCT-GLUCOSE METER 2020-02-07 16:00:00 [facility] POCT-GLUCOSE METER 2020-02-07 10:41:00 [facility] BASIC METABOLIC PANEL (7) 2020-02-07 04:20:00 [facility] PHOSPHORUS 2020-02-07 04:20:00 [facility] MAGNESIUM 2020-02-07 04:20:00 [facility] CBC (HEMOGRAM ONLY) 2020-02-07 04:20:00 [facility] HEMOGLOBIN AND HEMATOCRIT 2020-02-06 19:17:00 [facility] ENDOSCOPY,CAPSULE 2020-02-06 08:25:00 Venancio [facility] HEMOGLOBIN AND HEMATOCRIT 2020-02-06 04:28:00 [facility] CBC (HEMOGRAM ONLY) 2020-02-06 04:28:00 [facility] BASIC METABOLIC PANEL (7) 2020-02-06 04:28:00 [facility] PHOSPHORUS 2020-02-06 04:28:00 [facility] MAGNESIUM 2020-02-06 04:28:00 [facility] PREPARE LEUKO-REDUCED RBC 2020-02-05 23:54:00 [facility] REPORT OF PROCEDURE - 2020-02-05 18:06:43 Venancio [facility] COLONOSCOPY 2020-02-05 13:39:00 Venancio [facility] REPORT OF PROCEDURE - 2020-02-05 09:52:21 Melissa Craft [facility] HEMOGLOBIN AND HEMATOCRIT 2020-02-05 04:42:00 [facility] CBC (HEMOGRAM ONLY) 2020-02-05 04:42:00 [facility] BASIC METABOLIC PANEL (7) 2020-02-05 04:42:00 [facility] PHOSPHORUS 2020-02-05 04:42:00 [facility] MAGNESIUM 2020-02-05 04:42:00 [facility] UPPER ENDOSCOPY 2020-02-04 16:28:00 Venancio [facility] ENTEROSCOPY,DIAGNOSTIC 2020-02-04 16:28:00 Melissa Craft [facility] HEMOGLOBIN AND HEMATOCRIT 2020-02-04 13:21:[address] [facility] TRANSFUSE LEUKO-REDUCED 2020-02-04 12:20:53 Zahra Olvera [facility] RED BLOOD CELLS [facility] TRANSFUSE LEUKO-REDUCED 2020-02-04 06:56:20 Zahra Olvera [facility] RED BLOOD CELLS [facility] TROPONIN I 2020-02-04 01:48:00 Zahra Olvera [facility] ABORH, MANUAL 2020-02-04 01:48:00 Supriya Del Valle [facility] IRON, TIBC, % SAT. 2020-02-03 22:46:[address] [facility] (WITHOUT FERRITIN) [facility] 2020-02-03 22:46:00 Zahra Olvera [facility] TROPONIN I 2020-02-03 22:46:00 WadeZahra [facility] TYPE AND SCREEN, 2020-02-03 22:45:00 Zahra Olvera [facility] AUTOMATED [facility] SARS-COV2/RT-PCR ([facility] & 2020-02-03 22:28:00 Zahra Olvera [facility] - REF LABS) [facility] COMPREHENSIVE METABOLIC 2020-02-03 22:14:[address] [facility] PANEL [facility] MAGNESIUM 2020-02-03 22:14:00 Zahra Olvera [facility] PHOSPHORUS 2020-02-03 22:14:00 Zahra Olvera [facility] CBC W/PLT COUNT & AUTO 2020-02-03 22:13:[address] [facility] DIFFERENTIAL [facility] REPORT OF PROCEDURE - 2020-02-03 00:00:00 Provider, Jose [facility] - ENDOSCOPY [facility]AN [facility] Plan of Care Planned Activity Planned Date Details Comments Source Future Scheduled 2030-02-[address] [facility] - Test 00:00:00 malignant neoplasm of Medica Center colon (procedure) [code = 338522461] Future Scheduled 2020-02-[address] [facility] - Test 00:00:00 (12+) [code = Medical Center DEPRESSION SCREENING (12+)] Future Scheduled 2019-10-21 INFLUENZA VACCINE (#1) [facility] Test 00:00:00 [code = INFLUENZA Medical Ce nter VACCINE (#1)] Future Scheduled 2019-09-20 INFLUENZA VACCINE [place] [facility] 00:00:00 [code = INFLUENZA VACCINE] Future Scheduled 2017-05-[address] [facility] - Test 00:00:00 WELLNESS (YEAR 2 or Medical Center FIRST YEAR if no IPPE) [code = MEDICARE ANNUAL WELLNESS (YEAR 2 or FIRST YEAR if no IPPE)] Future Scheduled 2016-06-18 65+ PNEUMOCOCCAL [place] [facility] Test 00:00:00 VACCINE (1 of 1 - PPSV23) [code = 65+ PNEUMOCOCCAL VACCINE (1 of 1 - PPSV23)] Future Scheduled 2016-06-18 PNEUMOCOCCAL 65+ [facility] - Test 00:00:00 (1 of 1 - [facility] Center [id number] PCV13) [code = PNEUMOCOCCAL 65+ YRS (1 of 1 - [id number]_Pvyiuyc PCV13)] Future Scheduled 2001-06-18 COLONOSCOPY SCREENING [place] [facility] Test 00:00:00 [code = COLONOSCOPY SCREENING] Future Scheduled 2001-06-18 SHINGLES VACCINES (#1) [place] [facility] Test 00:00:00 [code = SHINGLES VACCINES (#1)] Future Scheduled 1967 COVID-19 VACCINE (#1) [place] [facility] Test 00:00:00 [code = COVID-19 VACCINE (#1)] Encounters Start End Encounter Admission Attending Care Care Encounter Source Date/Time Date/Time Type Type Clinicians Facility Department ID 2019-04-18 2019-04-18 Office GARETT Coughlin [id number] 51 08:32:36 16:06:01 Visit [facility] AMBULATOR [id number] Y [id number] Results Test Description Test Time Test Comments Results Result Comments Source Prepare Leuko-Red RBC 2020-02-27 23:54:00 Test Item Value Reference Range Interpretation Comme nts CROSSMATCH (test code = 2264) COMPATIBLE Unit ABO (test code = 5010177) A Pos UNIT NUMBER (test code = 934-0) [id number] Status (test code = 7761294) [place]_TIMEINCHART Blood Bank Product (test code = 2263) RED BLOOD CELLS PRODUCT CODE (test code = 933-2) [id number] [facility] + automated [id number] 05:22:00 Test Item Value Reference Range Interpretation Comments WBC (test code = 6690-2) 5.7 3.5- 10.5 K/L RBC (test code = 789-8) 3.08 4.63- 6.08 M/L L MCHC (test code = 786-4) 31.8 32.3- 36.5 GM/DL L Hematocrit (test code = 4544-3) 26.1 % 40.1-51 L MCV (test code = 787-2) 84.7 fL 79-92.2 MCH (test code = 785-6) 26.9 pg 25.7-32.2 RDW (test code = 788-0) 17.0 % 11.6-14.4 H Platelets (test code = 777-3) 250 150- 450 K/CU MM MPV (test code = 38322-5) 9.8 fL 9.4-12.4 nRBC (test code = 413) 0 0- 0 /100 WBC % Neutros (test code = 429) 54 % % Lymphs (test code = 430) 33 % % Monos (test code = 431) 9 % % Eos (test code = 432) 3 % % Baso (test code = 437) 1 % # Neutros (test code = 670) 3.04 1.78- 5.38 K/L # Lymphs (test code = 414) 1.89 1.32- 3.57 K/L # Monos (test code = 415) 0.49 0.30- 0.82 K/L # Eos (test code = 416) 0.16 0.04- 0.54 K/L # Baso (test code = 417) 0.05 0.01- 0.08 K/L Immature Granulocytes-Relative 1 % 0-1 (test code = 2801) Lab Interpretation (test code = Abnormal 36951-1) [facility] W/PLT COUNT & AUTO [id number] 05:22:00 Test Item Value Reference Range Interpretation Comments WHITE BLOOD CELL COUNT (BEAKER) 5.7 K/ L 3.5-10.5 (test code = 775) RED BLOOD CELL COUNT (BEAKER) 3.08 M/ L 4.63-6.08 L (test code = 761) HEMOGLOBIN (BEAKER) (test code = 8.3 GM/DL 13.7-17.5 L 410) HEMATOCRIT (BEAKER) (test code = 26.1 % 40.1-51.0 L 411) MEAN CORPUSCULAR VOLUME (BEAKER) 84.7 fL 79.0-92.2 (test code = 753) MEAN CORPUSCULAR HEMOGLOBIN 26.9 pg 25.7-32.2 (BEAKER) (test code = 751) MEAN CORPUSCULAR HEMOGLOBIN CONC 31.8 GM/DL 32.3-36.5 L (BEAKER) (test code = 752) RED CELL DISTRIBUTION WIDTH 17.0 % 11.6-14.4 H (BEAKER) (test code = 412) PLATELET COUNT (BEAKER) (test 250 K/CU MM 150-450 code = 756) MEAN PLATELET VOLUME (BEAKER) 9.8 fL 9.4-12.4 (test code = 754) NUCLEATED RED BLOOD CELLS 0 /100 WBC 0-0 (BEAKER) (test code = 413) NEUTROPHILS RELATIVE PERCENT 54 % (BEAKER) (test code = 429) LYMPHOCYTES RELATIVE PERCENT 33 % (BEAKER) (test code = 430) MONOCYTES RELATIVE PERCENT 9 % (BEAKER) (test code = 431) EOSINOPHILS RELATIVE PERCENT 3 % (BEAKER) (test code = 432) BASOPHILS RELATIVE PERCENT 1 % (BEAKER) (test code = 437) NEUTROPHILS ABSOLUTE COUNT 3.04 K/ L 1.78-5.38 (BEAKER) (test code = 670) LYMPHOCYTES ABSOLUTE COUNT 1.89 K/ L 1.32-3.57 (BEAKER) (test code = 414) MONOCYTES ABSOLUTE COUNT (BEAKER) 0.49 K/ L 0.30-0.82 (test code = 415) EOSINOPHILS ABSOLUTE COUNT 0.16 K/ L 0.04-0.54 (BEAKER) (test code = 416) BASOPHILS ABSOLUTE COUNT (BEAKER) 0.05 K/ L 0.01-0.08 (test code = 417) IMMATURE GRANULOCYTES-RELATIVE 1 % 0-1 PERCENT (BEAKER) (test code = 2801) Tissue [id number] 15:57:00 Test Item Value Reference Range Interpretation Comments Case Report (test code Surgical Pathology = 104) Report Case: [id number] Authorizing Provider: Heri Hook Collected: 02/25/2020 11:57 AM MD Juanita Ordering Location: [address] Received: 02/25/2020 01:35 PM Service Pathologist: Samy Mayfield MD Specimen: Biopsy, Gastric DIAGNOSIS (test code = [id number] 3220) FuZzEwMzNcZnRuYmpcdWMx IHtccnRmMVxlcGljOTIwMF aondXaLQVjaGRmH1Cypizh INqjPS2tYK4jvMubeTMadU MfERNlCwKhg8mbz747qZWa s0rdLBKYhkojvNw8mBnrS4 8jm4G8RqysK70zkFKkXPog bGFpblxmczIwIFBBUlQgQS QDLELRCcqCEUVQW5ITLZvd kTMsLS5HEO7NKGTcSQCRQ0 RYEGjKRHuaZl7LX4KAL5sJ DRKeHnTHM5TBQbEqQ4QLBF JPUEFUSFkuXHBhciBORUdB ZRoTRFEYJ3SsCL6HUMSYPC 6CZXFAHKCFYEeCN2kCSYEY AZOIJSFZYAGnUX7ITIbQCn SUMUXXFWWLDaJLQu4LUK3z uOZbXKdEXtUYBZ8lM6TBUv JZIFNUQUlOIEZPUiBIRUxJ A30JRPELBCKqHEYcIwOMGG UPSqPzXGFwzs60VLK4GsHm n3T0GWS5XOQuHBHap5pcST VmbGFuZzEwMzNcZnRuYmpc fBXsXAIsYqVmo8xad726eZ Abq9wdSIJhZdI6sXFeJVRj vWFwG904UUFxMXxyh1dzu8 LcSUEbwLCib2D2BKABuzoc hMf1tDecQ59wh7V6YzewU5 eqYFNjPUYqU8ApGM8oFHBt Aku8YZZ8AZU2GCIoJBCsP4 RzVJ2oUUBoiBQvLKc3v5vf zVnzGNGbWYG8c9isOOotld OfJI4xwe2tuPu0c7oaecKg IYReJQUwoEMPJCKpO9SrzF htCz2lrOo6uMcmFkduZOK2 Mks6XI4tnc34tuf6mNftNR CiaxeaUsF5ANceCIQspwxn ZJt4WLlvYGMbjXV0JTCfmN DaZ7RgLEXfXN1ilvb1PBQ2 WOfmEVGvMdT9CHPrxCRoLB XvyVqrDDfip647TRV1LcEw JG9aH5Yua1Z6wV4wfSToER KrcLVnLgNoQGBang1hbHMh RIezl2CrRNW3yxZ3nWEvsZ NiTQRyOvL1AAxbMA5upl22 GUClVDJ9ut2xmBIzbXhwbg NwvFVkUFcoK4VsWNDfu584 YODxV5GeHVAod4E6kcSfNv ThYHZwgGI4tmX7RZLbDG9m sxktj2agAOhsGQjeNMPizq J1wdB6YCCmtSLwQ9AtfX4p DAKnDG7fzqjew6npKAR1IS wjQZCxIAU8YwLlJXYjm3Uf yyz4TwPnd1FhxUSgQOekI4 8yl171EBTktqKwH6jgmEJl yhaceYDchkuzXRnqwkL8PM NcLAihsjwiDPOdBGqtU4zm VeHqVGOwxOdhGMrpp0BsCG YxXGZzMjJcdGFiXHRhYlx0 TERwzSThHWCpUwJfZ0hvhe klEsZBBQUvw9pvD1ahoQEJ rYHmO5HbFVbkgeYcMOfxEC knECMhXNU2JH81TChpJYAy cn19 CPT Code(s) (test code i6cxrFIpQXWleIJ3FhDpVY = 3357) Pfp1lah7MhqYUxaMNgMFqx bOFuscDvst55nHC6oI86IT 2fTMDmHzA8BGDokeB8Bph5 IRAbTKLilWMsB612g6lpi3 bprnXarMD0tZciUXUkBDQp YWluXGZzMjAgODgzMDUsID n6TgWvVJPzuy8= CLINICAL HISTORY (test p4ynyUWsYZNfjRV3FuIkTI code = 3356) Obw7yqf1SbnPCrlXLrHXvz hIZykdIrym76vEQ5dQ13SK 7qTNAtGsT4IHYflaL0Zui9 UDFfZWCmmFMyG888k1yzd4 rgxfLgcLP4kXigZGNfHXGa TRrxBHOqBpBkZ1HcfAUocG 62SSI7tV5itMCpBA9dgaRr YWdlXHBhcn0= SPECIMEN SOURCE (test g2ffmZXqEPTprDE1AwElJJ code = 3377) Qvk6mhd7GmhOJpfUMxBYuz qZUajnDaxz01aLW7qK76PI 6gBEYsBqY7KDKsahB4Uln4 VEZkOCIerOUhI177r1imu9 kxmrZyoAX8dTcgEIFiLCFv WZmqQAZtBwCfUU5jH3NxbK JpYyBccGFyfQ== GROSS DESCRIPTION (test e0jhxJOpFVHitAQ9ApEkZC code = 3366) Xoh2jch0QrcWXfrZRqNAla hHDaurEibr39rUA1rE27ZM 6rIOJkGaH9QMQyaqI1Jxu1 QCRsMSQdnTAiL164d1xrp6 pwabHsnOS8jLisJHRyGMOd YWluXGZzMjAgVGhlIGNhc2 SexLHjrmPtGHq0BQVoNei8 KCBflS4wIl9ykOXobA1yaM 4ye24lXYSqgdGsiF1fkbQe YWJlbGVkIHdpdGggdGhlIH YhkJbessXxnmTogdJvkj1n zEhmfqQxlnGoWsjri3MhaN AeYlaldAN4EsOzgpGiX21f v4kwdHQae1QdoRFhtYcvvV Pvr02xiAryqPUjnW27ONXy mxG5yXRglMAtXbWjI92qye RzIHJhbmdpbmcgZnJvbSBs CHUwTTLiWX5sLL5lXVSwXB AuMiBjbSBpbiBncmVhdGVz pBAveL3ujwGyh77yOPJiEV QryRHyuN2pyfQbkyXauKYu wGF8JTXfqZ5opX00ioWtnq KgKUNbCUY7SVQTGG9mRR0O K6XwFNShxo1= MICROSCOPIC DESCRIPTION i5svtEXbBFWvhPS4OtNkZG (test code = 3371) Hja4uho5JasXPefAPfDWmh jTFyquDqwv72wNX9xP10UB 2tRCGxKbL9PTYrluW2Hnl1 PLEkSETxtRQgH774e9axr9 qrwkXeuYG3mEerFSZmZSNx AYyoFZBmYhTzGFIqBw6efJ VkXHBhcn0= SPECIAL STUDIES (test e3bhdNHeWSTorNU5FmLqGM code = 3376) Xxo4buv2YonIYhdRNhPUrx zOOzszSgma29pLE5sZ23KX 4pMGWyMlT4WRDoqeO8Swo3 OVFtMPUlyIZfI249EHDzKI FlpYipyyg1qQ13OBDlnG7m rMVkWUe4MJLjlpHuyEjwsY 0tWzJrHhEcLwDKlVVeiM40 PBQjlvO2ITTwp88kq9MjcA mzfbEbRPYwKHscK8y5AZTe KMSnAJJ4x1Mld4VdkD4mmK 3ceQhnhR4doFUjlZM5jzcv w3Ipt7MtA4xxcBYefDVofi EgHRQkuuLPGR2EGoHCQF7g W8XXFXiDApXXUHTKVfmgcB XjUTVtofOau3eqH1ipTCLf MIN4YA3llaGaWoCtTS2tlY 09s6Nsx65gx78zhX0drMVt eiCaJ42thRRbjMWco4PsKC GydeKtpAT8ONWvDEidjhyc m8o1dYO0yVJthXUuiNE4kH RbtBTyIPVWjGVlCJGvg680 zr6eABOzeNFzdqUzzY3fOC wwmsrjkSHaLD9jKCBnVABb ZWRaTH27xySxUE6meFTmy3 enugOojIMfl1LxqAU4PXLb gONbvthaKo7uAI25SSPiNR savJ1pgGCjqaIpKH8bOY5y N1J9pAWjBPZqyvGgh1haWF hoKU1cIINjbXqcCjknIULw XZRkfgXduSX1HSNdfHYnBA VuoDJvTAemcYIju0oru6Gs U4dwvBnlfPE5MJUoI0tvaG WalHY9CKM5jD8tUZjfwzJx IJHbn9LeJOSgNZOqVnH3oL 8nMJZ9HpTSzTqiMAL3QaI5 AWspCPGsEY6hREtzUKplY1 OmgOYwIMZSKSZps1iyQ1lm FFXrt2EfvU7vaSR8jBLuVI GmzHS6RWOoEXY5ICxebLYg CVDjZMRgrTRrtMQbDr0etD HnX8HbJ4vldtQhnRLelSK1 oQViUKzqioUwYHX8PFNcsI 0yFL3yORHfiCOlLN7uzJWx HZVzLWDuMECoVDSqr9GaYQ Dfjh85JVLfQqcsqSoyQAOn Vk7sSw1qQPXmyhGtCZU2Wm TRVV3uwecvcBJpqXwzfa5e JIciUEMMJGLmJUZdSKM7IU KslB0rGSJ9yGG6WUR5B9mm S6njPNKhgxBqNR6tQPMklM ZvexBoDUwmLE4orFDoJKFk g6WxtkjaJXEgSEC5RAM2WD tgHBHaCMJhVx6rKDJoiA3d O1AcKNV9aaIya4CaAuPDcD OrcC25dEGtka74YULeOZEf B6ArDZWiDMTpLSpketFifN bbNTFdg11qySKqotYne2Nq fcCxURRrT8aoBVEwySBpmC Sqj3BpyA8fkDYgmiAkYTM7 mPXvHABofD7rKAJjjDubWZ SjiM4cT3SvRHgvUy0nIDYe dkfbKD2qml05BY4gfcIaMM 9wmjOoLU22lcLyAfRmVFm8 YGbRZJdDRLx8YCDtmaDjnE HoeNFwGWRmnB5wwDGyGs6w bSBoaWdoIGNvbXBsZXhpdH psJ9egxnmhGXjhrLUxw9Iq tQ6gaJX9IIG5kS0qNfbcNX J9 Gross assessment was [facility] performed at ([facility], = 0332) Department of Pathology, [address] [place] [address], Technical component was [facility] performed at ([facility], = 2778) Department of Pathology, [address] [place] [id number], Professional component [facility] was performed at ([facility], code = 2779) Department of Pathology, [address] [place] [id number], [facility] [id number] 15:57:00Surgical Pathology Report Case: [id number] Authorizing Provider: Heri Hook Collected: 02/25/2020 11:57 AM MD Juanita OrderingLocation: [address] Received: 02/25/2020 01:35 PM Service Pathologist: Samy Mayfield MD Specimen: Biopsy, Gastric PART A GASTRIC BIOPSY:OXYNTIC MUCOSA WITH NONSPECIFIC REACTIVE GASTROPATHY.NEGATIVE FOR INTESTINAL METAPLASIA, DYSPLASIA,OR INVASIVE CARCINOMA.WARTHIN STARRY STAIN FOR HELICOBACTER IS NEGATIVE. Signing Pathologist Direct Phone Line: [phone] signed by Samy Mayfield MD on 02/26/2020 at 3:[id number], [id number] hemorrhageA. Gastric The case is received fixed in formalin in one container labeled with the patient's information and "gastric biopsy" and consists of multiple soft, yellow-sifuentes tissue fragments ranging from less than 0.1 to 0.2 cm in greatest dimension. The specimen issubmitted in toto in cassette A1. /plPerformedThe interpretation of this case included the use of immunohistochemistry or special stains.BLOCK A1- WARTHIN STARRYControl Slides Examined: In-house known positive controls were evaluated along with the test tissue. These control slides run alongside of the patients sample show appropriate staining. Internal positive and negative controls when available are evaluated Immunohistochemistry technical testing was performed at [facility], Pathology Laboratory where it was developed and its performance characteristics were determined. It has not been cleared or approved by the U.S. Food and Drug Administration. The FDA has determined that such clearance or approval is not necessary. The test is used for clinical purposes. It should not be regarded as investigational or for research. This laboratory is certified under the ClinicalLaboratory Improvement Amendments of 1988 (CLIA-88) as qualified to perform high complexity clinicallaboratory testing.[facility], Department of Pathology, [address] [place] [address], [facility], Department of Pathology, [address] [place] [address], [facility] of [facility], [address] [place] [address], Rbicofgarp and [id number] 10:13:00 Test Item Value Reference Range Interpretation Comments Hemoglobin (test code = 7.3 13.7- 17.5 GM/DL L 786-4) Hematocrit (test code = 22.7 % 40.1-51 L 4544-3) ANDREW (test code = ANDREW) Product Support Specialist ID - [id number] Lab Interpretation (test Abnormal code = 90431-6) [facility]HEMO[facility] AND [id number] 10:13:00 Test Item Value Reference Range Interpretation Comments HEMOGLOBIN (BEAKER) (test code = 7.3 GM/DL 13.7-17.5 L 410) HEMATOCRIT (BEAKER) (test code = 22.7 % 40.1-51.0 L 411) Product Support Specialist ID - [id number] Metabolic [id number] 05:14:00 Test Item Value Reference Range Interpretation Comments Sodium (test code = 137 meq/L 788-284 0976-2) Potassium (test code = 3.6 meq/L 3.5-5.1 2823-3) Chloride (test code = 109 meq/L 98-107 H 2075-0) CO2 (test code = 21 meq/L 22-29 L 2028-9) BUN (test code = 15 mg/dL 7-21 3094-0) Creatinine (test code 0.82 mg/dL 0.57-1.25 = 2160-0) Glucose (test code = 89 mg/dL 70-105 2345-7) Calcium (test code = 7.2 mg/dL 8.4-10.2 L 94197-6) EGFR (test code = 93 mL/min/1.73 [place] [address]-9) NOT ACCURATE CREATININE CLEARANCE IN PREDICTING GLOMERULAR FILTRATION RATE . ESTIMATED GFR I S NOT APPLICABLE FOR DIALYSIS PATIENTS. ANDREW (test code = ANDREW) Product Support Specialist FILIBERTO Bowen Lab Interpretation Abnormal (test code = 06087-3) [facility] HospitalBASI METABOLIC [id number] 05:14:00 Test Item Value Reference Range Interpretation Comments SODIUM (BEAKER) 137 meq/L 136-145 (test code = 381) POTASSIUM (BEAKER) 3.6 meq/L 3.5-5.1 (test code = 379) CHLORIDE (BEAKER) 109 meq/L 98-107 H (test code = 382) CO2 (BEAKER) (test 21 meq/L 22-29 L code = 355) BLOOD UREA NITROGEN 15 mg/dL 7-21 (BEAKER) (test code = 354) CREATININE (BEAKER) 0.82 mg/dL 0.57-1.25 (test code = 358) GLUCOSE RANDOM 89 mg/dL 70-105 (BEAKER) (test code = 652) CALCIUM (BEAKER) 7.2 mg/dL 8.4-10.2 L (test code = 697) EGFR (BEAKER) (test 93 mL/min/1.73 ESTIMA MACHO GFR IS code = 1092) sq m NOT ACCURATE CREATININE CLEARANCE IN PREDICTING GLOMERULAR FILTRATION RATE . ESTIMATED GFR I S NOT APPLICABLE FOR DIALYSIS PATIEN TS. Product Support Specialist ID - KELBY [facility]BC W/PLT COUNT & AUTO [id number] 04:36:00 Test Item Value Reference Range Interpretation Comments WHITE BLOOD CELL COUNT (BEAKER) 6.6 K/ L 3.5-10.5 (test code = 775) RED BLOOD CELL COUNT (BEAKER) 2.48 M/ L 4.63-6.08 L (test code = 761) HEMOGLOBIN (BEAKER) (test code = 6.7 GM/DL 13.7-17.5 L 410) HEMATOCRIT (BEAKER) (test code = 20.9 % 40.1-51.0 L 411) MEAN CORPUSCULAR VOLUME (BEAKER) 84.3 fL 79.0-92.2 (test code = 753) MEAN CORPUSCULAR HEMOGLOBIN 27.0 pg 25.7-32.2 (BEAKER) (test code = 751) MEAN CORPUSCULAR HEMOGLOBIN CONC 32.1 GM/DL 32.3-36.5 L (BEAKER) (test code = 752) RED CELL DISTRIBUTION WIDTH 16.9 % 11.6-14.4 H (BEAKER) (test code = 412) PLATELET COUNT (BEAKER) (test 241 K/CU MM 150-450 code = 756) MEAN PLATELET VOLUME (BEAKER) 10.0 fL 9.4-12.4 (test code = 754) NUCLEATED RED BLOOD CELLS 0 /100 WBC 0-0 (BEAKER) (test code = 413) NEUTROPHILS RELATIVE PERCENT 60 % (BEAKER) (test code = 429) LYMPHOCYTES RELATIVE PERCENT 30 % (BEAKER) (test code = 430) MONOCYTES RELATIVE PERCENT 7 % (BEAKER) (test code = 431) EOSINOPHILS RELATIVE PERCENT 2 % (BEAKER) (test code = 432) BASOPHILS RELATIVE PERCENT 1 % (BEAKER) (test code = 437) NEUTROPHILS ABSOLUTE COUNT 3.96 K/ L 1.78-5.38 (BEAKER) (test code = 670) LYMPHOCYTES ABSOLUTE COUNT 1.98 K/ L 1.32-3.57 (BEAKER) (test code = 414) MONOCYTES ABSOLUTE COUNT (BEAKER) 0.43 K/ L 0.30-0.82 (test code = 415) EOSINOPHILS ABSOLUTE COUNT 0.13 K/ L 0.04-0.54 (BEAKER) (test code = 416) BASOPHILS ABSOLUTE COUNT (BEAKER) 0.05 K/ L 0.01-0.08 (test code = 417) IMMATURE GRANULOCYTES-RELATIVE 1 % 0-1 PERCENT (BEAKER) (test code = 2801) CT, [id number] 01:07:00Unlisted Reason for Exam - Click Yes and Enter Reason Below->NoWill this procedure require oral contrast?->No [facility] : 1950 Sex: MFINAL REPORT EXAM: CT of the abdomen and pelvis with and without IV contrast. CLINICAL HISTORY: GI bleeding. TECHNIQUE: CT of the abdomen and pelvis was performed with and without intravenous contrast administration. This exam was performed according to our departmental dose optimization program which includes automated exposure control, adjustment of the mA and/or kV according to patient's size and/or use of iterative reconstructive technique. COMPARISON: None FINDINGS: LOWER CHEST: Low-attenuation of the cardiac blood pool seen in the setting of anemia. Trace left pleural effusion.HEPATOBILIARY: Small hypodensities in the liver measuring up to 1.5 cm in the left hepatic lobe which may represent cysts. Small area of enhancement in the right hepatic lobe, which mayrepresent a transient hepatic attenuation difference. PANCREAS: Within normal limits.SPLEEN: Within normal limits.ADRENALS: Within normal limits.KIDNEYS/URETERS: Within normal limits. URINARY BLADDER: Within normal limits.REPRODUCTIVE ORGANS: Within normal limits. BOWEL/MESENTERY: Status post gastric bypass. Colonic diverticulosis without acute diverticulitis. No bowel obstruction or abnormal wall thickening. Normal appendix.PERITONEUM/RETROPERITONEUM: No free air, free fluid or fluid collection. VESSELS: Within normal limits. LYMPH NODES: No abdominal or pelvic lymphadenopathy.SOFT TISSUES: Small fat-containing bilateral inguinal hernias.BONES: Degenerative changes of the visualized spine. IMPRESSION: No evidence of active GI bleeding.Colonic diverticulosis without acute diverticulitis.Trace left pleural effusion.Please see the body of the report for additional findings. Signed: Ashutosh De La Garza MDReport Verified Date/Time: 02/26/2020 01:07:03 [facility] abdomen/pelvis without & with IV [id number] 01:07:00Interface, External Ris In - 02/26/2020 10:26 AM CSTFINAL REPORT EXAM: CT of the abdomen and pelvis with and without IV contrast. CLINICAL HISTORY: GI bleeding. TECHNIQUE: CT of the abdomen and pelvis was performed with and without intravenous contrast administration. This examwas performed according to our departmental dose optimization program which includes automated exposure control, adjustment of the mA and/or kV according to patient's size and/or use of iterative reconstructive technique. COMPARISON: None FINDINGS: LOWER CHEST: Low-attenuation of the cardiac blood pool seen in the setting of anemia. Trace left pleural effusion.HEPATOBILIARY: Small hypodensities in the liver measuring up to 1.5 cm in the left hepatic lobe which may represent cysts. Small area of enhancement in the right hepatic lobe, which may represent a transient hepatic attenuation difference. PANCREAS: Within normal limits.SPLEEN: Within normal limits.ADRENALS: Within normal limits.KIDNEYS/URETERS: Within normal limits. URINARY BLADDER: Within normal limits.REPRODUCTIVE ORGANS: Within normallimits. BOWEL/MESENTERY: Status post gastric bypass. Colonic diverticulosis without acute diverticulitis. No bowel obstruction or abnormal wall thickening. Normal appendix.PERITONEUM/RETROPERITONEUM: No free air, free fluid or fluid collection. VESSELS: Within normal limits. LYMPH NODES: No abdominal or pelvic lymphadenopathy.SOFT TISSUES: Small fat-containing bilateral inguinal hernias.BONES: Degenerative changes of the visualized spine. IMPRESSION: No evidence of active GI bleeding.Colonic diverticulosis without acute diverticulitis.Trace left pleural effusion.Please see the body of the report for additional findings. Signed: Ashutosh De La Garza MDReport Verified Date/Time: 02/26/2020 01:07:03 [facility] W/PLT COUNT & AUTO [id number] 23:58:00 Test Item Value Reference Range Interpretation Comments WHITE BLOOD CELL COUNT (BEAKER) 8.4 K/ L 3.5-10.5 (test code = 775) RED BLOOD CELL COUNT (BEAKER) 2.70 M/ L 4.63-6.08 L (test code = 761) HEMOGLOBIN (BEAKER) (test code = 7.3 GM/DL 13.7-17.5 L 410) HEMATOCRIT (BEAKER) (test code = 22.9 % 40.1-51.0 L 411) MEAN CORPUSCULAR VOLUME (BEAKER) 84.8 fL 79.0-92.2 (test code = 753) MEAN CORPUSCULAR HEMOGLOBIN 27.0 pg 25.7-32.2 (BEAKER) (test code = 751) MEAN CORPUSCULAR HEMOGLOBIN CONC 31.9 GM/DL 32.3-36.5 L (BEAKER) (test code = 752) RED CELL DISTRIBUTION WIDTH 17.0 % 11.6-14.4 H (BEAKER) (test code = 412) PLATELET COUNT (BEAKER) (test 249 K/CU MM 150-450 code = 756) MEAN PLATELET VOLUME (BEAKER) 9.5 fL 9.4-12.4 (test code = 754) NUCLEATED RED BLOOD CELLS 0 /100 WBC 0-0 (BEAKER) (test code = 413) NEUTROPHILS RELATIVE PERCENT 60 % (BEAKER) (test code = 429) LYMPHOCYTES RELATIVE PERCENT 30 % (BEAKER) (test code = 430) MONOCYTES RELATIVE PERCENT 7 % (BEAKER) (test code = 431) EOSINOPHILS RELATIVE PERCENT 1 % (BEAKER) (test code = 432) BASOPHILS RELATIVE PERCENT 1 % (BEAKER) (test code = 437) NEUTROPHILS ABSOLUTE COUNT 5.05 K/ L 1.78-5.38 (BEAKER) (test code = 670) LYMPHOCYTES ABSOLUTE COUNT 2.52 K/ L 1.32-3.57 (BEAKER) (test code = 414) MONOCYTES ABSOLUTE COUNT (BEAKER) 0.56 K/ L 0.30-0.82 (test code = 415) EOSINOPHILS ABSOLUTE COUNT 0.11 K/ L 0.04-0.54 (BEAKER) (test code = 416) BASOPHILS ABSOLUTE COUNT (BEAKER) 0.05 K/ L 0.01-0.08 (test code = 417) IMMATURE GRANULOCYTES-RELATIVE 1 % 0-1 PERCENT (BEAKER) (test code = 2801) HEMORRHAGE IMAGING, [id number] 14:18:00Unlisted Reason for Exam - Click Yes and Enter Reason Below->No [facility] : 1950 Sex: MFINAL REPORT PROCEDURE: HEMORRHAGE STUDY with RBCs CPT CODE: 55049 INDICATION: Gastrointestinal Bleeding PROTOCOL: 21.8 mCi of Tc-99m was injected intravenously as labeled autologous red blood cells. Flow images of the abdomen were obtained, followed by serial images for approximately 60 minutes. Additional images were obtained 5 hours and 17 hours after tracer injection. FINDINGS: Early images show physiological tracer distribution in the blood pool. Late images, however, show mild tracer activity in the mid and right lower abdomen in a curvilinear pattern. IMPRESSION:1. Mild, interval GI hemorrhage, most likely arising in the mid to distal small bowel. Signed: Shimon Colmenares Verified Date/Time: 02/25/2020 14:18:29 Reading Location: [address] Med Reading Room [place] GI bleed [id number] 14:18:00Interface, External Ris In - 02/25/2020 2:20 PM CSTFINAL REPORT PROCEDURE: HEMORRHAGE STUDY with RBCs CPT CODE: 73105 INDICATION: Gastrointestinal Bleeding PROTOCOL: 21.8 mCi of Tc-99m was injected intravenously as labeled autologous red blood cells. Flow images of the abdomen were obtained, followed by serial images for approximately 60 minutes. Additional images were obtained 5 hours and 17 hours after tracer injection. FINDINGS: Early images show physiological tracer distribution in the blood pool. Late images, however, show mild tracer activity in the mid and right lower abdomen in a curvilinear pattern. IMPRESSION:1. Mild, interval GI hemorrhage, most likely arising in the mid to distal small bowel. Signed: Shimon Colmenares Verified Date/Time: 02/25/2020 14:18:29 Reading Location: [address] Med Reading Room [facility] CenterFL, FLUORO, NON-SPECIFIC, UP TO 1 [id number] 12:05:00Reason for exam:->gi bleed[facility] : 1950 Sex: MFluoroscopic unit utilized for a procedure performed in the OR. No interpretation was requested. Refer to the operative report for findings. Refer to PACS for patient radiation dose information.FL fluoro non-specific up to 1 [id number] 12:05:00 Interface, External Ris In - 02/25/2020 12:28 PM CSTFluoroscopic unit utilized for a procedure performed in the OR. No interpretation was requested. Refer to the operative report for findings. Referto PACS for patient radiation dose information.[facility] HospitalHEMOGLOBIN AND [id number] 10:02:00 Test Item Value Reference Range Interpretation Comments HEMOGLOBIN (BEAKER) (test code = 7.9 GM/DL 13.7-17.5 L 410) HEMATOCRIT (BEAKER) (test code = 24.7 % 40.1-51.0 L 411) Product Support Specialist ID - [id number] METABOLIC [id number] 08:10:00 Test Item Value Reference Range Interpretation Comments SODIUM (BEAKER) 138 meq/L 136-145 (test code = 381) POTASSIUM (BEAKER) 4.1 meq/L 3.5-5.1 (test code = 379) CHLORIDE (BEAKER) 110 meq/L 98-107 H (test code = 382) CO2 (BEAKER) (test 24 meq/L 22-29 code = 355) BLOOD UREA NITROGEN 21 mg/dL 7-21 (BEAKER) (test code = 354) CREATININE (BEAKER) 0.92 mg/dL 0.57-1.25 (test code = 358) GLUCOSE RANDOM 83 mg/dL 70-105 (BEAKER) (test code = 652) CALCIUM (BEAKER) 7.4 mg/dL 8.4-10.2 L (test code = 697) EGFR (BEAKER) (test 82 mL/min/1.73 ESTIMA MACHO GFR IS code = 1092) sq m NOT ACCURATE CREATININE CLEARANCE IN PREDICTING GLOMERULAR FILTRATION RATE . ESTIMATED GFR I S NOT APPLICABLE FOR DIALYSIS PATIEN TS. Product Support Specialist ID - ADMINSpecimen slightly ictericCBC W/PLT COUNT & AUTO [id number] 08:01:00 Test Item Value Reference Range Interpretation Comments WHITE BLOOD CELL COUNT (BEAKER) 6.7 K/ L 3.5-10.5 (test code = 775) RED BLOOD CELL COUNT (BEAKER) 2.81 M/ L 4.63-6.08 L (test code = 761) HEMOGLOBIN (BEAKER) (test code = 7.7 GM/DL 13.7-17.5 L 410) HEMATOCRIT (BEAKER) (test code = 23.4 % 40.1-51.0 L 411) MEAN CORPUSCULAR VOLUME (BEAKER) 83.3 fL 79.0-92.2 (test code = 753) MEAN CORPUSCULAR HEMOGLOBIN 27.4 pg 25.7-32.2 (BEAKER) (test code = 751) MEAN CORPUSCULAR HEMOGLOBIN CONC 32.9 GM/DL 32.3-36.5 (BEAKER) (test code = 752) RED CELL DISTRIBUTION WIDTH 16.4 % 11.6-14.4 H (BEAKER) (test code = 412) PLATELET COUNT (BEAKER) (test 245 K/CU MM 150-450 code = 756) MEAN PLATELET VOLUME (BEAKER) 9.7 fL 9.4-12.4 (test code = 754) NUCLEATED RED BLOOD CELLS 1 /100 WBC 0-0 H (BEAKER) (test code = 413) NEUTROPHILS RELATIVE PERCENT 52 % (BEAKER) (test code = 429) LYMPHOCYTES RELATIVE PERCENT 35 % (BEAKER) (test code = 430) MONOCYTES RELATIVE PERCENT 8 % (BEAKER) (test code = 431) EOSINOPHILS RELATIVE PERCENT 2 % (BEAKER) (test code = 432) BASOPHILS RELATIVE PERCENT 1 % (BEAKER) (test code = 437) NEUTROPHILS ABSOLUTE COUNT 3.52 K/ L 1.78-5.38 (BEAKER) (test code = 670) LYMPHOCYTES ABSOLUTE COUNT 2.38 K/ L 1.32-3.57 (BEAKER) (test code = 414) MONOCYTES ABSOLUTE COUNT (BEAKER) 0.54 K/ L 0.30-0.82 (test code = 415) EOSINOPHILS ABSOLUTE COUNT 0.15 K/ L 0.04-0.54 (BEAKER) (test code = 416) BASOPHILS ABSOLUTE COUNT (BEAKER) 0.06 K/ L 0.01-0.08 (test code = 417) IMMATURE GRANULOCYTES-RELATIVE 1 % 0-1 PERCENT (BEAKER) (test code = 2801) SARS-CoV2/RT-PCR (Asymptomatic ONLY)2020-02-25 07:03:00 Test Item Value Reference Range Interpretation Comments SARS-COV2/RT-PCR Negative Not Detected, (test code = Negative, See 11707-1) external report for linked test SARS-COV-2 [facility] (test code = 66998-9) ANDREW (test code = Negative result for [...] the Act. Testing was performed using the Leho SARS-CoV-2 assay. Fact Sheet for Healthcare Providers:https://www.[employer]/kd/RT_SA XH-XjQ-7_JIZ_Ecdc_Whbxt_ 51-772293.pdf Fact Sheet for Healthcare Patients:https://www.[employer]/kd/RT_SAR F-OzR-2_Nhrvyml_Ammv_Soh et_EN_51-307594V3.pdf Performing Laboratory:[facility] [place] [address].[place], [place] [address] [place], [place] [address]ARS-COV2/RT-PCR ([facility])2020-02-25 07:03:00 Test Item Value Reference Range Interpretation Comments SARS-COV2/RT-PCR (test Negative Not Detected, Negative, code = 6199171) See external report for linked test SARS-COV-2 PERFORMING LAB [facility] (test code = 7390320) Negative result for this test determines that [...] of detection for this assay is 100 copies/mL.This SARS CoV-2 test is a real-time [...] is revoked under Section 564(g) of the Act.Testing was performed using the Rankin SARS-CoV-2 assay.Fact Sheet for Healthcare Providers:https://www.[employer].rankin/kd/ ZI_PJLA-ExP-0_FAF_Zjop_Vlqub_14-335216.pdfFact Sheet for Healthcare Patients:https://www.[employer] lisa/kd/RB_QMEC-ToC-2_Kuozzhs_Ydbj_Dvyoq_SE_36-369586V3.pdfPerforming Laboratory:[address] [address] Type and screen, [id number] 13:58:00 Test Item Value Reference Range Interpretation Comments ABO/RH AUTOMATED (BEAKER) (test A POSITIVE code = 2260) Ab Scrn (test code = 890-4) NEGATIVE [facility] HospitalBASI METABOLIC [id number] 13:35:00 Test Item Value Reference Range Interpretation Comments SODIUM (BEAKER) 137 meq/L 136-145 (test code = 381) POTASSIUM (BEAKER) 4.2 meq/L 3.5-5.1 (test code = 379) CHLORIDE (BEAKER) 109 meq/L 98-107 H (test code = 382) CO2 (BEAKER) (test 24 meq/L 22-29 code = 355) BLOOD UREA NITROGEN 31 mg/dL 7-21 H (BEAKER) (test code = 354) CREATININE (BEAKER) 0.90 mg/dL 0.57-1.25 (test code = 358) GLUCOSE RANDOM 91 mg/dL 70-105 (BEAKER) (test code = 652) CALCIUM (BEAKER) 7.5 mg/dL 8.4-10.2 L (test code = 697) EGFR (BEAKER) (test 84 mL/min/1.73 ESTIMA MACHO GFR IS code = 1092) sq m NOT ACCURATE CREATININE CLEARANCE IN PREDICTING GLOMERULAR FILTRATION RATE . ESTIMATED GFR I S NOT APPLICABLE FOR DIALYSIS PATIEN TS. Product Support Specialist ID - CIARRA FCBC W/PLT COUNT & AUTO [id number] 13:35:00 Test Item Value Reference Range Interpretation Comments WHITE BLOOD CELL COUNT (BEAKER) 10.8 K/ L 3.5-10.5 H (test code = 775) RED BLOOD CELL COUNT (BEAKER) 2.32 M/ L 4.63-6.08 L (test code = 761) HEMOGLOBIN (BEAKER) (test code = 6.2 GM/DL 13.7-17.5 L 410) HEMATOCRIT (BEAKER) (test code = 19.5 % 40.1-51.0 L 411) MEAN CORPUSCULAR VOLUME (BEAKER) 84.1 fL 79.0-92.2 (test code = 753) MEAN CORPUSCULAR HEMOGLOBIN 26.7 pg 25.7-32.2 (BEAKER) (test code = 751) MEAN CORPUSCULAR HEMOGLOBIN CONC 31.8 GM/DL 32.3-36.5 L (BEAKER) (test code = 752) RED CELL DISTRIBUTION WIDTH 16.7 % 11.6-14.4 H (BEAKER) (test code = 412) PLATELET COUNT (BEAKER) (test 277 K/CU MM 150-450 code = 756) MEAN PLATELET VOLUME (BEAKER) 10.3 fL 9.4-12.4 (test code = 754) NUCLEATED RED BLOOD CELLS 1 /100 WBC 0-0 H (BEAKER) (test code = 413) NEUTROPHILS RELATIVE PERCENT 63 % (BEAKER) (test code = 429) LYMPHOCYTES RELATIVE PERCENT 26 % (BEAKER) (test code = 430) MONOCYTES RELATIVE PERCENT 9 % (BEAKER) (test code = 431) EOSINOPHILS RELATIVE PERCENT 0 % (BEAKER) (test code = 432) BASOPHILS RELATIVE PERCENT 1 % (BEAKER) (test code = 437) NEUTROPHILS ABSOLUTE COUNT 6.84 K/ L 1.78-5.38 H (BEAKER) (test code = 670) LYMPHOCYTES ABSOLUTE COUNT 2.82 K/ L 1.32-3.57 (BEAKER) (test code = 414) MONOCYTES ABSOLUTE COUNT (BEAKER) 0.95 K/ L 0.30-0.82 H (test code = 415) EOSINOPHILS ABSOLUTE COUNT 0.03 K/ L 0.04-0.54 L (BEAKER) (test code = 416) BASOPHILS ABSOLUTE COUNT (BEAKER) 0.06 K/ L 0.01-0.08 (test code = 417) IMMATURE GRANULOCYTES-RELATIVE 1 % 0-1 PERCENT (BEAKER) (test code = 2801) Prothrombin time/[id number] 13:30:00 Test Item Value Reference Range Interpretation Comments Protime (test code = 14.3 11.9- 14.2 H 5902-2) seconds INR (test code = 1.16 <=5.90 6301-6) ANDREW (test code = ANDREW) Effective 07/17/2018: PT Reference Range ChangeNew: 11.9-14.2 Previous: 11.7-14.7 RECOMMENDED COUMADIN/WARFARIN INR THERAPY RANGESSTANDARD DOSE: 2.0-3.0 Includes: PROPHYLAXIS for venous thrombosis, systemic embolization; TREATMENT for venous thrombosis and/or pulmonary embolus.HIGH RISK: Target INR is 2.5-3.5 for patients wiht mechanical heart valves. Lab Interpretation Abnormal (test code = 26652-8) [facility] HospitalPROTHROMBIN TIME/[id number] 13:30:00 Test Item Value Reference Range Interpretation Comments PROTIME (BEAKER) (test code = 14.3 seconds 11.9-14.2 H 759) INR (BEAKER) (test code = 370) 1.16 <=5.90 Effective 07/17/2018: PT Reference Range ChangeNew: 11.9-14.2 Previous: 11.7- 14.7RECOMMENDED COUMADIN/WARFARIN INR THERAPY RANGESSTANDARD DOSE: 2.0-3.0 Includes: PROPHYLAXIS for venous thrombosis, systemic embolization; TREATMENT for venous thrombosis and/or pulmonary embolus.HIGH RISK: Target INR is2.5-3.5 for patients wiht mechanical heart valves.CBC W/PLT COUNT & AUTO [id number] 05:34:00 Test Item Value Reference Range Interpretation [...] 0-1 PERCENT (BEAKER) (test code = 2801) BASIC METABOLIC [id number] 05:14:00 Test Item Value Reference Range Interpretation [...] S NOT APPLICABLE FOR DIALYSIS PATIEN TS. Product Support Specialist ID - KELBY MBASIC METABOLIC [id number] 07:25:00 Test Item Value Reference Range Interpretation [...] S NOT APPLICABLE FOR DIALYSIS PATIEN TS. Product Support Specialist ID - STEVE [id number] 06:57:00 Test Item Value Reference Range Interpretation Comments Magnesium (test code = 1.8 mg/dL 1.6-2.6 92495-8) ANDREW (test code = ANDREW) Product Support Specialist ID Colleen WILSON L Lab Interpretation (test Normal code = 79038-9) [facility] HospitalPhosphorus2020-12-20 06:57:00 Test Item Value Reference Range Interpretation Comments Phosphorus (test code = 3.9 mg/dL 2.3-4.7 2777-1) ANDREW (test code = ANDREW) Product Support Specialist ID - STEVE L Lab Interpretation (test Normal code = 33861-8) [facility] HospitalMAGNESIUM2020-12-20 06:57:00 Test Item Value Reference Range Interpretation Comments MAGNESIUM (BEAKER) (test code = 1.8 mg/dL 1.6-2.6 627) Product Support Specialist ID - STEVE [id number] 06:57:00 Test Item Value Reference Range Interpretation Comments PHOSPHORUS (BEAKER) (test code = 3.9 mg/dL 2.3-4.7 604) Product Support Specialist ID Colleen WILSON LCBC (Hemogram only)2020-02-08 06:13:00 Test Item Value [...] 450 K/CU MM MPV (test code = 43901-9) 9.6 fL 9.4-12.4 nRBC (test code = 413) 0 0- 0 /100 WBC Lab Interpretation (test code = Abnormal 98056-5) [facility]2020-[facility]-08 06:13:00 Test Item Value [...] (BEAKER) (test code = 413) HEMOGLOBIN AND [id number] 21:14:00 Test Item Value Reference Range Interpretation Comments HEMOGLOBIN (BEAKER) (test code = 8.0 GM/DL 13.7-17.5 L 410) HEMATOCRIT (BEAKER) (test code = 24.8 % 40.1-51.0 L 411) Product Support Specialist ID - [id number] 16:13:00 Test Item Value Reference Range Interpretation Comments POC-Glucose Meter (test 67 mg/dL 70-110 L : TE STED AT [facility] code = 1538) [address] [place], [address]: Product Support Specialist/Techni harleen ID = [id number] for QUEEN OCONNELL Lab Interpretation (test Abnormal code = 13313-6) [facility] [id number] 16:13:00 Test Item Value Reference Range Interpretation Comments POC-GLUCOSE METER 67 mg/dL 70-110 L : TESTED A T [facility] [address] (BEAKER) (test code = [address] [place], [address]) [address]: Product Support Specialist/Techni harleen ID = [id number] for QUEEN MCKEE POCT-GLUCOSE [id number] 10:55:00 Test Item Value Reference Range Interpretation Comments POC-GLUCOSE METER 79 mg/dL 70-110 : TESTED A T [facility] 6720 (BEAKER) (test code = IZZY Acosta [facility], 1538) [address]: Product Support Specialist/Techni harleen ID = [id number] for QUEEN MCKEE CBC (HEMOGRAM ONLY)2020-02-07 07:05:00 [...] (BEAKER) (test code = 413) BASIC METABOLIC [id number] 06:14:00 Test Item Value Reference Range Interpretation [...] S NOT APPLICABLE FOR DIALYSIS PATIEN TS. Product Support Specialist ID - RANJITH [id number] 06:02:00 Test Item Value Reference Range Interpretation Comments MAGNESIUM (BEAKER) (test code = 1.7 mg/dL 1.6-2.6 627) Product Support Specialist ID - RANJITH [id number] 06:02:00 Test Item Value Reference Range Interpretation Comments PHOSPHORUS (BEAKER) (test code = 3.9 mg/dL 2.3-4.7 604) Product Support Specialist ID - RANJITH WHEMOGLOBIN AND [id number] 19:25:00 Test Item Value Reference Range Interpretation Comments HEMOGLOBIN (BEAKER) (test code = 9.3 GM/DL 13.7-17.5 L 410) HEMATOCRIT (BEAKER) (test code = 29.5 % 40.1-51.0 L 411) Product Support Specialist ID - [id number] METABOLIC [id number] 05:26:00 Test Item Value Reference Range Interpretation [...] S NOT APPLICABLE FOR DIALYSIS PATIEN TS. Product Support Specialist ID - [id number] 05:25:00 Test Item Value Reference Range Interpretation Comments MAGNESIUM (BEAKER) (test code = 1.9 mg/dL 1.6-2.6 627) Product Support Specialist ID - [id number] 05:25:00 Test Item Value Reference Range Interpretation Comments PHOSPHORUS (BEAKER) (test code = 4.0 mg/dL 2.3-4.7 604) Product Support Specialist ID - EDASIHEMOGLOBIN AND [id number] 04:53:00 Test Item Value Reference Range Interpretation [...] (BEAKER) (test code = 413) BASIC METABOLIC [id number] 05:32:00 Test Item Value Reference Range Interpretation [...] S NOT APPLICABLE FOR DIALYSIS PATIEN TS. Product Support Specialist ID - KELBY [id number] 05:31:00 Test Item Value Reference Range Interpretation Comments MAGNESIUM (BEAKER) (test code = 1.9 mg/dL 1.6-2.6 627) Product Support Specialist ID - KELBY [id number] 05:31:00 Test Item Value Reference Range Interpretation Comments PHOSPHORUS (BEAKER) (test code = 4.4 mg/dL 2.3-4.7 604) Product Support Specialist ID - KELBY MCBC (HEMOGRAM ONLY)2020-02-05 05:18:00 [...] (BEAKER) (test code = 413) HEMOGLOBIN AND [id number] 05:07:00 Test Item Value Reference Range Interpretation Comments HEMOGLOBIN (BEAKER) (test code = 7.2 GM/DL 13.7-17.5 L 410) HEMATOCRIT (BEAKER) (test code = 21.8 % 40.1-51.0 L 411) HEMOGLOBIN AND [id number] 13:54:00 Test Item Value Reference Range Interpretation Comments HEMOGLOBIN (BEAKER) (test code = 8.5 GM/DL 13.7-17.5 L 410) HEMATOCRIT (BEAKER) (test code = 26.2 % 40.1-51.0 L 411) Product Support Specialist ID - [id number]-COV2/RT-PCR ([facility])2020-02-04 11:03:00 Test Item Value Reference Range Interpretation Comments SARS-COV2/RT-PCR (test Negative Not Detected, Negative, code = 6060133) See external report for linked test SARS-COV-2 PERFORMING LAB [facility] ALEXIA (test code = 3281930) Negative result for this test determines that [...] 564(g) of the Act.Fact Sheet for Healthcare Providers:https://www.[employer].com/sites/default/files/product/documents/Fact_Shee u_IA_Sdovdrdfj_Ardf_RPMF-PqK-0.pdfFact Sheet for Healthcare Patients:https://www.[employer]/sites/default/files/product/ documents/Abpz_Zkemq_Eqtxwbot_Tpbj_LAQZ-AqT-5.pdfPerforming Laboratory:[facility], [place] [id number] 04:57:00 Test Item Value Reference Range Interpretation Comments Ferritin (test code = 60.51 ng/mL 5-275 2276-4) ANDREW (test code = ANDREW) Product Support Specialist ID - ADMIN Lab Interpretation (test Normal code = 73918-4) [facility] 04:57:00 Test Item Value Reference Range Interpretation Comments FERRITIN (BEAKER) (test code = 60.51 ng/mL 5.00-275.00 361) Product Support Specialist ID - ADMINTrdamienn [id number] 02:46:00 Test Item Value Reference Range Interpretation Comments Troponin I (test code = <0.01 0-0.03 13481-0) ANDREW (test code = ANDREW) Troponin I [...] acidosis, acute neurological disease, and persistent tachyarrhythmia.Opera tor ID - KELBY M Lab Interpretation (test Normal code = 22293-7) [facility] [id number] 02:46:00 Test Item Value Reference Range Interpretation [...] failure, acidosis, acute neurological disease, and persistent tachyarrhythmia.Product Support Specialist ID - KELBY MABORH, manual 2020-02-04 02:41:00 Test Item Value Reference Range Interpretation Comments ABO Grouping (test code = 2588) A Rh Factor (test code = 2589) POS [facility] [id number] 23:29:00 Test Item Value Reference Range Interpretation [...] failure, acidosis, acute neurological disease, and persistent tachyarrhythmia.Product Support Specialist ID - BSIron, TIBC, % sat. (without ferritin)2020-02-03 23:28:00 Test Item Value Reference Range Interpretation Comments Iron (test code = 2498-4) 13.0 ug/dL 40-160 L TIBC (test code = 2500-7) 298 ug/dL 250-450 Iron % Saturation (test code 4 % 20-55 L = 2502-3) ANDREW (test code = ANDREW) Product Support Specialist ID - BS Lab Interpretation (test Abnormal code = 19836-4) [facility], [facility]BC, % SAT. (WITHOUT FERRITIN)2020-02-03 23:28:00 Test Item Value Reference Range Interpretation Comments IRON (BEAKER) (test code = 547) 13.0 ug/dL 40.0-160.0 L TOTAL IRON BINDING CAPACITY 298 ug/dL 250-450 (BEAKER) (test code = 769) IRON % SATURATION (2) (BEAKER) 4 % 20-55 L (test code = 2590) Product Support Specialist ID - BSComprehensive metabolic [id number] 22:46:00 Test Item Value Reference Range Interpretation Comments Protein, Total (test 5.3 6.0- 8.3 gm/dL L code = 2885-2) Albumin (test code = 3.2 g/dL 3.5-5 L 71186-6) Alkaline Phosphatase 69 U/L 40-150 (test code = 6768-6) Total Bilirubin (test 1.1 mg/dL 0.2-1.2 code = 1975-2) Sodium (test code = 137 meq/L 009-544 3178-2) Potassium (test code = 3.6 meq/L 3.5-5.1 2823-3) Chloride (test code = 107 meq/L 98-107 2074-0) CO2 (test code = 19 meq/L 22-29 L 2027-) BUN (test code = 12 mg/dL 7-21 3094-0) Creatinine (test code 0.90 mg/dL 0.57-1.25 = 2160-0) Glucose (test code = 89 mg/dL 70-105 2345-7) Calcium (test code = 7.9 mg/dL 8.4-10.2 L 84264-7) AST (test code = 13 U/L 5-34 1920-8) ALT (test code = 13 U/L 6-55 1742-6) EGFR (test code = 84 mL/min/1.73 [place] [address]-7) NOT ACCURATE CREATININE CLEARANCE IN PREDICTING GLOMERULAR FILTRATION RATE . ESTIMATED GFR I S NOT APPLICABLE FOR DIALYSIS PATIENTS. ANDREW (test code = ANDREW) Product Support Specialist ID - BS Lab Interpretation Abnormal (test code = 24069-6) [facility] [id number] 22:46:00 Test Item Value Reference Range Interpretation [...] S NOT APPLICABLE FOR DIALYSIS PATIEN TS. Product Support Specialist ID - [id number] 22:45:00 Test Item Value Reference Range Interpretation Comments MAGNESIUM (BEAKER) (test code = 1.9 mg/dL 1.6-2.6 627) Product Support Specialist ID - [id number] 22:45:00 Test Item Value Reference Range Interpretation Comments PHOSPHORUS (BEAKER) (test code = 4.1 mg/dL 2.3-4.7 604) Product Support Specialist ID - BSCBC W/PLT COUNT & AUTO [id number] 22:31:00 Test Item Value Reference Range Interpretation [...] 0-1 PERCENT (BEAKER) (test code = 2801) [id number] 00:00:00Ordered by an unspecified provider.[facility]
[2020-02-29 18:24] LABS: Absolute Lymphocytes (CBC) 0.8 K/uL (0.7-4.9); Basophils % 0.6 % (0-1.3); Hematocrit 21.8 % (39.6-49.0); Lymphocytes % 9.9 % (15.3-44.8); MPV 8.4 fL (7.6-11.3); RBC Red Blood Cell Count 2.62 M/uL (4.33-5.43)
[2020-02-29 18:27] LABS: Protime INR 1.02
[2020-02-29 18:35] LABS: Albumin 2.4 g/dL (3.4-5.0); Bilirubin Direct 0.1 mg/dL (0-0.2); Bilirubin Total 0.6 mg/dL (0.2-1.0); Potassium 3.9 mmol/L (3.5-5.1)
[2020-02-29] MEDS ORDERED: ONDANSETRON 4 MG/2 ML VIAL ONE (18:35)
--- NOTE | 2020-02-29 20:07 | RAD REPORT ---
EXAM DESCRIPTION: CTAbdomen Pelvis W Contrast - 02/29/2020 7:43 pm CLINICAL HISTORY: Abdominal pain. GI bleed;Abd pain COMPARISON: Abdomen Pelvis W Contrast dated 09/18/2019; Abdomen Pelvis W Contrast dated 07/18/2018 ; Abdomen Pelvis W Contrast dated 08/07/2017 TECHNIQUE: Biphasic CT imaging of the abdomen and pelvis was performed with 100 ml non-ionic IV cont rast. All CT scans are performed using dose optimization technique as appropriate and may include automated exposure control or mA/KV adjustment according to patient size. FINDINGS: The lung bases are clear. Postsurgical changes are seen of a gastric bypass procedure. Within the bypassed stomach there is sig nificant distention and appears filled with relatively dense material which is unchanged since 2020 study. The bypassed stomach is distended to approximately 11 cm in transverse dimension. The liver demonstrates no aggressive liver lesion or biliary dilatation. Cholecystectomy clips. The spleen, adrenal glands, pancreas and kidneys are within normal limits. No bowel obstruction, free air, free fluid or abscess. Prominent sigmoid diverticulosis coli is prese nt without diverticulitis. The appendix is normal. No evidence of significant lymphadenopathy. Small bilateral fat containing inguinal hernia, slightly larger on the right. Mild lumbosacral degenerative changes. IMPRESSION: Distended bypassed stomach is noted filled with mildly dense material. This may represen t a hematoma related to bleeding within the bypassed stomach. There is no active extravasation seen. Prominent sigmoid diverticulosis coli is seen without diverticulitis.
[2020-02-29] MEDS ORDERED: NA CHLORIDE 0.9% 250 ML ONE ×2 (20:40→22:28)
--- NOTE | 2020-02-29 21:22 | EDPHYS ---
Physician Documentation [facility] Name: Humberto Medina Age: 69 yrs Sex: Male : 1950 Arrival Date: 02/29/2020 Time: 17:06 Bed 23 Private MD: Dustin Pack C ED Physician Lee Geronimo HPI: 02/28 17:34 This 69 yrs old Male presents to ER via Wheelchair with complaints of rn Internal Bleeding. 17:34 The patient presents to the emergency department "feels like is bleeding". Onset: The rn symptoms/episode began/occurred today. Abdominal pain: described as achy, located in the epigastric area. Modifying factors: The symptoms are alleviated by nothing, the symptoms are aggravated by nothing. Associated signs and symptoms: Pertinent positives:. 17:39 Severity of symptoms: At their worst the symptoms were mild in the emergency department rn the symptoms are unchanged. The patient has experienced similar episodes in the past. The patient has been recently seen by a physician:. Reports just discharged from hospital in [place] 2 days ago, sent from here for GI bleed, this is second admission where source of bleed not found in last month. Given total of 6 units prbcs and states hemoglobin of 8.1 upon discharge. No fever. reports "has started bleeding again, I can feel it". But denies melena in last 2 days. . Historical: - Allergies: 17:25 No Known Allergies; ca1 - Home Meds: 17:25 doxazosin 1 mg Oral tab 1 tab once daily [Active]; Ferrocite 324 mg (106 mg iron) Oral ca1 tab [Active]; Hydrocodone [Active]; hydrocodone-acetaminophen 5-325 mg Oral tab 1 tab every 6 hours [Active]; losartan Oral [Active]; losartan-hydrochlorothiazide 100-12.5 mg Oral tab 1 tab once daily [Active]; multivitamin Oral tab daily [Active]; Norvasc Oral [Active]; [place]-3 2000 mg daily Oral [Active]; pantoprazole 40 mg Oral TbEC 1 tab once daily [Active]; vitamin b12 1000 mg daily [Active]; vitamin E 400 unit Oral cap daily [Active]; - PMHx: 17:25 Hypertension; Pacemaker; Pancreatitis; Ulcers; ca1 - PSHx: 17:25 Cholecystectomy; Gastric Bypass; ca1 - Immunization history:: Pneumococcal vaccine status is unknown, Flu vaccine is up to date. - Social history:: Smoking status: Patient denies any tobacco usage or history of. - Family history:: not pertinent. - Hospitalizations: : Patient was recently seen at. ROS: 17:39 Constitutional: Negative for fever, chills, and weight loss, Eyes: Negative for injury, rn pain, redness, and discharge, Neck: Negative for injury, pain, and swelling, Cardiovascular: Negative for chest pain, palpitations, and edema, Respiratory: Negative for shortness of breath, cough, wheezing, and pleuritic chest pain, Abdomen/GI: Negative for nausea, vomiting, diarrhea, and constipation, Back: Negative for injury and pain, MS/Extremity: Negative for injury and deformity, Skin: Negative for injury, rash, and discoloration, Neuro: Negative for headache, weakness, numbness, tingling, and seizure. Exam: 17:43 Constitutional: This is a well developed, well nourished patient who is awake, alert, rn and in no acute distress. Head/Face: Normocephalic, atraumatic. Eyes: Pale conjunctivae Cardiovascular: Regular rate and rhythm. No pulse deficits. Respiratory: No increased work of breathing, no retractions or nasal flaring. Abdomen/GI: soft, mild epigastric tenderness Skin: Warm, dry MS/ Extremity: Pulses equal, no cyanosis. Neuro: Awake and alert, GCS 15 Vital Signs: 17:14 BP 121 / 53; Pulse 68; Resp 17 S; Temp 97.5(TE); Pulse Ox 100% on R/A; Weight 101.6 kg ca1 (R); Height 5 ft. 9 in. (175.26 cm) (R); Pain 2/10; 17:30 BP 105 / 58; Pulse 76; Resp 18; Pulse Ox 100% on R/A; zb 18:27 BP 131 / 119; Pulse 76; Resp 16; Pulse Ox 100% on R/A; zb 19:00 BP 105 / 56; Pulse 81; Resp 16; Pulse Ox 99% on R/A; zb 21:15 BP 124 / 65; Pulse 74; Resp 16; Pulse Ox 99% on R/A; zb 22:15 BP 124 / 65; Pulse 75; Resp 12; Pulse Ox 100% on R/A; dh4 22:15 BP 115 / 52; Pulse 68; Resp 16; Pulse Ox 99% ; dh4 23:15 BP 115 / 52; Pulse 70; Resp 17; Temp 97.5; Pulse Ox 100% on R/A; zb 03/01 00:00 BP 111 / 64; Pulse 70; Resp 18; Temp 98.2; Pulse Ox 100% on R/A; zb 01:23 BP 114 / 56; Pulse 75; Resp 17; Temp 99; Pulse Ox 99% ; rr5 02/28 17:14 Body Mass Index 33.08 (101.60 kg, 175.26 cm) ca1 MDM: 02/28 17:16 Patient medically screened. rn 17:43 ED course: States had tagged RBC scan at [facility] this last admission, no rn source found. Told to come back in if starts to bleed again and to request CT abdomen with contrast. . 18:01 ED course: CT angio neg last visit, CT with IV contrast negative previous to that, so rn CT with IV and PO contrast ordered today, explained reasoning to patient. . 21:18 Differential diagnosis: gastritis, diverticulitis, varices, GI Bleeding. Data reviewed: [facility] vital signs, nurses notes, old medical records, lab test result(s), CBC, electrolytes, urinalysis, radiologic studies, CT scan. Data interpreted: Pulse oximetry: on room air is 99 %. Interpretation: normal. Counseling: I had a detailed discussion with the patient and/or guardian regarding: the historical points, exam findings, and any diagnostic results supporting the discharge/admit diagnosis, lab results, radiology results, the need to transfer to another facility, for higher level of care, [facility] does not immediately have the required specialist. Response to treatment: the patient's symptoms have mildly improved after treatment. 02/28 17:31 Order name: Basic Metabolic Panel; Complete Time: 18:39 rn 02/28 17:31 Order name: CBC with Diff; Complete Time: 18:39 rn 02/28 17:31 Order name: Hepatic Function; Complete Time: 18:39 rn 02/28 17:31 Order name: Lipase; Complete Time: 18:39 rn 02/28 17:31 Order name: PT-INR; Complete Time: 18:39 rn 02/28 17:31 Order name: Ptt, Activated; Complete Time: 18:39 rn 02/28 17:32 Order name: Type And Screen rn 02/28 20:45 Order name: Hemoglobin; Complete Time: 00:03 [facility] 02/28 20:45 Order name: Hematocrit; Complete Time: 00:03 [facility] 02/28 21:25 Order name: Packed RBCs (Additional Unit) [facility] 02/28 17:31 Order name: IV Saline Lock; Complete Time: 18:10 rn 02/28 17:31 Order name: Labs collected and sent; Complete Time: 18:10 02/28 17:32 Order name: CT Abd/Pelvis - PO and IV Contrast; Complete Time: 20:33 02/28 20:48 Order name: Transfuse; Complete Time: 22:28 [facility] 02/28 22:31 Order name: SARS-COV-2 RT PCR; Complete Time: 00:03 EDKS Administered Medications: 18:30 Drug: Zofran (Ondansetron) 4 mg Route: IVP; Site: left antecubital; b 20:55 Follow up: Response: No adverse reaction zb 19:32 Not Given (out of stock): ProTONIX 80 mg IVP once ca1 20:33 Drug: ProTONIX 8 mg/hr Route: IV; Rate: 25 ml/hr; Site: left antecubital; zb 03/01 01:24 Follow up: Response: No adverse reaction; IV Status: Infusion continued upon transfer; rr5 IV Intake: 100ml Disposition: 02/29/20 21:21 Transfer ordered to [facility]. Diagnosis are GI Bleeding, Anemia. - Reason for transfer: Higher level of care. - Accepting physician is Dr. Mederos/Dr. Prakash. - Condition is Stable. - Problem is an ongoing problem. - Symptoms have improved. Signatures: Dispatcher [employer] EDMS Ari Villatoro MD MD rn Roque, Raymond RN RN rr5 Vanna Landry RN RN ca1 Lee Geronimo MD MD mh7 Shania Ibarra RN RN zb Corrections: (The following items were deleted from the chart) 02/28 21:36 20:48 PACKED RBC LEUKORED -1+BB.LAB.BRZ ordered. EDKS EDKS 21:36 20:49 ABO/RH typing ordered. EDKS EDMS 21:36 20:49 Antibody Screen ordered. EDMS EDMS 21:44 20:58 CORONAVIRUS+MR.LAB.BRZ ordered. EDMS EDMS 03/01 01:25 02/28 21:21 02/29/2020 21:21 Transfer ordered to [facility]. rr5 Diagnosis is GI Bleeding; Anemia. Reason for transfer: Higher level of care. Accepting physician is Dr. Mederos/Dr. Prakash. Condition is Stable. Problem is an ongoing problem. Symptoms have improved. mh7
--- NOTE | 2020-02-29 21:22 | ER ---
Nurse's Notes [facility] Name: Humberto Medina Age: 69 yrs Sex: Male : 1950 Arrival Date: 02/29/2020 Time: 17:06 Bed 23 Private MD: Dustin Pack C Diagnosis: GI Bleeding;Anemia Presentation: 02/28 17:14 Chief complaint: Patient states: I have HX of GI bleeding. I was here Sunday and they ca1 transfused 3 units blood, I was transferred to the [facility] and got another 3 units BT. This afternoon at 1500 I know I am bleeding internally again, my hands are white, I am very weak and I feel like fainting. Coronavirus screen: Client denies travel out of the [place] in the last 14 days. At this time, the client does not indicate any symptoms associated with coronavirus-19. Ebola Screen: Patient negative for fever greater than or equal to 101.5 degrees Fahrenheit, and additional compatible Ebola Virus Disease symptoms Patient denies exposure to infectious person. Patient denies travel to an Ebola-affected area in the 21 days before illness onset. No symptoms or risks identified at this time. Initial Sepsis Screen: Does the patient meet any 2 criteria? No. Patient's initial sepsis screen is negative. Does the patient have a suspected source of infection? No. Patient's initial sepsis screen is negative. Risk Assessment: Do you want to hurt yourself or someone else? Patient reports no desire to harm self or others. Onset of symptoms was February 29, 2020. 17:14 Method Of Arrival: Wheelchair ca1 17:14 Acuity: FORD 2 ca1 Historical: - Allergies: 17:25 No Known Allergies; ca1 - Home Meds: 17:25 doxazosin 1 mg Oral tab 1 tab once daily [Active]; Ferrocite 324 mg (106 mg iron) Oral ca1 tab [Active]; Hydrocodone [Active]; hydrocodone-acetaminophen 5-325 mg Oral tab 1 tab every 6 hours [Active]; losartan Oral [Active]; losartan-hydrochlorothiazide 100-12.5 mg Oral tab 1 tab once daily [Active]; multivitamin Oral tab daily [Active]; Norvasc Oral [Active]; [place]-3 2000 mg daily Oral [Active]; pantoprazole 40 mg Oral TbEC 1 tab once daily [Active]; vitamin b12 1000 mg daily [Active]; vitamin E 400 unit Oral cap daily [Active]; - PMHx: 17:25 Hypertension; Pacemaker; Pancreatitis; Ulcers; ca1 - PSHx: 17:25 Cholecystectomy; Gastric Bypass; ca1 - Immunization history:: Pneumococcal vaccine status is unknown, Flu vaccine is up to date. - Social history:: Smoking status: Patient denies any tobacco usage or history of. - Family history:: not pertinent. - Hospitalizations: : Patient was recently seen at. Screenin:56 Abuse screen: Denies threats or abuse. Denies injuries from another. Nutritional zb screening: No deficits noted. Tuberculosis screening: No symptoms or risk factors identified. Fall Risk None identified. Assessment: 17:30 General: Appears in no apparent distress. uncomfortable, Behavior is calm, cooperative, zb appropriate for age, Reports fatigue for. Pain: Denies pain. Neuro: Level of Consciousness is awake, alert, obeys commands, Oriented to person, place, time, situation. Cardiovascular: Patient's skin is warm and dry. Respiratory: Airway is patent Respiratory effort is even, unlabored, Respiratory pattern is regular. GI: Abdomen is round distended, hx: of GI bleed w/ past couple of days. : No signs and/or symptoms were reported regarding the genitourinary system. EENT: No signs and/or symptoms were reported regarding the EENT system. Derm: Skin is intact, is healthy with good turgor, Skin is dry, Skin is pale, Skin temperature is warm. Musculoskeletal: No signs and/or symptoms reported regarding the musculoskeletal system. 18:30 Reassessment: Patient appears in no apparent distress at this time. Patient and/or zb family updated on plan of care and expected duration. Pain level reassessed. Patient is alert, oriented x 3, equal unlabored respirations, skin warm/dry/pink. pt in bed lying. states that he would like water or ice chips notified that he is NPO. denies pain at this time. 19:30 Reassessment: Patient appears in no apparent distress at this time. Patient and/or zb family updated on plan of care and expected duration. Pain level reassessed. Patient is alert, oriented x 3, equal unlabored respirations, skin warm/dry/pink. no c/o of pain at this time. given urinal. 20:30 Reassessment: Patient appears in no apparent distress at this time. Patient and/or zb family updated on plan of care and expected duration. Pain level reassessed. Patient is alert, oriented x 3, equal unlabored respirations, skin warm/dry/pink. bed repositioned. IV medication infusing. no c/o of pain. pt appear to have a little more color in skin. 21:30 Reassessment: Patient appears in no apparent distress at this time. Patient and/or zb family updated on plan of care and expected duration. Pain level reassessed. Patient is alert, oriented x 3, equal unlabored respirations, skin warm/dry/pink. Additional IV placed. pt covid swabbed. patient educated on POC. currently talking on the phone. 21:40 Reassessment: Nurse to nurse report given to VANESSA Nunez for patient transfer to [address] [place] 15 bed 46. 22:30 Reassessment: Patient appears in no apparent distress at this time. Patient and/or zb family updated on plan of care and expected duration. Pain level reassessed. Patient is alert, oriented x 3, equal unlabored respirations, skin warm/dry/pink. IV BLOOD CURRENTLY INFUSING AT 75ML NO REACTION AT THIS TIME. 23:30 Reassessment: Patient appears in no apparent distress at this time. Patient and/or zb family updated on plan of care and expected duration. Pain level reassessed. Patient is alert, oriented x 3, equal unlabored respirations, skin warm/dry/pink. IV CONTINUES TO INFUSE NO REACTION AT THIS TIME. PROTOX INFUSING WELL. PT LYING IN BED RESTING. LIGHTS DIMMED. 03/01 00:30 Reassessment: Patient appears in no apparent distress at this time. Patient and/or zb family updated on plan of care and expected duration. Pain level reassessed. Patient is alert, oriented x 3, equal unlabored respirations, skin warm/dry/pink. BLOOD COMPLETED. 01:20 Reassessment: Patient appears in no apparent distress at this time. Patient is alert, rr5 oriented x 3, equal unlabored respirations, skin warm/dry/pink. report given to EMS awake alert breathing spontaneously at room air, vital signs hemodynamically stable. Vital Signs: 02/28 17:14 BP 121 / 53; Pulse 68; Resp 17 S; Temp 97.5(TE); Pulse Ox 100% on R/A; Weight 101.6 kg ca1 (R); Height 5 ft. 9 in. (175.26 cm) (R); Pain 2/; 17:30 BP 105 / 58; Pulse 76; Resp 18; Pulse Ox 100% on R/A; zb 18:27 BP 131 / 119; Pulse 76; Resp 16; Pulse Ox 100% on R/A; zb 19:00 BP 105 / 56; Pulse 81; Resp 16; Pulse Ox 99% on R/A; zb 21:15 BP 124 / 65; Pulse 74; Resp 16; Pulse Ox 99% on R/A; zb 22:15 BP 124 / 65; Pulse 75; Resp 12; Pulse Ox 100% on R/A; dh4 22:15 BP 115 / 52; Pulse 68; Resp 16; Pulse Ox 99% ; dh4 23:15 BP 115 / 52; Pulse 70; Resp 17; Temp 97.5; Pulse Ox 100% on R/A; zb 03/01 00:00 BP 111 / 64; Pulse 70; Resp 18; Temp 98.2; Pulse Ox 100% on R/A; zb 01:23 BP 114 / 56; Pulse 75; Resp 17; Temp 99; Pulse Ox 99% ; rr5 02/28 17:14 Body Mass Index 33.08 (101.60 kg, 175.26 cm) ca1 ED Course: 02/28 17:06 Patient arrived in ED. ag5 17:07 Dustin Pack MD is Private Physician. ag5 17:14 Shania Ibarra, VANESSA is Primary Nurse. zb 17:16 Ari Villatoro MD is Attending Physician. rn 17:23 Triage completed. ca1 17:25 Arm band placed on right wrist. ca1 17:30 Patient has correct armband on for positive identification. Placed in gown. Bed in low ca1 position. Call light in reach. ekg monitor tech on. Pulse ox on. NIBP on. Warm blanket given. 18:07 Initial lab(s) drawn, by me, sent to lab. Inserted saline lock: 22 gauge in left ca1 antecubital area, using aseptic technique. Blood collected. 19:04 Attending Physician role handed off by Ari Villatoro MD [facility] 19:04 Lee Gernoimo MD is Attending Physician. [facility] 19:43 CT Abd/Pelvis - PO and IV Contrast In Process Unspecified. EDMS 20:53 Initiated transfer at [facility] with Ita Will. Stated she would do a bed check tt3 and call back. 21:04 Ita Will called back with the GI specialist to speak with Dr. Geronimo regarding the tt3 transfer request. 21:25 Ita Wlil called back with admin approval. The accepting physician is Ghazal Barbosa. tt3 The pt is going to 15 [place] Bed 1546. Face sheet faxed to per Ita's request. Nurse to call report to [phone]. 21:30 Repeat lab(s) drawn. by me, sent to lab. Inserted saline lock: 20 gauge in right hand, ca1 using aseptic technique. Blood collected. 22:15 Consent for blood and/or blood product transfusion explained by staff, explained by lp1 physician, signed by patient. 03/01 01:24 No provider procedures requiring assistance completed. Patient transferred, IV remains rr5 in place. intact, No redness/swelling at site. Administered Medications: 02/28 18:30 Drug: Zofran (Ondansetron) 4 mg Route: IVP; Site: left antecubital; zb 20:55 Follow up: Response: No adverse reaction zb 19:32 Not Given (out of stock): ProTONIX 80 mg IVP once ca1 20:33 Drug: ProTONIX 8 mg/hr Route: IV; Rate: 25 ml/hr; Site: left antecubital; zb 03/01 01:24 Follow up: Response: No adverse reaction; IV Status: Infusion continued upon transfer; rr5 IV Intake: 100ml Intake: 01:24 IV: 100ml; Total: 100ml. rr5 Outcome: 02/28 21:21 ER care complete, transfer ordered by . [facility] 03/01 01:24 Transferred by ground EMS to [facility], [facility], Transfer form completed. rr5 Condition: stable Instructed on the need for transfer. 01:25 Patient left the ED. rr5 Signatures: Dispatcher [employer] EDMS Ari Villatoro MD MD rn Pena, Laura, RN RN lp1 Lion Navarro RN RN rr5 Vanna Landry, RN RN ca1 Carl Soares 5 Zbigniew Bailey 4 Lee Geronimo MD MD 7 Joon Ford 3 Shania Ibarra, RN RN zb
[2020-02-29 21:48] LABS: Hematocrit 17.3 % (39.6-49.0)
[2020-03-01 01:52] VITALS: BP 114/56; TEMP 99; O2SAT 99
== END 2020-03-01 01:25 | disposition short-term general hospital (02) ==
LOC: ER 17:04
DX: K92.2 Gastrointestinal hemorrhage, unspecified (principal); D64.9 Anemia, unspecified; Z20.822 Contact with and (suspected) exposure to COVID-19; Z98.84 Bariatric surgery status; I10 Essential (primary) hypertension; Z95.0 Presence of cardiac pacemaker
CPT/HCPCS: 96365; 85025; 80048; 36415; 86900; 86850; 85610; 86901; 80076; 85730; 85018; 85014; 83690; 74177; 96375; 99285; 96366; U0003; Q9967; P9016; J7050 ×2; J2405; 36430

== ENCOUNTER 2020-03-11 08:35 | Emergency (ER) | payer OTHER ==
--- OUTSIDE RECORDS SUMMARY | 2020-03-11 08:50 | XMS REPORT | Clinical Summary ---
:1950 Author Organization [facility] Address [address] [place] [address] Care Team Providers Name Role Phone Ghazal [...] Surgeon : Vaibhav Ramirez Jr., MD; Location: 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 / Lead [id number] Lead-Pace Cath Deliv 4fr 38 - Lead - [id number] - [id number] Cardiac Pacing N/A: [employer] [facility] 03/20/2020 [id number] / Implanted: Qty: 1 on 05/30/2018 by Vaibhav Ramirez Jr., M D at [facility] Leads or N/A [employer] [id number] / Electrodes or [id number] Accessories Lead Pace Trnsvns Actv-Fxtn Atrl Zhang Bipolar 52cm - Sb [id number] - [id number] Cardiac Pacing N/A: [employer] [facility] - 03/13/2020 LEAD [id number] / Implanted: Qty: 1 on 05/30/2018 by Vaibhav Ramirez Jr., M D at [facility] Leads or N/A CARDIAC RYHTYM [id number] / Electrodes or [id number] Accessories Lead, Atrial Ventricular Transvenous Ext endable Retractable Screw In Assembly Farnaz Mkt En 58cm - [id number] - [id number] Cardiac Pacing N/A: [place] [employer] [facility] 01/25/2020 [id number] / Implanted: Qty: 1 on 05/30/2018 by Vaibhav Ramirez Jr., M D at [facility] Leads or N/A [employer] [id number] / Electrodes or [id number] Accessories Envelope Pcemkr Antbactl Fully Resorb Aigisrxr - [id number] Cardiovascular N/A: [employer] [id number] / Implanted: 05/30/2018 at [facility] (Quantity not on file) Implants N/A / Results Not on fileafter 03/11/2019 Insurance Payer Benefit Plan / Subscriber ID Effective Dates Phone Addre ss Type Group MEDICARE MEDICARE PART A AND [id number] 2016-Whitney [place], [place] Medicare B t AETNA AETNA [facility] [id number] 2000-Whitney albrecht Advance Directives For more information, please contact: [phone] Type Date Recorded 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
--- OUTSIDE RECORDS SUMMARY | 2020-03-11 08:51 | XMS REPORT | Clinical Summary ---
:1950 Author Organization [facility] Address [address] [place] [address] Care Team Providers Name Role Phone Unavailable Primary Care Provider Unavailable Allergies No Known Allergies Medications Medication Sig Dispensed Refills Start End Status Date Date cyanocobalamin, vitamin Take by 0 Active B-12, 1,000 mcg/mL Drop mouth. omega 4-rrs-omy-fish Take 1 0 Active oil (Fish Oil) capsule by 100-160-1,000 mg Cap mouth. vitamin E, dl, acetate, Take by 0 Active 22.5 mg (50 unit)/mL mouth. Drop ferrous fumarate 324 mg TWICE DAILY 0 Active (106 mg iron) Tab 0 tamsulosin (FLOMAX) 0.4 Take 0.4 mg 0 Active mg Cap 24 hr by mouth capsuleIndications: daily Not benign prostatic sure with hyperplasia with lower dose . urinary tract sx pantoprazole (PROTONIX) Take 1 tablet 60 tablet 0 Active 40 MG tablet (40 mg total) 1 by mouth 2 (two) times daily Please note increased dose. amLODIPine (NORVASC) 5 Take 5 mg by 0 01/19 5/2 Discontinued MG tablet mouth. 020 (Error) doxazosin (CARDURA) 1 Take 1 mg by 0 03/04 Discontinued MG tablet mouth. 021 (Stop Taki ng at Discharge) ferrous sulfate 325 (65 Take 325 mg 0 01/20 0/2 Discontinued FE) MG tablet by mouth. 020 (Stop Taking at Discharge) weiaab-kmzrvosg-yyyvmti Take 2 0 Discontinued (Creon) 36,000-114,000- capsules by 0 020 (Error) 180,000 unit CpDR mouth. capsule losartan-hydrochlorothi Take 1 tablet 0 Discontinued azide (HYZAAR) 100-12.5 by mouth. 020 (Stop Taking at mg per tablet Discha rge) pantoprazole (PROTONIX) Take 40 mg by 0 Discontinued 40 MG tablet mouth. 020 (Stop T aking at Discharge) pantoprazole (PROTONIX) Take 1 tablet 60 tablet 0 Discontinued 40 MG tablet (40 mg total) 0 021 (Re order) by mouth 2 (two) times daily. amLODIPine (NORVASC) 5 DAILY 0 Discontinued MG tablet 0 021 (Stop Taki ng at Discharge) doxazosin (Cardura) 1 DAILY 0 Discontinued MG tablet 0 021 (Error) losartan 50 MG Tab 100 DAILY 0 Discontinued mg, hydroCHLOROthiazide 0 021 (Stop Taking at 12.5 mg Cap 12.5 mg Discharge) Active Problems Problem Noted Date GI bleeding 03/01/2020 EDD (obstructive sleep apnea) 03/01/2020 GIB (gastrointestinal bleeding) 02/24/2020 S/P placement of cardiac pacemaker 02/03/2020 Hypertension 02/03/2020 Upper GI bleed 02/03/2020 Acute blood loss anemia 02/03/2020 Symptomatic bradycardia 05/30/2018 Encounters Date Type Specialty Care Team Description 03/01/2020 Anesthesia Event Gastroenterology Chandler Galarza MD Hafkin, Aston Cid MD 03/01/2020 Surgery Gastroenterology Steve Hunt,POLY Young MD OVERTUBE SMALL INTESTINE-UPPER 03/01/2020 [facility], Acute blood loss anemia; - Encounter Medicine Adelfo Gastrointestina l hemorrhage, unspecified gastrointestinal hemorrhage type; 03/04/2020 MD Jose Roberto S/P placement of cardiac pacemaker; Eliot Canales EDD (obstruc tive sleep apnea); MD Orlando Benign prostatic hyperplasia without low er urinary tract symptoms; [facility], Upper GI ble ed MD Beltran, Nan Garcia MD 03/01/2020 Travel 02/25/2020 Surgery Gastroenterology Heri Hook ENTERDEMETRIO OPY,POLY Grant MD OVERTUBE SMAL L INTESTINE-UPPER 02/25/2020 Anesthesia Event Gastroenterology Hugo Florez MD 02/24/2020 [facility] Acute bl ood loss anemia; - Encounter [...] ENDO SCOPY MD Zoraida 02/04/2020 Travel 02/03/2020 [facility] Acute bl ood loss anemia; - Encounter Medicine MD Gato Essential hypertension; 02/09/2020 [place] S/P placement o f cardiac pacemaker; Zahra Upper GI bleed; MD Alondra Gastrointestinal hemorrhage with melena; Nitin Howard, History of R oux-en-Y gastric bypass MD Sanchez, Gilbert Werner MD 02/03/2020 Telephone Gastroenterology Melissa Craft GI Problem MD Zoraida after 03/11/2019 Family History Medical History Relation Name Comments [...] been in contact with No / Unsure 03/01/2020 3:48 AM MANAGER OPERATIONS someone who was confirmed or suspected to have Coronavirus / COVID-19? Last Filed Vital Signs Vital Sign Reading Time Taken Comments Blood Pressure 150/71 03/04/2020 3:49 PM MANAGER [employer]PERATIONS Pulse 75 03/04/2020 3:49 PM MANAGER [employer]PERATIONS Temperature 36.7 C (98 F) 03/04/2020 3:49 PM MANAGER [employer]PERATIONS Respiratory Rate 20 03/04/2020 3:49 PM MANAGER [employer]PERATIONS Oxygen Saturation 98% 03/04/2020 3:49 PM MANAGER OPERATIONS Inhaled Oxygen Concentration 21% 02/26/2020 8:25 PM MANAGER OPERATIONS Weight 101.6 kg (224 lb) 03/01/2020 3:50 AM MANAGER [employer]PERATIONS Height 175.3 cm (5' 9") 03/01/2020 3:50 AM MANAGER [employer]PERATIONS Body Mass Index 33.08 03/01/2020 3:50 AM MANAGER [employer]PERATIONS Plan of Treatment Health Maintenance Due Date Last Done Comments PNEUMOCOCCAL 65+ YRS (1 of 1 - [id number]) 06/18/2016 MEDICARE ANNUAL WELLNESS (YEAR 2 or FIRST YEAR if no 05/21/2017 IPPE) INFLUENZA VACCINE (#1) 2019 DEPRESSION SCREENING (12+) 02/20/2020 COLON CANCER SCREENING COLONOSCOPY 02/04/2030 02/05/2020 Procedures Procedure Name Priority Date/Time Associated Diagnosis Comme nts PREPARE Routine 03/05/2020 11:55 Results for LEUKO-REDUCED RBC PM MANAGER OPERATIONS this proce dure are in the results section. PREPARE Routine 03/04/2020 11:54 Results for LEUKO-REDUCED RBC PM [employer]NAGER [employer]PERATIONS this proce dure are in the results section. TRANSFUSE Routine 03/04/2020 3:29 LEUKO-REDUCED RED PM MANAGER [employer]PERATIONS BLOOD CELLS BASIC METABOLIC Routine 03/04/2020 6:20 Results for PANEL (7) AM [employer]NAGER [employer]PERATIONS this procedure are in the results section. CBC (HEMOGRAM ONLY) Routine 03/04/2020 6:20 Resu lts for AM MANAGER OPERATIONS this procedure are in the results section. TRANSFUSE Routine 03/03/2020 2:55 LEUKO-REDUCED RED PM [employer]NAGER [employer]PERATIONS BLOOD CELLS (CELLAVISION MANUAL Routine 03/03/2020 5:24 Resu lts for DIFF) AM [employer]NAGER [employer]PERATIONS this procedure are in the results section. CBC W/PLT COUNT & Routine 03/03/2020 5:24 Result s for AUTO DIFFERENTIAL AM MANAGER [employer]PERATIONS this proce dure are in the results section. CBC W/PLT COUNT & Routine 03/03/2020 5:24 Result s for AUTO DIFFERENTIAL AM MANAGER [employer]PERATIONS this proce dure are in the results section. COMPREHENSIVE Routine 03/03/2020 5:24 Results fo r METABOLIC PANEL AM MANAGER OPERATIONS this procedu re are in the results section. PREPARE Routine 03/02/2020 11:54 Results for LEUKO-REDUCED RBC PM MANAGER [employer]PERATIONS this proce dure are in the results section. (CELLAVISION MANUAL Routine 03/02/2020 5:17 Resu lts for DIFF) AM MANAGER [employer]PERATIONS this procedure are in the results section. CBC W/PLT COUNT & Routine 03/02/2020 5:17 Result s for AUTO DIFFERENTIAL AM MANAGER [employer]PERATIONS this proce dure are in the results section. COMPREHENSIVE Routine 03/02/2020 5:17 Results fo r METABOLIC PANEL AM MANAGER OPERATIONS this procedu re are in the results section. CBC W/PLT COUNT & Routine 03/02/2020 5:17 Result s for AUTO DIFFERENTIAL AM MANAGER [employer]PERATIONS this proce dure are in the results section. REPORT OF PROCEDURE 03/01/2020 5:20 - ENDOSCOPY URL PM MANAGER OPERATIONS ENTEROSCOPY,BALLOON 03/01/2020 2:33 Gastrointestinal OVERTUBE SMALL PM MANAGER OPERATIONS hemorrhage, unspecified INTESTINE-UPPER gastrointestinal hemorrhage type CBC W/PLT COUNT & CORDELIA 03/01/2020 1:15 Result s for AUTO DIFFERENTIAL PM MANAGER [employer]PERATIONS this proce dure are in the results section. CBC W/PLT COUNT & CORDELIA 03/01/2020 1:15 Result s for AUTO DIFFERENTIAL PM MANAGER OPERATIONS this proce dure are in the results section. TRANSFUSE Routine 03/01/2020 9:10 LEUKO-REDUCED RED AM MANAGER [employer]PERATIONS BLOOD CELLS CBC W/PLT COUNT & Routine 03/01/2020 3:54 Result s for AUTO DIFFERENTIAL AM MANAGER OPERATIONS this proce dure are in the results section. TYPE AND SCREEN, Routine 03/01/2020 3:54 Results for AUTOMATED AM MANAGER [employer]PERATIONS this procedure are in the results section. COMPREHENSIVE Routine 03/01/2020 3:54 Results fo r METABOLIC PANEL AM MANAGER [employer]PERATIONS this procedu re are in the results section. CBC W/PLT COUNT & Routine 03/01/2020 3:54 Result s for AUTO DIFFERENTIAL AM MANAGER OPERATIONS this proce dure are in the results section. PREPARE Routine 02/27/2020 11:54 Results for LEUKO-REDUCED RBC PM MANAGER OPERATIONS this proce dure are in the results section. CBC W/PLT COUNT & Routine 02/27/2020 4:48 Result s for AUTO DIFFERENTIAL AM MANAGER OPERATIONS this proce dure are in the results section. CBC W/PLT COUNT & Routine 02/27/2020 4:48 Result s for AUTO DIFFERENTIAL AM MANAGER OPERATIONS this proce dure are in the results section. PREPARE Routine 02/26/2020 11:54 Results for LEUKO-REDUCED RBC PM MANAGER OPERATIONS this proce dure are in the results section. TRANSFUSE Routine 02/26/2020 4:33 LEUKO-REDUCED RED PM MANAGER OPERATIONS BLOOD CELLS HEMOGLOBIN AND STAT 02/26/2020 10:03 Results f or HEMATOCRIT AM MANAGER OPERATIONS this procedure are in the results section. CBC W/PLT COUNT & Routine 02/26/2020 3:43 Result s for AUTO DIFFERENTIAL AM MANAGER OPERATIONS this proce dure are in the results section. BASIC METABOLIC Routine 02/26/2020 3:43 Results for PANEL (7) AM MANAGER [employer]PERATIONS this procedure are in the results section. CBC W/PLT COUNT & Routine 02/26/2020 3:43 Result s for AUTO DIFFERENTIAL AM MANAGER OPERATIONS this proce dure are in the results section. CT ABDOMEN/PELVIS Routine 02/26/2020 12:18 Result s for WITH & WITHOUT IV AM MANAGER [employer]PERATIONS this proce dure CONTRAST are in the results section. CBC W/PLT COUNT & STAT 02/25/2020 11:48 Result s for AUTO DIFFERENTIAL PM MANAGER [employer]PERATIONS this proce dure are in the results section. CBC W/PLT COUNT & STAT 02/25/2020 11:48 Result s for AUTO DIFFERENTIAL PM MANAGER [employer]PERATIONS this proce dure are in the results section. REPORT OF PROCEDURE 02/25/2020 12:23 - ENDOSCOPY URL PM MANAGER OPERATIONS FL FLUORO Routine 02/25/2020 12:05 Results for NON-SPECIFIC UP TO 1 PM MANAGER OPERATIONS this pr ocedure HOUR are in the results section. TISSUE EXAM AP Routine 02/25/2020 11:57 Results for AM MANAGER OPERATIONS this procedure are in the results section. UPPER 02/25/2020 11:23 Gastrointestinal ENDOSCOPY,BIOPSY AM MANAGER OPERATIONS hemorrhage, unspecified gastrointestinal hemorrhage type PROCEDURE W/ C-ARM 02/25/2020 11:23 Gastrointestinal AM [employer]NAGER [employer]PERATIONS hemorrhage, unspecified gastrointestinal hemorrhage type ENTEROSCOPY,BALLOON 02/25/2020 11:23 Gastrointestinal OVERTUBE SMALL AM MANAGER [employer]PERATIONS hemorrhage, unspecified INTESTINE-UPPER gastrointestinal hemorrhage type NM GI BLEED STUDY STAT 02/25/2020 11:01 Result s for AM MANAGER OPERATIONS this procedure are in the results section. HEMOGLOBIN AND STAT 02/25/2020 9:54 Results f or HEMATOCRIT AM MANAGER OPERATIONS this procedure are in the results section. CBC W/PLT COUNT & Routine 02/25/2020 7:44 Result s for AUTO DIFFERENTIAL AM MANAGER OPERATIONS this proce dure are in the results section. CBC W/PLT COUNT & Routine 02/25/2020 7:44 Result s for AUTO DIFFERENTIAL AM MANAGER OPERATIONS this proce dure are in the results section. BASIC METABOLIC Routine 02/25/2020 7:44 Results for PANEL (7) AM MANAGER OPERATIONS this procedure are in the results section. TRANSFUSE Routine 02/25/2020 5:29 LEUKO-REDUCED RED AM MANAGER OPERATIONS BLOOD CELLS TRANSFUSE Routine 02/25/2020 2:28 LEUKO-REDUCED RED AM MANAGER OPERATIONS BLOOD CELLS SARS-COV2/RT-PCR CORDELIA 02/24/2020 6:36 Results for ([facility] & REF LABS) PM MANAGER OPERATIONS this proce dure are in the results section. CBC W/PLT COUNT & CORDELIA 02/24/2020 1:03 Result s for AUTO DIFFERENTIAL PM MANAGER OPERATIONS this proce dure are in the results section. TYPE AND SCREEN, CORDELIA 02/24/2020 1:03 Results for AUTOMATED PM MANAGER [employer]PERATIONS this procedure are in the results section. PROTHROMBIN TIME/INR CORDELIA 02/24/2020 1:03 Res ults for PM MANAGER OPERATIONS this procedure are in the results section. BASIC METABOLIC CORDELIA 02/24/2020 1:03 Results for PANEL (7) PM MANAGER OPERATIONS this procedure are in the results section. CBC W/PLT COUNT & CORDELIA 02/24/2020 1:03 Result s for AUTO DIFFERENTIAL PM MANAGER OPERATIONS this proce dure are in the results section. CBC W/PLT COUNT & Routine 02/09/2020 4:24 Result s for AUTO DIFFERENTIAL AM MANAGER OPERATIONS this proce dure are in the results section. BASIC METABOLIC Routine 02/09/2020 4:24 Results for PANEL (7) AM MANAGER OPERATIONS this procedure are in the results section. CBC W/PLT COUNT & Routine 02/09/2020 4:24 Result s for AUTO DIFFERENTIAL AM MANAGER OPERATIONS this proce dure are in the results section. MAGNESIUM Routine 02/08/2020 5:17 Results for AM MANAGER OPERATIONS this procedure are in the results section. PHOSPHORUS Routine 02/08/2020 5:17 Results for AM MANAGER OPERATIONS this procedure are in the results section. BASIC METABOLIC Routine 02/08/2020 5:17 Results for PANEL (7) AM MANAGER OPERATIONS this procedure are in the results section. CBC (HEMOGRAM ONLY) Routine 02/08/2020 5:17 Resu lts for AM MANAGER OPERATIONS this procedure are in the results section. HEMOGLOBIN AND Routine 02/07/2020 9:07 Results f or HEMATOCRIT PM MANAGER OPERATIONS this procedure are in the results section. POCT-GLUCOSE METER Routine 02/07/2020 4:00 Resul ts for PM MANAGER OPERATIONS this procedure are in the results section. POCT-GLUCOSE METER Routine 02/07/2020 10:41 Resul ts for AM MANAGER OPERATIONS this procedure are in the results section. CBC (HEMOGRAM ONLY) Routine 02/07/2020 4:20 Resu lts for AM MANAGER OPERATIONS this procedure are in the results section. MAGNESIUM Routine 02/07/2020 4:20 Results for AM MANAGER OPERATIONS this procedure are in the results section. PHOSPHORUS Routine 02/07/2020 4:20 Results for AM MANAGER OPERATIONS this procedure are in the results section. BASIC METABOLIC Routine 02/07/2020 4:20 Results for PANEL (7) AM MANAGER OPERATIONS this procedure are in the results section. HEMOGLOBIN AND Routine 02/06/2020 7:17 Results f or HEMATOCRIT PM MANAGER OPERATIONS this procedure are in the results section. ENDOSCOPY,CAPSULE 02/06/2020 8:25 Gastrointestinal AM MANAGER OPERATIONS hemorrhage associated with gastritis, unspecified gastritis type MAGNESIUM Routine 02/06/2020 4:28 Results for AM MANAGER OPERATIONS this procedure are in the results section. PHOSPHORUS Routine 02/06/2020 4:28 Results for AM MANAGER OPERATIONS this procedure are in the results section. BASIC METABOLIC Routine 02/06/2020 4:28 Results for PANEL (7) AM MANAGER OPERATIONS this procedure are in the results section. CBC (HEMOGRAM ONLY) Routine 02/06/2020 4:28 Resu lts for AM MANAGER OPERATIONS this procedure are in the results section. HEMOGLOBIN AND Routine 02/06/2020 4:28 Results f or HEMATOCRIT AM MANAGER OPERATIONS this procedure are in the results section. PREPARE CORDELIA 02/05/2020 11:54 Results for LEUKO-REDUCED RBC PM MANAGER OPERATIONS this proce dure are in the results section. REPORT OF PROCEDURE 02/05/2020 6:06 - ENDOSCOPY URL PM MANAGER OPERATIONS COLONOSCOPY 02/05/2020 1:39 Melena PM MANAGER OPERATIONS REPORT OF PROCEDURE 02/05/2020 9:52 - ENDOSCOPY URL AM MANAGER OPERATIONS MAGNESIUM Routine 02/05/2020 4:42 Results for AM MANAGER OPERATIONS this procedure are in the results section. PHOSPHORUS Routine 02/05/2020 4:42 Results for AM MANAGER OPERATIONS this procedure are in the results section. BASIC METABOLIC Routine 02/05/2020 4:42 Results for PANEL (7) AM MANAGER OPERATIONS this procedure are in the results section. CBC (HEMOGRAM ONLY) Routine 02/05/2020 4:42 Resu lts for AM MANAGER OPERATIONS this procedure are in the results section. HEMOGLOBIN AND Routine 02/05/2020 4:42 Results f or HEMATOCRIT AM MANAGER OPERATIONS this procedure are in the results section. ENTEROSCOPY,DIAGNOST 02/04/2020 4:28 Upper GI bleed IC PM MANAGER OPERATIONS Special Needs REQ TF UPPER ENDOSCOPY 02/04/2020 4:28 PM MANAGER OPERATIONS Upper GI bleed Special Needs REQ TF HEMOGLOBIN AND HEMATOCRIT CORDELIA 02/04/2020 1:21 PM MANAGER OPERATIONS Results for this procedure are i n the results section . TRANSFUSE LEUKO-REDUCED RED STAT 02/04/2020 12:20 PM MANAGER OPERATIONS BLOOD CELLS TRANSFUSE LEUKO-REDUCED RED STAT 02/04/2020 6:56 AM MANAGER OPERATIONS BLOOD CELLS ABORH, MANUAL STAT 02/04/2020 1:48 AM MANAGER OPERATIONS Res ults for this procedure are i n the results section . TROPONIN I Routine 02/04/2020 1:48 AM MANAGER OPERATIONS Resu lts for this procedure are i n the results section . TROPONIN I Routine 02/03/2020 10:46 PM MANAGER OPERATIONS Resu lts for this procedure are i n the results section . FERRITIN STAT 02/03/2020 10:46 PM MANAGER OPERATIONS Resu lts for this procedure are i n the results section . IRON, TIBC, % SAT. (WITHOUT Routine 02/03/2020 10:46 PM MANAGER OPERATIONS Results for this FERRITIN) procedure are i n the results section . TYPE AND SCREEN, AUTOMATED STAT 02/03/2020 10:45 PM MANAGER OPERATIONS Results for this procedure are i n the results section . SARS-COV2/RT-PCR ([facility] & REF Routine 02/03/2020 10:28 PM MANAGER OPERATIONS Results for this LABS) procedure are i n the results section . PHOSPHORUS STAT 02/03/2020 10:14 PM MANAGER OPERATIONS Resu lts for this procedure are i n the results section . MAGNESIUM STAT 02/03/2020 10:14 PM MANAGER OPERATIONS Resu lts for this procedure are i n the results section . COMPREHENSIVE METABOLIC STAT 02/03/2020 10:14 PM MANAGER OPERATIONS Results for this PANEL procedure are i n the results section . CBC W/PLT COUNT & AUTO STAT 02/03/2020 10:13 PM MANAGER OPERATIONS Results for this DIFFERENTIAL procedure are i n the results section . CBC W/PLT COUNT & AUTO STAT 02/03/2020 10:13 PM MANAGER OPERATIONS Results for this DIFFERENTIAL procedure are i n the results section . REPORT OF PROCEDURE - 02/03/2020 Result s for this ENDOSCOPY SCAN procedure are in the results section . after 03/11/2019 Results Prepare Leuko-Red RBC (03/05/2020 11:55 PM MANAGER OPERATIONS)Only the most recent of6 results within the time period is included. Pathologist Sig nature CROSSMATCH COMPATIBLE SAFETRACE TX Unit ABO A Pos SAFETRACE TX UNIT NUMBER [id number] [facility]ET[facility] TX Status TX_TIMEINCHART [facility] TX Blood Bank Product RED BLOOD CELLS [employer] [place] PRODUCT CODE [id number] [employer] [place] Specimen Other Performing Organization Address City/State/Zipcode Phone Number [employer] [place] Transfuse Leuko-Red RBC (03/04/2020 3:29 PM MANAGER OPERATIONS)Only the most recent of8 resultswithin the time period is included.CBC (Hemogram only) (03/04/2020 6:20 AM MANAGER OPERATIONS)Only the most recent of5 resultswithin the time period is included. Pathologist Sig nature WBC 9.9 3.5 - 10.5 K/L [facility] RBC 2.47 (L) 4.63 - 6.08 M/L [facility] Hemoglobin 7.0 (L) 13.7 - 17.5 GM/DL [facility] Hematocrit 21.9 (L) 40.1 - 51.0 % [facility] MCV 88.7 79.0 - 92.2 fL [facility] MCH 28.3 25.7 - 32.2 pg [facility] MCHC 32.0 (L) 32.3 - 36.5 GM/DL [facility] RDW 16.4 (H) 11.6 - 14.4 % [facility] Platelets 156 150 - 450 K/CU MM [facility] MPV 11.3 9.4 - 12.4 fL [facility] nRBC 0 0 - 0 /100 WBC [facility] Specimen Blood Performing Organization Address City/[facility]/Zipcode Phone Number [facility] [address] [place] [phone] CENTER Basic Metabolic Panel (03/04/2020 6:20 AM MANAGER OPERATIONS)Only the most recent of9 results within the time period is included. Sodium 137 136 - 145 meq/L [facility] Potassium 3.4 (L) 3.5 - 5.1 meq/L [facility] Chloride 108 (H) 98 - 107 meq/L [facility] CO2 21 (L) 22 - 29 meq/L [facility] BUN 10 7 - 21 mg/dL [facility] Creatinine 0.70 0.57 - 1.25 [facility] mg/dL [facility] Glucose 89 70 - 105 mg/dL [facility] Calcium 8.0 (L) 8.4 - 10.2 [facility] mg/dL [facility] EGFR 112Comment: mL/min/1.[address] [facility] ESTIMATED GFR IS NOT [facility] ACCURATE CENTER CREATININE CLEARANCE IN PREDICTING GLOMERULAR FILTRATION RATE. ESTIMATED GFR IS NOT APPLICABLE FOR DIALYSIS PATIENTS. Specimen Blood Narrative Performed At Mold Release Worker ID - PIAYA L [facility] Performing Organization Address City/State/Zipcode Phone Number [facility] [address] [place] [address] CENTER Manual Differential (03/03/2020 5:24 AM MANAGER OPERATIONS)Only the most recent of2 results within the time period is included. Pathologist Sig nature % Neutros 90 % [facility] % Lymphs 3 % [facility] % Monos 6 % [facility] % Eos 1 % [facility] # Neutros 13.50 (H) 1.78 - 5.38 K/ul [facility] # Lymphs 0.45 (L) 1.32 - 3.57 K/ul [facility] # Monos 0.90 (H) 0.30 - 0.82 K/uL [facility] # Eos 0.15 0.04 - 0.54 K/uL [facility] Total Counted 100 [facility] WBC Morphology Normal [facility] Large Platelet Present [facility] Polychromasia 1+ few [facility] Hypochromia 1+ few [facility] Anisocytosis 1+ few [facility] Microcytes 1+ few [facility] Poikilocytes 1+ few [facility] Spherocytes 1+ few [facility] Ovalocytes 1+ few [facility] Tear Drop Cells 1+ few [facility] Artifact Present [facility] Platelet Conc Adequate [facility] Specimen Blood Narrative Performed At Mold Release Worker FILIBERTO - Lindsey Avalos [facility] User comments: Slide comments: Performing Organization Address City/State/Zipcode Phone Number [facility] [address] [place] [address] CENTER CBC with platelet count + automated diff (03/03/2020 5:24 AM MANAGER OPERATIONS)Only the most recent of11 resultswithin the time period is included. Pathologist Sig nature WBC 15.0 (H) 3.5 - 10.5 K/L [facility] RBC 2.25 (L) 4.63 - 6.08 M/L [facility] Hemoglobin 6.3 (L) 13.7 - 17.5 GM/DL [facility] Hematocrit 20.0 (L) 40.1 - 51.0 % [facility] MCV 88.9 79.0 - 92.2 fL [facility] MCH 28.0 25.7 - 32.2 pg [facility] MCHC 31.5 (L) 32.3 - 36.5 GM/DL [facility] RDW 15.9 (H) 11.6 - 14.4 % [facility] Platelets 168 150 - 450 K/CU MM [facility] MPV 10.7 9.4 - 12.4 fL [facility] nRBC 0 0 - 0 /100 WBC [facility] Specimen Blood Performing Organization Address City/State/Zipcode Phone Number [facility] [address] [place] [address] CENTER Comprehensive metabolic panel (03/03/2020 5:24 AM MANAGER OPERATIONS)Only the most recent of4 resultswithin the time period is included. Protein, Total 4.3 (L) 6.0 - 8.3 [facility] gm/dL [facility] Albumin 2.4 (L) 3.5 - 5.0 [facility] g/dL [facility] Alkaline 50 40 - 150 U/L [facility] Phosphatase [facility] Total Bilirubin 1.5 (H) 0.2 - 1.2 [facility] mg/dL [facility] Sodium 135 (L) 136 - 145 [facility] meq/L [facility] Potassium 3.6 3.5 - 5.1 [facility] meq/L [facility] Chloride 107 98 - 107 [facility] meq/L [facility] CO2 23 22 - 29 meq/L [facility] BUN 14 7 - 21 mg/dL [facility] Creatinine 0.80 0.57 - 1.25 [facility] mg/dL [facility] Glucose 95 70 - 105 [facility] mg/dL [facility] Calcium 7.4 (L) 8.4 - 10.2 [facility] mg/dL [facility] AST 28 5 - 34 U/L [facility] ALT 13 6 - 55 U/L [facility] EGFR 96Comment: mL/min/1.73 [facility] ESTIMATED GFR IS sq [facility] [facility] CREATININE CLEARANCE IN PREDICTING GLOMERULAR FILTRATION RATE. ESTIMATED GFR IS NOT APPLICABLE FOR DIALYSIS PATIENTS. Specimen Blood Narrative Performed At Mold Release Worker ID - RANJ[facility] Performing Organization Address [facility] Phone Number [address] [address] CENTER REPORT OF PROCEDURE - ENDOSCOPY URL (03/01/2020 5:20 PM MANAGER OPERATIONS) Narrative Performed At This result has an attachment that is no t available. Type and screen, automated (03/01/2020 3:54 AM MANAGER OPERATIONS)Only the most recent of3 resultswithin the time period is included. Pathologist Sig nature ABO/RH AUTOMATED A POSITIVE [facility] Ab Scrn NEGATIVE [facility] Specimen Blood Performing Organization Address [facility] Phone Number [address] [address] Hemoglobin and hematocrit (02/26/2020 10:03 AM MANAGER OPERATIONS)Only the most recent of7 resultswithin the time period is included. Pathologist Sig nature Hemoglobin 7.3 (L) 13.7 - 17.5 GM/DL [facility] Hematocrit 22.7 (L) 40.1 - 51.0 % [facility] Specimen Blood Narrative Performed At Mold Release Worker ID - [id number] [facility] Performing Organization Address [facility] Phone Number [facility] [address] [place] [address] abdomen/pelvis without & with IV contrast (02/26/2020 12:18 AM MANAGER OPERATIONS) Specimen Narrative Performed At FINAL REPORT [employer] [facility] EXAM: CT of the abdomen and [...] External Ris In - 02/26/2020 10:26 AM MANAGER OPERATIONS FINAL REPORT EXAM: CT of the abdomen [...] 1:07:03 Performing Organization Address City/State/Zipcode Phone Number [facility] REPORT OF PROCEDURE - ENDOSCOPY URL (02/25/2020 12:23 PM MANAGER OPERATIONS) Narrative Performed At This result has an attachment that is no t available. [place] fluoro non-specific up to 1 hour (02/25/2020 12:05 PM MANAGER OPERATIONS) Specimen Narrative Performed At Fluoroscopic unit utilized for a procedure performed i n the OR. No [facility] interpretation was requested. Refer to the operative report for findings. Refer to PACS for patient radiation dose i nformation. Procedure Note Interface, External Ris In - 02/25/2020 12:28 PM MANAGER OPERATIONS Fluoroscopic unit utilized for a procedu re performed in the OR. No interpretation was requested. Refer to the operative r eport for findings. Refer to PACS for patient radiation dose information. Performing Organization Address City/State/Zipcode Phone Number GE RIS Tissue Exam (02/25/2020 11:57 AM MANAGER OPERATIONS) Case Report Surgical Pathology Report Case: [id number] [facility] Authorizing Provider: Heri Le Collected: 02/25/2020 11:57 AM [facility] MD [facility] Ordering Location: [address] Received: 02/25/2020 01:35 PM Service Pathologist: Samy Mayfield MD Specimen: Biopsy, Gastr ic DIAGNOSIS PART A GASTRIC BIOPSY: [facility] Elec tronically OXYNTIC MUCOSA WITH NONSPECIFIC REACTIVE GASTROPATHY. [facility] signed by Chaparro, NEGATIVE FOR INTESTINAL METAPLASIA, DYSPLASIA, O R INVASIVE CARCINOMA. [facility] MD ALLEN Ross STAIN FOR HELICOBACTER IS NEGATIVE. on 02/26/2020 at Signing Pathologist Direct Phone Line: 3:57 PM CPT Code(s) 83144, 45170 [facility] CLINICAL HISTORY Gastrointestinal [facility] SPECIMEN SOURCE A. Gastric [facility] GROSS DESCRIPTION The case is received [facility] fixed in formalin in one [facility] container labeled with MEDICAL CENTER the patient's information and "gastric biopsy" and consists of multiple soft, yellow-sifuentes tissue fragments ranging from less than 0.1 to 0.2 cm in greatest dimension. The specimen is submitted in toto in cassette A1. /pl MICROSCOPIC Performed [facility] SPECIAL STUDIES The interpretation of this c ase included the use of immunohistochemistry or special stains. [facility] BLOCK A1- ALLEN ROSARIO [facility] Control Slides Examined: In -house known positive controls were evaluated along with the test tissue. These control slides run alongside of the patients sample show appropriate staining. Internal [facility] mary and negative controls when available are evaluated Immunohistochemistry technic al testing was performed at [facility], Pathology Laboratory where it was developed and its performance characteristics were determined. It has not be en cleared or approved by [facility] U.S. Food and Drug Administration. The FDA has determined that such clearance or approval is not necessary. The test is used for clinical purposes. It should not be regarde d as investigational or for research. This laboratory is certified under the Clinical Laboratory Improvement Amendments of 1988 (CLIA-88) as qualified to perform high complexity clinical laboratory testing. Gross assessment [facility] was performed at [facility] Pathology, [address] [place] [id number], Technical [facility] component was [facility] performed at Pathology, [address] [place] [id number], Professional [facility] component was [facility] performed at Pathology, [address] [place] [id number], Specimen Tissue - Gastric biopsy sample (specimen ) Performing Organization Address City/State/Zipcode Phone Number [facility] [address] [place] [address] CENTER NM GI bleed study (02/25/2020 11:01 AM MANAGER OPERATIONS) Specimen Narrative Performed At FINAL REPORT GE RIS PROCEDURE: HEMORRHAGE STUDY with R [facility] CPT CODE: 09550 INDICATION: Gastrointestinal Bl eeding PROTOCOL: 21.8 mCi [...] Report Verified Date/Time: 02/25/2020 14:18:29 Reading Location: [address] [address] Nuc Med Reading Room Procedure Note Interface, External Ris In - 02/25/2020 2:20 PM MANAGER OPERATIONS FINAL REPORT PROCEDURE: HEMORRHAGE STUDY with RBC s CPT CODE: 97495 INDICATION: Gastrointestinal Bleed ing PROTOCOL: 21.8 mCi [...] Verified Date/Time: 02/25/2020 1 4:18:29 Reading Location: [address] 261[facility] Med Reading Room Performing Organization Address City/State/Zipcode Phone Number [facility] SARS-CoV2/RT-PCR (Asymptomatic ONLY) (02/24/2020 6:36 PM MANAGER OPERATIONS)Only the most recent of2 resultswithin the time period is included. SARS-COV2/RT-PCR Negative Not Detected, [facility] Negative, See [facility] external report CENTER for linked test SARS-COV-2 [facility] ALEXIA [facility] PERFORMING LAB [facility] Specimen Other - Nasopharyngeal wall structure (b jason structure) Narrative Performed At Negative result for this test determines that [facility] SARS-CoV-2 RNA was not present in [...] the Act. Testing was performed using the Rankin SARS-CoV-2 assay. Fact Sheet for Healthcare Providers: https://www.molecular.rankin/kd/HR_HUGS-GbT-6 _HCP_Fact_Sheet_51-577251.pdf Fact Sheet for Healthcare Patients: https://www.molecular.rankin/kd/AT_HXWQ-OnK-2 _Patient_Fact_Sheet_EN_51-025524O2.pdf Performing Laboratory: [address] [place] [address] Performing Organization Address City/State/Zipcode Phone Number [place] [phone] CENTER Prothrombin time/INR (02/24/2020 1:03 PM MANAGER OPERATIONS) Pathologist Sig nature Protime 14.3 (H) 11.9 - 14.2 seconds [facility] INR 1.16 <=5.90 [facility] Specimen Blood Narrative Performed At Effective 07/17/2018: PT Reference Range [facility] Change New: 11.9-14.2 Previous: 11.7-14.7 RECOMMENDED COUMADIN/WARFARIN INR THERAPY RANGES STANDARD DOSE: 2.0-3.0 Includes: PROPHYLAXIS for venous thrombosis, systemic embolization; TREATMENT for venous thrombosis and/or pulmonary embolus. HIGH RISK: Target INR is 2.5-3.5 for patients wiht mechanical heart valves. Performing Organization Address City/[facility]/Zipcode Phone Number [address] [phone] CENTER Phosphorus (02/08/2020 5:17 AM MANAGER OPERATIONS)Only the most recent of5 resultswithin the time period is included. Pathologist Sig nature Phosphorus 3.9 2.3 - 4.7 mg/dL [facility] Specimen Blood Narrative Performed At Mold Release Worker ID - PISHAMA L [facility] Performing Organization Address [facility] Phone Number [address] [phone] CENTER Magnesium (02/08/2020 5:17 AM MANAGER OPERATIONS)Only the most recent of5 resultswithin the time period is included. Pathologist Sig nature Magnesium 1.8 1.6 - 2.6 mg/dL [facility] Specimen Blood Narrative Performed At Mold Release Worker ID - PISHAMA L [facility] Performing Organization Address City/[facility] Phone Number [address] [phone] CENTER POC-Glucose meter (02/07/2020 4:00 PM MANAGER OPERATIONS)Only the most recent of2 results within the time period is included. POC-Glucose Meter 67 (L) 70 - 110 mg/dL [facility] Comment: [facility] : TESTED AT [address], [address] CENTER : Mold Release Worker/Work Checker ID = [id number] for QUEEN OCONNELL Specimen Blood Performing Organization Address [facility]/Zipcode Phone Number [address] [address] CENTER REPORT OF PROCEDURE - ENDOSCOPY URL (02/05/2020 6:06 PM MANAGER OPERATIONS) Narrative Performed At This result has an attachment that is no t available. REPORT OF PROCEDURE - ENDOSCOPY URL (02/05/2020 9:52 AM MANAGER OPERATIONS) Narrative Performed At This result has an attachment that is no t available. ABORH, manual (02/04/2020 1:48 AM MANAGER OPERATIONS) Pathologist Sig nature ABO Grouping A [facility] DICAL LOGAN Rh Factor POS [facility] Specimen Blood Performing Organization Address [facility] Centercode Phone Number [facility] [address] [place] [phone] Troponin I (02/04/2020 1:48 AM MANAGER OPERATIONS)Only the most recent of2 resultswithin the time period is included. Pathologist Sig nature Troponin I <0.01 0.00 - 0.03 ng/mL [facility] Specimen Blood Narrative Performed At Troponin I (TnI) levels must be interpreted [facility] in the context of the presenting [...] acidosis, acute neurological disease, and persistent tachyarrhythmia. Mold Release Worker ID - KELBY Bowen Performing Organization Address City/[facility]/Zipcode Phone Number [facility] [address] [place] [address] CENTER Iron, TIBC, % sat. (without ferritin) (02/03/2020 10:46 PM MANAGER OPERATIONS) Pathologist Sig nature Iron 13.0 (L) 40.0 - 160.0 [facility] ug/dL [facility] TIBC 298 250 - 450 ug/dL [facility] Iron % Saturation 4 (L) 20 - 55 % [facility] Specimen Blood Narrative Performed At Mold Release Worker ID - [facility] Performing Organization Address City/State/Zipcode Phone Number [facility] [address] [place] [address] CENTER Ferritin (02/03/2020 10:46 PM MANAGER OPERATIONS) Pathologist Sig nature Ferritin 60.51 5.00 - 275.00 ng/mL [facility] Specimen Blood Narrative Performed At Mold Release Worker ID - ADMIN [facility] Performing Organization Address City/State/Zipcode Phone Number [facility] [address] [place] [address] CENTER EKG-SCANNED (02/03/2020) Narrative Performed At This result has an attachment that is no t available. Ordered by an unspecified provider. after 03/11/2019 Insurance Payer Benefit Plan / Subscriber ID Effective Dates Phone Addre ss Type Group MEDICARE MEDICARE A B [id number] 2016-Present Medicare AETNA - MGD CARE AETNA INDEMNITY [id number] 2016-Present Comm NON CONTR Advance Directives For more information, please contact: [phone] Code Status Date Activated Date Inactivated Comments Full Code 03/01/2020 3:19 AM 03/04/2020 5:57 PM This code status was determined by: Patient Full Code 02/24/2020 11:16 AM 02/27/2020 8:03 PM This code status was determined by: Patient Full Code 02/03/2020 7:34 PM 02/09/2020 5:51 PM This code status was determined by: Patient
--- OUTSIDE RECORDS SUMMARY | 2020-03-11 08:54 | XMS REPORT | Continuity of Care Document ---
:1950 Author Organization [facility] t Address [address] [place]. [address] [place] [id number] Care Team Providers Name Role Phone Ramone MORALEZ, Ghazal Primary Care Physician Jose Roberto Eduardo MD Attending Clinician Parker MORALEZ, [place] Attending Clinician Leslee MORALEZ Attending Clinician Radha Pedro MD Attending Clinician Noah Galarza MD Attending Clinician Jose Roberto Anaya MD Attending Clinician Hannah Hunt MD Attending Clinician JOSE ROBERTO EDUARDO Attending Clinician Unavailable Mp MORALEZ PAdore Attending Clinician Ceci Bustillos MD Attending Clinician [phone] Miladys [place] MD Attending Clinician Jhoan Florez MD Attending Clinician Gato GRESHAM Attending Clinician Unavailable Diomedes Olvera MD Attending Clinician Merchant MORALEZ Attending Clinician Alphonso Sanchez MD Attending Clinician Zoraida Craft MD Attending Clinician Alexandru Sousa MD Attending Clinician Keily MORALEZ Attending Clinician Saurabh Caldwell MD Attending Clinician Ced MORALEZ Attending Clinician RADHA PEDRO Admitting Clinician Unavailable Gato GRESHAM Admitting Clinician Unavailable DIOMEDES OLVERA Admitting Clinician Unavailable Payers Payer Name Policy Type Policy Effective Date Expiration Date Sour ce Number MEDICAREMEDICARE A [id number] [facility] [id number] [facility]P 00:00[facility] [place] AETNA - MGD CAREAETNA [id number] [address] [facility] INDEMNITY NON 00:00:00 - Medical [id number] Ce nter 7-PresentComm Problems Condition Condition Condition Status Onset Resolution Last Treating Co mments Source Name Details Category Date Date Treatment Clinician Date GI GI Disease Active [facility] bleeding [facility] 1-11 [facility] - 00:[facility] 00 Center EDD EDD Disease Active [facility] (obstructi (obstructi 1-11 [facility] - ve sleep ve sleep 00:00: Medica l apnea) apnea) 00 Center GIB GIB Disease Active [facility] (gastroint (gastroint 1-05 [facility] - estinal estinal 00:00: Medical bleeding) bleeding) 00 Cent er S/P S/P Disease Active 2019-[address] [facility] [address] placement placement 2-15 [facility] s - of cardiac of cardiac 00:00: Al dical pacemaker pacemaker 00 Cent er Hypertensi Hypertensi Disease Active 2019-[address] on on 2-15 [facility] - 00:00: Medical 00 Center Upper GI Upper GI Disease Active 2019-02 [facility] - 00:[facility] Medical 00 Center Acute Acute Disease Active 2019-[address] [facility] blood loss blood loss 2-15 [facility] - anemia anemia 00:00: Medical 00 Center Symptomati Symptomati Disease Active [facility] c c 4-11 [facility] - bradycardi bradycardi 00:00: Me dical a a 00 Center Allergies, Adverse Reactions, Alerts This patient has no known allergies or adverse reactions. Family History Family Member Diagnosis Comments Start Date Stop Date Source Natural father No Known Problem [facility] Natural mother No Known Problem [facility] Social History Social Habit Start Date Stop Date Quantity Comments Source Sex Assigned At [facility] Exposure to Not sure [facility] SARS-CoV-2 [facility] (event) Tobacco use and 2020-03-02 2020-03-02 Never used [facility] - exposure 00:00:00 00:00:00 [facility] Alcohol intake 2020-03-02 2020-03-02 Ex-drinker [facility] es - 00:00:00 00:00:00 (finding) [facility] Smoking Status Start Date Stop Date Source [facility] [place] Medications Ordered Filled Start Stop Current Ordering Indication Dosage Frequency Signature Comments Components Source Medication Medication Date Date Medication? Clinician (SIG) Name Name cyanocobala Yes Take by [facility] min, 1-14 mouth. [facility] - vitamin 15:57: Medical B-12, 1,000 14 Center mcg/mL Drop omega Yes 1{capsu Take 1 [facility] 3-dha-epa-f -14 le} capsule by [facility] - jacquie oil 15:57: mouth. Medical (Fish Oil) 14 Center 100-160-1,0 00 mg Cap vitamin E, Yes Take by [facility] dl, 1-14 mouth. 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 doxazosin 1mg Take [address] (CARDURA) 1 -14 -14 by mouth. [facility] - MG tablet 08:33: 00:00 Medical 17 :00 [place] pantoprazol Yes 40mg Q.5D Take [address] [facility] e -14 tablet (40 [facility] - (PROTONIX) 00:00: mg total) Me dical 40 MG 00 by mouth 2 Center tablet (two) times daily Please note increased dose. ferrous 2019-02 325mg Take [address] sulfate 325 2-20 12-20 mg by [facility]ukes - (65 FE) MG 16:47: 00:00 mouth. Medi kamala tablet 01 :00 [place] losartan-hy 2019-02 No 1{tbl} Take [address] drochloroth 2-20 12-20 tablet by [facility] - iazide 16:47: 00:00 mouth. Medical (HYZAAR) 01 :00 [place] 100-12.5 mg per tablet pantoprazol 2019-02 40mg Take [address] e 2-20 12-20 by mouth. [facility]ukes - (PROTONIX) 16:47: 00:00 Medica l 40 MG 01 :00 [place] tablet pantoprazol 2019-02- No 40mg Q.5D Take [address] [facility] e 2-20 -14 tablet (40 [facility] - (PROTONIX) 00:00: 00:00 mg total) M edical 40 MG 00 :00 by mouth 2 Center tablet (two) times daily. amLODIPine 2019-02 5mg Take [address] (NORVASC) 5 2-15 12-15 by mouth. [facility] - MG tablet 20:03: 00:00 Medical 04 :00 [place] ferrous 2019-[address] fumarate 2-05 DAILY [facility] - 324 mg (106 00:00: Medica l mg iron) 00 [place] Tab amLODIPine 2019-02- No DAILY [facility] t (NORVASC) 5 2-04 19-14 [facility] - MG tablet 00:00: 00:00 Medical 00 :00 [place] losartan 50 2019-02- No DAILY [facility] MG Tab 100 2-04 19-14 [facility] - mg, 00:00: 00:00 Medical hydroCHLORO 00 :00 [place] thiazide 12.5 mg Cap 12.5 mg doxazosin 2019-02- No DAILY [facility] (Cardura) 1 2-03 -05 [facility] - MG tablet 00:00: 00:00 Medical 00 :00 [place] lipase-prot 2019- No 2{capsu Take [address] ease-amylas 2-28 12-15 le} capsules Matt es - e (Creon) 00:00: 00:00 by mouth. Me dical 36,000-114, 00 :00 Center 000- 180,000 unit CpDR capsule amLODIPine 2019-0 Yes 5mg Q.5D Take 5 mg [place] (NORVASC) 5 4-12 by mouth 2 Me thodi mg tablet 14:15: (two) st 13 times a day. pantoprazol 2019-0 Yes 40mg QD Take 40 mg [place] e 4-12 by mouth Methodi (PROTONIX) 14:15: daily. st 40 MG EC 13 tablet doxazosin 2019-0 Yes 1mg Q.5D Take 1 mg Luis [...] 13 daily. 3 FISH OIL ORAL) multivitami 2018-0 Yes 1{tbl} QD Take 1 [place] with 4-12 tablet by [facility] minerals 14:15: mouth st tablet 13 daily. vitamin E 2019-0 Yes 1{tbl} QD Take 1 [place] acetate 4-12 tablet by [facility] (VITAMIN E 14:15: mouth st ORAL) 13 daily. ferrous 2018- Yes 325mg QD Take 325 [place] sulfate 325 4-12 mg by [facility]i (65 FE) MG 14:15: mouth st tablet 13 daily with breakfast. Vital Signs Vital Name Observation Time Observation Value Comments Source Systolic blood 2020-03-04 15:49:00 150 mm[Hg] [facility] Diastolic blood 2020-03-04 15:49:00 71 mm[Hg] [facility] S [facility] Heart rate 2020-03-04 15:49:00 75 /min [facility] Body temperature 2020-03-04 15:49:00 36.67 [facility] Respiratory rate 2020-03-04 15:49:00 20 /min [facility] Oxygen saturation in 2020-03-04 15:49:00 98 /min [facility] Arterial blood by Medical Ce nter Pulse oximetry Body height 2020-03-01 03:50:00 175.3 cm [facility] Body weight 2020-03-01 03:50:00 101.606 kg [facility] BMI 2020-03-01 03:50:00 33.08 kg/m2 [facility] Procedures Procedure Date / Time Performed Performing Clinician [facility] e PREPARE LEUKO-REDUCED RBC 2020-03-05 23:55:00 [facility] Camilo [facility] PREPARE LEUKO-REDUCED RBC 2020-03-04 23:54:00 Napoleon Rodriguez Jaylan [facility] TRANSFUSE LEUKO-REDUCED 2020-03-04 15:29:[address] [facility] RED BLOOD CELLS [facility] CBC (HEMOGRAM ONLY) 2020-03-04 06:20:00 [facility] Camilo [facility] BASIC METABOLIC PANEL (7) 2020-03-04 06:20:00 Mt Camilo [facility] TRANSFUSE LEUKO-REDUCED 2020-03-03 14:55:26 Napoleon Rodriguez [facility] RED BLOOD CELLS [facility] COMPREHENSIVE METABOLIC 2020-03-03 05:24:00 Nan Pedro [facility] CBC W/PLT COUNT & AUTO 2020-03-03 05:24:00 Napoleon Rodriguez [facility] (CELLAVISION MANUAL DIFF) 2020-03-03 05:24:00 Napoleon Rodriguez [facility] PREPARE LEUKO-REDUCED RBC 2020-03-02 23:54:00 Nan Pedro sa [facility] COMPREHENSIVE METABOLIC 2020-03-02 05:17:00 Nan Pedro [facility] CBC W/PLT COUNT & AUTO 2020-03-02 05:17:00 Nan Pedro [facility] (CELLAVISION MANUAL DIFF) 2020-03-02 05:17:00 Nan Pedro sa [facility] REPORT OF PROCEDURE - 2020-03-01 17:20:38 Steve Hunt [facility] ENDOSCOPY [facility] ENTEROSCOPY,BALLOON 2020-03-01 14:33:[address] [facility] OVERTUBE [facility] INTESTINE-UPPER CBC W/PLT COUNT & AUTO 2020-03-01 13:15:00 Abiel Bolton [facility] S t [facility] TRANSFUSE LEUKO-REDUCED 2020-03-01 09:10:[address] [facility] RED BLOOD CELLS [facility] COMPREHENSIVE METABOLIC 2020-03-01 03:54:00 Nan Pedro [facility] TYPE AND SCREEN, 2020-03-01 03:54:00 Nan Pedro [facility] CBC W/PLT COUNT & AUTO 2020-03-01 03:54:00 Nan Pedro [facility] PREPARE LEUKO-REDUCED RBC 2020-02-27 23:54:00 Natali Bustillos [facility] CBC W/PLT COUNT & AUTO 2020-02-27 04:48:00 Kriss Ortiz [facility] S [facility] PREPARE LEUKO-REDUCED RBC 2020-02-26 23:54:00 Thao Gresham [facility] TRANSFUSE LEUKO-REDUCED 2020-02-26 16:33:57 Natali Bustillos I [facility] RED BLOOD CELLS [facility] HEMOGLOBIN AND HEMATOCRIT 2020-02-26 10:03:00 Natali Bustillos [facility] BASIC METABOLIC PANEL (7) 2020-02-26 03:43:00 Melissa Craft [facility] CBC W/PLT COUNT & AUTO 2020-02-26 03:43:00 Melissa Craft [facility] CT ABDOMEN/PELVIS WITH & 2020-02-26 00:18:00 Kriss Ortiz [facility] - WITHOUT IV CONTRAST Medical Cent er CBC W/PLT COUNT & AUTO 2020-02-25 23:48:00 Kriss Ortiz [facility] S [facility] REPORT OF PROCEDURE - 2020-02-25 12:23:21 Miladys [facility] - ENDOSCOPY URL [facility] [place] FLUORO NON-SPECIFIC UP 2020-02-25 12:05:00 Heri Hook [facility] - TO 1 HOUR [facility] TISSUE EXAM 2020-02-25 11:57:00 Miladys [facility] ENTEROSCOPY,BALLOON 2020-02-25 11:23:00 Miladys [facility] - OVERTUBE SMALL [facility] INTESTINE-UPPER PROCEDURE W/ C-ARM 2020-02-25 11:23:00 [facility] UPPER ENDOSCOPY,BIOPSY 2020-02-25 11:23:00 Miladys [facility] NM GI BLEED STUDY 2020-02-25 11:01:00 Thao Gresham [facility] HEMOGLOBIN AND HEMATOCRIT 2020-02-25 09:54:00 Natali Bustillos [facility] BASIC METABOLIC PANEL (7) 2020-02-25 07:44:00 Thao Gresham [facility] CBC W/PLT COUNT & AUTO 2020-02-25 07:44:00 Thao Gresham [facility] TRANSFUSE LEUKO-REDUCED 2020-02-25 05:29:32 Thao Gresham [facility] TRANSFUSE LEUKO-REDUCED 2020-02-25 02:28:52 Thao Gresham [facility] SARS-COV2/RT-PCR ([facility] & 2020-02-24 18:36:[address] [facility] BASIC METABOLIC PANEL (7) 2020-02-24 13:03:00 Thao Gresham [facility] PROTHROMBIN TIME/INR 2020-02-24 13:03:00 Thao Gresham [facility] TYPE AND SCREEN, 2020-02-24 13:03:00 Thao Gresham [facility] AUTOMATED [facility] CBC W/PLT COUNT & AUTO 2020-02-24 13:03:[address] [facility] BASIC METABOLIC PANEL (7) 2020-02-09 04:24:00 Gilbert Sanchez [facility] CBC W/PLT COUNT & AUTO 2020-02-09 04:24:00 Gilbert Sanchez [facility] CBC (HEMOGRAM ONLY) 2020-02-08 05:17:00 [facility] BASIC METABOLIC PANEL (7) 2020-02-08 05:17:00 [facility] PHOSPHORUS 2020-02-08 05:17:00 [facility] MAGNESIUM 2020-02-08 05:17:00 [facility] HEMOGLOBIN AND HEMATOCRIT 2020-02-07 21:07:00 [facility] POCT-GLUCOSE METER 2020-02-07 16:00:00 [facility] POCT-GLUCOSE METER 2020-02-07 10:41:00 [facility] BASIC METABOLIC PANEL (7) 2020-02-07 04:20:00 [facility] PHOSPHORUS 2020-02-07 04:20:00 [facility] MAGNESIUM 2020-02-07 04:20:00 Wade, [facility] CBC (HEMOGRAM ONLY) 2020-02-07 04:20:00 [facility] HEMOGLOBIN AND HEMATOCRIT 2020-02-06 19:17:00 [facility] ENDOSCOPY,CAPSULE 2020-02-06 08:25:00 Melissa Craft [facility] HEMOGLOBIN AND HEMATOCRIT 2020-02-06 04:28:00 [facility] CBC (HEMOGRAM ONLY) 2020-02-06 04:28:00 [facility] BASIC METABOLIC PANEL (7) 2020-02-06 04:28:00 [facility] PHOSPHORUS 2020-02-06 04:28:00 [facility] MAGNESIUM 2020-02-06 04:28:00 [facility] PREPARE LEUKO-REDUCED RBC 2020-02-05 23:54:00 [facility] REPORT OF PROCEDURE - 2020-02-05 18:06:43 Melissa Craft [facility] COLONOSCOPY 2020-02-05 13:39:00 Melissa Craft [facility] REPORT OF PROCEDURE - 2020-02-05 09:52:21 Melissa Craft [facility] HEMOGLOBIN AND HEMATOCRIT 2020-02-05 04:42:00 [facility] CBC (HEMOGRAM ONLY) 2020-02-05 04:42:00 [facility] BASIC METABOLIC PANEL (7) 2020-02-05 04:42:00 [facility] PHOSPHORUS 2020-02-05 04:42:00 [facility] MAGNESIUM 2020-02-05 04:42:00 [facility] UPPER ENDOSCOPY 2020-02-04 16:28:00 Melissa Craft [facility] ENTEROSCOPY,DIAGNOSTIC 2020-02-04 16:28:[address] [facility] HEMOGLOBIN AND HEMATOCRIT 2020-02-04 13:21:00 Zahra Olvera [facility] TRANSFUSE LEUKO-REDUCED 2020-02-04 12:20:[address] [facility] - RED BLOOD CELLS [facility] TRANSFUSE LEUKO-REDUCED 2020-02-04 06:56:[address] [facility] RED BLOOD CELLS [facility] TROPONIN I 2020-02-04 01:48:00 [facility] MANUAL 2020-02-04 01:48:00 Supriya Del Valle [facility] IRON, TIBC, % SAT. 2020-02-03 22:46:[address] [facility] (WITHOUT FERRITIN) [facility] 2020-02-03 22:46:00 [facility] TROPONIN I 2020-02-03 22:46:00 Abiquiu [facility] TYPE AND SCREEN, 2020-02-03 22:45:00 AbiquiuZahra [facility] - AUTOMATED [facility] SARS-COV2/RT-PCR ([facility] & 2020-02-03 22:28:00 Zahra Olvera [facility] - REF LABS) [facility] COMPREHENSIVE METABOLIC 2020-02-03 22:14:00 Zahra Olvera [facility] PANEL [facility] MAGNESIUM 2020-02-03 22:14:00 Zahra Olvera [facility] PHOSPHORUS 2020-02-03 22:14:00 [facility] CBC W/PLT COUNT & AUTO 2020-02-03 22:13:[address] [facility] DIFFERENTIAL [facility] REPORT OF PROCEDURE - 2020-02-03 00:00:00 Provider, Default [facility] - ENDOSCOPY SCAN Scanning [facility] Plan of Care Planned Activity Planned Date Details Comments Source Future Scheduled 2030-02-[address] [facility] - Test 00:00:00 malignant neoplasm of Medica Center colon (procedure) [code = 926611334] Future Scheduled 2020-02-[address] [facility] - Test 00:00:00 (12+) [code = [facility] DEPRESSION SCREENING (12+)] Future Scheduled 2019-10-21 INFLUENZA VACCINE (#1) [facility] Test 00:00:00 [code = INFLUENZA Medical Ce nter VACCINE (#1)] Future Scheduled 2019-09-20 INFLUENZA VACCINE [place] [facility] Test 00:00:00 [code = INFLUENZA VACCINE] Future Scheduled 2017-05-[address] [facility] - Test 00:00:00 WELLNESS (YEAR 2 or [facility] FIRST YEAR if no IPPE) [code = MEDICARE ANNUAL WELLNESS (YEAR 2 or FIRST YEAR if no IPPE)] Future Scheduled 2016-06-18 65+ PNEUMOCOCCAL [place] [facility] Test 00:00:00 VACCINE (1 of 1 - PPSV23) [code = 65+ PNEUMOCOCCAL VACCINE (1 of 1 - PPSV23)] Future Scheduled 2016-06-18 PNEUMOCOCCAL 65+ YRS [facility] - Test 00:00:00 (1 of 1 - [facility] [id number] PCV13) [code = PNEUMOCOCCAL 65+ YRS (1 of 1 - [id number] PCV13)] Future Scheduled 2001-06-18 COLONOSCOPY SCREENING [place] [facility] Test 00:00:00 [code = COLONOSCOPY SCREENING] Future Scheduled 2001-06-18 SHINGLES VACCINES (#1) [place] [facility] Test 00:00:00 [code = SHINGLES VACCINES (#1)] Future Scheduled 1967 COVID-19 VACCINE (1 of [place] [facility] Test 00:00:00 2) [code = COVID-19 VACCINE (1 of 2)] Encounters Start End Encounter Admission Attending Care Care Encounter Source Date/Time Date/Time Type Type Clinicians Facility Department ID 2019-04-18 2019-04-18 Office GARETT Coughlin [id number] 08:32:36 16:06:01 Visit [facility]ATOR [id number] Y [id number] Results Test Description Test Time Test Comments Results Result Comments Source Prepare Leuko-Red RBC 2020-03-05 23:55:00 Test Item Value Reference Range Interpretation Comme nts CROSSMATCH (test code = 2264) COMPATIBLE Unit ABO (test code = 8290088) A Pos UNIT NUMBER (test code = 934-0) [id number] Status (test code = 6255497) [place]_TIMEINCHART Blood Bank Product (test code = 2263) RED BLOOD CELLS PRODUCT CODE (test code = 933-2) [id number] [facility] Metabolic [id number] 07:38:00 Test Item Value Reference Range Interpretation Comments Sodium (test code = 137 meq/L 102-485 7464-2) Potassium (test code = 3.4 meq/L 3.5-5.1 L 2823-3) Chloride (test code = 108 meq/L 98-107 H 2075-0) CO2 (test code = 21 meq/L 22-29 L 2028-9) BUN (test code = 10 mg/dL 7-21 3094-0) Creatinine (test code 0.70 mg/dL 0.57-1.25 = 2160-0) Glucose (test code = 89 mg/dL 70-105 2345-7) Calcium (test code = 8.0 mg/dL 8.4-10.2 L 34935-4) EGFR (test code = 112 mL/min/1.73 sq [place] [address]-0) NOT ACCURATE CREATININE CLEARANCE IN PREDICTING GLOMERULAR FILTRATION RATE . ESTIMATED GFR I S NOT APPLICABLE FOR DIALYSIS PATIENTS. ANDREW (test code = ANDREW) Fitness And Wellness Manager ID - PIAYA L Lab Interpretation Abnormal (test code = 51902-4) [facility] METABOLIC [id number] 07:38:00 Test Item Value Reference Range Interpretation Comments SODIUM (BEAKER) 137 meq/L 136-145 (test code = 381) POTASSIUM (BEAKER) 3.4 meq/L 3.5-5.1 L (test code = 379) CHLORIDE (BEAKER) 108 meq/L 98-107 H (test code = 382) CO2 (BEAKER) (test 21 meq/L 22-29 L code = 355) BLOOD UREA NITROGEN 10 mg/dL 7-21 (BEAKER) (test code = 354) CREATININE (BEAKER) 0.70 mg/dL 0.57-1.25 (test code = 358) GLUCOSE RANDOM 89 mg/dL 70-105 (BEAKER) (test code = 652) CALCIUM (BEAKER) 8.0 mg/dL 8.4-10.2 L (test code = 697) EGFR (BEAKER) (test 112 mL/min/1.73 ESTIM ATED GFR IS code = 1092) sq m NOT ACCURATE CREATININE CLEARANCE IN PREDICTING GLOMERULAR FILTRATION RATE . ESTIMATED GFR I S NOT APPLICABLE FOR DIALYSIS PATIEN TS. Fitness And Wellness Manager ID - PIAYA [facility] (Hemogram only)2020-03-04 07:00:00 Test Item Value Reference Range Interpretation Comments WBC (test code = 6690-2) 9.9 3.5- 10.5 K/L RBC (test code = 789-8) 2.47 4.63- 6.08 M/L L MCHC (test code = 786-4) 32.0 32.3- 36.5 GM/DL L Hematocrit (test code = 4544-3) 21.9 % 40.1-51 L MCV (test code = 787-2) 88.7 fL 79-92.2 MCH (test code = 785-6) 28.3 pg 25.7-32.2 RDW (test code = 788-0) 16.4 % 11.6-14.4 H Platelets (test code = 777-3) 156 150- 450 K/CU MM MPV (test code = 03786-9) 11.3 fL 9.4-12.4 nRBC (test code = 413) 0 0- 0 /100 WBC Lab Interpretation (test code = Abnormal 82693-5) [facility] (HEMOGRAM ONLY)2020-03-04 07:00:00 Test Item Value Reference Range Interpretation Comments WHITE BLOOD CELL COUNT (BEAKER) 9.9 K/ L 3.5-10.5 (test code = 775) RED BLOOD CELL COUNT (BEAKER) 2.47 M/ L 4.63-6.08 L (test code = 761) HEMOGLOBIN (BEAKER) (test code = 7.0 GM/DL 13.7-17.5 L 410) HEMATOCRIT (BEAKER) (test code = 21.9 % 40.1-51.0 L 411) MEAN CORPUSCULAR VOLUME (BEAKER) 88.7 fL 79.0-92.2 (test code = 753) MEAN CORPUSCULAR HEMOGLOBIN 28.3 pg 25.7-32.2 (BEAKER) (test code = 751) MEAN CORPUSCULAR HEMOGLOBIN CONC 32.0 GM/DL 32.3-36.5 L (BEAKER) (test code = 752) RED CELL DISTRIBUTION WIDTH 16.4 % 11.6-14.4 H (BEAKER) (test code = 412) PLATELET COUNT (BEAKER) (test 156 K/CU MM 150-450 code = 756) MEAN PLATELET VOLUME (BEAKER) 11.3 fL 9.4-12.4 (test code = 754) NUCLEATED RED BLOOD CELLS 0 /100 WBC 0-0 (BEAKER) (test code = 413) CBC with platelet count + automated [id number] 08:53:00 Test Item Value Reference Range Interpretation Comments WBC (test code = 6690-2) 15.0 3.5- 10.5 K/L H RBC (test code = 789-8) 2.25 4.63- 6.08 M/L L MCHC (test code = 786-4) 31.5 32.3- 36.5 GM/DL L Hematocrit (test code = 4544-3) 20.0 % 40.1-51 L MCV (test code = 787-2) 88.9 fL 79-92.2 MCH (test code = 785-6) 28.0 pg 25.7-32.2 RDW (test code = 788-0) 15.9 % 11.6-14.4 H Platelets (test code = 777-3) 168 150- 450 K/CU MM MPV (test code = 05668-6) 10.7 fL 9.4-12.4 nRBC (test code = 413) 0 0- 0 /100 WBC Lab Interpretation (test code = Abnormal 40284-2) [facility] [id number] 08:53:00 Test Item Value Reference Range Interpretation Comments % Neutros (test code = 90 % 281) % Lymphs (test code = 3 % 2816) % Monos (test code = 6 % 2818) % Eos (test code = 1 % 9) # Neutros (test code = 13.50 K/ul 1.78-5.38 H 2830) # Lymphs (test code = 0.45 K/ul 1.32-3.57 L 2831) # Monos (test code = 0.90 K/uL 0.3-0.82 H 2832) # Eos (test code = 0.15 K/uL 0.04-0.54 2834) Total Counted (test 100 code = 1351) WBC Morphology (test Normal code = 487) Large Platelet (test Present code = 2156) Polychromasia (test 1+ few code = 478) Hypochromia (test code 1+ few = 963) Anisocytosis (test code 1+ few = 961) Microcytes (test code = 1+ few 965) Poikilocytes (test code 1+ few = 966) Spherocytes (test code 1+ few = 768) Ovalocytes (test code = 1+ few 477) Tear Drop Cells (test 1+ few code = 481) Artifact (test code = Present 3432) Platelet Conc (test Adequate code = 3438) ANDREW (test code = ANDREW) Fitness And Wellness Manager ID - Lindsey Carin comments: Slide comments: Lab Interpretation Abnormal (test code = 22678-2) [facility] W/PLT COUNT & AUTO [id number] 08:53:00 Test Item Value Reference Range Interpretation Comments WHITE BLOOD CELL COUNT (BEAKER) 15.0 K/ L 3.5-10.5 H (test code = 775) RED BLOOD CELL COUNT (BEAKER) 2.25 M/ L 4.63-6.08 L (test code = 761) HEMOGLOBIN (BEAKER) (test code = 6.3 GM/DL 13.7-17.5 L 410) HEMATOCRIT (BEAKER) (test code = 20.0 % 40.1-51.0 L 411) MEAN CORPUSCULAR VOLUME (BEAKER) 88.9 fL 79.0-92.2 (test code = 753) MEAN CORPUSCULAR HEMOGLOBIN 28.0 pg 25.7-32.2 (BEAKER) (test code = 751) MEAN CORPUSCULAR HEMOGLOBIN CONC 31.5 GM/DL 32.3-36.5 L (BEAKER) (test code = 752) RED CELL DISTRIBUTION WIDTH 15.9 % 11.6-14.4 H (BEAKER) (test code = 412) PLATELET COUNT (BEAKER) (test 168 K/CU MM 150-450 code = 756) MEAN PLATELET VOLUME (BEAKER) 10.7 fL 9.4-12.4 (test code = 754) NUCLEATED RED BLOOD CELLS 0 /100 WBC 0-0 (BEAKER) (test code = 413) (CELLAVISION MANUAL DIFF)2020-03-03 08:53:00 Test Item Value Reference Range Interpretation Comments NEUTROPHILS - REL 90 % (CELLAVISION)(BEAKER) (test code = 2816) LYMPHOCYTES - REL 3 % (CELLAVISION)(BEAKER) (test code = 2817) MONOCYTES - REL 6 % (CELLAVISION)(BEAKER) (test code = 2818) EOSINOPHILS - REL 1 % (CELLAVISION)(BEAKER) (test code = 2819) NEUTROPHILS - ABS 13.50 K/ul 1.78-5.38 H (CELLAVISION)(BEAKER) (test code = 2830) LYMPHOCYTES - ABS 0.45 K/ul 1.32-3.57 L (CELLAVISION)(BEAKER) (test code = 2831) MONOCYTES - ABS 0.90 K/uL 0.30-0.82 H (CELLAVISION)(BEAKER) (test code = 2832) EOSINOPHILS - ABS 0.15 K/uL 0.04-0.54 (CELLAVISION)(BEAKER) (test code = 2834) TOTAL COUNTED (BEAKER) (test code 100 = 1351) WBC MORPHOLOGY (BEAKER) (test code Normal = 487) LARGE PLT(BEAKER) (test code = Present 2156) POLYCHROMATOPHILLIC RBCS(BEAKER) 1+ few (test code = 478) HYPOCHROMIA (BEAKER) (test code = 1+ few 963) ANISOCYTOSIS (BEAKER) (test code = 1+ few 961) MICROCYTES (BEAKER) (test code = 1+ few 965) POIKILOCYTES (BEAKER) (test code = 1+ few 966) SPHEROCYTES (BEAKER) (test code = 1+ few 768) OVALOCYTES (BEAKER) (test code = 1+ few 477) TEAR DROP CELLS (BEAKER) (test 1+ few code = 481) ARTIFACT (CELLAVISION)(BEAKER) Present (test code = 3432) PLATELET CONCENTRATION Adequate (CELLAVISION)(BEAKER) (test code = 3438) Fitness And Wellness Manager ID - Lindsey Del Rosario comments: Slide comments:Comprehensive metabolic [id number] 06:16:00 Test Item Value Reference Range Interpretation Comments Protein, Total (test 4.3 6.0- 8.3 gm/dL L code = 2885-2) Albumin (test code = 2.4 g/dL 3.5-5 L 57274-5) Alkaline Phosphatase 50 U/L 40-150 (test code = 6768-6) Total Bilirubin (test 1.5 mg/dL 0.2-1.2 H code = 1975-2) Sodium (test code = 135 meq/L 136-145 L 2951-2) Potassium (test code = 3.6 meq/L 3.5-5.1 2823-3) Chloride (test code = 107 meq/L 98-107 2075-0) CO2 (test code = 23 meq/L 22-29 2028-9) BUN (test code = 14 mg/dL 7-21 3094-0) Creatinine (test code 0.80 mg/dL 0.57-1.25 = 2160-0) Glucose (test code = 95 mg/dL 70-105 2345-7) Calcium (test code = 7.4 mg/dL 8.4-10.2 L 25552-4) AST (test code = 28 U/L 5-34 1920-8) ALT (test code = 13 U/L 6-55 1742-6) EGFR (test code = 96 mL/min/1.73 [place] [address]-1) NOT ACCURATE CREATININE CLEARANCE IN PREDICTING GLOMERULAR FILTRATION RATE . ESTIMATED GFR I S NOT APPLICABLE FOR DIALYSIS PATIENTS. ANDREW (test code = ANDREW) Fitness And Wellness Manager ID - RANJITH [place] Lab Interpretation Abnormal (test code = 83269-0) [facility] [id number] 06:16:00 Test Item Value Reference Range Interpretation Comments TOTAL PROTEIN 4.3 gm/dL 6.0-8.3 L (BEAKER) (test code = 770) ALBUMIN (BEAKER) 2.4 g/dL 3.5-5.0 L (test code = 1145) ALKALINE PHOSPHATASE 50 U/L 40-150 (BEAKER) (test code = 346) BILIRUBIN TOTAL 1.5 mg/dL 0.2-1.2 H (BEAKER) (test code = 377) SODIUM (BEAKER) (test 135 meq/L 136-145 L code = 381) POTASSIUM (BEAKER) 3.6 meq/L 3.5-5.1 (test code = 379) CHLORIDE (BEAKER) 107 meq/L 98-107 (test code = 382) CO2 (BEAKER) (test 23 meq/L 22-29 code = 355) BLOOD UREA NITROGEN 14 mg/dL 7-21 (BEAKER) (test code = 354) CREATININE (BEAKER) 0.80 mg/dL 0.57-1.25 (test code = 358) GLUCOSE RANDOM 95 mg/dL 70-105 (BEAKER) (test code = 652) CALCIUM (BEAKER) 7.4 mg/dL 8.4-10.2 L (test code = 697) AST (SGOT) (BEAKER) 28 U/L 5-34 (test code = 353) ALT (SGPT) (BEAKER) 13 U/L 6-55 (test code = 347) EGFR (BEAKER) (test 96 mL/min/1.73 ESTIMA MACHO GFR IS code = 1092) sq m NOT ACCURATE CREATININE CLEARANCE IN PREDICTING GLOMERULAR FILTRATION RATE . ESTIMATED GFR I S NOT APPLICABLE FOR DIALYSIS PATIEN TS. Fitness And Wellness Manager ID - RANJITH WCBC W/PLT COUNT & AUTO [id number] 07:34:00 Test Item Value Reference Range Interpretation Comments WHITE BLOOD CELL COUNT (BEAKER) 10.6 K/ L 3.5-10.5 H (test code = 775) RED BLOOD CELL COUNT (BEAKER) 2.52 M/ L 4.63-6.08 L (test code = 761) HEMOGLOBIN (BEAKER) (test code = 7.2 GM/DL 13.7-17.5 L 410) HEMATOCRIT (BEAKER) (test code = 22.2 % 40.1-51.0 L 411) MEAN CORPUSCULAR VOLUME (BEAKER) 88.1 fL 79.0-92.2 (test code = 753) MEAN CORPUSCULAR HEMOGLOBIN 28.6 pg 25.7-32.2 (BEAKER) (test code = 751) MEAN CORPUSCULAR HEMOGLOBIN CONC 32.4 GM/DL 32.3-36.5 (BEAKER) (test code = 752) RED CELL DISTRIBUTION WIDTH 15.7 % 11.6-14.4 H (BEAKER) (test code = 412) PLATELET COUNT (BEAKER) (test 170 K/CU MM 150-450 code = 756) MEAN PLATELET VOLUME (BEAKER) 10.8 fL 9.4-12.4 (test code = 754) NUCLEATED RED BLOOD CELLS 0 /100 WBC 0-0 (BEAKER) (test code = 413) (CELLAVISION MANUAL DIFF)2020-03-02 07:34:00 Test Item Value Reference Range Interpretation Comments NEUTROPHILS - REL 65 % (CELLAVISION)(BEAKER) (test code = 2816) LYMPHOCYTES - REL 4 % (CELLAVISION)(BEAKER) (test code = 2817) MONOCYTES - REL 2 % (CELLAVISION)(BEAKER) (test code = 2818) BANDS - REL (CELLAVISION)(BEAKER) 29 % 0-10 H (test code = 2826) NEUTROPHILS - ABS 6.89 K/ul 1.78-5.38 H (CELLAVISION)(BEAKER) (test code = 2830) LYMPHOCYTES - ABS 0.42 K/ul 1.32-3.57 L (CELLAVISION)(BEAKER) (test code = 2831) MONOCYTES - ABS 0.21 K/uL 0.30-0.82 L (CELLAVISION)(BEAKER) (test code = 2832) BANDS - ABS (CELLAVISION)(BEAKER) 3.07 K/uL 0.00-0.80 H (test code = 2840) TOTAL COUNTED (BEAKER) (test code = 100 1351) WBC MORPHOLOGY (BEAKER) (test code Normal = 487) PLT MORPHOLOGY (BEAKER) (test code Normal = 486) POLYCHROMATOPHILLIC RBCS(BEAKER) 1+ few (test code = 478) ARTIFACT (CELLAVISION)(BEAKER) Present (test code = 3432) PLATELET CONCENTRATION Adequate (CELLAVISION)(BEAKER) (test code = 3438) Fitness And Wellness Manager ID - Sabrina OverholtUser comments: Slide comments:COMPREHENSIVE METABOLIC [id number] 07:17:00 Test Item Value Reference Range Interpretation Comments TOTAL PROTEIN 4.1 gm/dL 6.0-8.3 L (BEAKER) (test code = 770) ALBUMIN (BEAKER) 2.4 g/dL 3.5-5.0 L (test code = 1145) ALKALINE PHOSPHATASE 43 U/L 40-150 (BEAKER) (test code = 346) BILIRUBIN TOTAL 2.0 mg/dL 0.2-1.2 H (BEAKER) (test code = 377) SODIUM (BEAKER) (test 137 meq/L 136-145 code = 381) POTASSIUM (BEAKER) 3.3 meq/L 3.5-5.1 L (test code = 379) CHLORIDE (BEAKER) 108 meq/L 98-107 H (test code = 382) CO2 (BEAKER) (test 23 meq/L 22-29 code = 355) BLOOD UREA NITROGEN 20 mg/dL 7-21 (BEAKER) (test code = 354) CREATININE (BEAKER) 0.87 mg/dL 0.57-1.25 (test code = 358) GLUCOSE RANDOM 128 mg/dL 70-105 H (BEAKER) (test code = 652) CALCIUM (BEAKER) 7.1 mg/dL 8.4-10.2 L (test code = 697) AST (SGOT) (BEAKER) 28 U/L 5-34 (test code = 353) ALT (SGPT) (BEAKER) 13 U/L 6-55 (test code = 347) EGFR (BEAKER) (test 87 mL/min/1.73 ESTIMA MACHO GFR IS code = 1092) sq m NOT ACCURATE CREATININE CLEARANCE IN PREDICTING GLOMERULAR FILTRATION RATE . ESTIMATED GFR I S NOT APPLICABLE FOR DIALYSIS PATIEN TS. Fitness And Wellness Manager ID - KELBY [facility] W/PLT COUNT & AUTO [id number] 13:26:00 Test Item Value Reference Range Interpretation Comments WHITE BLOOD CELL COUNT (BEAKER) 6.7 K/ L 3.5-10.5 (test code = 775) RED BLOOD CELL COUNT (BEAKER) 2.79 M/ L 4.63-6.08 L (test code = 761) HEMOGLOBIN (BEAKER) (test code = 7.9 GM/DL 13.7-17.5 L 410) HEMATOCRIT (BEAKER) (test code = 24.6 % 40.1-51.0 L 411) MEAN CORPUSCULAR VOLUME (BEAKER) 88.2 fL 79.0-92.2 (test code = 753) MEAN CORPUSCULAR HEMOGLOBIN 28.3 pg 25.7-32.2 (BEAKER) (test code = 751) MEAN CORPUSCULAR HEMOGLOBIN CONC 32.1 GM/DL 32.3-36.5 L (BEAKER) (test code = 752) RED CELL DISTRIBUTION WIDTH 15.5 % 11.6-14.4 H (BEAKER) (test code = 412) PLATELET COUNT (BEAKER) (test 198 K/CU MM 150-450 code = 756) MEAN PLATELET VOLUME (BEAKER) 10.1 fL 9.4-12.4 (test code = 754) NUCLEATED RED BLOOD CELLS 0 /100 WBC 0-0 (BEAKER) (test code = 413) NEUTROPHILS RELATIVE PERCENT 60 % (BEAKER) (test code = 429) LYMPHOCYTES RELATIVE PERCENT 29 % (BEAKER) (test code = 430) MONOCYTES RELATIVE PERCENT 9 % (BEAKER) (test code = 431) EOSINOPHILS RELATIVE PERCENT 1 % (BEAKER) (test code = 432) BASOPHILS RELATIVE PERCENT 1 % (BEAKER) (test code = 437) NEUTROPHILS ABSOLUTE COUNT 4.02 K/ L 1.78-5.38 (BEAKER) (test code = 670) LYMPHOCYTES ABSOLUTE COUNT 1.93 K/ L 1.32-3.57 (BEAKER) (test code = 414) MONOCYTES ABSOLUTE COUNT (BEAKER) 0.60 K/ L 0.30-0.82 (test code = 415) EOSINOPHILS ABSOLUTE COUNT 0.06 K/ L 0.04-0.54 (BEAKER) (test code = 416) BASOPHILS ABSOLUTE COUNT (BEAKER) 0.05 K/ L 0.01-0.08 (test code = 417) IMMATURE GRANULOCYTES-RELATIVE 0 % 0-1 PERCENT (BEAKER) (test code = 2801) Type and screen, [id number] 05:21:00 Test Item Value Reference Range Interpretation Comments ABO/RH AUTOMATED (BEAKER) (test A POSITIVE code = 2260) Ab Scrn (test code = 890-4) [facility]GATIVE [facility] [id number] 05:04:00 Test Item Value Reference Range Interpretation Comments TOTAL PROTEIN 4.4 gm/dL 6.0-8.3 L (BEAKER) (test code = 770) ALBUMIN (BEAKER) 2.6 g/dL 3.5-5.0 L (test code = 1145) ALKALINE PHOSPHATASE 52 U/L 40-150 (BEAKER) (test code = 346) BILIRUBIN TOTAL 1.0 mg/dL 0.2-1.2 (BEAKER) (test code = 377) SODIUM (BEAKER) (test 139 meq/L 136-145 code = 381) POTASSIUM (BEAKER) 4.2 meq/L 3.5-5.1 (test code = 379) CHLORIDE (BEAKER) 109 meq/L 98-107 H (test code = 382) CO2 (BEAKER) (test 24 meq/L 22-29 code = 355) BLOOD UREA NITROGEN 29 mg/dL 7-21 H (BEAKER) (test code = 354) CREATININE (BEAKER) 0.77 mg/dL 0.57-1.25 (test code = 358) GLUCOSE RANDOM 99 mg/dL 70-105 (BEAKER) (test code = 652) CALCIUM (BEAKER) 7.3 mg/dL 8.4-10.2 L (test code = 697) AST (SGOT) (BEAKER) 9 U/L 5-34 (test code = 353) ALT (SGPT) (BEAKER) 9 U/L 6-55 (test code = 347) EGFR (BEAKER) (test 100 ESTIMATE D GFR IS code = 1092) mL/min/1.73 sq NOT ACCURA TE m CREATININE CLEARANCE IN PREDICTING GLOMERULAR FILTRATION RATE . ESTIMATED GFR I S NOT APPLICABLE FOR DIALYSIS PATIEN TS. Fitness And Wellness Manager ID - EDASICBC W/PLT COUNT & AUTO [id number] 04:34:00 Test Item Value Reference Range Interpretation Comments WHITE BLOOD CELL COUNT (BEAKER) 7.5 K/ L 3.5-10.5 (test code = 775) RED BLOOD CELL COUNT (BEAKER) 2.42 M/ L 4.63-6.08 L (test code = 761) HEMOGLOBIN (BEAKER) (test code = 6.5 GM/DL 13.7-17.5 L 410) HEMATOCRIT (BEAKER) (test code = 21.5 % 40.1-51.0 L 411) MEAN CORPUSCULAR VOLUME (BEAKER) 88.8 fL 79.0-92.2 (test code = 753) MEAN CORPUSCULAR HEMOGLOBIN 26.9 pg 25.7-32.2 (BEAKER) (test code = 751) MEAN CORPUSCULAR HEMOGLOBIN CONC 30.2 GM/DL 32.3-36.5 L (BEAKER) (test code = 752) RED CELL DISTRIBUTION WIDTH 15.9 % 11.6-14.4 H (BEAKER) (test code = 412) PLATELET COUNT (BEAKER) (test 210 K/CU MM 150-450 code = 756) MEAN PLATELET VOLUME (BEAKER) 10.5 fL 9.4-12.4 (test code = 754) NUCLEATED RED BLOOD CELLS 0 /100 WBC 0-0 (BEAKER) (test code = 413) NEUTROPHILS RELATIVE PERCENT 61 % (BEAKER) (test code = 429) LYMPHOCYTES RELATIVE PERCENT 28 % (BEAKER) (test code = 430) MONOCYTES RELATIVE PERCENT 9 % (BEAKER) (test code = 431) EOSINOPHILS RELATIVE PERCENT 1 % (BEAKER) (test code = 432) BASOPHILS RELATIVE PERCENT 1 % (BEAKER) (test code = 437) NEUTROPHILS ABSOLUTE COUNT 4.61 K/ L 1.78-5.38 (BEAKER) (test code = 670) LYMPHOCYTES ABSOLUTE COUNT 2.14 K/ L 1.32-3.57 (BEAKER) (test code = 414) MONOCYTES ABSOLUTE COUNT (BEAKER) 0.65 K/ L 0.30-0.82 (test code = 415) EOSINOPHILS ABSOLUTE COUNT 0.05 K/ L 0.04-0.54 (BEAKER) (test code = 416) BASOPHILS ABSOLUTE COUNT (BEAKER) 0.05 K/ L 0.01-0.08 (test code = 417) IMMATURE GRANULOCYTES-RELATIVE 0 % 0-1 PERCENT (BEAKER) (test code = 2801) CBC W/PLT COUNT & AUTO [id number] 05:22:00 Test Item Value Reference Range Interpretation [...] PERCENT (BEAKER) (test code = 2801) Tissue [id number] 15:57:00 Test Item Value Reference Range Interpretation Comments Case Report (test code Surgical Pathology = 104) Report Case: [id number] Authorizing Provider: Heri Hook Collected: 02/25/2020 11:57 AM MD Juanita Ordering Location: [address] Received: 02/25/2020 01:35 PM Service Pathologist: Samy Mayfield MD Specimen: Biopsy, Gastric DIAGNOSIS (test code = [id number] 3220) FuZzEwMzNcZnRuYmpcdWMx IHtccnRmMVxlcGljOTIwMF flpsEuRIDgiHByV3Fnqyvp IOfeXE6bEQ2gjSbbwCSogS UcNZXwMsWkt6pkv198mSSq z5pwPLGQsjsnsOf7bTjdH6 0dc9W4NcqgS71bmGGkAVwx bGFpblxmczIwIFBBUlQgQS ZBZFGCXgvHNLMYZ8PWNTdd yWDpIO9QCQ1EEWYpAETCS2 OVGBcAHHpgJv0VJ5SWU0kI ZHAfSqSSV3PKJnTnV6VFFB JPUEFUSFkuXHBhciBORUdB UWdOHSIQP8PiVC6CPEXXVB 8XUKUKYDJHYZsSS5oKUJDD EYLTIBXYWDLyWU0KOHwCRj XTMVWPHTLPWdIMQb2IZL1k xHVaNDeSKqVJDP0pA1XIMo JZIFNUQUlOIEZPUiBIRUxJ S00GVPKVEQKkYNZgZyMMAN QPWyGvWNUxzi12CHJ6PuQt f6F2QCW5AGScAQGqr3bxMM VmbGFuZzEwMzNcZnRuYmpc tUAnFYLdBzJnt4czv354aN Swm9vyDXDpXfK5cURePFMd uNVoP903SMPcRRtzv8xws2 MdJIInjORuy8Z7MIGFilfh rBi6zIgjM76mf7R5PdbiY2 xuDJEjIGHsF2SbVV7uFITc Noy8HUR2XKA9EZAoBHKgA0 EsRL7yQVSamBLrHKx1a8mb tLahEOLbABT3z1goJWydto MrWG9vhb8uwGu1v8aujvNx FRNcIHSqeTDFXDHjJ6BhzD juKw9xzSq9nGtuAwgwZAL2 Egq5HM5awc26yfp3yFcsOW SrpoxxImA3GDmzHCQrxsgp LTj8HRgrVIPfdJT3RLZafI CnM0PuUNCoRU5mhso6VSX0 PEfjCQVnMtC4BSEgeYNmUH IihArsWZznr290YSF9AwLx XX9lZ1Uyp7Y7cB5oeRCyOS SgeAAbLdUkGFXvvo8waGPl NDcxd9ZwHZR8piD2bROteL TkPVRxAgR3PZakEW5wle14 ESBhTIN9qh5plGQgcIcxhp GzpMXfAYvpS9JgNNOwo103 QXRgG4EbRFRsy5V1hlVjAb JoKLVdyHT0esY7XYPiNM5s wrvvj9agJSpsINphHGHhuf M7adO6PTBfpXFbD6EcnU8r NXQrLN6yvineb7ywNIT3YR dsQJDwSYA7JcGxDQOph4At yvi7QbHbl2LwePVnBXadB7 9qe885ZWJhrfKqB3xbzHEb hszmkRRvyfjsGPuxejL1QV TkIJmubcxsSTHtJIcaR6ic ZsJvCYGtuZcuMHiak6PzZW YxXGZzMjJcdGFiXHRhYlx0 WBQdfXRnQNYyNaDiO3nmzf fvJnZKLYNta6idE0yuyTVV dQLtJ1VhLOpjatYcNKwuFB tuJKCwTMS7FN08KQijYFGl cn19 CPT Code(s) (test code r7qonPNxVPJoiUM3BiZnMK = 3357) Hbt7upb7GpoMHvxBTaESmv dRDoosZvcv55zDK6dU95QE 0yNAHvWsX1NDHpmuQ9Col6 LGMiAIVcyDYpO179o5taw2 osfwVyfXP7aZvyMOQkEUDo YWluXGZzMjAgODgzMDUsID w7QuMbDCXjuo8= CLINICAL HISTORY (test s7iccLNeMHNpxUW7NhZjVX code = 3356) Tnh7vmt7JqhKSozDXaBYvc bDYkfjMobu91nDV1cE87OT 4wTQZkAqI9NLXbokQ4Ney0 NDAxIIGktAPkP374v8hil3 inbuOshEY0fBewBRThBEWh BGzbRFQuRrXlY2WvvDRuaH 33VJA3sX5wnTMpSI0kvdKq YWdlXHBhcn0= SPECIMEN SOURCE (test s8qfdGRoWHTdxIU5BqZiNS code = 3377) Lak4wdk4RclDYwhJHvCKiv gQQeodWoxx25pLS8kX48MO 0oNSYcIzK4BVPhxiS9Oaj0 KGBlWSOsoYAuZ602g8apf8 uphfGbdRI4pBzoAQZnWDTa UTwmMADqXgErGY2oS9EpmU JpYyBccGFyfQ== GROSS DESCRIPTION (test r5tnxOKfWDTfxNF4VpUfAW code = 3366) Wfa5cew5HsxSJjiNWoBMin jKMpprJssm84oXZ8bW78TA 7sISWqZhI5UZCrfsP9Wjv0 BYKuRXSvrLErH536s4ufh8 acfuOprKL5dRslAXIfAPYq YWluXGZzMjAgVGhlIGNhc2 HynWBufwUyBQd5QCMsZwv2 IANdxB3nAx1edLKmbP5fjH 6ku83vXISczlAfkX7rmtWx YWJlbGVkIHdpdGggdGhlIH IajExxpwJfooRsnaJmmc0d eDqahqKixiOsBjcpj3VbqH AyDtnnzIQ3XpHvaqQqR50u o0zcrTMxy7QqaLRojGhqhR Iuk17poHovuXLvmI68FJCy xeK2qVXzqKItEgRwZ20ehs RzIHJhbmdpbmcgZnJvbSBs IZKePDTxOX3lXO2fOEAkRI AuMiBjbSBpbiBncmVhdGVz bHAunO8usvLlq51bMFVrBG MjuNBqpY8yrrXylxKlzYPq vGH8ZARdbW0kpO61kjZzhy TwBVEmQLH9ZNUNNE0yTF2F D4VvSMKeqa9= MICROSCOPIC DESCRIPTION m8oscTQbBVXjlXJ1CiEhHA (test code = 3371) Fdo3wfp7PyrFKvxPPgXHyg bLFcigNztp18uCE0kK84JK 1eOXWvAoO2VZWqlfB8Jco1 ANWdYWRuaFTuN476a9bbx5 mhhtPgqAV9oIttJHBoOGFv WXjaMYWlWhIeUWIcZf8oeE VkXHBhcn0= SPECIAL STUDIES (test s2yylJPxGNHhkTO5ZkUeXK code = 3376) Nnk6tuy5FkdRPyhQOhQOan xTJzmfZwsk60pJB9sY39GE 8jBEDhPdL3POHgeoB9Kbo6 CNYeSKXbsFXdC189XYXsFP YcmOxrcqq4nB16JXHdgS2w pKDiWXs5TGYvwrMmpYlngZ 8wGzNsLpJsAzIJlPLotF70 VFVnehN9OERit72rb7JxkA ptjmNfIHSyUJpbT7n5VBPu SEXlUVO0m6Dap5MnnR9byN 5mtAwggM7udSRyiNB2gaqx n7Brq2ExZ8jmkSYqfDNqeq PeHPNdnuHWVU4FErJSOA6s J1UHICqKPlMWVVVJXfhpdK UaWOLkvyQlk2pmJ0uzOMKk UUA5XS8zfaGiByQuBC6erF 41c0Awu80po15ncM5ibVDa bdDvV12lyPAvrJPtd9NtVK ErohXizOX2IRPyBVjmnsvh b5r5uRX0wEIoxWOrzWK0wU JjuKAiBARFbUPcUXYuq901 ie8qIGFmaNBcscOboE3eCM bzftfduNTcSA9eLDGeTCCv VHFiHB70vhDdRI0gzHUqz2 nebtIviKHfy7BxfXK5SIMn eOKmvigoJg3vVG87FIIbAZ ltqM9tyLVparZnGC7wJW4j Y6C7lFGtNMZdcvCzl6gsRM naYS7yLKDzzPdgMfjwAGHa GMFzmwLgjPZ0TEDkgVZdYS OdkSKyERzlpPZsx1yps7Tc X5dnwArnjQX6QFEyN0woxU QmpDS0MOF0hA8hTAspscWb FLOnt8LpYORdQUKzLrU7cH 5fDJO1AnQBxRxhCFI8WjA4 SNqfEHDfTB8tHOfyVProO6 RqsTChFNFAIPFyk8uoT1oa ZNUtc5XhqG6spMV3xRHjGX HtyPE2CUAuGGX2ZXiijFDu TEWgYWYfvPVbkWNsTa9mvR LoK4KgN5svuqBttFTfhRT3 zOIiCQefioYyUEW5EZShzD 9hGG3tFAElfXYxPH4rcOZt GRVmEHNrMTAhADHfs4IvNR Rxgj15NNZlJjddzLgjFGCl Gz0bCp6gFGYipxDoIPA4Fd XWMO4pgzdwfFKzeAinmo1o FKcyQXOUFNTsTZJqOZF5XG NhvR1xEOL1rNI5LWB2W7ca F0inOULljgFrAE3eCPKnoZ QsrxVsUMbsXP6jnKTkGEUi t3RvqsilQQCxRCX9IHH4NZ wjMXUhGKFqTa3tBQEumH0y Y7AlOFL5tbDbb0FgXuOCoP KqkU81kKTxud35VEGcEEIt D0LeFORiMWBfJArgdmBdxK olVZHly19bmWQgvlVkl3Bu oiRcFILjA8ebVVGonJGczE Hmr9PvjQ1deFPvywIyVMH9 hPBgARVkfL1dVTHrdQvcSA QbpJ5qO1QyLEcfCn7lJREy jnihTO8wrb15ZP3ksxAhMG 1gxjFdQS92dgRpOaLfYZh6 KJnCMWwKZPy5LHCoauNtrM TghFSeFENvvR2imDWvMg9k bSBoaWdoIGNvbXBsZXhpdH uoM5xbimteBNebfHYin8Cr kM5ftDU8NNC7yQ7vCbfmEC J9 Gross assessment was [facility] performed at ([facility], = [phone]) Department of Pathology, [address] [place] [id number], Technical component was [facility] performed at ([facility], = [phone]) Department of Pathology, [address] [place] [phone], Professional component [facility] was performed at ([facility], code = 2779) Department of Pathology, [address] [place] [address], [place] [address], [facility] AngelesTISSUE [id number] 15:57:00Surgical Pathology Report Case: [id number] Authorizing Provider: Heri Hook Collected: 02/25/2020 11:57 AM MD Juanita OrderingLocation: [facility] 09 [facility] Received: 02/25/2020 01:35 PM Service Pathologist: Samy Mayfield MD Specimen: Biopsy, Gastric PART A GASTRIC BIOPSY:OXYNTIC MUCOSA WITH NONSPECIFIC REACTIVE GASTROPATHY.NEGATIVE FOR INTESTINAL METAPLASIA, DYSPLASIA,OR INVASIVE CARCINOMA.WARTHIN STARRY STAIN FOR HELICOBACTER IS NEGATIVE. Signing Pathologist Direct Phone Line: [phone] signed by Samy Mayfield MD on 02/26/2020 at 3:[id number], [id number] hemorrhageA. Gastric The case is received fixed in formalin in one container labeled with the patient's information and "gastric biopsy" and consists of multiple soft, yellow-sifuentes tissue fragments ranging from less than 0.1 to 0.2 cm in greatest dimension. The specimen issubmitted in toto in cassette A1. MD/plPerformedThe interpretation of this case included the use of immunohistochemistry or special stains.BLOCK A1- WARTHIN STARRYControl Slides Examined: In-house known positive controls were evaluated along with the test tissue. These control slides run alongside of the patients sample show appropriate staining. Internal positive and negative controls when available are evaluated Immunohistochemistry technical testing was performed at [facility], Pathology Laboratory where it was developed and [...] as qualified to perform high complexity clinicallaboratory testing.[facility], Department of Pathology, [address] [place] [address], [facility], Department of Pathology, [address] [place] [address], [facility] of [facility]ology, [address] [place] [address], Etcatbxjqk and [id number] 10:13:00 Test Item Value Reference Range Interpretation Comments Hemoglobin (test code = 7.3 13.7- 17.5 GM/DL L 786-4) Hematocrit (test code = 22.7 % 40.1-51 L 4544-3) ANDREW (test code = ANDREW) Fitness And Wellness Manager ID - [id number] Lab Interpretation (test Abnormal code = 11146-2) [facility] AngelesHEMOGLOBIN AND [id number] 10:13:00 Test Item Value Reference Range Interpretation Comments HEMOGLOBIN (BEAKER) (test code = 7.3 GM/DL 13.7-17.5 L 410) HEMATOCRIT (BEAKER) (test code = 22.7 % 40.1-51.0 L 411) Fitness And Wellness Manager ID - [id number] METABOLIC [id number] 05:14:00 Test Item Value Reference Range Interpretation [...] S NOT APPLICABLE FOR DIALYSIS PATIEN TS. Fitness And Wellness Manager ID - KELBY MCBC W/PLT COUNT & AUTO [id number] 04:36:00 Test Item Value Reference Range Interpretation [...] PERCENT (BEAKER) (test code = 2801) CT, [id number] 01:07:00Unlisted Reason for Exam - Click Yes and Enter Reason Below->NoWill this procedure require oral contrast?->No [facility] : 1950 Sex: MFINAL REPORT [...] additional findings. Signed: Ashutosh De La Garza Verified Date/Time: 02/26/2020 01:07:03 CT abdomen/pelvis without & with IV [id number] 01:07:00Interface, External Ris In - 02/26/2020 10:26 [...] additional findings. Signed: Ashutosh De La Garza Verified Date/Time: 02/26/2020 01:07:03 [facility] W/PLT COUNT & AUTO [id number] 23:58:00 Test Item Value Reference Range Interpretation [...] (BEAKER) (test code = 2801) HEMORRHAGE IMAGING, [id number] 14:18:00Unlisted Reason for Exam - Click Yes and Enter Reason Below->No [facility] : 1950 Sex: MFINAL REPORT PROCEDURE: HEMORRHAGE STUDY with RBCs CPT CODE: 36222 INDICATION: Gastrointestinal Bleeding PROTOCOL: 21.8 mCi of [...] the mid to distal small bowel. Signed: Bret Colmenares MDReport Verified Date/Time: 02/25/2020 14:18:29 Reading Location: [address] Reading Room [place] GI bleed [id number] 14:18:00Interface, External Ris In - 02/25/2020 2:20 PM CSTFINAL REPORT PROCEDURE: HEMORRHAGE STUDY with RBCs CPT CODE: 46540 INDICATION: Gastrointestinal Bleeding PROTOCOL: 21.8 mCi of [...] the mid to distal small bowel. Signed: Bret Colmenares MDReport Verified Date/Time: 02/25/2020 14:18:29 Reading Location: [address] Reading Room [facility] DiegoFL, FLUORO, NON-SPECIFIC, UP TO 1 [id number] 12:05:00Reason for exam:->gi bleedCOMMUNITY HOS[facility] THE [facility]ULAName: RAMSES VAZQUEZ : 1950 Sex: MFluoroscopic unit utilized for a procedure performed in the OR. No interpretation was requested. Refer to the operative report for findings. Refer to PACS for patient radiation dose information.FL fluoro non-specific up to 1 [id number] 12:05:00 Interface, External Ris In - 02/25/2020 12:28 PM CSTFluoroscopic unit utilized for a procedure performed in the OR. No interpretation was requested. Refer to the operative report for findings. Referto PACS for patient radiation dose information.[facility] AngelesHEMOGLOBIN AND [id number] 10:02:00 Test Item Value Reference Range Interpretation Comments HEMOGLOBIN (BEAKER) (test code = 7.9 GM/DL 13.7-17.5 L 410) HEMATOCRIT (BEAKER) (test code = 24.7 % 40.1-51.0 L 411) Fitness And Wellness Manager ID - [id number] METABOLIC [id number] 08:10:00 Test Item Value Reference Range Interpretation [...] S NOT APPLICABLE FOR DIALYSIS PATIEN TS. Fitness And Wellness Manager ID - ADMINSpecimen slightly ictericCBC W/PLT COUNT & AUTO [id number] 08:01:00 Test Item Value Reference Range Interpretation [...] Not Detected, (test code = Negative, See 28371-4) external report for linked test SARS-COV-2 [facility] PERFORMING LAB (test code = 20754-8) ANDREW (test code = Negative result for [...] Rankin SARS-CoV-2 assay. Fact Sheet for Healthcare Providers:https://www.JamHub.[employer] One's [employer] Me (NOOM)/kd/RT_SA PW-IsJ-5_SQW_Mvrz_Kxehv_ 51-047109.pdf Fact Sheet for Healthcare Patients:https://www.MyMosa.[employer] (NOOM)/kd/RT_SAR X-HnI-3_Zzodojn_Pyri_Wrf et_EN_[id number].pdf Performing Laboratory:[facility] [place] [address] [facility]ARS[facility] ([facility])2020-02-25 07:03:00 Test Item Value Reference Range Interpretation Comments SARS-COV2/RT-PCR (test Negative Not Detected, Negative, code = 4682449) See external report for linked test SARS-COV-2 PERFORMING LAB [facility] (test code = 2290580) Negative result for this test determines that [...] the Rankin SARS-CoV-2 assay.Fact Sheet for Healthcare Providers:https://www.molecular.rankin/kd/ WH_OORX-GwZ-9_VSK_Lsie_Oukfx_65-634380.pdfFact Sheet for Healthcare Patients:https://www.molecular.ab lisa/kd/IZ_SRPS-DhP-9_Hmzbymx_Fdzx_Fwbzx_PV_68-066228V3.pdfPerforming Laboratory:[facility] [place] [address] BASIC METABOLIC [id number] 13:35:00 Test Item Value Reference Range Interpretation [...] S NOT APPLICABLE FOR DIALYSIS PATIEN TS. Fitness And Wellness Manager ID - CAROL[place] FCBC W/PLT COUNT & AUTO [id number] 13:35:00 Test Item Value Reference Range Interpretation [...] PERCENT (BEAKER) (test code = 2801) Prothrombin time/[id number] 13:30:00 Test Item Value Reference Range Interpretation [...] valves. Lab Interpretation Abnormal (test code = 07051-1) [facility]HROM[facility]/[id number] 13:30:00 Test Item Value Reference Range Interpretation [...] mechanical heart valves.CBC W/PLT COUNT & AUTO [id number] 05:34:00 Test Item Value Reference Range Interpretation [...] (BEAKER) (test code = 2801) BASIC METABOLIC [id number] 05:14:00 Test Item Value Reference Range Interpretation [...] S NOT APPLICABLE FOR DIALYSIS PATIEN TS. Fitness And Wellness Manager ID - KELBY MBASIC METABOLIC [id number] 07:25:00 Test Item Value Reference Range Interpretation [...] S NOT APPLICABLE FOR DIALYSIS PATIEN TS. Fitness And Wellness Manager ID - STEVE [id number] 06:57:00 Test Item Value Reference Range Interpretation Comments Magnesium (test code = 1.8 mg/dL 1.6-2.6 46905-6) ANDREW (test code = ANDREW) Fitness And Wellness Manager ID - STEVE L Lab Interpretation (test Normal code = 90374-3) [facility]2020-[facility]-20 06:57:00 Test Item Value Reference Range Interpretation Comments Phosphorus (test code = 3.9 mg/dL 2.3-4.7 2777-1) ANDREW (test code = ANDREW) Fitness And Wellness Manager ID - STEVE L Lab Interpretation (test Normal code = 42635-6) [facility] Angeles[facility]IUM2020-12-20 06:57:00 Test Item Value Reference Range Interpretation Comments MAGNESIUM (BEAKER) (test code = 1.8 mg/dL 1.6-2.6 627) Fitness And Wellness Manager ID - STEVE [id number] 06:57:00 Test Item Value Reference Range Interpretation Comments PHOSPHORUS (BEAKER) (test code = 3.9 mg/dL 2.3-4.7 604) Fitness And Wellness Manager ID - STEVE LCBC (HEMOGRAM ONLY)2020-02-08 06:13:00 Test Item Value Reference [...] (BEAKER) (test code = 413) HEMOGLOBIN AND [id number] 21:14:00 Test Item Value Reference Range Interpretation Comments HEMOGLOBIN (BEAKER) (test code = 8.0 GM/DL 13.7-17.5 L 410) HEMATOCRIT (BEAKER) (test code = 24.8 % 40.1-51.0 L 411) Fitness And Wellness Manager ID - [id number]-Glucose [id number] 16:13:00 Test Item Value Reference Range Interpretation Comments POC-Glucose Meter (test 67 mg/dL 70-110 L : TE STED AT [facility] code = 1538) 20 [facility], 770 30: Fitness And Wellness Manager/Techni harleen ID = [id number] for QUEEN OCONNELL Lab Interpretation (test Abnormal code = 34623-1) [facility] Angeles[facility]CT-GLUCOSE [id number] 16:13:00 Test Item Value Reference Range Interpretation Comments POC-GLUCOSE METER 67 mg/dL 70-110 L : TESTED A T [facility] 6720 (BEAKER) (test code = [facility], 1538) [address]: Fitness And Wellness Manager/Techni harleen ID = [id number] for QUEEN MCKEE POCT-GLUCOSE [id number] 10:55:00 Test Item Value Reference Range Interpretation Comments POC-GLUCOSE METER 79 mg/dL 70-110 : [facility] (BEAKER) (test code = [facility], 1538) [address]: Fitness And Wellness Manager/Techni harleen ID = [id number] for QUEEN MCKEE CBC (HEMOGRAM ONLY)2020-02-07 07:05:00 [...] (BEAKER) (test code = 413) BASIC METABOLIC [id number] 06:14:00 Test Item Value Reference Range Interpretation [...] S NOT APPLICABLE FOR DIALYSIS PATIEN TS. Fitness And Wellness Manager ID - RANJITH [id number] 06:02:00 Test Item Value Reference Range Interpretation Comments MAGNESIUM (BEAKER) (test code = 1.7 mg/dL 1.6-2.6 627) Fitness And Wellness Manager ID - RANJITH [id number] 06:02:00 Test Item Value Reference Range Interpretation Comments PHOSPHORUS (BEAKER) (test code = 3.9 mg/dL 2.3-4.7 604) Fitness And Wellness Manager ID - RANJITH WHEMOGLOBIN AND [id number] 19:25:00 Test Item Value Reference Range Interpretation Comments HEMOGLOBIN (BEAKER) (test code = 9.3 GM/DL 13.7-17.5 L 410) HEMATOCRIT (BEAKER) (test code = 29.5 % 40.1-51.0 L 411) Fitness And Wellness Manager ID - [id number] METABOLIC [id number] 05:26:00 Test Item Value Reference Range Interpretation [...] S NOT APPLICABLE FOR DIALYSIS PATIEN TS. Fitness And Wellness Manager ID - [id number] 05:25:00 Test Item Value Reference Range Interpretation Comments MAGNESIUM (BEAKER) (test code = 1.9 mg/dL 1.6-2.6 627) Fitness And Wellness Manager ID - [id number] 05:25:00 Test Item Value Reference Range Interpretation Comments PHOSPHORUS (BEAKER) (test code = 4.0 mg/dL 2.3-4.7 604) Fitness And Wellness Manager ID - EDASIHEMOGLOBIN AND [id number] 04:53:00 Test Item Value Reference Range Interpretation [...] (BEAKER) (test code = 413) BASIC METABOLIC [id number] 05:32:00 Test Item Value Reference Range Interpretation [...] S NOT APPLICABLE FOR DIALYSIS PATIEN TS. Fitness And Wellness Manager ID - KELBY [id number] 05:31:00 Test Item Value Reference Range Interpretation Comments MAGNESIUM (BEAKER) (test code = 1.9 mg/dL 1.6-2.6 627) Fitness And Wellness Manager ID - KELBY [id number] 05:31:00 Test Item Value Reference Range Interpretation Comments PHOSPHORUS (BEAKER) (test code = 4.4 mg/dL 2.3-4.7 604) Fitness And Wellness Manager ID - KELBY MCBC (HEMOGRAM ONLY)2020-02-05 05:18:00 [...] (BEAKER) (test code = 413) HEMOGLOBIN AND [id number] 05:07:00 Test Item Value Reference Range Interpretation Comments HEMOGLOBIN (BEAKER) (test code = 7.2 GM/DL 13.7-17.5 L 410) HEMATOCRIT (BEAKER) (test code = 21.8 % 40.1-51.0 L 411) HEMOGLOBIN AND [id number] 13:54:00 Test Item Value Reference Range Interpretation Comments HEMOGLOBIN (BEAKER) (test code = 8.5 GM/DL 13.7-17.5 L 410) HEMATOCRIT (BEAKER) (test code = 26.2 % 40.1-51.0 L 411) Fitness And Wellness Manager ID - [id number]-COV2/RT-PCR ([facility])2020-02-04 11:03:00 Test Item Value Reference Range Interpretation Comments SARS-COV2/RT-PCR (test Negative Not Detected, Negative, code = 4245053) See external report for linked test SARS-COV-2 PERFORMING LAB [facility] (test code = 7176379) Negative result for this test determines that [...] 564(g) of the Act.Fact Sheet for Healthcare Providers:https://www.Sequella/sites/default/files/product/documents/Fact_Shee s_GV_Jxywdkdqh_Gtqb_CXTY-UiT-1.pdfFact Sheet for Healthcare Patients:https://www.Sequella/sites/default/files/product/ documents/Rrwn_Ilqzw_Pqwgcswc_Ajvq_IRQE-LfZ-1.pdfPerforming Laboratory:[facility], [place] [id number] 04:57:00 Test Item Value Reference Range Interpretation Comments Ferritin (test code = 60.51 ng/mL 5-275 2276-4) ANDREW (test code = ANDREW) Fitness And Wellness Manager ID - ADMIN Lab Interpretation (test Normal code = 70485-1) [facility] AngelesFERRITIN2020-12-16 04:57:00 Test Item Value Reference Range Interpretation Comments FERRITIN (BEAKER) (test code = 60.51 ng/mL 5.00-275.00 361) Fitness And Wellness Manager ID - ADMINTroponin [id number] 02:46:00 Test Item Value Reference Range Interpretation Comments Troponin I (test code = <0.01 0-0.03 08937-1) ANDREW (test code = ANDREW) Troponin I [...] acute neurological disease, and persistent tachyarrhythmia.Opera dima LAMA M Lab Interpretation (test Normal code = 60055-2) [facility] [id number] 02:46:00 Test Item Value Reference Range Interpretation [...] failure, acidosis, acute neurological disease, and persistent tachyarrhythmia.Fitness And Wellness Manager ID - KELBY JEMMAORH, manual 2020-02-04 02:41:00 Test Item Value Reference Range Interpretation Comments ABO Grouping (test code = 2588) A Rh Factor (test code = 2589) POS [facility] [id number] 23:29:00 Test Item Value Reference Range Interpretation [...] failure, acidosis, acute neurological disease, and persistent tachyarrhythmia.Fitness And Wellness Manager ID - BSIron, TIBC, % sat. (without ferritin)2020-02-03 23:28:00 Test Item Value Reference Range Interpretation Comments Iron (test code = 2498-4) 13.0 ug/dL 40-160 L TIBC (test code = 2500-7) 298 ug/dL 250-450 Iron % Saturation (test code 4 % 20-55 L = 2502-3) ANDREW (test code = ANDREW) Fitness And Wellness Manager ID - BS Lab Interpretation (test Abnormal code = 98575-1) [facility], TIBC, % SAT. (WITHOUT FERRITIN)2020-02-03 23:28:00 Test Item Value Reference Range Interpretation Comments IRON (BEAKER) (test code = 547) 13.0 ug/dL 40.0-160.0 L TOTAL IRON BINDING CAPACITY 298 ug/dL 250-450 (BEAKER) (test code = 769) IRON % SATURATION (2) (BEAKER) 4 % 20-55 L (test code = 2590) Fitness And Wellness Manager ID - BSCOMPREHENSIVE METABOLIC [id number] 22:46:00 Test Item Value Reference Range Interpretation [...] S NOT APPLICABLE FOR DIALYSIS PATIEN TS. Fitness And Wellness Manager ID - [id number] 22:45:00 Test Item Value Reference Range Interpretation Comments MAGNESIUM (BEAKER) (test code = 1.9 mg/dL 1.6-2.6 627) Fitness And Wellness Manager ID - [id number] 22:45:00 Test Item Value Reference Range Interpretation Comments PHOSPHORUS (BEAKER) (test code = 4.1 mg/dL 2.3-4.7 604) Fitness And Wellness Manager ID - BSCBC W/PLT COUNT & AUTO [id number] 22:31:00 Test Item Value Reference Range Interpretation [...] 0-1 PERCENT (BEAKER) (test code = 2801) [id number] 00:00:00Ordered by an unspecified provider.[facility]
[2020-03-11 09:36] LABS: Absolute Lymphocytes (CBC) 0.7 K/uL (0.7-4.9); Basophils % 1.2 % (0-1.3); Hematocrit 27.5 % (39.6-49.0); Lymphocytes % 12.3 % (15.3-44.8); MPV 8.1 fL (7.6-11.3); RBC Red Blood Cell Count 3.21 M/uL (4.33-5.43)
[2020-03-11 09:51] LABS: Protime INR 1.1
[2020-03-11 09:52] LABS: ALT/SGPT 23 U/L (12-78); AST/SGOT 18 U/L (15-37); Alkaline Phosphatase 55 U/L (45-117); BUN Blood Urea Nitrogen 20 mg/dL (7-18); Bicarbonate 26 mmol/L (21-32); Bilirubin Direct < 0.1 mg/dL (0-0.2); Bilirubin Total 0.3 mg/dL (0.2-1.0); Glucose Level 120 mg/dL (74-106); Magnesium 2.2 mg/dL (1.8-2.4); NT PRO-BNP 560 pg/mL (<125); Potassium 3.6 mmol/L (3.5-5.1); Protein, Total 4.9 g/dL (6.4-8.2); Sodium Level 140 mmol/L (136-145); Troponin (Emerg Dept Use Only) 0.03 ng/mL (0.0-0.045)
[2020-03-11 11:12] LABS: Urine Blood NEGATIVE (NEG); Urine Glucose NEGATIVE (NEG); Urine Protein NEGATIVE (NEG)
--- NOTE | 2020-03-11 12:38 | ER ---
Nurse's Notes [facility] Name: Humberto Medina Age: 69 yrs Sex: Male : 1950 Arrival Date: 03/11/2020 Time: 08:41 Bed 14 Private MD: Dustin Pack C Diagnosis: Lower GI bleeding;Anemia, unspecified Presentation: 03/11 09:01 Chief complaint: Patient states: black stools and fatigue that began yesterday. Pt ss reports he has a hx of GI bleeding and had a vessel in his stomach at [facility] "clipped.". Coronavirus screen: Client denies travel out of the [place] in the last 14 days. Ebola Screen: Patient denies exposure to infectious person. Patient denies travel to an Ebola-affected area in the 21 days before illness onset. Initial Sepsis Screen: Does the patient meet any 2 criteria? No. Patient's initial sepsis screen is negative. Does the patient have a suspected source of infection? No. Patient's initial sepsis screen is negative. Risk Assessment: Do you want to hurt yourself or someone else? Patient reports no desire to harm self or others. Onset of symptoms was March 10, 2020. 09:01 Method Of Arrival: Ambulatory ss 09:01 Acuity: FORD 3 ss Historical: - Allergies: 09:06 No Known Allergies; ss - PMHx: 09:06 Hypertension; Pacemaker; Pancreatitis; Ulcers; ss - PSHx: 09:06 Cholecystectomy; Gastric Bypass; ss - Immunization history:: Adult Immunizations up to date. - Social history:: Smoking status: Reported history of juuling and/or vaping. Screenin:14 Abuse screen: Denies threats or abuse. Denies injuries from another. Nutritional sv screening: No deficits noted. Tuberculosis screening: No symptoms or risk factors identified. Fall Risk None identified. Assessment: 09:20 General: Appears in no apparent distress. comfortable, well developed, Behavior is sv calm, cooperative, appropriate for age. Pain: Denies pain. Neuro: Level of Consciousness is awake, alert, obeys commands, Oriented to person, place, time, situation, Moves all extremities. Full function. Respiratory: Airway is patent Respiratory effort is even, unlabored, Respiratory pattern is regular, symmetrical. GI: Reports rectal bleeding. Derm: Skin is pale. Musculoskeletal: Range of motion: intact in all extremities. 10:34 Reassessment: Patient appears in no apparent distress at this time. No changes from sv previously documented assessment. Patient and/or family updated on plan of care and expected duration. Pain level reassessed. Patient is alert, oriented x 3, equal unlabored respirations, skin warm/dry/pink. 11:30 Reassessment: Patient appears in no apparent distress at this time. No changes from sv previously documented assessment. Patient and/or family updated on plan of care and expected duration. Pain level reassessed. Patient is alert, oriented x 3, equal unlabored respirations, skin warm/dry/pink. 12:21 Reassessment: Pt currently in CT. sv 12:29 Reassessment: Patient appears in no apparent distress at this time. No changes from sv previously documented assessment. Patient and/or family updated on plan of care and expected duration. Pain level reassessed. Patient is alert, oriented x 3, equal unlabored respirations, skin warm/dry/pink. 12:57 Reassessment: Patient appears in no apparent distress at this time. Patient and/or sv family updated on plan of care and expected duration. Pain level reassessed. Patient is alert, oriented x 3, equal unlabored respirations, skin warm/dry/pink. 16:41 Reassessment: Report given to [facility]. sv Vital Signs: 09:01 BP 114 / 54; Pulse 80; Resp 18; Temp 98.4(TE); Pulse Ox 98% ; Weight 99.79 kg; Height 5 ss ft. 9 in. (175.26 cm); Pain 0/10; 09:54 BP 109 / 49; Pulse 69 MON; Resp 20; Pulse Ox 99% on R/A; sv 10:51 BP 108 / 48; Pulse 65; Resp 17; Pulse Ox 100% on R/A; sv 11:45 BP 115 / 51; Pulse 69; Resp 19; Pulse Ox 99% ; sv 12:00 BP 211 / 93; Pulse 54; Resp 15; Pulse Ox 99% ; sv 13:00 BP 191 / 87; Pulse 59; Resp 20; Pulse Ox 99% ; sv 13:45 BP 207 / 97; Pulse 58; Resp 16; Pulse Ox 100% on R/A; sv 14:30 BP 199 / 94; Pulse 57; Resp 16; Pulse Ox 100% on R/A; sv 09:01 Body Mass Index 32.49 (99.79 kg, 175.26 cm) ss 09:54 Sinus Rhythm sv ED Course: 08:41 Patient arrived in ED. mr 08:41 Dustin Pack MD is Private Physician. mr 08:53 Rush Flannery MD is Attending Physician. tw4 08:59 Mayte Castro RN is Primary Nurse. sv 09:06 Triage completed. ss 09:06 Arm band placed on right wrist. ss 09:14 ED physician to see patient. sv 09:14 Patient has correct armband on for positive identification. Placed in gown. Bed in low sv position. Call light in reach. school lunch monitor on. Pulse ox on. NIBP on. Door closed. Warm blanket given. Head of bed elevated. 09:20 Inserted saline lock: 20 gauge in right hand, using aseptic technique. Blood collected. sv Flushed right hand with 2 ml normal saline. 09:25 EKG done, by ED staff, reviewed by Rush Flannery MD. sv 09:36 Awaiting lab results. sv 11:30 Warm blanket given. sv 12:24 CT Abdomen - Angio In Process Unspecified. EDMS 12:24 Pelvis Angio In Process Unspecified. EDMS 12:29 Patient moved back from CT. sv 15:25 No provider procedures requiring assistance completed. Patient transferred, IV remains sv in place. intact. 15:37 transfer transportation to receiving facility. sv Administered Medications: No medications were administered Outcome: 12:38 ER care complete, transfer ordered by . tw4 14:45 Transferred by ground EMS to [facility], Transfer form completed. sv X-rays sent w/ patient. Note: Report given to Sonal MENDEZ 14:45 Condition: stable 14:45 Instructed on the need for transfer. 17:10 Patient left the ED. sv Signatures: Dispatcher [employer] EDMS Mayte Castro, Farrah Tracy RN Pamela Brown, Rush Salazar RN, MD MD tw4
--- NOTE | 2020-03-11 12:39 | EDPHYS ---
Physician Documentation [facility] Name: Humberto Medina Age: 69 yrs Sex: Male : 1950 Arrival Date: 03/11/2020 Time: 08:41 Bed 14 Private MD: Dustin Pack C ED Physician Rush Flannery HPI: 03/11 09:59 This 69 yrs old Male presents to ER via Ambulatory with complaints of Rectal tw4 Bleeding. 09:59 The patient presents to the emergency department with bleeding from the rectum/anus, tw4 that is moderate. Onset: The symptoms/episode began/occurred 2 day(s) ago. Context: the patient is post surgical, on March 04, 2020. Modifying factors: The symptoms are alleviated by nothing, The symptoms are aggravated by nothing. Associate signs and symptoms: The patient has no apparent associated signs or symptoms. The patient has not experienced similar symptoms in the past. Historical: - Allergies: 09:06 No Known Allergies; ss - PMHx: 09:06 Hypertension; Pacemaker; Pancreatitis; Ulcers; ss - PSHx: 09:06 Cholecystectomy; Gastric Bypass; ss - Immunization history:: Adult Immunizations up to date. - Social history:: Smoking status: Reported history of juuling and/or vaping. ROS: 09:59 Constitutional: Negative for fever, chills, and weight loss, Eyes: Negative for injury, tw4 pain, redness, and discharge, Cardiovascular: Negative for chest pain, palpitations, and edema, Respiratory: Negative for shortness of breath, cough, wheezing, and pleuritic chest pain. 09:59 Back: Negative for injury and pain, MS/Extremity: Negative for injury and deformity, Skin: Negative for injury, rash, and discoloration. 09:59 Abdomen/GI: Positive for rectal bleeding. Exam: 09:59 Constitutional: This is a well developed, well nourished patient who is awake, alert, tw4 and in no acute distress. Head/Face: Normocephalic, atraumatic. Chest/axilla: Normal chest wall appearance and motion. Nontender with no deformity. No lesions are appreciated. Cardiovascular: Regular rate and rhythm with a normal S1 and S2. No gallops, murmurs, or rubs. Normal PMI, no JVD. No pulse deficits. Respiratory: Lungs have equal breath sounds bilaterally, clear to auscultation and percussion. No rales, rhonchi or wheezes noted. No increased work of breathing, no retractions or nasal flaring. Abdomen/GI: Soft, non-tender, with normal bowel sounds. No distension or tympany. No guarding or rebound. No evidence of tenderness throughout. Back: No spinal tenderness. No costovertebral tenderness. Full range of motion. MS/ Extremity: Pulses equal, no cyanosis. Neurovascular intact. Full, normal range of motion. Neuro: Awake and alert, GCS 15, oriented to person, place, time, and situation. Cranial nerves II-XII grossly intact. Motor strength 5/5 in all extremities. Sensory grossly intact. Cerebellar exam normal. Normal gait. Vital Signs: 09:01 BP 114 / 54; Pulse 80; Resp 18; Temp 98.4(TE); Pulse Ox 98% ; Weight 99.79 kg; Height 5 ss ft. 9 in. (175.26 cm); Pain 0/10; 09:54 BP 109 / 49; Pulse 69 MON; Resp 20; Pulse Ox 99% on R/A; sv 10:51 BP 108 / 48; Pulse 65; Resp 17; Pulse Ox 100% on R/A; sv 11:45 BP 115 / 51; Pulse 69; Resp 19; Pulse Ox 99% ; sv 12:00 BP 211 / 93; Pulse 54; Resp 15; Pulse Ox 99% ; sv 13:00 BP 191 / 87; Pulse 59; Resp 20; Pulse Ox 99% ; sv 13:45 BP 207 / 97; Pulse 58; Resp 16; Pulse Ox 100% on R/A; sv 14:30 BP 199 / 94; Pulse 57; Resp 16; Pulse Ox 100% on R/A; sv 09:01 Body Mass Index 32.49 (99.79 kg, 175.26 cm) ss 09:54 Sinus Rhythm sv MDM: 08:53 Patient medically screened. tw4 09:59 Data reviewed: vital signs, nurses notes. 03/11 08:53 Order name: Basic Metabolic Panel; Complete Time: 10:32 03/11 10:32 Interpretation: Normal except: CL 110; BUN 20; GLUC 120. 03/11 08:53 Order name: CBC with Diff; Complete Time: 10:32 03/11 10:32 Interpretation: Normal except: WBC 5.9; RBC 3.21; HGB 8.9; HCT 27.5; SHANTELLE% 82.9; LYM% tw4 12.3; MN% 2.9; PLT 391. 03/11 08:53 Order name: LFT's; Complete Time: 10:32 tw4 03/11 10:33 Interpretation: Normal except: ALB 2.0; TP 4.9; A/G 0.7. 03/11 08:53 Order name: Magnesium; Complete Time: 10:32 tw03/11 10:33 Interpretation: Within normal limits: MG 2.2. 03/11 08:53 Order name: NT PRO-BNP; Complete Time: 10:32 03/11 10:33 Interpretation: Normal except: NT PRO-BNP 560. 03/11 08:53 Order name: PT-INR; Complete Time: 10:32 03/11 10:33 Interpretation: Normal except: PT 13.0. 03/11 08:53 Order name: Troponin (emerg Dept Use Only); Complete Time: 10:32 03/11 10:33 Interpretation: Within normal limits: TROPED 0.03. 03/11 08:53 Order name: EKG; Complete Time: 08:54 03/11 09:21 Order name: Type And Screen; Complete Time: 11:21 sv 03/11 11:08 Order name: Urine Dipstick--Ancillary (enter results); Complete Time: 11:21 bd 03/11 11:47 Order name: CT Abdomen - Angio; Complete Time: 14:07 8 03/11 14:07 Interpretation: No acute disease. 03/11 11:53 Order name: Pelvis Angio; Complete Time: 14:07 EDMS 03/11 14:08 Interpretation: No acute disease. 03/11 12:24 Order name: SARS-COV-2 RT PCR; Complete Time: 12:26 EDSC 03/11 08:53 Order name: Cardiac monitoring; Complete Time: 09:22 03/11 08:53 Order name: EKG - Nurse/Tech; Complete Time: 09:22 4 03/11 08:53 Order name: IV Saline Lock; Complete Time: 09:22 03/11 08:53 Order name: Labs collected and sent; Complete Time: 4 03/11 08:53 Order name: O2 Per Protocol; Complete Time: 03/11 08:53 Order name: O2 Sat Monitoring; Complete Time: EC:17 Rate is 75 beats/min. Rhythm is regular. QRS [place] is Normal. NH interval is normal. QRS tw4 interval is normal. QT interval is normal. No Q waves. T waves are Normal. No ST changes noted. Clinical impression: NSR w/ Non-specific ST/T Changes. Interpreted by me. Reviewed by me. Administered Medications: No medications were administered Disposition: 03/11/20 12:38 Transfer ordered to [facility]. Diagnosis are Lower GI bleeding, Anemia, unspecified. - Reason for transfer: Higher level of care. - Accepting physician is Dr Pleitez. - Condition is Stable. - Problem is new. - Symptoms have improved. Signatures: Dispatcher [employer] [facility] Mayte Castro RN RN Pamela Brown RN RN Janes Delong, YAMILA PA jr8 Rush Flannery MD MD tw4 Corrections: (The following items were deleted from the chart) 11:35 11:05 CORONAVIRUS+.SALLY ordered. [facility] 17:10 12:38 03/11/2020 12:38 Transfer ordered to [facility]. sv Diagnosis is Lower GI bleeding; Anemia, unspecified. Reason for transfer: Higher level of care. Accepting physician is Dr Pleitez. Condition is Stable. Problem is new. Symptoms have improved. tw4
--- NOTE | 2020-03-11 12:42 | RAD REPORT ---
EXAM DESCRIPTION: CT - Pelvis Angio - 03/11/2020 12:24 pm CLINICAL HISTORY: BLEEDING, abdominal pain COMPARISON: Abdomen Angio dated 03/11/2020 TECHNIQUE: Axial 1.5 millimeter thick images of the pelvis obtained during a CT angio abdomen and pe lvis examination. The CT scan was performed using dose optimization techniques as appropriate to a performed exam incl uding one or more of the following: Automated exposure control, adjustment of the mA and/or kV accord ing to patient size (this includes techniques or standardized protocols for targeted exams where dose is matched to indication/reason for exam) and use of iterative reconstruction technique. FINDINGS: CT angio pelvis examination findings are incorporated into the CT angio abdomen report. IMPRESSION: Please see separate CT angio abdomen report for full abdomen and pelvis findings.
--- NOTE | 2020-03-11 12:50 | RAD REPORT ---
EXAM DESCRIPTION: CT - Abdomen Angio - 03/11/2020 12:24 pm CLINICAL HISTORY: bleeding;Abd pain TECHNIQUE: During dynamic enhancement using 100 milliliters nonionic IV contrast, axial 3 millimeter thick images of the abdomen were obtained. Axial 1.5 millimeter thick images were obtained through t he pelvis. The abdomen and pelvis findings are incorporated into this report. Sagittal and coronal re formatted images were generated and reviewed. All CT scans are performed using dose optimization technique as appropriate and may include automated exposure control or mA/KV adjustment according to patient size. COMPARISON: CT study February 29, 2020 FINDINGS: Minimal left pleural effusion is present with left base atelectasis. Heart size is upper normal. No pericardial effusion. The liver, spleen, pancreas, adrenal glands and kidneys show no suspicious findings. Cholecystectomy clips are present. No biliary tree dilatation. No dilated bowel loops or focal bowel wall thickening. Gastric bypass surgical changes are present. M ain body of the stomach is filled with fluid. Clip is present along the wall of the body stomach from prior site of bleeding Stomach is distended but not dilated. Gastric outlet obstruction not suspecte d. Bypass limbs of the bowel show no anastomosis stenosis or wall thickening. Mild sigmoid diverticul osis present. No hernia, mass or bulky lymphadenopathy findings. No free air or free fluid. Disc and bony degenerative changes are present. No acute or pathologic bone process identifiable. Distal thoracic aorta and abdominal aorta show no aneurysm. No aortic atherosclerotic calcifications are present. There is no dissection present. Single artery supply each kidney in show no suspicious f inding. Mild narrowing at the origin of the celiac artery is present not regarded as significant. No SMA or TIFFANY stenosis identified. No extravasation of contrast. No site of GI bleeding identifiable. Bilateral fat filled inguinal hernias are present. IMPRESSION: No acute GI bleed or extravasation of contrast material in the stomach or elsewhere on the examination. Main body of the stomach is distended by low-density material presumed to be fluid and food. No gastr ic outlet obstruction. Old hemorrhage within the stomach would be possible. No aortic aneurysm, dissection or stenosis. Mesenteric, renal and iliac vasculature also without susp icious finding.
[2020-03-11 17:21] VITALS: TEMP 98.4
[2020-03-11 17:29] VITALS: O2SAT 100
[2020-03-11 17:30] VITALS: BP 199/94
== END 2020-03-11 17:10 | disposition short-term general hospital (02) ==
LOC: ER 08:35
DX: D64.9 Anemia, unspecified (principal); Z20.822 Contact with and (suspected) exposure to COVID-19; I10 Essential (primary) hypertension; Z95.0 Presence of cardiac pacemaker
CPT/HCPCS: 85025; 80048; 36415; 86900; 83735; 86850; 85610; 86901; 80076; 81003; 84484; 83880; 72191; 74175; 99285; U0003; Q9967; 74174; 93005

== ENCOUNTER 2023-12-11 07:03 | Day surgery (SDC) | payer OTHER ==
[2023-11-24] MEDS: MORPHINE 4 MG/ML SYR ONE (10:44)
[2023-12-07 11:28] LABS: Absolute Basophils 0.1 K/uL (0-0.5); Absolute Eosinophils 0.2 K/uL (0-0.5); Absolute Lymphocytes (CBC) 1.8 K/uL (0.7-4.9); Absolute Monocytes 0.6 K/uL (0.1-1.3); Absolute Neutrophil 3.1 K/uL (1.8-8.0); Basophils % 1.2 % (0-1.3); Eosinophils % 3.1 % (0-4.4); Hematocrit 39.3 % (39.6-49.0); Hemoglobin 12.8 g/dL (13.6-17.9); Lymphocytes % 30.5 % (15.3-44.8); MCH 28.4 pg (27.0-35.0); MCHC 32.5 g/dL (32.0-36.0); MCV 87.6 fL (80-100); MPV 8.7 fL (7.6-11.3); Monocytes % 10.9 % (3.3-12.3); Neutrophils % 54.3 % (41.7-73.7); PT Prothrombin Time 10.9 SECONDS (9.4-12.5); Platelets 236 thou/uL (152-406); Protime INR 0.97; RBC Red Blood Cell Count 4.49 M/uL (4.33-5.43); Red Cell Distribution Width 14.7 % (12.1-15.2)
[2023-12-07 11:45] LABS: Anion Gap 8.1 mEq/L (5.0-15.0); Potassium 4.1 mEq/L (3.5-5.1)
[2023-12-11] MEDS ORDERED: Ringers Lactate 1,000 ML IV ONE (07:17)
[2023-12-11] MEDS ORDERED: KETOROLAC 30 MG/ML INJ ONE (08:02)
[2023-12-11] MEDS ORDERED: LIDOCAINE 1% MPF 5 ML VIAL ONE (08:02)
[2023-12-11] MEDS ORDERED: MIDAZOLAM HCL 2 MG/2 ML INJ ONE (08:02)
[2023-12-11] MEDS ORDERED: propofoL 200 MG/20 ML VIAL IV ONE (08:02)
[2023-12-11] MEDS ORDERED: FENTANYL CITR 100 MCG/2 ML ONE (08:02)
[2023-12-11] MEDS: CEFAZOLIN SODIUM 2 GM/VIAL ONE (09:25)
[2023-12-11] MEDS: MORPHINE 4 MG/ML SYR ONE ×2 (10:23→10:52)
--- NOTE | 2023-12-11 10:47 | P.OP ---
Date of Service: 12/11/23 Preoperative diagnoses: BPH with lower urinary tract obstruction and symptoms refractory to medical therapy Postoperative diagnosis: Same Principal procedures: Prostatic urethral lift/UroLift-5 implants used, 1 urethral end piece explanted Cystoscopy and fulguration Indication for procedure: 73-year-old gentleman with BPH with LUTS refractory to maximal medical therapy with Flomax 0.8 mg daily and finasteride. He underwent evaluation and was counseled on the potential benefit to surgical therapy and elected to proceed with the prostatic urethral lift. Procedure note: The patient was consented in the preoperative holding area before being transferred to the operative suite where general anesthesia was induced. He was given Ancef 2 g IV antimicrobial prophylaxis, and pneumoboots were provided for DVT prophylaxis. He was placed in the lithotomy position, padded and secured to the table appropriately. His genitalia was prepped with Hibiclens and he was draped in standard fashion. The case was begun using a 20 Maltese UroLift sheath and a visual obturator to traverse the urethra and navigate via the prostatic urethra into his bladder with ease. I then switched the visual obturator for the first UroLift implant delivery device and an implant. I targeted the patient's left bladder neck region first. I targeted and endeavored to place the first implant between the 2 to 3 o'clock position approximately 1.5 to 2 cm distal to the bladder neck opening on the patient's left side. I angled the scope 15 degrees against the tissue before pulling the trigger once to deploy the needle through the substance of the prostate. I then compressed the tissue an additional 15 degrees until it was maximally compressed. I then pulled the trigger a second time deploying the capsular tab and partially retracting the needle. A third pull of the trigger did completely retract the needle and began to tension the suture. I then advanced the scope back toward the midline and 2 to 3 mm toward the bladder neck opening at which point I pulled the trigger a fourth time when the white line of the monofilament was centered in the delivery bay. This did tailor the suture and deployed the urethral end piece which did nicely lateralized the tissue in that area. I then advanced the scope back into his bladder and switched the implant delivery device for a second implant. The second implant was targeted at the patient's bladder neck on the right side about 1.5 to 2 cm distal to the bladder neck opening. This was similarly targeted at around the 10 o'clock position contralaterally, and successfully placed using the steps mentioned above. I then placed a third implant at the level of the verumontanum but just at the proximal edge of it on the patient's left, since that is where the majority of the adenoma was observed. A fourth implant was placed directly at the level of the verumontanum and the mass of adenoma on the patient's right side. A beautiful anterior channel was seen; however, there was a slight degree of anterior overhang largely emanating from the patient's right side. As a result, I lifted that tissue and placed 1/5 implant in the mid zone between the apical and base implants on the patient's right side anteriorly at around the 11 o'clock position. Unfortunately, this implant did not seem to invaginate well into the tissue. As a result, I was concerned it would eventually erode; so I observed it. There was also some pulsatile bleeding coming from the tissue around that implant naturalist; so I switched the UroLift delivery device and scope for aid 22 Maltese rigid cystoscope and sterile water. I then used a rigid grasper to grasp the urethral end piece and remove it. The end piece came out without bringing the suture or capsular tab suggesting they were adequately placed. I then identified the arterial bleeding vessel and utilized a Bugbee electrode to fulgurate it until no further arterial bleeding was noted. At this point, I surveyed the channel created, and despite removing the urethral end piece, the tissue was still nicely retracted and a continuous anterior channel was visible from the verumontanum through and into the bladder neck with decompression occurring. As a result, I placed an 18 Maltese catheter into his bladder with ease and placed 30 cc of sterile water in the balloon. The drainage was only minimally pink to clear. The catheter was connected to a leg bag and he was taken out of the lithotomy position. He was then awakened from general anesthesia before being transferred to a stretcher. He was then transferred to the recovery room in good condition. Complications: None Discharge disposition: He will be standard UroLift pathway with follow-up in about 1 month.
[2023-12-11] MEDS ORDERED: TRAMADOL 37.5mg/APAP 325mg PER TAB PO ONE (10:56)
[2023-12-11] MEDS: HYDROMORPHONE HCL 1 MG/ML INJ ONE (11:15)
[2023-12-11] MEDS: HYDROCODONE/APAP 10/325 TAB ONE (11:54)
[2023-12-11 12:11] VITALS: BP 142/66; TEMP 97.7; O2SAT 97
[2023-12-11] MEDS ORDERED: PHENAZOPYRIDINE 100MG TAB PO ONE (13:03)
[2023-12-11] MEDS: PHENAZOPYRIDINE 100MG TAB PO ONE (13:06)
[2023-12-11] MEDS: ONDANSETRON 4 MG/2 ML VIAL ONE (13:23)
== END 2023-12-11 13:32 | disposition home or self-care (01) ==
LOC: OR 07:03
PROVIDERS: ATTEND Urology
PROC: 0T7D8DZ Dilation of Urethra with Intraluminal Device, Via Natural or Artificial Opening Endoscopic (ICD-10-PCS; principal; 2023-12-11 08:15)
DX: N40.1 Benign prostatic hyperplasia with lower urinary tract symptoms (principal); N13.8 Other obstructive and reflux uropathy
CPT/HCPCS: 87088; 85025; 87086; 80048; 36415; 85610; 52441; 52442 ×4; J2704; J2001; J2250; J3010; J1170; J2405; J7120